=== PATIENT | female | born 1940 | race Caucasian/White ===

== ENCOUNTER 2020-05-12 13:02 | Inpatient (IN) | payer OTHER ==
--- OUTSIDE RECORDS SUMMARY | 2020-05-12 13:05 | XMS REPORT | Clinical Summary ---
:1940 Author Organization [facility] Address [address] [place] [address] Care Team Providers Name Role Phone MD Carmelo Primary Care Provider Allergies Active Allergy Reactions Severity Noted Date Comments Codeine GI Intolerance 12/29/2015 vomitting Prochlorperazine Anxiety Low 12/29/2015 Makes pt ve ry agitated and "beligerent." Meperidine GI Intolerance 12/29/2015 vomiting Oxycodone GI Intolerance 12/29/2015 Vomiting Penicillins Rash High 12/29/2015 Medications Medication Sig Dispensed Refills Start Date End Date Status ondansetron (ZOFRAN) 4 Take 4 mg by 0 12/18/2015 Active MG tablet mouth every 8 (eight) hours as needed for nausea or vomiting. sucralfate (CARAFATE) 1 Take 1 g by mouth 0 Active gram tablet 2 (two) times a day. amLODIPine (NORVASC) 5 Take 5 mg by 3 07/14/2016 Active mg tablet mouth daily. pantoprazole (PROTONIX) Take 40 mg by 0 Active 40 MG EC tablet mouth 2 (two) times a day. potassium chloride Take 20 mEq by 0 Active (K-DUR) 20 MEQ CR mouth 2 (two) tablet times a day. Active Problems Problem Noted Date Perforation of duodenum 02/13/2020 Epigastric pain 02/13/2020 Overview: Added automatically from request for pilar deborah [id number] Gastrointestinal hemorrhage associated with duodenitis 02/13/2020 Overview: Added automatically from request for pilar deborah [id number] Ulcerative esophagitis 08/05/2018 Gastric ulcer due to Helicobacter pylori, unspecified ulcer chronicity 08/05/2018 GI bleed 08/04/2018 Acute kidney injury superimposed on chronic kidney dis ease 08/04/2018 Enteritis 08/04/2018 Electrolyte abnormality 08/04/2018 Neutrophilic leukocytosis 08/04/2018 Adjustment reaction with anxiety and depression 2016 CAD (coronary artery disease) 12/29/2016 Intractable vomiting 07/19/2016 Abdominal pain 03/19/2016 Nausea and vomiting 02/24/2016 Diarrhea 02/24/2016 Anemia due to GI blood loss 12/30/2015 Osteoarthritis 12/30/2015 UTI (urinary tract infection) 12/30/2015 Edema 12/29/2015 Encounters Date Type Specialty Care Team Description 05/10/2020 Telephone Gastroenterology Cheri Coronado MD 05/09/2020 Telephone Gastroenterology Litzy Erickson MA 05/07/2020 Telephone Gastroenterology Litzy Erickson MA 05/04/2020 Telephone Gastroenterology Aisha Saavedra RN 02/20/2020 Telephone Gastroenterology Cheri Coronado, Duodena l ulcer (Primary Dx); MD Pre-op testing 02/16/2020 Surgery Gastroenterology Cheri Coronado, EGDW/bx 02/16/2020 Anesthesia Event Gastroenterology Dhother, Polo Aranda MD 02/13/2020 [facility] Internal [facility] Perfora tion of duodenum (HCC) (Primary Dx); - Encounter Medicine MD Christiane Duodenitis; 02/17/2020 Grover Navarrete [employer] gr[employer] nd vomiting; O. Sr., Epigastric pain ; Nausea and vomi ting, intractability of vomiting not specified, unspecified vomiting type; Gastrointestina l hemorrhage associated with duodenitis; Upper GI bleed 02/13/2020 Travel after 05/12/2019 Immunizations Name Administration Dates Next Due FLUZONE QUAD PF 02/26/2016 Surgical History Surgery Date Site/Laterality Comments BACK SURGERY 09/11/19 C3-4, C5-6 & C6- 7 Anterior 16 cervical discect pastora & fusion, C3-4 Posterior f usion ESOPHAGOGASTRODUODENOSCOPY 03/21/20 N/A Proce dure: (EGD) 16 ESOPHAGOGASTRODU ODENOSCOPY (EGD); Surgeon: Cheri Coronado MD; Loca tion: [facility]; Serv ice: Gastroenterology ; Laterality: N/A; JOINT REPLACEMENT R knee replace ment APPENDECTOMY CHOLECYSTECTOMY SECTION ESOPHAGOGASTRODUODENOSCOPY N/A Proce dure: (EGD) 7 ESOPHAGOGASTRODU ODENOSCOPY (EGD)/bx; Surge on: Cheri Coronado MD; Loca tion: [facility]; Serv ice: Gastroenterology ; Laterality: N/A; FOOT SURGERY Left joint fusion ESOPHAGOGASTRODUODENOSCOPY 08/05/2018 N/A Proce dure: (EGD) ESOPHAGOGASTRODU ODENOSCOPY (EGD) @ BEDSIDE with Cold Bx and Brushings; Surgeon: Cheri Coronado MD; Location: [facility] EN DOSCOPY; Service: Gastroe nterology; Laterality: N/A; UPPER GASTROINTESTINAL 10/27/19 [place] Grade A reflux esophagitis. ENDOSCOPY 19 Lifetime PPI to prevent ulcer recurrence. 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 C3 -C6 Edentulous Full dentures top/bottom Family History Medical History Relation Name Comments Hearing loss Father Heart disease Maternal Grandmother Hearing loss Mother Heart disease Mother Relation Name Status Comments Father Maternal Grandmother Mother Social History Tobacco Use Types Packs/Day Years Used Date Former Smoker Cigarettes 1 30 Smokeless Tobacco: Former User Q uit: 1994 Alcohol Use Drinks/Week oz/Week Comments Yes 1 drink/month, " if that" Sex Assigned at Date Recorded Not on file Job Start Date Occupation Industry Not on file Not on file Not on file Last Filed Vital Signs Vital Sign Reading Time Taken Comments Blood Pressure 116/65 02/17/2020 11:30 AM INSULATION MACHINE OPERATOR Pulse 59 02/17/2020 11:30 AM INSULATION MACHINE OPERATOR Temperature 36.7 C (98.1 F) 02/17/2020 11:30 AM INSULATION MACHINE OPERATOR Respiratory Rate 18 02/17/2020 11:30 AM INSULATION MACHINE OPERATOR Oxygen Saturation 99% 02/17/2020 11:30 AM INSULATION MACHINE OPERATOR Inhaled Oxygen Concentration - - Weight 92.2 kg (203 lb 4.8 oz) 02/17/2020 5:51 AM INSULATION MACHINE OPERATOR Height 165.1 cm (5' 5") 02/13/2020 12:19 PM INSULATION MACHINE OPERATOR Body Mass Index 33.83 02/13/2020 12:19 PM INSULATION MACHINE OPERATOR Plan of Treatment Health Maintenance Due Date Last Done Comments COVID-19 VACCINE (1 of 2) 1956 SHINGLES VACCINES (#1) 12/23/1989 65+ PNEUMOCOCCAL VACCINE (1 of 1 - PPSV23) 12/23/2004 INFLUENZA VACCINE 11/05/2019 02/26/2016 Procedures Procedure Name Priority Date/Time Associated Comments Diagnosis HC COMPLETE BLD COUNT W/AUTO Routine 02/17/2020 Results for DIFF 4:25 AM INSULATION MACHINE OPERATOR this procedure are in the results section. ESTIMATED GFR Routine 02/17/2020 Results for 4:00 AM INSULATION MACHINE OPERATOR this procedure are in the results section. MAGNESIUM LEVEL Routine 02/17/2020 Results for 4:00 AM INSULATION MACHINE OPERATOR this procedure are in the results section. BASIC METABOLIC PANEL Routine 02/17/2020 Result s for 4:00 AM INSULATION MACHINE OPERATOR this procedure are in the results section. BLOOD CULTURE, AEROBIC & Routine 02/16/2020 Res ults for ANAEROBIC 10:05 PM INSULATION MACHINE OPERATOR this procedure are in the results section. BLOOD CULTURE, AEROBIC & Routine 02/16/2020 Res ults for ANAEROBIC 9:50 PM INSULATION MACHINE OPERATOR this procedure are in the results section. TRANSFUSE RED BLOOD CELLS Routine 02/16/2020 1:44 PM INSULATION MACHINE OPERATOR SURGICAL PATHOLOGY REQUEST Routine 02/16/2020 R esults for 10:01 AM INSULATION MACHINE OPERATOR this procedure are in the results section. HC COMPLETE BLD COUNT W/AUTO Routine 02/16/2020 Results for DIFF 7:36 AM INSULATION MACHINE OPERATOR this procedure are in the results section. ESOPHAGOGASTRODUODENOSCOPY 02/16/2020 Perforation of (EGD) 6:54 AM INSULATION MACHINE OPERATOR duodenum (HCC) Epigastric pain Nausea and vomiting, intractability of vomiting not specified, unspecified vomiting type Gastrointestinal hemorrhage associated with duodenitis ESTIMATED GFR Routine 02/16/2020 Results for 4:20 AM INSULATION MACHINE OPERATOR this procedure are in the results section. MAGNESIUM LEVEL Routine 02/16/2020 Results for 4:20 AM INSULATION MACHINE OPERATOR this procedure are in the results section. BASIC METABOLIC PANEL Routine 02/16/2020 Result s for 4:20 AM INSULATION MACHINE OPERATOR this procedure are in the results section. MAGNESIUM LEVEL Routine 02/16/2020 Results for 2:30 AM INSULATION MACHINE OPERATOR this procedure are in the results section. BASIC METABOLIC PANEL Routine 02/16/2020 Result s for 2:30 AM INSULATION MACHINE OPERATOR this procedure are in the results section. HC COMPLETE BLD COUNT W/AUTO Routine 02/16/2020 Results for DIFF 2:30 AM INSULATION MACHINE OPERATOR this procedure are in the results section. POC GLUCOSE Routine 02/15/2020 Results for 8:57 PM INSULATION MACHINE OPERATOR this procedure are in the results section. POC GLUCOSE Routine 02/15/2020 Results for 11:37 AM INSULATION MACHINE OPERATOR this procedure are in the results section. POC GLUCOSE Routine 02/15/2020 Results for 7:33 AM INSULATION MACHINE OPERATOR this procedure are in the results section. POC GLUCOSE Routine 02/15/2020 Results for 4:54 AM INSULATION MACHINE OPERATOR this procedure are in the results section. ESTIMATED GFR Routine 02/15/2020 Results for 12:30 AM INSULATION MACHINE OPERATOR this procedure are in the results section. LIPID PANEL Routine 02/15/2020 Results for 12:30 AM INSULATION MACHINE OPERATOR this procedure are in the results section. THYROID STIMULATING HORMONE Routine 02/15/2020 Results for 12:30 AM INSULATION MACHINE OPERATOR this procedure are in the results section. T4, FREE Routine 02/15/2020 Results for 12:30 AM INSULATION MACHINE OPERATOR this procedure are in the results section. BASIC METABOLIC PANEL Routine 02/15/2020 Result s for 12:30 AM INSULATION MACHINE OPERATOR this procedure are in the results section. HC COMPLETE BLD COUNT W/AUTO Routine 02/15/2020 Results for DIFF 12:30 AM INSULATION MACHINE OPERATOR this procedure are in the results section. POC GLUCOSE Routine 02/15/2020 Results for 12:27 AM INSULATION MACHINE OPERATOR this procedure are in the results section. POC GLUCOSE Routine 02/14/2020 Results for 9:30 PM INSULATION MACHINE OPERATOR this procedure are in the results section. POC GLUCOSE Routine 02/14/2020 Results for 6:21 PM INSULATION MACHINE OPERATOR this procedure are in the results section. POC GLUCOSE Routine 02/14/2020 Results for 12:44 PM INSULATION MACHINE OPERATOR this procedure are in the results section. POC GLUCOSE Routine 02/14/2020 Results for 8:15 AM INSULATION MACHINE OPERATOR this procedure are in the results section. POC GLUCOSE Routine 02/14/2020 Results for 6:19 AM INSULATION MACHINE OPERATOR this procedure are in the results section. POC GLUCOSE Routine 02/14/2020 Results for 1:23 AM INSULATION MACHINE OPERATOR this procedure are in the results section. ESTIMATED GFR Routine 02/14/2020 Results for 1:00 AM INSULATION MACHINE OPERATOR this procedure are in the results section. LACTIC ACID LEVEL Routine 02/14/2020 Results fo r 1:00 AM INSULATION MACHINE OPERATOR this procedure are in the results section. MAGNESIUM LEVEL Routine 02/14/2020 Results for 1:00 AM INSULATION MACHINE OPERATOR this procedure are in the results section. PHOSPHORUS LEVEL Routine 02/14/2020 Results for 1:00 AM INSULATION MACHINE OPERATOR this procedure are in the results section. HC COMPLETE BLD COUNT W/AUTO Routine 02/14/2020 Results for DIFF 1:00 AM INSULATION MACHINE OPERATOR this procedure are in the results section. BASIC METABOLIC PANEL Routine 02/14/2020 Result s for 1:00 AM INSULATION MACHINE OPERATOR this procedure are in the results section. POC GLUCOSE Routine 02/13/2020 Results for 8:59 PM INSULATION MACHINE OPERATOR this procedure are in the results section. LACTIC ACID LEVEL, SEPSIS - NOW Timed 02/13/2020 Results for AND REPEAT 2X EVERY 3 HOURS 7:48 PM INSULATION MACHINE OPERATOR this procedure are in the results section. LACTIC ACID LEVEL, SEPSIS - NOW Timed 02/13/2020 Results for AND REPEAT 2X EVERY 3 HOURS 4:14 PM INSULATION MACHINE OPERATOR this procedure are in the results section. GASTRIN LEVEL Routine 02/13/2020 Results for 4:03 PM INSULATION MACHINE OPERATOR this procedure are in the results section. COVID-19 QUALITATIVE PCR STAT 02/13/2020 Res ults for 2:40 PM INSULATION MACHINE OPERATOR this procedure are in the results section. CT ABDOMEN PELVIS WO CONTRAST STAT 02/13/2020 Results for 2:08 PM INSULATION MACHINE OPERATOR this procedure are in the results section. ECG ED PRELIMINARY Routine 02/13/2020 Results f or INTERPRETATION 1:37 PM INSULATION MACHINE OPERATOR this procedure are in the results section. [facility], E/M 30-74 Routine 02/13/2020 Results for MINUTES 1:37 PM INSULATION MACHINE OPERATOR this procedure are in the results section. PREPARE RBC STAT 02/13/2020 Results for 12:44 PM INSULATION MACHINE OPERATOR this procedure are in the results section. LACTIC ACID LEVEL STAT 02/13/2020 Results fo r 12:44 PM INSULATION MACHINE OPERATOR this procedure are in the results section. ESTIMATED GFR STAT 02/13/2020 Results for 12:44 PM INSULATION MACHINE OPERATOR this procedure are in the results section. LIPASE LEVEL STAT 02/13/2020 Results for 12:44 PM INSULATION MACHINE OPERATOR this procedure are in the results section. COMPREHENSIVE METABOLIC PANEL STAT 02/13/2020 Results for 12:44 PM INSULATION MACHINE OPERATOR this procedure are in the results section. TYPE AND SCREEN STAT 02/13/2020 Results for 12:44 PM INSULATION MACHINE OPERATOR this procedure are in the results section. PROTHROMBIN TIME WITH INR STAT 02/13/2020 Re sults for 12:44 PM INSULATION MACHINE OPERATOR this procedure are in the results section. HC COMPLETE BLD COUNT W/AUTO STAT 02/13/2020 Results for DIFF 12:44 PM INSULATION MACHINE OPERATOR this procedure are in the results section. ECG 12-LEAD STAT 02/13/2020 Results for 12:25 PM INSULATION MACHINE OPERATOR this procedure are in the results section. after 05/12/2019 Results CBC with platelet and differential (02/17/2020 4:25 AM INSULATION MACHINE OPERATOR)Only the most recent of6 resultswithin the time period is included. WBC 7.85 4.50 - 11.00 [facility] k/uL HOSPITAL RBC 3.68 (L) 4.20 - 5.50 [facility] m/uL [facility] HGB 10.0 (L) 12.0 - 16.0 [facility] g/dL [facility] HCT 33.3 (L) 37.0 - 47.0 % [facility] MCV 90.5 82.0 - 100.0 [facility] MCH 27.2 27.0 - 34.0 pg [facility] MCHC 30.0 (L) 31.0 - 37.0 [facility] g/dL [facility] RDW - SD 48.5 37.0 - 55.0 fL [facility] MPV 11.5 8.8 - 13.2 fL [facility] Platelet count 193 150 - 400 k/uL [facility] Nucleated RBC 0.00 /100 WBC [facility] Neutrophils 62.4 39.0 - 69.0 % [facility] Lymphocytes 20.0 (L) 25.0 - 45.0 % [facility] Monocytes 15.2 (H) 0.0 - 10.0 % [facility] Eosinophils 1.0 0.0 - 5.0 % [facility] Basophils 0.5 0.0 - 1.0 % [facility] Immature granulocytes 0.9Comment: 0.0 - 1.0 % [facility] "Immature HOSPITAL granulocytes" (promyelocytes , myelocytes, metamyelocytes ) Specimen Plasma Performing Organization Address City/State/ZIP Code Phon e Number [facility] DEPARTMENT OF PATHOLOGY AND [address] [place] [address] [phone] [address] Estimated GFR (02/17/2020 4:00 AM INSULATION MACHINE OPERATOR)Only the most recent of5 resultswithin the time period is included. Estimated GFR 48 (A) mL/min/1.73 [facility] Comment: m2 HOSPITAL Catergory Units Interpretation G1 >=90 Normal or high G2 60-89 Mildly decreased G3a 45-59 Mildly to moderately decreas ed G3b 30-44 Moderately to severely decre ased G4 15-29 Severely decreased G5 <15 Kidney failure The eGFR was calculated using the Chronic Kidney Disea se Epidemiology Collaboration (CKD-EPI) equation. Interpretation is based on recommendations of the National Kidney Foundation-Kidney Disease Outcomes Shun lity Initiative (NKF-KDOQI) published in 2014. Specimen Plasma Performing Organization Address [facility] Phon e Number [facility] DEPARTMENT OF PATHOLOGY AND [address] [place] [phone] Magnesium level (02/17/2020 4:00 AM INSULATION MACHINE OPERATOR)Only the most recent of4 resultswithin the time period is included. Pathologist Sig nature Magnesium 1.9 1.6 - 2.4 mg/dL [facility] [place] L Specimen Plasma Performing Organization Address City/[facility]/ZIP [facility] Phon e Number [facility] DEPARTMENT OF PATHOLOGY AND [address] [place] [address] [phone] [address] Basic metabolic panel (02/17/2020 4:00 AM INSULATION MACHINE OPERATOR)Only the most recent of5 results within the time period is included. Pathologist Sig nature Sodium 134 (L) 135 - 148 mEq/L [facility] Potassium 3.9 3.5 - 5.0 mEq/L [facility] Chloride 102 98 - 112 mEq/L [facility] CO2 25 24 - 31 mEq/L [facility] Anion gap 7@ANIO 7 - 15 mEq/L [facility] BUN 15 8 - 23 mg/dL [facility] Creatinine 1.08 (H) 0.50 - 0.90 mg/dL [facility] Glucose 118 (H) 65 - 99 mg/dL [facility] Calcium 8.0 (L) 8.8 - 10.2 mg/dL [facility] Specimen Plasma Performing Organization Address City/[facility] Phon e Number [facility] DEPARTMENT OF PATHOLOGY AND [address] [place] [address] [phone] [address] Blood culture, aerobic & anaerobic (02/16/2020 10:05 PM INSULATION MACHINE OPERATOR)Only the most recent of2 resultswithin the time period is included. Blood culture No growth after 5 days of incubation. [facility] isolate Comment: HOSPITAL Specimen Information Specimen Source: Blood Specimen Site: Antecubital, right Specimen Blood - Antecubital, right Performing Organization Address [facility] Phon e Number [facility] DEPARTMENT OF PATHOLOGY AND [address] [place] [address] [phone] [address] Transfuse RBC (02/16/2020 1:44 PM INSULATION MACHINE OPERATOR)Surgical pathology request (02/16/2020 10:01 AM INSULATION MACHINE OPERATOR) [facility] DEPARTMENT OF PATHOLOGY AND GENOMIC MEDICINE Surgical pathology See link below [facility] DEPARTMENT OF report for PDF Lab PATHOLOGY AND Report GENOMIC MEDICINE Result status This is Final [facility] DEPARTMENT OF Report for PATHOLOGY AND [id number] GENOMIC MEDICINE Specimen Performing Organization Address [facility] Phon e Number [facility] DEPARTMENT OF PATHOLOGY AND [address] [place] [phone] GENOMIC MEDICINE POC glucose (02/15/2020 8:57 PM INSULATION MACHINE OPERATOR)Only the most recent of12 resultswithin the time period is included. Pathologist Sig nature POC glucose 123 (H) 65 - 99 mg/dL [facility] Comment: HOSPITAL Rate Supervisor Name: Sherrill Richey Device ID: [id number] Chartable: [facility] Notified RN Specimen Blood Performing Organization Address [facility] Phon e Number [facility] DEPARTMENT OF PATHOLOGY AND [address] [place] [address] [phone] [address] Thyroid stimulating hormone (02/15/2020 12:30 AM INSULATION MACHINE OPERATOR) Pathologist Sig nature TSH 0.89 0.27 - 4.20 uIU/mL [facility] ITAL Specimen Plasma Performing Organization Address City/[facility] Phon e Number [facility] DEPARTMENT OF PATHOLOGY AND [address] [place] [address] [phone] [address] T4, free (02/15/2020 12:30 AM INSULATION MACHINE OPERATOR) Pathologist Sig nature T4, free 1.1 0.9 - 1.7 ng/dL [facility] [place] L Specimen Plasma Performing Organization Address [facility] Phon e Number [facility] DEPARTMENT OF PATHOLOGY AND [address] [place] [address] [phone] [address] Lipid panel (02/15/2020 12:30 AM INSULATION MACHINE OPERATOR) Cholesterol 112 <200 mg/dL [facility] Triglycerides 142 <150 mg/dL [facility] HDL cholesterol 32 (L) >40 mg/dL [facility] LDL cholesterol 63Comment: Result <100 mg/dL [facility] obtained by direct [facility] LDL measurement [facility] interpretation Comment: [facility] Total Cholesterol (mg/dL) HOSPIT [place] <200 Desirable 200-239 Borderline-high >=240 High Triglycerides (mg/dL) <150 Normal 150-199 Borderline-high 200-499 High >=500 Very high HDL Cholesterol (mg/dL) <40 Low (male) <40 Low (female) LDL Cholesterol (mg/dL) <100 Optimal 100-129 Near or above optimal 130-159 Borderline-high 160-189 High >=190 Very high Risk Catergories that modify LDL goals. Risk Catergories LDL goal (mg/d L) CHD and CHD risk equivalent <100 (10-year risk >20%) Multiple (2+) risk factors <130 (10-year risk =<20%) 0-1 risk factors <160 (<10-year risk) Defining levels of lipids in metabolic syndrome Triglycerides >=150 mg/dL HDL Cholesterol Men <40 mg /dL Women <40 mg/ dL Non-HDL cholesterol is a second target for therapy in persons with high triglycerides (>=200 mg/dL) Specimen Plasma Performing Organization Address City/[facility] Phon e Number [facility] DEPARTMENT OF PATHOLOGY AND [address] [place] [phone] Phosphorus level (02/14/2020 1:00 AM INSULATION MACHINE OPERATOR) Pathologist Sig nature Phosphorus 3.1 2.4 - 4.5 mg/dL [facility] [place] L Specimen Plasma Performing Organization Address [facility] Phon e Number [facility] DEPARTMENT OF PATHOLOGY AND [address] [place] [phone] Lactic acid level (02/14/2020 1:00 AM INSULATION MACHINE OPERATOR)Only the most recent of2 results within the time period is included. Pathologist Sig nature Lactic acid 1.1 0.5 - 2.2 mmol/L [facility] [place] Specimen Plasma Performing Organization Address [facility] Phon e Number [facility] DEPARTMENT OF PATHOLOGY AND [address] [place] [phone] Lactic acid level, SEPSIS - Now and repeat 2x every 3 hours (02/13/2020 7:48 PM INSULATION MACHINE OPERATOR)Only the most recent of2 resultswithin the time period is included. Pathologist Sig nature Lactic acid 1.3 0.5 - 2.2 mmol/L [facility] [place] Specimen Blood Performing Organization Address [facility] Phon e Number [facility] DEPARTMENT OF PATHOLOGY AND [address] [place] [phone] Gastrin level (02/13/2020 4:03 PM INSULATION MACHINE OPERATOR) Pathologist Sig nature Gastrin 183 (H) 0 - 100 pg/mL [facility] Comment: Performed By: [employer] [address] [place] [address] It Network Administrator: Ingrid Miller MD Specimen Serum Performing Organization Address [facility] Phon e Number [facility] [address] [place] [address] [facility] [address] [place] [address] COVID-19 qualitative PCR (02/13/2020 2:40 PM INSULATION MACHINE OPERATOR) Interpretation Negative results do not prec lude 2019-nCoV infection and should not be used as the sole basis for treatment or other patient management decisions. Negative results must be combined with clinical observations, patient history, and epidemiological IRONS information. [facility] COVID-19 qualitative Not-Detected Not-Detecte IRONS PCR result d [facility] COVID-19 qualitative See link below for IRONS PCR PDF Lab CHEONDOISM ReportComment: Case HOSPITAL Number: [id number] Specimen Nasopharyngeal swab Performing Organization Address City/State/ZIP Code Phon e Number [facility] DEPARTMENT OF PATHOLOGY AND [address] [place], [place] [address] GENOMIC MEDICINE [facility] [address] [place] [address] [facility] CT Abdomen Pelvis Wo Contrast (02/13/2020 2:08 PM INSULATION MACHINE OPERATOR) Specimen Narrative Performed At EXAMINATION: CT ABDOMEN PELVIS WO CONT RAST [facility] CLINICAL HISTORY: 79 years old Female. Abd pain unsp ecified, Abd pain gastroenteritis or colitis suspected. TECHNIQUE: Multiple axial images of the abdomen and pelvis were obtained without intravenous administration of iodinat ed contrast. Oral contrast was not administered. Sagittal and coronal co mputerized reformatted images were also obtained. T he lack of intravenous contrast reduces the sensitivity of detect ing solid organ disease. CT imaging was performed with iterative recon struction techniques and/or automated exposure con trol to reduce radiation dose. COMPARISON: CT abdomen pelvis 7 IMPRESSION: LOWER CHEST: Visualized lower thorax: Lung bases: No significant pleural effus ion. Lower mediastinum: Cardiac size is normal. No pericard ial effusion. Atherosclerotic calcification of the coronary arteri es. Aortic valve leaflet and mitral annular calcification s. ABDOMEN: Upper abdominal organs: Liver: Noncontrast appearance of the liver is normal. Measures 13.4 cm in craniocaudal dimension with a smooth contour. Gallbladder: Cholecystectomy. Spleen: Normal. Pancreas: Normal. Adrenal Glands: Mild thickening of the left adrenal gl and with normal adreniform morphology. Kidneys: 2 mm nonobstructive nephrolithiasis in the ri ght kidney inferior pole. No hydronephrosis. Bowel and mesentery: There is suggestion of mild wall thickening involving the second/third duodenal segment with adjac ent inflammatory fat stranding and hyperdense material within the lumen (series 301, image 81). There is a bubble of gas with in the wall of the duodenum (series 601B, image 49). Remainin g large and small bowel are normal in caliber. Diverticulosis of the joey cending and sigmoid colon. No free intraperitoneal g as or fluid. Vasculature: Abdominal aorta is of normal caliber. Mod erate atherosclerotic disease of the abdomin al aorta and branch vessels. Lymph nodes: No abdominal or retroperito aracelis lymphadenopathy. PELVIS: Urinary bladder: Normal. Lymph nodes: No pelvic lymphadenopathy. MUSCULOSKELETAL: No suspicious lytic or blastic osseous lesions. Ventra l abdominal hernia mesh repair postoperative changes. Age appropriate deg enerative changes of the spine. Chronic T11 superior endplate and T12 in ferior endplate compression fractures. Chronic T9 vertebral compression fracture. 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 SUMMARY: 1. Apparent wall thickening of the second/third duoden al segments with surrounding inflammatory fat stranding c oncerning for duodenitis. 2. Bubble of gas within the wall of the second/third d uodenal segment, likely early microperforation in the set ting of peptic ulcer disease. 3. High density intraluminal contents within the proxi mal duodenum, possibly intraluminal hemorrhage or ingested material. Correlation with endoscopy, if indicated clinically. Findings of suspected duodenitis with early microperfo ration were discussed by phone with Dr. Gregory by Dr. Curran at 02/13/2020 2:22 PM. [id number] Procedure Note Hm Interface, Radiology Results Incoming - 02/13/2020 2:27 PM INSULATION MACHINE OPERATOR EXAMINATION: CT ABDOMEN PELVIS WO CONTRAST CLINICAL HISTORY: 79 years old Female. A bd pain unspecified, Abd pain gastroenteritis or colitis suspected. TECHNIQUE: Multiple axial images of the abdomen and pelvis were obtained without intravenous administration of iodinated contrast. Oral contrast was not administered. Sagittal and coronal computerized reformatted images were also obtained. The lack of intravenous contrast reduces the sensiti vity of detecting solid organ disease. CT imaging was performed with iterative reconstruction techniques and/or automated exposure control to reduce radiation dose. COMPARISON: CT abdomen pelvis 12/28/2016 IMPRESSION: LOWER CHEST: Visualized lower thorax: Lung bases: No significant pleural effus ion. Lower mediastinum: Cardiac size is lópez l. No pericardial effusion. Atherosclerotic calcification of the coronary arteries. Aortic valve leaflet and mitral annular calcifications. ABDOMEN: Upper abdominal organs: Liver: Noncontrast appearance of the martin er is normal. Measures 13.4 cm in craniocaudal dimension with a smooth contour. Gallbladder: Cholecystectomy. Spleen: Normal. Pancreas: Normal. Adrenal Glands: Mild thickening of the l eft adrenal gland with normal adreniform morphology. Kidneys: 2 mm nonobstructive nephrolithi asis in the right kidney inferior pole. No hydronephrosis. Bowel and mesentery: There is suggestion of mild wall thickening involving the second/third duodenal segment with adjacent inflammatory fat stranding and hyperdense material within the lumen (series 301, image 81). There is a bubble of gas within the wall of the duodenum (series 601B, image 49). Remaining large and small bowel are normal in caliber. Diverticulosis of the descending and sigmoid colon. No free intraperitoneal gas or fluid. Vasculature: Abdominal aorta is of lópez l caliber. Moderate atherosclerotic disease of the abdominal aorta and branch vessels. Lymph nodes: No abdominal or retroperito aracelis lymphadenopathy. PELVIS: Urinary bladder: Normal. Lymph nodes: No pelvic lymphadenopathy. MUSCULOSKELETAL: No suspicious lytic or blastic osseous l esions. Ventral abdominal hernia mesh repair postoperative changes. Age appropriate degenerative changes of the spine. Chronic T11 superior endplate and T12 inferior endplate compression fractures. Chronic T9 vertebral compression fracture. Severe r ight and mild left hip osteoarthritis. SUMMARY: 1. Apparent wall thickening of the secon d/third duodenal segments with surrounding inflammatory fat stranding concerning for duodenitis. 2. Bubble of gas within the wall of the second/third duodenal segment, likely early microperforation in the setting of peptic ulcer disease. 3. High density intraluminal contents wi thin the proximal duodenum, possibly intraluminal hemorrhage or ingested material. Correlation with endoscopy, if indicated clinically. Findings of suspected duodenitis with ea rly microperforation were discussed by phone with Dr. Gregory by Dr. Curran at 02/13/2020 2:22 PM. [id number] Performing Organization Address City/State/ZIP Code [facility] e Number [facility] [address] [place] [address] ECG ED Preliminary Interpretation - Not an Order (02/13/2020 1:37 PM INSULATION MACHINE OPERATOR) Narrative Performed At Gonzalez Conner MD 0 11:34 AM ECG ED Preliminary Interpretation - Not an Order Performed by: Gonzalez Conner MD Authorized by: Gonzlaez Conner MD ECG reviewed by ED Physician in the abse nce of a accounts receivable associate: yes Previous ECG: Previous ECG: Unavailable Interpretation: Interpretation: abnormal Rate: ECG rate: 88 ECG rate assessment: normal Rhythm: Rhythm: sinus rhythm Ectopy: Ectopy: none QRS: QRS axis: Normal QRS intervals: Normal Conduction: Conduction: abnormal Abnormal conduction: complete RBBB ST segments: ST segments: Normal T waves: T waves: normal CRITICAL CARE (02/13/2020 1:37 PM INSULATION MACHINE OPERATOR) Narrative Performed At Gonzalez Conner MD 0 11:34 AM Critical Care Performed by: Gonzalez Conner MD Authorized by: Gonzalez Conner MD Critical care provider statement: Critical care time (minutes): 35 Critical care time was exclusive of: Separately b illable procedures and treating other patients and teaching louisa e Critical care was necessary to treat or prevent imminent or life-threatening deterioration of the fo llowing conditions: stomach perforatin. Critical care was time spent personal ly by me on the following activities: Development of treatment p richi with patient or surrogate, discussions with consultants, evaluation of patient's response to treatment, examination of patient, inter pretation of cardiac output measurements, obtaining history from pat ient or surrogate, ordering and performing treatments and interventions, ordering and review of laboratory studies, ordering and review of radiogra phic studies, pulse oximetry, re-evaluation of patient's condition and review of old charts Feng 'yes' if you are taking over critical care for this patient from another provider.: no Prothrombin time with INR (02/13/2020 12:44 PM INSULATION MACHINE OPERATOR) Prothrombin time 14.0 11.5 - 14.5 [facility] INR 1.1 IRONS Comment: [facility] International Normalized Ratio (INR) is a [facility] monitoring tool for patients who are stable on oral anticoagulant therapy. An INR of 2.0-3.0 is suggested for deep vein thrombosis/pulmonary embolism. Specimen Blood Performing Organization Address City/State/ZIP Code Phon e Number [facility] DEPARTMENT OF PATHOLOGY AND [address] [place], [place] [address] GENOMIC MED[address] [address] Prepare RBC, 1 Units (02/13/2020 12:44 PM INSULATION MACHINE OPERATOR) Product name Red Blood Cells IRONS -1, Leukored [facility] Unit number [id number] [facility] Product code [id number] [facility] Dispense status Transfused [facility] Blood expiration date [id number] [facility] Blood type code 9500 [facility] Blood type O NEGATIVE [facility] Compatibility Compatible [facility] Specimen Plasma Performing Organization Address City/[facility]/ZIP [facility] Phon e Number [facility] DEPARTMENT OF PATHOLOGY AND [address] [place] [address] [phone] [address] Type and screen (02/13/2020 12:44 PM INSULATION MACHINE OPERATOR) Pathologist Sig nature ABO grouping O [facility] Rh type POS [facility] Antibody screen (gel) NEG [facility] Specimen Plasma Performing Organization Address City/[facility] Phon e Number [facility] DEPARTMENT OF PATHOLOGY AND [address] [place] [address] [phone] [address] Lipase level (02/13/2020 12:44 PM INSULATION MACHINE OPERATOR) Pathologist Sig nature Lipase 9 (L) 13 - 60 U/L [facility] Specimen Plasma Performing Organization Address City/[facility] Phon e Number [facility] DEPARTMENT OF PATHOLOGY AND [address] [place] [address] [phone] [address] Comprehensive metabolic panel (02/13/2020 12:44 PM INSULATION MACHINE OPERATOR) Sodium 140 135 - 148 [facility] mEq/L [facility] Potassium 3.5 3.5 - 5.0 [facility] mEq/L [facility] Chloride 95 (L) 98 - 112 [facility] mEq/L [facility] CO2 28 24 - 31 mEq/L [facility] Anion gap 17@ANIO (H) 7 - 15 mEq/L [facility] BUN 43 (H) 8 - 23 mg/dL [facility] Creatinine 1.58 (H) 0.50 - 0.90 [facility] mg/dL [facility] Glucose 147 (H) 65 - 99 mg/dL [facility] Calcium 8.9 8.8 - 10.2 [facility] mg/dL HOSPITAL Protein 7.6 6.3 - 8.3 [facility] Comment: g/dL HOSPITAL - 4.6-7.0 g/dL 1 week 4.4-7.6 g/dL 7 months-1year 5.1-7.3 g/dL 1-2 years 5.6-7.5 g/dL >3 years 6.0-8.0 g/dL 18-150 6.3-8.3 g/dL Albumin 4.0 3.5 - 5.0 [facility] g/dL [facility] A/G ratio 1.1 0.7 - 3.8 [facility] Alkaline phosphatase 108 (H) 35 - 104 U/L [facility] AST 13 10 - 35 U/L [facility] ALT 11 5 - 50 U/L [facility] Total bilirubin 0.5 0.0 - 1.2 [facility] mg/dL HOSPITAL Specimen Plasma Performing Organization Address City/[facility] Phon e Number [facility] DEPARTMENT OF PATHOLOGY AND [address] [place] [phone] GENOMIC MEDICINE [facility] [address] [place] [address] ECG 12 lead (02/13/2020 12:25 PM INSULATION MACHINE OPERATOR) Pathologist Sig nature Ventricular rate 88 [facility]USE Atrial rate 88 [facility] MUSE VA interval 144 [facility]USE QRSD interval 134 [facility] QT interval 400 [facility] QTC interval 484 [facility] MUSE P axis 1 21 [facility] QRS axis 1 -70 [facility]USE T wave axis 67 [facility] EKG impression Normal sinus rhythm-Right bu ndle branch block-Left anterior fascicular block-^^^ Bifascicular block ^^^-Left ventricular hypertrophy with repolarization abnormality-Abnormal ECG-In automated comparison [facility] MUSE with ECG of 05-AUG-2018 05:47,-No significant change was found-Electronically Si gned By Leonidas Pulido MD ([id number]) on 02/13/2020 4:01:03 PM Specimen Narrative Performed At This result has an attachment that is no t available. Performing Organization Address City/[facility] Phon e Number [facility] [address] [place] [address] after 05/12/2019 Insurance Payer Benefit Plan / Subscriber ID Effective Dates Phone Addre ss Type Group MEDICARE MEDICARE PART A [id number] 2004-Present [place], [place] Medicare AND B AETNA AETNA MEDICARE [id number] 2019-Present Commercial SUPPLEMENT Advance Directives For more information, please contact: [phone] Type Date Recorded Patient Black Leather Buffer Explanati on Advance Directives, 08/08/2015 1:19 PM Living Will and Medical Power of Attorney Law Clerk Advance Directives, 09/11/2015 8:20 AM Living Will and Medical Power of Attorney Law Clerk Advance Directives, 11/05/2015 10:08 AM Living Will and Medical Power of Attorney Law Clerk Advance Directives, Living Will and Medical Power of Attorney Law Clerk Advance Directives, 12/28/2016 7:22 PM PT DOESN' T HAVE WITH Living Will and HER Medical Power of Attorney Law Clerk Code Status Date Activated Date Inactivated Comments Full Code 12/29/2016 2:36 AM 01/01/2017 4:09 PM Code Status decision reached by: Patient Full Code 07/19/2016 8:25 PM 07/21/2016 9:29 PM Code Status decision reached by: Patient Full Code 03/19/2016 12:27 AM 03/21/2016 4:18 PM Code Status decision reached by: Patient Full Code 02/24/2016 3:01 PM 02/27/2016 1:51 PM Code Status decision reached by: Patient Full Code 12/29/2015 2:19 PM 01/02/2016 3:08 PM Code Status decision reached by: Patient
--- OUTSIDE RECORDS SUMMARY | 2020-05-12 13:06 | XMS REPORT | Continuity of Care Document ---
:1940 Author Organization [facility] t Address [address] [place] [address] Care Team Providers Name Role Phone Carmelo LO Primary Care Physician Cliff LO, L. Attending Clinician Dre GARDNER Attending Clinician Unavailable Quentin NICOLE Attending Clinician Unavailable Nancy NICOLE, A Attending Clinician Unavailable Yunier LO Attending Clinician Santino LO, Mindy Attending Clinician Santino LO Attending Clinician Anton LO Attending Clinician Antonino Atkins MD Attending Clinician Chantel LO, Rolando Attending Clinician Dalila LO, [facility] Attending Clinician Terrance LO, ODaniel Attending Clinician Lokesh LO, Manoj Attending Clinician Santino LO, Mindy Admitting Clinician TERRANCE Admitting Clinician Unavailable Payers Payer Name Policy Type Policy Effective Date Expiration Date Sour ce Number MEDICAREMEDICARE PART [id number] 2004 Tonio Mak AND 00:00:00 Rastafari [id number] 2004- [facility] AETNAAETNA MEDICARE [id number] 2019 [place] [id number] 00:00:00 Met clark /04/2019-Urbano sanchez Problems Condition Condition Condition Status Onset Resolution Last Treating Co mments Source Name Details Category Date Date Treatment Clinician Date Perforatio Perforatio Disease Active 2019-04 H yaa n of n of 04-14 Methodi duodenum duodenum 00:00: st 00 Epigastric Epigastric Disease Active 2019-04 Overview : [place] pain pain 04-14 Added Methodi 00:00: automatic st 00 ally from request for surgery [id number] Gastrointe Gastrointe Disease Active 2019-04 Overview : [place] stinal stinal 04-14 Added Methodi hemorrhage hemorrhage 00:00: automatic st associated associated 00 ally from with with request duodenitis duodenitis for surgery [id number] 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 08-05 Me thodi s s 00:00: st 00 Gastric Gastric Disease Active [place] ulcer due ulcer due 08-05 Meth evan to to 00:00: st Helicobact Helicobact 00 er pylori, er pylori, unspecifie unspecifie d ulcer d ulcer chronicity chronicity GI bleed GI bleed Disease Active [place] 08-04 Methodi 00:00: st 00 Acute Acute Disease Active [place] kidney kidney 08-04 Methodi injury injury 00:00: st superimpos superimpos 00 ed on ed on chronic chronic kidney kidney disease disease Enteritis Enteritis Disease Active Juan Alberto ston 08-04 Methodi 00:00: st 00 Electrolyt Electrolyt Disease Active H yaa e e 08-04 Methodi abnormalit abnormalit 00:00: st y y 00 Neutrophil Neutrophil Disease Active H yaa ic ic 08-04 Methodi leukocytos leukocytos 00:00: st is is 00 Adjustment Adjustment Disease Active H yaa reaction reaction 01-01 Method i with with 00:00: st anxiety anxiety 00 and and depression depression CAD CAD Disease Active [place] (coronary (coronary 12-29 Meth evan artery artery 00:00: st disease) disease) 00 Intractabl Intractabl Disease Active [place] e vomiting e vomiting 4-15 Me thodi 00:00: st 00 Abdominal Abdominal Disease Active 2015-04 Juan Alberto ston pain pain 2-14 Methodi 00:00: st 00 Nausea and Nausea and Disease Active 2015-04 [place] vomiting vomiting 1-20 Method i 00:00: st 00 Diarrhea Diarrhea Disease Active 2015-04 [place] 1-20 Methodi 00:00: st 00 Anemia due Anemia due Disease Active [place] to GI to GI 12-29 Methodi blood loss blood loss 00:00: st 00 Osteoarthr Osteoarthr Disease Active [place] itis itis 12-29 Methodi 00:00: st 00 UTI UTI Disease Active [place] (urinary (urinary 12-29 Method i tract tract 00:00: st infection) infection) 00 Edema Edema Disease Active [place] 12-28 Methodi 00:00: st 00 Allergies, Adverse Reactions, Alerts Allergy Allergy Status Severity Reaction(s) Onset Inactive Treating Comm ents Source Name Type Date Date Clinician Codeine Propensi Active GI vomitting [place] ty to Intolerance 12-28 Metho di adverse 00:00: st reaction 00 s to drug Prochlor Propensi Active Anxiety Makes pt Juan Alberto ston perazine ty to 12-28 very Methodi adverse 00:00: agitated st reaction 00 and s to "beligere drug nt." Meperidi Propensi Active GI vomiting [place] ty to Intolerance 12-28 Metho di adverse 00:00: st reaction 00 s to drug Oxycodon Propensi Active GI Vomiting [place] ty to Intolerance 12-28 Metho di adverse 00:00: st reaction 00 s to drug Penicill Propensi Active Rash [place] ins ty to 12-28 Methodi adverse 00:00: st reaction 00 s to drug Family History Family Member Diagnosis Comments Start Date Stop Date Source Natural father Hearing loss [place] Rastafari Maternal grandmother Heart disease H yaa Rastafari Natural mother Hearing loss [place] Rastafari Natural mother Heart disease [place] Rastafari Social History Social Habit Start Date Stop Date Quantity Comments Source History of tobacco Cigarette Smoker [place] use Rastafari Sex Assigned At [place] Rastafari Cigarettes smoked 2020-02-17 2020-02-17 [place] current (pack per 00:00:00 00:00:00 Methodi ) - Reported Cigarette 2020-02-17 2020-02-17 [place] pack-years 00:00:00 00:00:00 Rastafari Tobacco use and 2020-02-17 2020-02-17 Former user [place] exposure 00:00:00 00:00:00 Rastafari Alcohol intake 2020-02-17 2020-02-17 Current drinker [place] 00:00:00 00:00:00 of alcohol Rastafari (finding) Alcohol Comment 2016-07-19 2016-07-19 1 drink/month, [place] 00:00:00 00:00:00 "if that" Rastafari Smoking Status Start Date Stop Date Source Former smoker 2020-02-17 00:00:00 2020-02-17 00:00:00 [place] Rastafari Medications Ordered Filled Start Stop Current Ordering Indication Dosage Frequency Signature Comments Components Source Medication Medication Date Date Medication? Clinician (SIG) Name Name sucralfate 2019-04 Yes 1g Q.5D Take 1 g Juan Alberto ston (CARAFATE) 1-13 by mouth 2 Met hodi 1 gram 15:42: (two) st tablet 05 times a day. pantoprazol 2019-04 Yes 40mg Q.5D Take 40 mg Norris e 1-13 by mouth 2 Methodi (PROTONIX) 15:42: (two) st 40 MG EC 05 times a tablet day. potassium 2019-04 Yes 20meq Q.5D Take 20 [place] chloride 1-13 mEq by Methodi (K-DUR) 20 15:42: mouth 2 st MEQ CR 05 (two) tablet times a day. amLODIPine Yes 5mg QD Take 5 mg [place] (NORVASC) 5 4-10 by mouth Meth evan mg tablet 00:00: daily. st 00 ondansetron Yes 4mg Q8H Take 4 mg [place] (ZOFRAN) 4 9-13 by mouth Metho di MG tablet 00:00: every 8 st 00 (eight) hours as needed for nausea or vomiting. Immunizations Ordered Immunization Filled Immunization Date Status Commen ts Source Name Name FLUZOGIORGIO JACQUES PF 2016-02-26 Completed [place] 00:00:00 Rastafari Vital Signs Vital Name Observation Time Observation Value Comments Source Systolic blood 2020-02-17 11:30:11 116 mm[Hg] Douglas n Rastafari pressure Diastolic blood 2020-02-17 11:30:11 65 mm[Hg] [place] Rastaf[place] pressure Heart rate 2020-02-17 11:30:11 59 /min [place] Rastafari Body temperature 2020-02-17 11:30:11 36.72 Sandra [place]astaf[place] Respiratory rate 2020-02-17 11:30:11 18 /min [place]ast[place] Oxygen saturation in 2020-02-17 11:30:11 99 /min [place] Rastafari Arterial blood by Pulse oximetry Body weight 2020-02-17 05:51:00 92.216 kg [place] Rastafari BMI 2020-02-17 05:51:00 33.83 kg/m2 [place] Rastafari Body height 2020-02-13 12:19:00 165.1 cm [place] Rastafari Procedures Procedure Date / Time Performing Source Performed Clinician HC COMPLETE BLD COUNT W/AUTO DIFF 2020-02-17 Sera Navarrete in [place] 04:25:00 O. Rastafari BASIC METABOLIC PANEL 2020-02-17 Terrance [facility] 04:00:00 O. Rastafari MAGNESIUM LEVEL 2020-02-17 Chely Miranda [place] 04:00:00 K. Rastafari [facility]IM[facility] Rastaf[facility] BLOOD CULTURE, AEROBIC & ANAEROBIC 2020-02-16 Hanna Henderson [place] 22:05:00 Rastafari BLOOD CULTURE, AEROBIC & ANAEROBIC 2020-02-16 Hanna Henderson Nroris 21:50:00 Rastafari TRANSFUSE RED BLOOD CELLS 2020-02-16 Dee Dee Navarrete on 13:44:37 O. Rastafari SURGICAL PATHOLOGY REQUEST 2020-02-16 Dee Dee Navarrete 10:01:00 O. Rastafari HC COMPLETE BLD COUNT W/AUTO DIFF 2020-02-16 Sera Navarrete in [place] 07:36:00 O. Rastafari ESOPHAGOGASTRODUODENOSCOPY (EGD) 2020-02-16 Cheri Coronado 06:54:00 Rastafari BASIC METABOLIC PANEL 2020-02-16 [facility] 04:20:00 O. Rastafari MAGNESIUM LEVEL 2020-02-16 Terrance [facility] 04:20:00 O. Rastafari ESTIMATED GFR 2020-02-16 [facility] 04:20:00 O. Rastafari HC COMPLETE BLD COUNT W/AUTO DIFF 2020-02-16 Sera Navarrete in [place] 02:30:00 O. Rastafari BASIC METABOLIC PANEL 2020-02-16 [facility] 02:30:00 O. Rastafari MAGNESIUM LEVEL 2020-02-16 [facility] 02:30:00 O. Rastafari POC GLUCOSE 2020-02-15 [facility] 20:57:00 O. Rastafari POC GLUCOSE 2020-02-15 [facility] 11:37:00 O. Rastafari POC GLUCOSE 2020-02-15 [facility] 07:33:00 O. Rastafari POC GLUCOSE 2020-02-15 [facility] 04:54:00 O. Rastafari HC COMPLETE BLD COUNT W/AUTO DIFF 2020-02-15 [place], Aust in [place] 00:30:00 O. Rastafari BASIC METABOLIC PANEL 2020-02-15 [facility] 00:30:00 O. Rastafari T4, FREE 2020-02-15 [facility] 00:30:00 O. Rastafari THYROID STIMULATING HORMONE 2020-02-15 [facility] Juan Alberto ston 00:30:00 O. Rastafari LIPID PANEL 2020-02-15 [facility] 00:30:00 O. Rastafari ESTIMATED GFR 2020-02-15 [facility] 00:30:00 O. Rastafari POC GLUCOSE 2020-02-15 [facility] 00:27:00 O. Rastafari POC GLUCOSE 2020-02-14 [facility] 21:30:00 O. Rastafari POC GLUCOSE 2020-02-14 [facility] 18:21:00 O. Rastafari POC GLUCOSE 2020-02-14 [facility] 12:44:00 O. Rastafari POC GLUCOSE 2020-02-14 [facility] 08:15:00 O. Rastafari POC GLUCOSE 2020-02-14 [facility] 06:19:00 O. Rastafari POC GLUCOSE 2020-02-14 [facility] 01:23:00 O. Rastafari BASIC METABOLIC PANEL 2020-02-14 [facility] 01:00:00 O. Rastafari HC COMPLETE BLD COUNT W/AUTO DIFF 2020-02-14 [place] [place] in [place] 01:00:00 O. Rastafari PHOSPHORUS LEVEL 2020-02-14 [facility] 01:00:00 O. Rastafari MAGNESIUM LEVEL 2020-02-14 [facility] 01:00:00 O. Rastafari LACTIC ACID LEVEL 2020-02-14 [facility] 01:00:00 O. Rastafari ESTIMATED GFR 2020-02-14 [facility] 01:00:00 O. Rastafari POC GLUCOSE 2020-02-13 [facility] 20:59:00 O. Rastafari LACTIC ACID LEVEL, SEPSIS - NOW 2020-02-13 Conner, Valery-Christiane [place] AND REPEAT 2X EVERY 3 HOURS 19:48:00 Christiane Meth odist LACTIC ACID LEVEL, SEPSIS - NOW 2020-02-13 Conner, Valery-Christiane [place] AND REPEAT 2X EVERY 3 HOURS 16:14:00 [facility] Meth odist GASTRIN LEVEL 2020-02-13 Jesus Feldman [place] 16:03:00 Wolf Rastafari COVID-19 QUALITATIVE PCR 2020-02-13 Conner, Valery-Christiane [place] 14:40:00 [facility] Rastafari CT ABDOMEN PELVIS WO CONTRAST 2020-02-13 Conner, Valery-Christiane [place] 14:08:39 [facility] Rastafari DC CRITICAL CARE, E/M 30-74 2020-02-13 Conner, Valery-Christiane Juan Alberto ston MINUTES 13:37:23 [facility] Rastafari ECG ED PRELIMINARY INTERPRETATION 2020-02-13 Conner, Valery-A nh [place] 13:37:23 [facility] Rastafari HC COMPLETE BLD COUNT W/AUTO DIFF 2020-02-13 Vinnie Brasher 12:44:00 Rastafari PROTHROMBIN TIME WITH INR 2020-02-13 Hayden Brasher Juan Alberto ston 12:44:00 Rastafari TYPE AND SCREEN 2020-02-13 Hayden Brasher 12:44:00 Rastafari COMPREHENSIVE METABOLIC PANEL 2020-02-13 Hayden Brasher 12:44:00 Rastafari LIPASE LEVEL 2020-02-13 Hayden Brasher 12:44:00 Rastafari ESTIMATED GFR 2020-02-13 Hayden Brasher 12:44:00 Rastafari LACTIC ACID LEVEL 2020-02-13 Hayden Brasher 12:44:00 Rastafari PREPARE RBC 2020-02-13 [facility] 12:44:00 O. Rastafari ECG 12-LEAD 2020-02-13 Hayden Brasher 12:25:23 Rastafari Plan of Care Planned Activity Planned Date Details Comments Source Future Scheduled 2019-11-05 INFLUENZA VACCINE [place]at[place] Rastafari Test 00:00:00 [code = INFLUENZA VACCINE] Future Scheduled 2004-12-23 65+ PNEUMOCOCCAL [place] Rastafari Test 00:00:00 VACCINE (1 of 1 - PPSV23) [code = 65+ PNEUMOCOCCAL VACCINE (1 of 1 - PPSV23)] Future Scheduled 1989-12-23 SHINGLES VACCINES (#1) [facility] Rastafari Test 00:00:00 [code = SHINGLES VACCINES (#1)] Future Scheduled 1956 COVID-19 VACCINE (1 of H [facility] Rastafari Test 00:00:00 2) [code = COVID-19 VACCINE (1 of 2)] Encounters Start End Encounter Admission Attending Care Care Encounter Source Date/Time Date/Time Type Type Clinicians Facility Department ID 2020-04-18 2020-04-18 Transition Owen Cruz [id number] 00:00:00 00:00:00 of Care Calvin Worthington [id number] [place] [id number] 2020-04-07 2020-04-17 [facility] Yunier Jhonnyzia Mao [id number] 10:01:00 21:23:00 Encounter Harry De [id number] [facility] [id number] Carlos Walton [id number] Hamilton Atkins 099 Rasta Golden 2020-02-13 2020-02-17 Inpatient [facility] [id number] [place] 00:00:00 00:00:00 DEE DEE [address] Results Test Description Test Time Test Comments Results Result Comments Source Blood culture, aerobic & anaerobic 2020-02-21 23:03:13 Test Item Value Reference Range Interpretation Comme nts Blood culture isolate No growth after 5 days of Specimen InformationSpecimen (test code = 600-7) incubation. Source: BloodSpecimen Site: Antecubital, ri ght [facility] [id number] 11:58:51 Test Item Value Reference Range Interpretation Comments Case number (test code = [id number]) Surgical pathology See link below for report (test code = PDF Lab Report [id number]) Result status (test code This is Final Report = [id number]) for [id number] [place] MethodistBasic metabolic [id number] 05:18:57 Test Item Value Reference Range Interpretation Comments Sodium (test code = 2951-2) 134 135- 148 mEq/L L Potassium (test code = 2823-3) 3.9 3.5- 5.0 mEq/L Chloride (test code = 2075-0) 102 98- 112 mEq/L CO2 (test code = 2027-9) 25 24- 31 mEq/L Anion gap (test code = 78267-1) 7@ANIO 7- 15 mEq/L BUN (test code = 3094-0) 15 mg/dL 8-23 Creatinine (test code = 2160-0) 1.08 mg/dL 0.5-0.9 H Glucose (test code = 2345-7) 118 mg/dL 65-99 H Calcium (test code = 05816-6) 8.0 mg/dL 8.8-10.2 L Lab Interpretation (test code = Abnormal 73204-0) [place] MethodistMagnesium [id number] 05:17:19 Test Item Value Reference Range Interpretation Comments Magnesium (test code = 67608-2) 1.9 mg/dL 1.6-2.4 [place] MethodistEstimated [id number] 05:17:10 Test Item Value Reference Range Interpretation Comments Estimated GFR (test 48 mL/min/1.73 m2 Aubree wise Units code = 5488) InterpretationG 1 >=90 Kelly l or highG2 60-89 Mildly decrease dG3a 45-59 Mil dly to moderately decr oaycjY3l 30-44 Moderately to s everely decreasedG4 15-29 Severe ly decreasedG5 <15 Kidney mansoor lureThe eGFR was calcul ated using the Chron ic Kidney Disease Epidemiology Collaboration ( CKD-EPI) equation. Interpretation is based on recommendati ons of the National Ki dney [facility]-Kidn ey Disease Outcome s Quality Initiat ike (NKF-KDOQI) pub lished in 2013. Lab Interpretation Abnormal (test code = 30794-3) [place] MethodistCB with platelet and [id number] 04:59:27 Test Item Value Reference Range Interpretation Comments WBC (test code = 31967-6) 7.85 4.50- 11.00 k/uL RBC (test code = 52502-8) 3.68 m/uL 4.2-5.5 L HGB (test code = 718-7) 10.0 g/dL 12-16 L HCT (test code = 4544-3) 33.3 % 37-47 L MCV (test code = 787-2) 90.5 fL 82-100 MCH (test code = 785-6) 27.2 pg 27-34 MCHC (test code = 786-4) 30.0 g/dL 31-37 L RDW - SD (test code = 48.5 fL 37-55 29522-6) MPV (test code = 92946-8) 11.5 fL 8.8-13.2 Platelet count (test code 193 150- 400 k/uL = 63193-0) Nucleated RBC (test code 0.00 /100 WBC = 16481-3) Neutrophils (test code = 62.4 % 39-69 95406-7) Lymphocytes (test code = 20.0 % 25-45 L 30086-1) Monocytes (test code = 15.2 % 0-10 H 08440-4) Eosinophils (test code = 1.0 % 0-5 69676-4) Basophils (test code = 0.5 % 0-1 05087-7) Immature granulocytes 0.9 % 0-1 "Immat ure (test code = 06948-4) granul ocytes" (promyelocytes, myelocytes, metamyelocytes) Lab Interpretation (test Abnormal code = 47934-0) Jr MethodistPrepare RBC, 1 [id number] 10:08:00 Test Item Value Reference Range Interpretation Comments Product name (test code Red Blood Cells -1, = 25) Leukored Unit number (test code [id number] = [id number]) Product code (test code [id number] = 3092) Dispense status (test Transfused code = 24) Blood expiration date (test code = 302) Blood type code (test 9500 code = 308) Blood type (test code = O NEGATIVE 1314) Compatibility (test Compatible code = 6400) [place] RastafariPOC [id number] 21:01:31 Test Item Value Reference Range Interpretation Comments POC glucose (test code = 123 mg/dL 65-99 H Ope rator Name: 05974-9) Sherrill Lockhartice ID: [id number] able : [facility] Notified coat padder Interpretation (test Abnormal code = 10875-0) [place] MethodistGastrin [id number] 18:11:12 Test Item Value Reference Range Interpretation Comments Gastrin (test code = 183 pg/mL 0-100 H Perform ed By: JALEN 2333-3) [address] [place] [address] [id number] Director: Ingrid Miller MD Lab Interpretation (test Abnormal code = 99378-0) [place] MethodistT4, [id number] 01:35:28 Test Item Value Reference Range Interpretation Comments T4, free (test code = 3024-7) 1.1 ng/dL 0.9-1.7 [place] MethodistThyroid stimulating [id number] 01:35:28 Test Item Value Reference Range Interpretation Comments TSH (test code = 3016-3) 0.89 0.27- 4.20 uIU/mL [place] MethodistLipid [id number] 01:30:35 Test Item Value Reference Interpretation Comments Range Cholesterol (test 112 mg/dL <200 code = 2093-3) Triglycerides (test 142 mg/dL <150 code = 2571-8) HDL cholesterol 32 mg/dL >40 L (test code = 2085-9) LDL cholesterol 63 mg/dL <100 Result obtai salvador by direct (test code = 2089-1) LDL tremayne surement Lipid panel SeeBelow Total Cholester ol (mg/dL) interpretation (test < 200 code = 19901-3) Desirable 200-239 Borderline -high >=240 Hi gh Triglyceri joey (mg/dL) <150 No rmal 150-199 Borderline-high 200-499 High >=500 Very high HDL Choles terol (mg/dL) <40 Low (male) < 40 Low (female) L DL Cholesterol (mg /dL) <100 Optimal 1 00-129 Near or above o ptimal 130-159 Borderline-high 160-189 High >=190 Very high Risk Cat ergories that modify LDL goals.Risk Catergories LDL goal (mg/dL )CHD and CHD risk equiva lent <100 (10-year risk >20%)Multiple ( 2+) risk factors < 130 (10-year risk = <20%)0-1 risk factors <160 (<10-ye ar risk) Defining levels of lipids in metabolic syndromeTriglyc erides > =150 mg/dLHDL Choles terol Men <40 mg/dL Women <40 mg/dL Non-HDL cholest magan is a second target f or therapy in personswith high triglycerides ( >=200 mg/dL) Lab Interpretation Abnormal (test code = 30280-5) [place] MethodistPhosphorus [id number] 01:38:47 Test Item Value Reference Range Interpretation Comments Phosphorus (test code = 2777-1) 3.1 mg/dL 2.4-4.5 [place] MethodistLactic acid [id number] 01:32:37 Test Item Value Reference Range Interpretation Comments Lactic acid (test code = 01875-8) 1.1 mmol/L 0.5-2.2 [place] MethodistCOVID-19 qualitative [id number] 21:33:50 Test Item Value Reference Range Interpretation Comments Interpretation (test Negative results do code = 8259154) not preclude 2019-nCoV infection and should not be used as the sole basis for treatment or other patient management decisions. Negative results must be combined with clinical observations, patient history, and epidemiological information. COVID-19 qualitative Not-Detected Not-Detected PCR result (test code = 41926-9) COVID-19 qualitative See link below for C ase Number: PCR (test code = PDF Lab Report [id number]) [place] MethodistLactic acid level, SEPSIS - Now and repeat 2x every 3 hours 2020-02-13 20:42:19 Test Item Value Reference Range Interpretation Comments Lactic acid (test code = 46626-2) 1.3 mmol/L 0.5-2.2 [place] MethodistECG 12 [id number] 16:01:06 Test Item Value Reference Range Interpretation Comments Ventricular rate 88 (test code = 253) Atrial rate (test 88 code = 255) DC interval (test 144 code = 266) QRSD interval (test 134 code = 260) QT interval (test 400 code = 264) QTC interval (test 484 code = 265) P axis 1 (test code = 21 267) QRS axis 1 (test code -70 = 268) T wave axis (test 67 code = 270) EKG impression (test Normal sinus code = 273) rhythm-Right bundle branch block-Left anterior fascicular block-^^^ Bifascicular block ^^^-Left ventricular hypertrophy with repolarization abnormality-Abnormal ECG-In automated comparison with ECG of 05-AUG-2018 05:47,-No significant change was found- [place] MethodistType and [id number] 14:48:00 Test Item Value Reference Range Interpretation Comments ABO grouping (test code = 883-9) O Rh type (test code = 48690-7) POS Antibody screen (gel) (test code = NEG 890-4) [place] MethodistCT Abdomen Pelvis Wo [id number] 14:24:04Hm Interface, Radiology Results - 02/13/2020 2:27 PM CSTEXAMINATION: CT ABDOMEN PELVIS WOCONTRASTCLINICAL HISTORY: 79 years old Female. Abd pain unspecified, Abd pain gastroenteritis or colitis suspected.TECHNIQUE: Multiple axial images of the abdomen and pelvis were obtained without intravenous administration of iodinated contrast. Oral contrast was not administered. Sagittal and coronal computerized reformatted images were also obtained. The lack of intravenous contrast reduces the sensitivity of detecting solid organ disease. CT imaging was performed with iterative reconstruction techniques and/or automated exposure control to reduce radiation dose. COMPARISON: CT abdomen pelvis 12/28/2016IMPRESSION:LOWER CHEST:Visualized lower thorax:Lung bases: No significant pleural effusion.Lower mediastinum: Cardiac size is normal. No pericardial effusion. Atherosclerotic calcification of the coronary arteries. Aortic valve leaflet and mitral annular calcifications.ABDOMEN:Upper abdominal organs: Liver: Noncontrast appearance of the liver is normal. Measures 13.4 cm in craniocaudal dimension with a smooth contour. Gallbladder: Cholecystectomy. Spleen: Normal.Pancreas: Normal.Adrenal Glands: Mild thickening of the left adrenal gland with normal adreniform morphology.Kidneys: 2 mm nonobstructive nephrolithiasis in the right kidney inferior pole. No hydronephrosis.Bowel and mesentery: There is suggestion of mild wall thickening involving the second/third duodenal segment with adjacentinflammatory fat stranding and hyperdense material within the lumen (series 301, image 81). There tyrell bubble of gas within the wall of the duodenum (series 601B, image 49). Remaining large and small bowel are normal in caliber. Diverticulosis of the descending and sigmoid colon. No free intraperitoneal gas or fluid. Vasculature: Abdominal aorta is of normal caliber. Moderate atherosclerotic diseaseof the abdominal aorta and branch vessels.Lymph nodes: No abdominal or retroperitoneal lymphadenopathy. PELVIS:Urinary bladder: Normal.Lymph nodes: No pelvic lymphadenopathy.MUSCULOSKELETAL: No suspicious lytic or blastic osseous lesions. Ventral abdominal hernia mesh repair postoperative changes. Age appropriate degenerative changes of the spine. Chronic T11 superior endplate and T12 inferior endplate compression fractures. Chronic T9 vertebral compression fracture. 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 Apparent wall thickening of the second/third duodenal segments with surrounding inflammatory fat stranding concerning for duodenitis.2. Bubble of gas within the wall of the second/third duodenal segment, likely early microperforation in the setting of peptic ulcer disease.3. High density intraluminal contents within the proximal duodenum, possibly intraluminal hemorrhage or ingested material. Correlation with endoscopy, if indicated clinically.Findings of suspected duodenitis with early microperforation were discussed by phone with Dr. Gregory by Dr. Curran at 02/13/2020 2:22 PM.[id number] MethodistProthrombin time with INR 2020-02-13 13:48:53 Test Item Value Reference Range Interpretation Comments Prothrombin time (test 14.0 11.5- 14.5 sec code = 5902-2) INR (test code = 1.1 [facility] 09877-1) Normalized Rati o (INR) is a therapeutic m onitoring tool for patien ts who are stable on oral anticoagulant t herapy. An INR of 2.0-3.0 is suggested for d eep vein thrombosis/pulm onary embolism. [place] [facility] [id number] 13:40:33 Test Item Value Reference Range Interpretation Comments Sodium (test code = 140 135- 148 mEq/L 2951-2) Potassium (test code = 3.5 3.5- 5.0 mEq/L 2823-3) Chloride (test code = 95 98- 112 mEq/L L 2075-0) CO2 (test code = 2027-9) 28 24- 31 mEq/L Anion gap (test code = 17@ANIO 7- 15 mEq/L H 89977-2) BUN (test code = 3094-0) 43 mg/dL 8-23 H Creatinine (test code = 1.58 mg/dL 0.5-0.9 H 2160-0) Glucose (test code = 147 mg/dL 65-99 H 2345-7) Calcium (test code = 8.9 mg/dL 8.8-10.2 28034-4) Protein (test code = 7.6 g/dL 6.3-8.3 -[place] n 2885-2) 4.6-7.0 g/dL1 week 4.4-7 .6 g/dL7 months-1y ear 5.1-7 .3 g/dL1-2 years 5.6-7 .5 g/dL>3 years 6.0-8 .0 g/jE16-273 6.3-8 .3 g/dL Albumin (test code = 4.0 g/dL 3.5-5 1751-7) A/G ratio (test code = 1.1 0.7-3.8 1759-0) Alkaline phosphatase 108 U/L 35-104 H (test code = 6768-6) AST (test code = 1920-8) 13 U/L 10-35 ALT (test code = 1742-6) 11 U/L 5-50 Total bilirubin (test 0.5 mg/dL 0-1.2 code = 1975-2) Lab Interpretation (test Abnormal code = 50840-1) [facility] [id number] 13:40:33 Test Item Value Reference Range Interpretation Comments Lipase (test code = 3040-3) 9 U/L 13-60 L Lab Interpretation (test code = Abnormal 09674-6) [facility] ED Preliminary Interpretation - Not an [id number] 13:37:23 Test Item Value Reference Range Interpretation Comments WALTER (test code = WALTER) Gonzalez Conner MD 02/17/2020 11:34 AMEC ED Preliminary Interpretation - Not an OrderPerformed by: Gonzalez Conner MDAuthorized by: Gonzalez Conner MD ECG reviewed by ED Physician in the absence of a 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: yes Previous ECG: Previous ECG: UnavailableInterpretat ion: Interpretation: abnormal Rate: ECG rate: 88 ECG rate assessment: normal Rhythm: Rhythm: sinus rhythm Ectopy: Ectopy: none QRS: QRS axis: Normal QRS intervals: NormalConduction: Conduction: abnormal Abnormal conduction: complete RBBB ST segments: ST segments: NormalT waves: T waves: normal Lab Interpretation Abnormal (test code = 54614-8) [facility] [id number] 13:37:23Gonzalez Conner MD 02/17/2020 11:34 AMCritical CarePerformed by: Gonzalez Conner MDAuthorized by: Gonzalez Conner MD Critical care provider statement: Critical care time (minutes): 35 Critical care time was exclusive of: Separately billable procedures and treating other patients and teaching time Critical care was necessary to treat or prevent imminent or life-threateningdeterioration of the following conditions: stomach perforatin. Critical care was time spent personal ly by me on the following activities: Development of treatment plan with patient or surrogate, discussions with consultants, evaluation of patient's response to treatment, examination of patient, interpretation of cardiac output measurements, obtaining history from patient or surrogate, ordering and p erforming treatments and interventions, ordering and review of laboratory studies, ordering and review of radiographic studies, pulse oximetry, re- evaluation of patient's condition and review of old charts Feng 'yes' if you are taking over critical care for this patient from another provider.: Fara Barnes
[2020-05-12 13:59] LABS: Absolute Lymphocytes (CBC) 0.7 K/uL (0.7-4.9); Basophils % 0.3 % (0-1.3); Hematocrit 26.3 % (36.0-45.0); Lymphocytes % 5.5 % (15.3-44.8); MPV 8.6 fL (7.6-11.3); RBC Red Blood Cell Count 3.38 M/uL (3.86-4.86)
--- NOTE | 2020-05-12 14:22 | RAD REPORT ---
EXAM DESCRIPTION: RAD - Chest Single View - 05/12/2020 1:56 pm CLINICAL HISTORY: dizziness COMPARISON: None TECHNIQUE: AP portable chest image was obtained 05/12/2020 1:56 pm . FINDINGS: Lung volumes are low. Prominent interstitial opacification is present throughout both lung toure. There is peripheral airspace opacification. Bilateral costophrenic angle blunting is present . Heart size is normal range. Trachea midline. No pneumothorax or large pleural effusion. No acute [place] abnormality seen. No acute aortic findings suspected. IMPRESSION: Baseline examination showing extensive interstitial and peripheral alveolar opacificatio n. An acute infection is certainly possible. Pattern is more typical for viral pneumonia and is suspicio us for COVID-19 pneumonia given the current clinical environment.
[2020-05-12 14:24] LABS: ALT/SGPT < 6 U/L (12-78); AST/SGOT 17 U/L (15-37); Albumin 2.2 g/dL (3.4-5.0); Alkaline Phosphatase 98 U/L (45-117); BUN Blood Urea Nitrogen 15 mg/dL (7-18); Bicarbonate 24 mmol/L (21-32); Bilirubin Direct 0.1 mg/dL (0-0.2); Bilirubin Total 0.4 mg/dL (0.2-1.0); Glucose Level 107 mg/dL (74-106); NT PRO-BNP 5654 pg/mL (<450); Protein, Total 6.3 g/dL (6.4-8.2); Sodium Level 137 mmol/L (136-145); Troponin (Emerg Dept Use Only) 0.07 ng/mL (0.0-0.045)
[2020-05-12 14:27] LABS: Potassium 2.9 mmol/L (3.5-5.1)
[2020-05-12 14:28] LABS: Magnesium 0.8 mg/dL (1.8-2.4)
[2020-05-12 14:46] LABS: Protime INR 1.27
--- NOTE | 2020-05-12 14:56 | RAD REPORT ---
EXAM DESCRIPTION: CT - Head Brain Wo Cont - 05/12/2020 2:30 pm CLINICAL HISTORY: DIZZINESS COMPARISON: Head C Spine Mpr Wo Con dated 03/27/2017 TECHNIQUE: Axial 5 mm thick images of the head were obtained without IV contrast. All CT scans are performed using dose optimization technique as appropriate and may include automated exposure control or mA/KV adjustment according to patient size. FINDINGS: No intracranial hemorrhage, mass, edema or shift of mid-line structures. No acute infarcti on changes seen. No abnormal extra-axial fluid collections. Ventricles are normal. Atrophy and chroni c ischemic changes are mild. Mastoid air cells are clear. Chronic left maxillary sinusitis present. No acute bony findings. IMPRESSION: Negative non-contrast CT head examination for acute intracranial finding. Mild atrophy and chronic ischemic change. Intracranial findings similar to March 2017.
--- NOTE | 2020-05-12 15:20 | EDPHYS ---
Physician Documentation [facility] Name: Renetta Roger Age: 79 yrs Sex: Female : 1940 Arrival Date: 05/12/2020 Time: 13:04 Bed 6 Private MD: ED Physician Zach Dubon HPI: 05/12 13:40 This 79 yrs old Female presents to ER via Wheelchair with complaints of cp Diarrhea, Dizziness, Dehydration. 13:40 The patient presents to the emergency department with nausea, that is mild, vomiting, cp that is intermittent, diarrhea, that is continuous. 13:40 Onset: The symptoms/episode began/occurred 04-30-2020. cp 13:40 Possible causes: unknown. Daughter reports patient was diagnosed with COVID-19 in cp March 2020. Was residing in short term care facility but daughter removed her due to concerns about care being received. Patient with persistent diarrhea since last month and had CT abdomen/pelvis ordered by office of DR Cash yesterday. Has not heard results yet. Historical: - Allergies: 13:20 Codeine; jl7 13:20 Demerol; jl7 13:20 PENICILLINS; jl7 - Home Meds: 13:20 amlodipine 5 mg tab 1 tab once daily [Active]; pantoprazole 40 mg Oral TbEC 1 tab 2 jl7 times per day [Active]; Potassium Chloride Oral [Active]; sucralfate 1 gram Oral tab 1 tab 4 times per day [Active]; - PMHx: 13:20 gastric ulcer; Hypertension; jl7 - PSHx: 13:20 neck surgery; right knee; left foot; Cholecystectomy; Appendectomy; Tonsillectomy; jl7 ; - Immunization history:: Adult Immunizations up to date. - Social history:: Smoking status: Patient denies any tobacco usage or history of. ROS: 13:45 Constitutional: Positive for poor PO intake, Negative for body aches, chills, fever. cp 13:45 Eyes: Negative for injury, pain, redness, and discharge. cp 13:45 ENT: Negative for ear pain, sore throat, difficulty swallowing, difficulty handling secretions. 13:45 Cardiovascular: Negative for chest pain, edema, palpitations. 13:45 Respiratory: Negative for cough, shortness of breath, wheezing. 13:45 Abdomen/GI: Positive for nausea, vomiting, diarrhea, anorexia, Negative for abdominal pain, constipation, black/tarry stool, rectal bleeding. 13:45 Back: Negative for radiated pain. 13:45 : Negative for urinary symptoms. 13:45 Skin: Negative for rash. 13:45 Neuro: Positive for dizziness, general weakness, Negative for altered mental status, headache. 13:45 All other systems are negative. Exam: 13:50 ECG was reviewed by the Attending Physician. cp 13:52 Constitutional: The patient appears in no acute distress, alert, awake, cp non-diaphoretic, non-toxic, well developed, well nourished. 13:52 Head/Face: Normocephalic, atraumatic. cp 13:52 Eyes: Periorbital structures: appear normal, Pupils: equal, round, and reactive to light and accomodation, Extraocular movements: intact throughout, Conjunctiva: normal, no exudate, no injection, Sclera: no appreciated abnormality, Lids and lashes: appear normal, bilaterally. 13:52 ENT: External ear(s): are unremarkable, Nose: is normal, Mouth: Lips: dry, Oral mucosa: moist, Posterior pharynx: Airway: no evidence of obstruction, patent. 13:52 Neck: ROM/movement: is normal, is supple, without pain, no range of motions limitations, no meningismus, no nuchal rigidity. 13:52 Chest/axilla: Inspection: normal, Palpation: is normal, no crepitus, no tenderness. 13:52 Cardiovascular: Rate: normal, Rhythm: regular, Edema: is not appreciated, JVD: is not appreciated. 13:52 Respiratory: the patient does not display signs of respiratory distress, Respirations: normal, no use of accessory muscles, no retractions, labored breathing, is not present, Breath sounds: are clear throughout, no decreased breath sounds, no stridor, no wheezing. 13:52 Abdomen/GI: Inspection: abdomen appears normal, Bowel sounds: active, all quadrants, Palpation: soft, in all quadrants, mild abdominal tenderness, in all quadrants, Rectal exam: Stool: brown, guaiac negative. 13:52 Back: pain, is absent, ROM is normal. 13:52 Skin: no rash present. 13:52 Neuro: Orientation: to person, place \\T\\ time. Mentation: is normal, Cerebellar function: is grossly normal, Motor: moves all fours, strength is normal, Sensation: is normal. Vital Signs: 13:16 Weight 81.65 kg; Height 5 ft. 5 in. (165.10 cm); jl7 13:18 BP 96 / 53; Pulse 66; Resp 18 S; Temp 97.6(TE); Pulse Ox 98% on R/A; ca1 14:00 BP 94 / 49 RA Supine (auto/reg); Pulse 68; Resp 21; Pulse Ox 96% on R/A; dh4 14:00 BP 103 / 50 RA Sitting (auto/reg); Pulse 77; Resp 20; Pulse Ox 100% ; dh4 14:00 BP 94 / 51 RA Standing (auto/reg); Pulse 80; Resp 26; Pulse Ox 95% on R/A; dh4 15:00 BP 97 / 64; Pulse 78; Resp 19 S; Pulse Ox 100% on R/A; ca1 16:01 BP 107 / 53; Pulse 71; Resp 16 S; Pulse Ox 98% on R/A; ca1 17:00 BP 96 / 53; Pulse 71; Resp 16 S; Pulse Ox 94% on R/A; ca1 17:42 BP 99 / 52; Pulse 67; Resp 18 S; Pulse Ox 94% on R/A; ca1 18:50 BP 105 / 53; Pulse 63; Resp 17 S; Pulse Ox 93% on R/A; ca1 19:58 BP 91 / 53; Pulse 60; Resp 16; Temp 99.3; Pulse Ox 96% ; rr5 13:16 Body Mass Index 29.95 (81.65 kg, 165.10 cm) 7 MDM: 13:41 Patient medically screened. cp 15:10 Data reviewed: vital signs, nurses notes, lab test result(s), EKG, radiologic studies, cp CT scan, plain films, I have discussed the patient's presentation/case with the attending Emergency Department Physician; and as a result, I will admit patient. 15:10 Test interpretation: by ED physician or midlevel provider: ECG, plain radiologic cp studies. 05/12 13:35 Order name: Basic Metabolic Panel; Complete Time: 14:46 cp 05/12 13:35 Order name: CBC with Diff; Complete Time: 16:07 cp 05/12 13:35 Order name: LFT's; Complete Time: 14:46 cp 02/ 13:35 Order name: Magnesium; Complete Time: 14:46 cp 02 13:35 Order name: NT PRO-BNP; Complete Time: 14:46 cp 02/ 13:35 Order name: PT-INR; Complete Time: 14:59 cp 02/ 13:35 Order name: Troponin (emerg Dept Use Only); Complete Time: 14:46 cp 02 13:41 Order name: Urine Microscopic Only cp 05/12 13:41 Order name: Urine Microscopic Only EDMS 05/12 14:08 Order name: Manual Differential; Complete Time: 16:07 EDMS 05/12 14:58 Order name: Occult Blood--Ancillary eb 05/12 15:04 Order name: Lactate cp 02/ 15:04 Order name: Blood Culture Adult (2) cp 02/ 15:04 Order name: Procalcitonin cp 05/12 13:35 Order name: XRAY Chest (1 view); Complete Time: 14:46 cp 05/12 13:54 Order name: CT Head Brain wo Cont; Complete Time: 14:59 cp 02/ 15:04 Order name: Fecal Leukocyte Stain cp 02 15:04 Order name: Ova And Parasites cp 02/ 15:04 Order name: Stool Culture cp 05/12 15:04 Order name: CDIFF cp 02/ 15:05 Order name: Lactate; Complete Time: 16:07 EDMS 02 15:05 Order name: Blood Culture EDMS 05/12 16:00 Order name: Urine Dipstick--Ancillary (enter results) eb 05/12 16:01 Order name: Urine Dipstick-Ancillary; Complete Time: 19:34 EDMS 02 16:06 Order name: COVID-19 : Document "Date of Symptom Onset" if Symptomatic. eb 05/12 18:42 Order name: SARS-COV-2 RT PCR EDMS 05/12 13:35 Order name: Orthostatics; Complete Time: 16:00 cp 02 13:35 Order name: EKG; Complete Time: 13:36 cp 05/12 13:35 Order name: Cardiac monitoring; Complete Time: 13:47 cp 05/12 13:35 Order name: EKG - Nurse/Tech; Complete Time: 13:47 cp 05/12 13:35 Order name: IV Saline Lock; Complete Time: 16:00 cp 05/12 13:35 Order name: Labs collected and sent; Complete Time: 13:47 cp 05/12 13:35 Order name: O2 Per Protocol; Complete Time: 13:35 cp 05/12 13:35 Order name: O2 Sat Monitoring; Complete Time: 13:35 cp 05/12 13:41 Order name: Urine Dipstick-Ancillary (obtain specimen); Complete Time: 16:00 cp 05/12 13:41 Order name: Cath; Complete Time: 16:00 cp EC:50 Rate is 69 beats/min. Rhythm is regular. FL interval is normal. QRS interval is cp prolonged at 150 msec. QT interval is normal. T waves are Inverted in leads III, aVR. Interpreted by me. Reviewed by me. Administered Medications: 15:05 CANCELLED (Physician Discretion): LevaQUIN 750 mg 150 ml IVPB once over 90 mins cp 15:20 Drug: NS 0.9% 500 ml Route: IV; Rate: bolus; Site: right upper arm; ca1 19:59 Follow up: IV Status: Completed infusion; IV Intake: 500ml ea 15:50 Drug: Magnesium Sulfate 2 grams Route: IVPB; Infused Over: 2 hrs; Site: right upper arm;ca1 17:02 Follow up: Response: No adverse reaction; IV Status: Completed infusion; IV Intake: ca1 100ml 15:55 Drug: Potassium Chloride 20 mEq Route: IV; Rate: calculated rate; Site: right upper arm;ca1 20:00 Follow up: IV Status: Completed infusion ea 17:02 Drug: Calcium Gluconate 2 grams Route: IVPB; Infused Over: 60 mins; Site: right upper ca1 arm; 19:59 Follow up: IV Status: Completed infusion ea 19:36 Drug: metroNIDAZOLE 500 mg Volume: 100 ml; Route: IVPB; Infused Over: 30 mins; Site: rr5 right antecubital; 20:00 Follow up: Response: No adverse reaction; IV Status: Completed infusion; IV Intake: rr5 100ml 20:00 Follow up: Response: No adverse reaction; IV Status: Completed infusion ea 19:57 Drug: LevaQUIN 500 mg Volume: 100 ml; Route: IVPB; Infused Over: 60 mins; Site: right ea antecubital; 20:05 Follow up: IV Status: Infusion continued upon admission rr5 Disposition: 05/13 07:01 Co-signature as Attending Physician, Zach Dubon MD. rn Disposition: 05/12/20 15:20 Hospitalization ordered by Alex Dubon for Inpatient Admission. Preliminary diagnosis are Hypokalemia, Hypocalcemia, Diarrhea, unspecified, Hypomagnesemia. - Bed requested for Telemetry/MedSurg (Inpatient). - Status is Inpatient Admission. ea - Condition is Fair. - Problem is new. - Symptoms have improved. Signatures: Dispatcher [employer] EDMS Kain Hernández, RN RN Zach Dubon MD MD rn Santino Kwong, STRIP CUTTING MACHINE OPERATOR-C STRIP CUTTING MACHINE OPERATOR-Cla1 Apolinar Paez, PA PA cp Steffanie Fajardo, RN RN Britta Powers, RN RN jl7 Shania Duarte RN RN Perez Charles, RN RN ja1 Alex Bender, RN RN rr5 Radha Cortez RN RN ca1 Corrections: (The following items were deleted from the chart) 05/12 15:05 15:04 LevaQUIN 750 mg 150 ml IVPB once over 90 mins ordered. [facility] 17:14 15:20 Hospitalization Ordered by Alex Dubon MD for Inpatient Admission. Preliminary [facility] diagnosis is Hypokalemia; Hypocalcemia; Diarrhea, unspecified; Hypomagnesemia. Bed requested for Telemetry/MedSurg (Inpatient). Status is Inpatient Admission. Condition is Fair. Problem is new. Symptoms have improved. 19:19 17:14 05/12/2020 15:20 Hospitalization Ordered by Alex Dubon MD for Inpatient sg Admission. Preliminary diagnosis is Hypokalemia; Hypocalcemia; Diarrhea, unspecified; Hypomagnesemia. Bed requested for Telemetry/MedSurg (Inpatient). Status is Inpatient Admission. Condition is Fair. Problem is new. Symptoms have improved. [facility] 19:29 19:19 05/12/2020 15:20 Hospitalization Ordered by Alex Dubon MD for Inpatient cg Admission. Preliminary diagnosis is Hypokalemia; Hypocalcemia; Diarrhea, unspecified; Hypomagnesemia. Bed requested for Telemetry/MedSurg (Inpatient). Status is Inpatient Admission. Condition is Fair. Problem is new. Symptoms have improved. 20:05 19:29 05/12/2020 15:20 Hospitalization Ordered by Alex Dubon MD for Inpatient ea Admission. Preliminary diagnosis is Hypokalemia; Hypocalcemia; Diarrhea, unspecified; Hypomagnesemia. Bed requested for Telemetry/MedSurg (Inpatient). Status is Inpatient Admission. Condition is Fair. Problem is new. Symptoms have improved. cg
--- NOTE | 2020-05-12 15:20 | ER ---
Nurse's Notes [facility] Name: Renetta Roger Age: 79 yrs Sex: Female : 1940 Arrival Date: 05/12/2020 Time: 13:04 Bed 6 Private MD: Diagnosis: Hypokalemia;Hypocalcemia;Diarrhea, unspecified;Hypomagnesemia Presentation: 05/12 13:16 Chief complaint: Patient's son or daughter states: Diarrhea since 30 April, c-dif jl7 negative, intermittent vomiting, last time 48 hours ago. Had COVID back in March. Coronavirus screen: Client denies travel out of the [place] in the last 14 days. diarrhea, nausea, vomiting. Ebola Screen: No symptoms or risks identified at this time. Initial Sepsis Screen: Does the patient meet any 2 criteria? No. Patient's initial sepsis screen is negative. Does the patient have a suspected source of infection? No. Patient's initial sepsis screen is negative. Risk Assessment: Do you want to hurt yourself or someone else? Patient reports no desire to harm self or others. Onset of symptoms was April 30, 2020. Care prior to arrival: None. 13:16 Method Of Arrival: Wheelchair jl7 13:16 Acuity: CONOR 3 jl7 Historical: - Allergies: 13:20 Codeine; jl7 13:20 Demerol; jl7 13:20 PENICILLINS; jl7 - Home Meds: 13:20 amlodipine 5 mg tab 1 tab once daily [Active]; pantoprazole 40 mg Oral TbEC 1 tab 2 jl7 times per day [Active]; Potassium Chloride Oral [Active]; sucralfate 1 gram Oral tab 1 tab 4 times per day [Active]; - PMHx: 13:20 gastric ulcer; Hypertension; jl7 - PSHx: 13:20 neck surgery; right knee; left foot; Cholecystectomy; Appendectomy; Tonsillectomy; jl7 ; - Immunization history:: Adult Immunizations up to date. - Social history:: Smoking status: Patient denies any tobacco usage or history of. Screenin:21 Abuse screen: Denies threats or abuse. Denies injuries from another. Nutritional jl7 screening: No deficits noted. Tuberculosis screening: No symptoms or risk factors identified. 13:33 Fall Risk Fall in past 12 months (25 points). IV access (20 points). Total Savage Fall ca1 Scale indicates Low Risk Score (25-44 pts). Fall prevention measures have been instituted. Side Rails Up X 2 Family Present and informed to notify staff if they need to leave bedside As available Patient and Family Educated on Fall Prevention Program and strategies. Assessment: 13:21 Reassessment: ERP at bedside. jl7 13:33 General: Appears in no apparent distress. comfortable, Behavior is calm, cooperative, ca1 appropriate for age. Pain: Denies pain. Neuro: Level of Consciousness is awake, alert, obeys commands, Oriented to person, place, time, situation. Cardiovascular: Heart tones S1 S2 present Capillary refill < 3 seconds Patient's skin is warm and dry. Respiratory: Airway is patent Respiratory effort is even, unlabored, Respiratory pattern is regular, symmetrical, Breath sounds are clear bilaterally. GI: Abdomen is round non-distended, Bowel sounds present X 4 quads. Abd is soft and non tender X 4 quads. Reports diarrhea, since 04/30/2020. : No signs and/or symptoms were reported regarding the genitourinary system. EENT: No signs and/or symptoms were reported regarding the EENT system. Derm: Skin is intact, is healthy with good turgor, Skin is pink, warm \T\ dry. Musculoskeletal: Circulation, motion, and sensation intact. Capillary refill < 3 seconds. 14:30 Reassessment: Patient appears in no apparent distress at this time. Patient and/or ca1 family updated on plan of care and expected duration. Pain level reassessed. Patient is alert, oriented x 3, equal unlabored respirations, skin warm/dry/pink. 15:30 Reassessment: Patient appears in no apparent distress at this time. Patient and/or ca1 family updated on plan of care and expected duration. Pain level reassessed. Patient is alert, oriented x 3, equal unlabored respirations, skin warm/dry/pink. 16:03 Reassessment: pending 2nd set of culture. Outside lab paged. ca1 16:30 Reassessment: Patient appears in no apparent distress at this time. Patient and/or ca1 family updated on plan of care and expected duration. Pain level reassessed. Patient is alert, oriented x 3, equal unlabored respirations, skin warm/dry/pink. 17:30 Reassessment: Patient appears in no apparent distress at this time. Patient and/or ca1 family updated on plan of care and expected duration. Pain level reassessed. Patient is alert, oriented x 3, equal unlabored respirations, skin warm/dry/pink. Pt unable to BM at this time. 17:47 Reassessment: Called 2nd floor. YARELI Rivera said to wait for Covid result. ca1 18:50 Reassessment: Patient appears in no apparent distress at this time. Patient and/or ca1 family updated on plan of care and expected duration. Pain level reassessed. Patient is alert, oriented x 3, equal unlabored respirations, skin warm/dry/pink. 19:00 General: Appears in no apparent distress. comfortable, Behavior is calm, cooperative, rr5 appropriate for age. Neuro: Level of Consciousness is awake, alert, obeys commands, Oriented to person, place, time. Cardiovascular: Capillary refill < 3 seconds Patient's skin is warm and dry. Respiratory: Airway is patent Respiratory effort is even, unlabored, Respiratory pattern is regular, symmetrical. Derm: Skin is intact, is healthy with good turgor, Skin is pink, warm \T\ dry. Musculoskeletal: Capillary refill < 3 seconds. 19:20 Reassessment: Alexandra Sherman [id number]. ea 20:03 Reassessment: Patient and/or family updated on plan of care and expected duration. Pain ea level reassessed. Patient is alert, oriented x 3, equal unlabored respirations, skin warm/dry/pink. Pt admitted to fourth floor, left via stretcher per retread technician. Pt tolerating well. Vital Signs: 13:16 Weight 81.65 kg; Height 5 ft. 5 in. (165.10 cm); jl7 13:18 BP 96 / 53; Pulse 66; Resp 18 S; Temp 97.6(TE); Pulse Ox 98% on R/A; ca1 14:00 BP 94 / 49 RA Supine (auto/reg); Pulse 68; Resp 21; Pulse Ox 96% on R/A; dh4 14:00 BP 103 / 50 RA Sitting (auto/reg); Pulse 77; Resp 20; Pulse Ox 100% ; dh4 14:00 BP 94 / 51 RA Standing (auto/reg); Pulse 80; Resp 26; Pulse Ox 95% on R/A; dh4 15:00 BP 97 / 64; Pulse 78; Resp 19 S; Pulse Ox 100% on R/A; ca1 16:01 BP 107 / 53; Pulse 71; Resp 16 S; Pulse Ox 98% on R/A; ca1 17:00 BP 96 / 53; Pulse 71; Resp 16 S; Pulse Ox 94% on R/A; ca1 17:42 BP 99 / 52; Pulse 67; Resp 18 S; Pulse Ox 94% on R/A; ca1 18:50 BP 105 / 53; Pulse 63; Resp 17 S; Pulse Ox 93% on R/A; ca1 19:58 BP 91 / 53; Pulse 60; Resp 16; Temp 99.3; Pulse Ox 96% ; rr5 13:16 Body Mass Index 29.95 (81.65 kg, 165.10 cm) jl7 ED Course: 13:04 Patient arrived in ED. as 13:12 Radha Cortez, RN is Primary Nurse. ca1 13:18 Apolinar Paez PA is PHCP. cp 13:18 Zach Dubon MD is Attending Physician. cp 13:19 Triage completed. jl7 13:20 Arm band placed on right wrist. jl7 13:21 Patient has correct armband on for positive identification. Placed in gown. Bed in low jl7 position. Call light in reach. Side rails up X 1. Pulse ox on. NIBP on. Warm blanket given. 13:47 No provider procedures requiring assistance completed. Initial lab(s) drawn, by me, ca1 sent to lab. EKG done, by compliance technician. reviewed by Apolinar PARHAM. Missed attempt(s): 20 gauge in right antecubital area. Bleeding controlled, band aid applied, catheter tip intact. 13:56 XRAY Chest (1 view) In Process Unspecified. EDMS 14:30 CT Head Brain wo Cont In Process Unspecified. EDMS 15:10 Initial lab(s) drawn, by me, sent to lab. Inserted saline lock: 22 gauge in right upper ca1 arm, using aseptic technique. Blood collected. 15:19 Alex Dubon MD is Hospitalizing Provider. cp 15:46 Straight cath inserted, using sterile technique, 18 Fr. Specimen obtained. Returned ca1 cloudy urine. Patient tolerated well. 19:59 Patient admitted, IV remains in place. intact, No redness/swelling at site. rr5 Administered Medications: 15:05 CANCELLED (Physician Discretion): LevaQUIN 750 mg 150 ml IVPB once over 90 mins cp 15:20 Drug: NS 0.9% 500 ml Route: IV; Rate: bolus; Site: right upper arm; ca1 19:59 Follow up: IV Status: Completed infusion; IV Intake: 500ml ea 15:50 Drug: Magnesium Sulfate 2 grams Route: IVPB; Infused Over: 2 hrs; Site: right upper arm;ca1 17:02 Follow up: Response: No adverse reaction; IV Status: Completed infusion; IV Intake: ca1 100ml 15:55 Drug: Potassium Chloride 20 mEq Route: IV; Rate: calculated rate; Site: right upper arm;ca1 20:00 Follow up: IV Status: Completed infusion ea 17:02 Drug: Calcium Gluconate 2 grams Route: IVPB; Infused Over: 60 mins; Site: right upper ca1 arm; 19:59 Follow up: IV Status: Completed infusion ea 19:36 Drug: metroNIDAZOLE 500 mg Volume: 100 ml; Route: IVPB; Infused Over: 30 mins; Site: rr5 right antecubital; 20:00 Follow up: Response: No adverse reaction; IV Status: Completed infusion; IV Intake: rr5 100ml 20:00 Follow up: Response: No adverse reaction; IV Status: Completed infusion ea 19:57 Drug: LevaQUIN 500 mg Volume: 100 ml; Route: IVPB; Infused Over: 60 mins; Site: right ea antecubital; 20:05 Follow up: IV Status: Infusion continued upon admission rr5 Intake: 17:02 IV: 100ml; Total: 100ml. ca1 19:59 IV: 500ml; Total: 600ml. ea 20:00 IV: 100ml; Total: 700ml. rr5 Outcome: 15:20 Decision to Hospitalize by Provider. cp 19:59 Admitted to Tele accompanied by tech, via stretcher, room 407, on monitor, Report rr5 called to sandra 19:59 Condition: stable 19:59 Instructed on the need for admit. 20:05 Patient left the ED. ea Signatures: Dispatcher [employer] EDMargy Baker Corey, PA PA cp Leal, Jahala, RN RN elena7 Shania Duarte RN RN Alex Tucker RN RN rr5 Radha Cortez RN RN ca1 Dionte Malhotra 4 Corrections: (The following items were deleted from the chart) 13:33 13:32 BP 96 / 53; Pulse 66bpm; Resp 18bpm; Spontaneous; Pulse Ox 98% RA; Temp 97.6F ca1 Temporal; ca1 15:46 15:15 Inserted saline lock: 22 gauge in right upper arm, using aseptic technique. Blood ca1 collected. ca1 15:15 Initial lab(s) drawn, by me, sent to lab. ca1 ca1
[2020-05-12 15:37] LABS: Blood Morphology Comment NOT SEEN (NOT SEEN); Platelet Estimate ADEQ
[2020-05-12] MEDS ORDERED: Levofloxacin500mg IV 500 MG/100 ML BAG IV ONE (16:04)
[2020-05-12] MEDS ORDERED: Magnesium Sulfate 2gm IVPB 2 G/50 ML BAG IV ONE ×2 (16:05→22:33)
[2020-05-12] MEDS ORDERED: NA CHLORIDE 0.9% 500 ML ONE (16:05)
[2020-05-12] MEDS ORDERED: KCL 20 MEQ/100 mL IVPB 20 MEQ/100 ML BAG IV ONE (16:05)
[2020-05-12] MEDS ORDERED: METRONIDAZOLE 500mg IVPB 500 MG/100 ML BAG IV ONE (16:05)
[2020-05-12 16:09] LABS: Urine Glucose NEGATIVE (NEG); Urine Specific Gravity 1.015 (1.005-1.030)
[2020-05-12 16:10] LABS: Urine Blood NEGATIVE (NEG); Urine Protein 2+ (NEG)
[2020-05-12] MEDS ORDERED: Calcium Gluconate 9.3 mEq (=2gm)/NS 100 mL IVPB IV ONE ×2 (17:00)
[2020-05-12 17:01] LABS: Urine Bacteria LOADED /HPF (<20); Urine RBC NONE SEEN /HPF (NONE SEEN)
--- NOTE | 2020-05-12 17:20 | P.HP ---
Certification for Inpatient Patient admitted to: Inpatient With expected LOS: >2 Midnights Practitioner: I am a practitioner with admitting privileges, knowledge of patient current condition, hospital course, and medical plan of care. Services: Services provided to patient in accordance with Admission requirements found in Title 42 Section 412.3 of the Code of Federal Regulations Patient History Date of Service: 05/12/20 Reason for admission: Rectosigmoid Colitis, LEXII History of Present Illness: 79-year-old F, PMH: Hypertension, esophageal cysts gastric ulcers, recent COVI D-19 pneumonia at end of March 2020, was brought into the ED by her daughter due to continued nausea/vomiting, and frequent diarrhea. Daughter reports patient has been having 8-10 bowel movements a day since April 30. She has also been having multiple episodes of nausea and vomiting. These typically occur when she tries to eat. This began when patient was at a skilled rehab. Daughter reports negative C. diff past earlier this week, and states no other medications are past were done for the patient. The daughter did signed the patient out of the rehab due to concern of the poor care. She took the patient to Dr. Cash's office were they saw the PA, CT abdomen/pelvis was done which showed colitis. She was also prescribed Questran which did not have any improvement of her diarrhea. Because she continued with poor intake, generalized weakness, and diarrhea should brought into the ER today. Workup in the ED revealed leukocytosis of 13,000, anemia of 8.4, bandemia of 17, hypokalemia of 2.9, a KI helpful with a creatinine 1.66, hypocalcemia 5.9, hypomagnesemia 0.8, with a mildly elevated pro calcitonin 0.19, hypoalbuminemia at 2.2. Urine dip showed positive nitrates. Daughter states the patient has been dealing with similar episodes of nausea/vomiting/diarrhea for several years now. These episodes seem to occur once every 30-45 days. Have seen seen multiple physicians for this issue and do not have a diagnosis. Patient was diagnosed with COVID-19 pneumonia at the end of March, admitted to [facility] on 04/06/20, required intubation due to projectile vomiting and was transferred to [facility]. He discharge on 04/17 to [facility]. Daughter reports patient has had 2 negative COVID tests since her initial [place] one. Allergies codeine Allergy (Unverified 11/13/15 20:33) Unknown meperidine [From Demerol] Allergy (Unverified 11/13/15 20:33) Unknown Penicillins Allergy (Unverified 11/13/15 20:33) Unknown - Past Medical/Surgical History -: HTN -: Esophageal/gastric ulcers -: COVID-19 -: Neck surgery -: Right knee surgery -: Left foot surgery -: Cholecystectomy -: Appendectomy -: Tonsillectomy -: -: Removal of adrenal gland - Family History Family History: Reviewed- Non-Contributory - Social History Smoking Status: Former smoker ("Quit several years ago") Alcohol use: No Place of Residence: Home Review of Systems 10-point ROS is otherwise unremarkable Physical Examination - Studies Laboratory Data (last 24 hrs) 05/12/20 13:47: PT 14.6 H, INR 1.27 05/12/20 13:47: WBC 13.00 H, Hgb 8.4 L, Hct 26.3 L, Plt Count 347 05/12/20 13:47: Sodium 137, Potassium 2.9 L*, BUN 15, Creatinine 1.66 H, Glucose 107 H, Magnesium 0.8 L*, Total Bilirubin 0.4, AST 17, ALT < 6 L, Alkaline Phosphatase 98 Microbiology Data (last 24 hrs): 05/12/20 14:58 Stool Occult Blood - Final Assessment and Plan - Advance Directives Does patient have a Living Will: No Does patient have a Durable POA for Healthcare: No Physician Review Additional Text: Physical Exam: Gen: appears pale, fatigued HEENT: normal conjunctiva, sclera anicteric CV: RRR, no murmur, no edema Pulm: CTAB, dimished breath sounds at bilateral bases Abd: soft, mild-mod TTP in RLQ Ext: no rash/lesions Neuro: AAOx3, generalized weakness, upper/lower extremities strength 4+ to 5 /5, symmetric Problem List Descending and rectosigmoid colitis Nausea/vomiting. Diarrhea LEXII, without history of CKD Hypocalcemia Hypomagnesemia Hypokalemia Hypertension h/o gastric ulcer -admit patient to medical floor -clear liquid diet, IV fluids, Levaquin and Flagyl. Patient with penicillin allergy-reports has gotten severe rash -is not had any emesis in the last 24 hr. -UA, urine culture, blood culture all pending / obtained in the ED. Stool cultures pending as well -ED reported patient's stool was guaiac-negative -given severity of abnormal electrolytes, will recheck a BMP this evening continue to replace electrolytes as needed -monitor on telemetry -received small bolus in the ED, continue IV fluids 75 mL/hr -continue all home medications - except for antihypertensive meds. -continue home pantoprazole and sucralfate -PT/OT once feeling better, will hold off on order for now Code: Full Dispo: anticipate hospitalization > 48hrs, may need SNF Time Spent Managing Pts Care (In Minutes): 70
[2020-05-12] MEDS ORDERED: ONDANSETRON 4 MG/2 ML VIAL IV PRN (20:28)
[2020-05-12 21:10] VITALS: BMI 32.1
[2020-05-12] MEDS: NA CHLORIDE 0.9% 1,000 ML IV SCH (21:30)
[2020-05-12] MEDS: SUCRALFATE 1 GM TABLET PO SCH (21:30)
[2020-05-12 21:51] LABS: Albumin 2.3 g/dL (3.4-5.0); Bilirubin Total 0.5 mg/dL (0.2-1.0); Protein, Total 6.1 g/dL (6.4-8.2); Troponin I 0.08 ng/mL (0.0-0.045)
[2020-05-12 21:53] LABS: Magnesium 1.3 mg/dL (1.8-2.4)
[2020-05-12] MEDS ORDERED: POTASSIUM CL SA 10 MEQ TAB PO ONE (22:34)
[2020-05-12] MEDS ORDERED: CALCIUM GLUC 10% INJ 4.65 MEQ in NA CHLORIDE 0.9% 100 ML IV ONE (23:07)
[2020-05-13] MEDS: METRONIDAZOLE 500mg IVPB 500 MG/100 ML BAG IV SCH ×3 (01:10→17:27)
[2020-05-13] MEDS ORDERED: MELATONIN 5 MG TABLET PO ONE (01:17)
[2020-05-13] MEDS: MELATONIN 5 MG TABLET PO PRN ×2 (01:24→20:46)
[2020-05-13] MEDS ORDERED: CALCIUM GLUCONATE 1 GM IVPB 1 GM/50 ML BAG IV ONE (01:46)
[2020-05-13 04:41] LABS: Absolute Lymphocytes (CBC) 0.8 K/uL (0.7-4.9); Basophils % 0.4 % (0-1.3); Hematocrit 22.6 % (36.0-45.0); Lymphocytes % 9.1 % (15.3-44.8); MPV 8.9 fL (7.6-11.3); RBC Red Blood Cell Count 2.89 M/uL (3.86-4.86)
[2020-05-13] MEDS: NA CHLORIDE 0.9% 1,000 ML IV SCH (05:39)
[2020-05-13 05:50] LABS: Albumin 1.9 g/dL (3.4-5.0); Bilirubin Total 0.4 mg/dL (0.2-1.0); Magnesium 1.6 mg/dL (1.8-2.4); Phosphorus 3.5 mg/dL (2.5-4.9); Potassium 3.3 mmol/L (3.5-5.1); Protein, Total 5.2 g/dL (6.4-8.2)
[2020-05-13] MEDS: ACETAMINOPHEN 325 MG TABLET PO PRN (06:34)
[2020-05-13] MEDS ORDERED: NA CHLORIDE 0.9% 1,000 ML IV SCH ×2 (07:30→12:02)
[2020-05-13 07:33] LABS: C-Reactive Protein 75.6 mg/L (<3.00); Ferritin 48.6 ng/mL (8-388)
[2020-05-13] MEDS ORDERED: MAGNESIUM SULFATE 1 gm IVPB 1 GM/100 ML BAG IV ONE (08:00)
[2020-05-13] MEDS ORDERED: POTASSIUM CL SA 10 MEQ TAB PO ONE ×2 (08:00→21:00)
[2020-05-13] MEDS: SUCRALFATE 1 GM TABLET PO SCH ×4 (08:23→20:46)
[2020-05-13] MEDS: PANTOPRAZOLE 40MG TABLET PO SCH ×2 (08:23→16:42)
[2020-05-13] MEDS: ENOXAPARIN 30 MG/0.3 ML SQ SCH (08:26)
--- NOTE | 2020-05-13 12:01 | P.PN ---
Subjective Date of Service: 05/13/20 Chief Complaint: Rectosigmoid Colitis, LEXII Subjective: Improving (In, reports no diarrhea since admission, no nausea/vomiting. Tolerated clear liquid diet. Overall feeling better) Review of Systems 10-point ROS is otherwise unremarkable Physical Examination - Vital Signs Temperature: 97.5 F Blood Pressure: 103/82 Pulse: 65 Respirations: 17 Pulse Ox (%): 94 - Studies Laboratory Data (last 24 hrs) 05/12/20 13:47: PT 14.6 H, INR 1.27 05/12/20 13:47: WBC 13.00 H, Hgb 8.4 L, Hct 26.3 L, Plt Count 347 05/12/20 13:47: Sodium 137, Potassium 2.9 L*, BUN 15, Creatinine 1.66 H, Glucose 107 H, Magnesium 0.8 L*, Total Bilirubin 0.4, AST 17, ALT < 6 L, Alkaline Phosphatase 98 Microbiology Data (last 24 hrs): 05/12/20 15:31 Blood - Blood Anaerobic Blood Culture - Final 05/12/20 14:58 Stool Occult Blood - Final Assessment & Plan Physician Review Additional Text: Physical Exam: Gen: Alert and oriented HEENT: normal conjunctiva, sclera anicteric CV: RRR, no murmur, no edema Pulm: CTAB, dimished breath sounds at bilateral bases Abd: soft, mild-mod TTP in RLQ Ext: no rash/lesions Neuro: AAOx3, generalized weakness Problem List Descending and rectosigmoid colitis Nausea/vomiting. Diarrhea LEXII, without history of CKD Hypocalcemia Hypomagnesemia Hypokalemia Hypertension Restless leg h/o gastric ulcer -continue Levaquin and Flagyl, decrease IV fluids to 75 mL/hr. Patient states penicillin allergy is a severe rash -advance diet to full liquids -UA, urine culture, blood culture all pending / obtained in the ED. Stool cultures pending as well -ED reported patient's stool was guaiac-negative -electrolytes improving with replacement, continue as needed -monitor on telemetry -continue all home medications - except for antihypertensive meds. -continue home pantoprazole and sucralfate -PT/OT now that patient is feeling better Code: Full Dispo: anticipate hospitalization > 48hrs, may need SNF Time Spent Managing Pts Care (In Minutes): 40
[2020-05-13] MEDS: Levofloxacin 750mg IV 750 MG/150 ML BAG IV SCH (15:38)
[2020-05-13] MEDS: ROPINIROLE HCL 0.25 MG TAB PO PRN (16:42)
[2020-05-13 17:51] LABS: Absolute Lymphocytes (CBC) 0.8 K/uL (0.7-4.9); Basophils % 0.3 % (0-1.3); Hematocrit 26.5 % (36.0-45.0); MPV 9.4 fL (7.6-11.3); RBC Red Blood Cell Count 3.43 M/uL (3.86-4.86)
[2020-05-13 18:58] LABS: Magnesium 1.7 mg/dL (1.8-2.4); Potassium 4.5 mmol/L (3.5-5.1)
[2020-05-13 19:45] LABS: Blood Morphology Comment NOTED (NOT SEEN); Ovalocytes 1+; Platelet Estimate ADEQ; Poikilocytosis 1+; White Blood Cell Scan OK (OK)
[2020-05-14] MEDS: METRONIDAZOLE 500mg IVPB 500 MG/100 ML BAG IV SCH ×3 (00:35→18:19)
[2020-05-14] MEDS: ACETAMINOPHEN 325 MG TABLET PO PRN ×3 (02:05→21:11)
[2020-05-14 04:17] LABS: Absolute Lymphocytes (CBC) 0.6 K/uL (0.7-4.9); Basophils % 0.3 % (0-1.3); Hematocrit 21.6 % (36.0-45.0); Lymphocytes % 8.3 % (15.3-44.8); MPV 8.6 fL (7.6-11.3); RBC Red Blood Cell Count 2.82 M/uL (3.86-4.86)
[2020-05-14 04:46] LABS: Magnesium 1.6 mg/dL (1.8-2.4); Potassium 3.6 mmol/L (3.5-5.1)
[2020-05-14] MEDS ORDERED: MAGNESIUM SULFATE 1 gm IVPB 1 GM/100 ML BAG IV ONE (04:55)
[2020-05-14] MEDS ORDERED: POTASSIUM CL SA 10 MEQ TAB PO ONE (04:55)
[2020-05-14] MEDS: SUCRALFATE 1 GM TABLET PO SCH ×4 (08:01→21:11)
[2020-05-14] MEDS: PANTOPRAZOLE 40MG TABLET PO SCH ×2 (08:01→16:50)
[2020-05-14] MEDS: ROPINIROLE HCL 0.25 MG TAB PO PRN ×2 (08:02→17:47)
[2020-05-14] MEDS: ENOXAPARIN 30 MG/0.3 ML SQ SCH (08:02)
[2020-05-14] MEDS: Levofloxacin 750mg IV 750 MG/150 ML BAG IV SCH (16:50)
--- NOTE | 2020-05-14 18:09 | P.PN ---
Subjective Date of Service: 05/14/20 Chief Complaint: Rectosigmoid Colitis, LEXII Subjective: Improving (Slowly improving, tolerating a liquid diet and electrolytes improving, no diarrhea, no nausea/vomiting) Review of Systems 10-point ROS is otherwise unremarkable Physical Examination - Vital Signs Temperature: 97.4 F Blood Pressure: 106/50 Pulse: 58 Respirations: 18 Pulse Ox (%): 97 - Studies Microbiology Data (last 24 hrs): 05/12/20 15:31 Blood - Blood Anaerobic Blood Culture - Final Assessment & Plan Physician Review Additional Text: Physical Exam: Gen: Alert and oriented HEENT: normal conjunctiva, sclera anicteric CV: RRR, no edema Pulm: CTAB, diminished breath sounds at bilateral bases Abd: soft, nontender, nondistended Ext: no rash/lesions Neuro: AAOx3, generalized weakness Problem List Descending and rectosigmoid colitis Nausea/vomiting. Diarrhea LEXII, without history of CKD Hypocalcemia Hypomagnesemia Hypokalemia Hypertension Restless leg h/o gastric ulcer -continue Levaquin and Flagyl, Dc IV fluids. Patient states penicillin allergy is a severe rash -advance diet to GI soft later today -UA, urine culture, blood culture all pending / obtained in the ED. Stool cultures pending as well -hemoglobin steady; transfuse for Hgb < 7.0 -ED reported patient's stool was guaiac-negative -electrolytes improving with replacement, continue as needed -monitor on telemetry -continue all home medications - except for antihypertensive meds. -continue home pantoprazole and sucralfate -PT/OT now that patient is feeling better Code: Full Dispo: anticipate discharge to home in ~24-48hrs Time Spent Managing Pts Care (In Minutes): 35
[2020-05-15] MEDS: METRONIDAZOLE 500mg IVPB 500 MG/100 ML BAG IV SCH ×3 (00:38→16:36)
[2020-05-15 04:02] LABS: Hematocrit 26.4 % (36.0-45.0); MPV 8.7 fL (7.6-11.3); RBC Red Blood Cell Count 3.39 M/uL (3.86-4.86)
[2020-05-15 04:25] LABS: Magnesium 1.7 mg/dL (1.8-2.4); Potassium 4.3 mmol/L (3.5-5.1)
[2020-05-15] MEDS ORDERED: MAGNESIUM SULFATE 1 gm IVPB 1 GM/100 ML BAG IV ONE (09:00)
[2020-05-15] MEDS: SUCRALFATE 1 GM TABLET PO SCH ×4 (09:02→21:14)
[2020-05-15] MEDS: ENOXAPARIN 30 MG/0.3 ML SQ SCH (09:02)
[2020-05-15] MEDS: PANTOPRAZOLE 40MG TABLET PO SCH ×2 (09:02→16:35)
[2020-05-15] MEDS: Levofloxacin 750mg IV 750 MG/150 ML BAG IV SCH (16:36)
--- NOTE | 2020-05-15 16:46 | P.PN ---
Subjective Date of Service: 05/15/20 Chief Complaint: Rectosigmoid Colitis, LEXII Patient continued to experience diarrhea. She denies any abdominal pain. Physical Examination - Vital Signs Temperature: 97.6 F Blood Pressure: 129/55 Pulse: 74 Respirations: 18 Pulse Ox (%): 96 - Physical Exam General: Alert, In no apparent distress, Oriented x3 HEENT: Mucous membr. moist/pink Neck: Supple, JVD not distended Respiratory: Clear to auscultation bilaterally, Normal air movement Cardiovascular: No edema, Regular rate/rhythm, Normal S1 S2 Gastrointestinal: Normal bowel sounds, Soft and benign, Non-distended, No tenderness Musculoskeletal: No swelling, No tenderness Integumentary: No rashes, No erythema Neurological: Normal strength at 5/5 x4 extr - Studies Microbiology Data (last 24 hrs): 05/12/20 15:50 Clean Catch Urine [place] Count - Final BETWEEN 10,000 & 100,000 CFU/ML 05/12/20 15:50 Clean Catch Urine - Final Klebsiella Pneumoniae Assessment And Plan Physician Review Additional Text: Physical Exam: Gen: Alert and oriented HEENT: normal conjunctiva, sclera anicteric CV: RRR, no edema Pulm: CTAB, diminished breath sounds at bilateral bases Abd: soft, nontender, nondistended Ext: no rash/lesions Neuro: AAOx3, generalized weakness Problem List Descending and rectosigmoid colitis Nausea/vomiting. Diarrhea LEXII, without history of CKD Hypocalcemia Hypomagnesemia Hypokalemia Hypertension Restless leg h/o gastric ulcer Chronic anemia -continue Levaquin and Flagyl. -GI soft as tolerated -UA: Shows UTI., urine culture: Resistant Klebsiella pneumonia, sensitive to Bactrim. Blood culture: No growth to date. Stool sample not collected yet. -hemoglobin stable. transfuse for Hgb < 7.0. Low MCV suggest iron deficiency. Check iron profile. -patient is reluctant to undergo any colonoscopy at this time. -ED reported patient's stool was guaiac-negative -monitor electrolytes and replete as needed. -continue all home medications - except for antihypertensive meds. Patient is currently normotensive without her antihypertensives. -continue home pantoprazole and sucralfate -PT/OT.
[2020-05-16] MEDS: METRONIDAZOLE 500mg IVPB 500 MG/100 ML BAG IV SCH ×3 (00:14→17:00)
[2020-05-16 04:13] VITALS: O2SAT 94
[2020-05-16] MEDS: SUCRALFATE 1 GM TABLET PO SCH ×3 (09:04→15:54)
[2020-05-16] MEDS: PANTOPRAZOLE 40MG TABLET PO SCH ×2 (09:04→15:54)
[2020-05-16] MEDS: ENOXAPARIN 30 MG/0.3 ML SQ SCH (09:05)
[2020-05-16 11:36] LABS: C.diff Antigen/Toxin Ag neg : Tox neg (NEG : NEG)
[2020-05-16] MEDS: Levofloxacin 750mg IV 750 MG/150 ML BAG IV SCH (15:56)
[2020-05-16 16:39] VITALS: BP 132/94; TEMP 97.5
--- NOTE | 2020-05-16 18:32 | P.DS ---
Admission Date: 05/12/20 Discharge Date: 05/16/20 Disposition: ROUTINE DISCHARGE Discharge Condition: FAIR Reason for Admission: Rectosigmoid Colitis, LEXII Brief History of Present Illness: 79-year-old female with a past medical history of Hypertension, esophageal cysts gastric ulcers, recently diagnosed with COVID-19 pneumonia in March 2020, was brought into the ED by her daughter due to continued nausea/vomiting, and frequent diarrhea. Daughter reported negative C. diff. Daughter took the patient to Dr. Cash's office where CT abdomen/pelvis done showed colitis. She was prescribed Questran which did not help the diarrhea. Patient developed generalized weakness and was brought to the ED. Workup in the ED revealed leukocytosis of 13,000, anemia of 8.4, hypokalemia of 2.9, hypocalcemia 5.9, hypomagnesemia 0.8, with a mildly elevated pro calcitonin 0.19, hypoalbuminemia at 2.2. Urine dip showed positive nitrates. Daughter reports patient has had 2 negative COVID tests since her initial March. Noted patient was intubated during her active COVID infection at [facility] in [place]. Patient admitted for further management. Hospital Course: Descending and rectosigmoid colitis Nausea/vomiting. Diarrhea LEXII, without history of CKD Hypocalcemia Hypomagnesemia Hypokalemia Hypertension Restless leg h/o gastric ulcer Chronic anemia -patient admitted to the medical for -treated with IV Levaquin and Flagyl. -she had some episodes of diarrhea and diarrhea frequency decrease with treatment. -she has had only 1 soft bowel movement since morning today. -she tolerated GI soft diet -UA: Showed UTI., urine culture: Resistant Klebsiella pneumonia, sensitive to Bactrim. Blood culture: No growth to date. -Her hemoglobin was stable. Low MCV suggest iron deficiency. Her stool was occult negative -continued all home medications - except for antihypertensive meds. Patient was normotensive without her antihypertensives. -continued home pantoprazole and sucralfate -received PT/OT. -patient clinically improved and deemed stable for discharge. -she is not hypoxic. Vital Signs/Physical Exam: Temp Pulse Resp BP Pulse Ox 97.5 F 75 16 132/94 H 96 05/16/20 16:00 05/16/20 16:00 05/16/20 16:00 05/16/20 16:00 05/16/20 16:00 General: Alert, In no apparent distress HEENT: Mucous membr. moist/pink Cardiovascular: No edema, Regular rate/rhythm Gastrointestinal: Normal bowel sounds, Soft and benign Musculoskeletal: No swelling Integumentary: No rashes Neurological: Other (No focal motor deficit.) Laboratory Data at Discharge: WBC 6.60 K/uL (4.3-10.9) 05/15/20 03:36 Hgb 8.1 g/dL (12.0-15.0) L 05/15/20 03:36 Hct 26.4 % (36.0-45.0) L D 05/15/20 03:36 Plt Count 347 K/uL (152-406) D 05/15/20 03:36 PT 14.6 SECONDS (9.5-12.5) H 05/12/20 13:47 INR 1.27 05/12/20 13:47 Sodium 142 mmol/L (136-145) 05/15/20 03:36 Potassium 4.3 mmol/L (3.5-5.1) 05/15/20 03:36 BUN 9 mg/dL (7-18) 05/15/20 03:36 Creatinine 1.07 mg/dL (0.55-1.3) 05/15/20 03:36 Glucose 94 mg/dL (74-106) 05/15/20 03:36 Phosphorus 3.5 mg/dL (2.5-4.9) 05/13/20 03:08 Magnesium 1.9 mg/dL (1.8-2.4) 05/16/20 03:38 Total Bilirubin 0.4 mg/dL (0.2-1.0) 05/13/20 03:08 AST 16 U/L (15-37) 05/13/20 03:08 ALT 7 U/L (12-78) L 05/13/20 03:08 Alkaline Phosphatase 86 U/L (45-117) 05/13/20 03:08 Troponin I 0.05 ng/mL (0.0-0.045) H 05/13/20 03:08 Home Medications: Pantoprazole Sodium [Protonix] 40 mg PO BID 05/12/20 Sucralfate [Carafate] 1 gm PO BID 05/12/20 Melatonin/Pyridoxine [Melatonin 5 mg Tablet] 10 mg PO BEDTIME PRN PRN 05/13/20 Ascorbic Acid [Vitamin C] 2,000 mg PO BID #240 tab.chew 05/16/20 Cholecalciferol (Vitamin D3) [Vitamin D3] 4,000 unit PO DAILY #60 capsule 05/16/20 Ciprofloxacin HCl [Cipro 500 MG Tablet] 500 mg PO BID #6 tab 05/16/20 Ropinirole HCl [Requip*] 0.25 mg PO BID PRN #60 tab 05/16/20 Zinc Sulfate [Zinc Sulfate*] 220 mg PO DAILY #30 cap 05/16/20 metroNIDAZOLE [Flagyl] 500 mg PO Q8H #9 tablet 05/16/20 New Medications: Ciprofloxacin HCl [Cipro 500 MG Tablet] 500 mg PO BID #6 tab metroNIDAZOLE [Flagyl] 500 mg PO Q8H #9 tablet Ropinirole HCl [Requip*] 0.25 mg PO BID PRN #60 tab PRN Reason: Itching Ascorbic Acid [Vitamin C] 2,000 mg PO BID #240 tab.chew Cholecalciferol (Vitamin D3) [Vitamin D3] 4,000 unit PO DAILY #60 capsule Zinc Sulfate [Zinc Sulfate*] 220 mg PO DAILY #30 cap Diet: ADA Activity: Ad barbie Followup: DODIE DHILLON [Primary Care Provider] - 1-2 Weeks (call to schedule an appointment ) Jean Carlos Cardoza MD [ASSOCIATE-ACTIVE - CAN ADMIT] - (call to schedule an appointment ) Time spent managing pt's care (in minutes): 36
== END 2020-05-16 18:42 | disposition home health service (06) | DRG 391 ==
LOC: ER 13:02 → ERHOLD 16:49 → 4TH 19:45
PROVIDERS: ADMIT Hospitalist; ATTEND Internal Medicine
DX: K52.9 Noninfective gastroenteritis and colitis, unspecified (principal); U07.1 COVID-19; N17.9 Acute kidney failure, unspecified; N39.0 Urinary tract infection, site not specified; I10 Essential (primary) hypertension; E83.51 Hypocalcemia; E87.6 Hypokalemia; G25.81 Restless legs syndrome; E88.09 Other disorders of plasma-protein metabolism, not elsewhere classified; E83.42 Hypomagnesemia; B96.1 Klebsiella pneumoniae [K. pneumoniae] as the cause of diseases classified elsewhere; Z88.0 Allergy status to penicillin; Z88.5 Allergy status to narcotic agent; Z79.899 Other long term (current) drug therapy; Z90.49 Acquired absence of other specified parts of digestive tract; Z87.891 Personal history of nicotine dependence
CPT/HCPCS: 36415; 51702; 70450; 71045; 74177; 80048; 80053; 80076; 81003; 81015; 82272; 82274; 82565; 82728; 83036; 83605; 83631; 83735; 83880; 84100; 84132; 84145; 84484; 85018; 85025; 85027; 85610; 86140; 87040; 87045; 87046; 87077; 87086; 87088; 87177; 87186; 87209; 87324; 87449; 89055; 93005; 97110; 97116; 97161; 97530; 99285; J0610; J1650; J3475; J3480; J7030; J7040; Q9967; U0003

== ENCOUNTER 2020-09-04 21:29 | Inpatient (IN) | payer OTHER ==
--- OUTSIDE RECORDS SUMMARY | 2020-09-04 21:33 | XMS REPORT | Continuity of Care Document ---
:1940 Author Organization [facility] t Address [address] [place] [address] Care Team Providers Name Role Phone Carmelo LO Primary Care Physician Cliff LO L. Attending Clinician Dre GARDNER Attending Clinician Unavailable Quentin NICOLE Attending Clinician Unavailable Nancy NICOLE, A Attending Clinician Unavailable Yunier LO Attending Clinician Mindy De MD Attending Clinician Santino LO Attending Clinician Anton LO Attending Clinician Antonino Atkins MD Attending Clinician Rolando Golden MD Attending Clinician Dalila LO, [facility] Attending Clinician Terrance LO, ODaniel Attending Clinician Manoj Campa MD Attending Clinician Mindy De MD Admitting Clinician TERRANCE Admitting Clinician Unavailable Payers Payer Name Policy Type Policy Effective Date Expiration Date Sour ce Number MEDICAREMEDICARE PART [id number] 2004 Tonio Mak AND 00:00:00 [facility] [id number] [place] [id number] 2019 [place] [id number] 00:00:00 Met clark /04/2019-Urbano sanchez Problems Condition Condition Condition Status Onset Resolution Last Treating Co mments Source Name Details Category Date Date Treatment Clinician Date Perforatio Perforatio Disease Active 2019-04 H christophston n of n of 04-14 Methodi duodenum duodenum 00:00: st 00 Epigastric Epigastric Disease Active 2019-04 Overview : [place] pain pain 04-14 Formattin Methodi 00:00: g of this st 00 note might be different from the original. Added automatic ally from request for surgery [id number] Gastrointe Gastrointe Disease Active 2019-04 Overview : [place] stinal stinal 04-14 Formattin Methodi hemorrhage hemorrhage 00:00: g of this st associated associated 00 note with with might be duodenitis duodenitis different from the original. Added automatic ally from request for surgery [id number] 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 08-05 Me thodi s s 00:00: st 00 Gastric Gastric Disease Active [place] ulcer due ulcer due 08-05 Meth evan to to 00:00: st Helicobact Helicobact 00 er pylori, er pylori, unspecifie unspecifie d ulcer d ulcer chronicity chronicity GI bleed GI bleed Disease Active [place] 08-04 Methodi 00:00: st 00 Acute Acute Disease Active [place] kidney kidney 08-04 [facility] injury injury 00:00: st superimpos superimpos 00 ed on ed on chronic chronic kidney kidney disease disease Enteritis Enteritis Disease Active Juan Alberto ston 08-04 Methodi 00:00: st 00 Electrolyt Electrolyt Disease Active H yaa e e 08-04 Methodi abnormalit abnormalit 00:00: st y y 00 Neutrophil Neutrophil Disease Active yaa ic ic 08-04 Methodi leukocytos leukocytos 00:00: st is is 00 Adjustment Adjustment Disease Active H yaa reaction reaction 9-28 Method i with with 00:00: st anxiety anxiety 00 and and depression depression CAD CAD Disease Active [place] (coronary (coronary 12-29 Meth evan artery artery [...] 00:00: st 00 UTI UTI Disease Active [place] (urinary (urinary 12-29 Method i tract tract 00:00: st infection) infection) 00 Edema Edema Disease Active [facility] 12-28 Methodi 00:00: st 00 Allergies, Adverse Reactions, Alerts Allergy Allergy Status Severity Reaction(s) Onset Inactive Treating Comm ents Source Name Type Date Date Clinician Codeine Propensi Active GI vomitting [place] ty to Intolerance 924 Metho di adverse 00:00: st reaction 00 s to drug Prochlor Propensi Active Anxiety Makes pt Juan Alberto ston perazine ty to 9 very Methodi adverse 00:00: agitated st reaction 00 and s to "beligere drug nt." Meperidi Propensi Active GI vomiting [place] ty to Intolerance 12-28 Metho di adverse 00:00: st reaction 00 s to drug Oxycodon Propensi Active GI Vomiting [place] ty to Intolerance 24 Metho di adverse 00:00: st reaction 00 s to drug Penicill Propensi Active Rash [place] to 12-28 Methodi adverse 00:00: st reaction 00 s to drug Family History Family Member Diagnosis Comments Start Date Stop Date Source Natural father Hearing loss [place] [facility] Maternal grandmother Heart disease yaa Barnes Natural mother Hearing loss [place] [facility] Natural mother Heart disease [place] [facility] Social History Social Habit Start Date Stop Date Quantity Comments Source History of tobacco Cigarette Smoker [place] use [facility] Cigarettes smoked 2020-02-17 2020-02-17 [place] current (pack per 00:00:00 00:00:[address] day) - Reported Cigarette 2020-02-17 2020-02-17 [place] pack-years 00:00:00 00:00:00 [facility] Tobacco use and 2020-02-17 2020-02-17 Former user [place] exposure 00:00:00 00:00:00 [facility] Alcohol intake 2020-02-17 2020-02-17 Current drinker [place] 00:00:00 00:00:00 of alcohol [facility] (finding) Alcohol Comment 2016-07-19 2016-07-19 1 drink/month, [place] 00:00:00 00:00:00 "if that" [facility] Sex Ass[birth year] At [birth year] [place] 00:00:00 00:00:00 [facility] Smoking Status Start Date Stop Date Source Former smoker 2020-02-17 00:00:00 2020-02-17 00:00:00 [place] [facility] Medications Ordered Filled Start Stop Current Ordering [...] Date Status Commen ts Source Name Name FLUZONE QUAD PF 2016-02-26 Completed [place] 00:00:00 [facility] Vital Signs Vital Name Observation Time Observation Value Comments Source Systolic blood 2020-02-17 11:30:11 116 mm[Hg] Yvonneto n [facility] pressure Diastolic blood 2020-02-17 11:30:11 65 mm[Hg] [place]net on [facility] pressure Heart rate 2020-02-17 11:30:11 59 /min [place] [facility] Body temperature 2020-02-17 11:30:11 36.72 Sandra [place] [facility] Respiratory rate 2020-02-17 11:30:11 18 /min [place] [facility] Oxygen saturation in 2020-02-17 11:30:11 99 /min [place] [facility] Arterial blood by Pulse oximetry Body weight 2020-02-17 05:51:00 92.216 kg [place] [facility] BMI 2020-02-17 05:51:00 33.83 kg/m2 [place] Body height 2020-02-13 12:19:00 165.1 cm [facility] Procedures Procedure Date / Time Performing Source Performed Clinician HC COMPLETE BLD COUNT W/AUTO DIFF 2020-02-17 Sera Navarrete in [place] 04:25:00 O. [facility] BASIC METABOLIC PANEL 2020-02-17 Terrance [facility] 04:00:00 O. [facility] MAGNESIUM LEVEL 2020-02-17 Chely Miranda [place] 04:00:00 K. [facility] ESTIMATED GFR 2020-02-17 Dee Dee Navarrete 04:00:00 O. [facility] BLOOD CULTURE, AEROBIC & ANAEROBIC 2020-02-16 Hanna Henderson [place] 22:05:00 [facility] BLOOD CULTURE, AEROBIC & ANAEROBIC 2020-02-16 Hanna Henderson [place] 21:50:00 [facility] TRANSFUSE RED BLOOD CELLS 2020-02-16 Dee Dee Navarrete on 13:44:37 O. [facility] SURGICAL PATHOLOGY REQUEST 2020-02-16 Dee Dee Navarrete 10:01:00 O. [facility] HC COMPLETE BLD COUNT W/AUTO DIFF 2020-02-16 Sera Navarrete in [place] 07:36:00 O. [facility] ESOPHAGOGASTRODUODENOSCOPY (EGD) 2020-02-16 Cheri Coronado [place] 06:54:00 [facility] BASIC METABOLIC PANEL 2020-02-16 Terrance [facility] 04:20:00 O. [facility] MAGNESIUM LEVEL 2020-02-16 Terrance [facility] 04:20:00 O. [facility] ESTIMATED GFR 2020-02-16 [facility] 04:20:00 O. [facility] HC COMPLETE BLD COUNT W/AUTO DIFF 2020-02-16 Leola, Aust in [place] 02:30:00 O. [facility] BASIC METABOLIC PANEL 2020-02-16 [facility] 02:30:00 O. [facility] MAGNESIUM LEVEL 2020-02-16 [facility] 02:30:00 O. [facility] POC GLUCOSE 2020-02-15 [facility] 20:57:00 O. [facility] POC GLUCOSE 2020-02-15 [facility] 11:37:00 O. [facility] POC GLUCOSE 2020-02-15 [facility] 07:33:00 O. [facility] POC GLUCOSE 2020-02-15 [facility] 04:54:00 O. [facility] HC COMPLETE BLD COUNT W/AUTO DIFF 2020-02-15 Leola, Aust in [place] 00:30:00 O. [facility] BASIC METABOLIC PANEL 2020-02-15 [facility] 00:30:00 O. [facility] T4, FREE 2020-02-15 [facility] 00:30:00 O. [facility] THYROID STIMULATING HORMONE 2020-02-15 [facility] Juan Alberto ston 00:30:00 O. [facility] LIPID PANEL 2020-02-15 [facility] 00:30:00 O. [facility] ESTIMATED GFR 2020-02-15 [facility] 00:30:00 O. [facility] POC GLUCOSE 2020-02-15 [facility] 00:27:00 O. [facility] POC GLUCOSE 2020-02-14 [facility] 21:30:00 O. [facility] POC GLUCOSE 2020-02-14 [facility] 18:21:00 O. [facility] POC GLUCOSE 2020-02-14 [facility] 12:44:00 O. [facility] POC GLUCOSE 2020-02-14 [facility] 08:15:00 O. [facility] POC GLUCOSE 2020-02-14 [facility] 06:19:00 O. [facility] POC GLUCOSE 2020-02-14 [facility] 01:23:00 O. [facility] BASIC METABOLIC PANEL 2020-02-14 [facility] 01:00:00 O. [facility] HC COMPLETE BLD COUNT W/AUTO DIFF 2020-02-14 Leola, Mirellat in [place] 01:00:00 O. [facility] PHOSPHORUS LEVEL 2020-02-14 [facility] 01:00:00 O. [facility] MAGNESIUM LEVEL 2020-02-14 [facility] 01:00:00 O. [facility] LACTIC ACID LEVEL 2020-02-14 [facility] 01:00:00 O. [facility] ESTIMATED GFR 2020-02-14 [facility] 01:00:00 O. [facility] POC GLUCOSE 2020-02-13 [facility] 20:59:00 O. [facility] LACTIC ACID LEVEL, SEPSIS - NOW 2020-02-13 Conner, Valery-Christiane [place] AND REPEAT 2X EVERY 3 HOURS 19:48:00 Christiane Meth odist LACTIC ACID LEVEL, SEPSIS - NOW 2020-02-13 Conner, Valery-Christiane [place] AND REPEAT 2X EVERY 3 HOURS 16:14:00 Christiane Meth odist GASTRIN LEVEL 2020-02-13 Jesus Feldman [place] 16:03:00 [place] [facility] COVID-19 QUALITATIVE PCR 2020-02-13 Conner, Valery-Christiane [place] 14:40:00 [facility] CT ABDOMEN PELVIS WO CONTRAST 2020-02-13 Conner, Valery-Christiane [place] 14:08:39 [facility] ECG ED PRELIMINARY INTERPRETATION 2020-02-13 Conner, Valery-A nh [place] 13:37:23 Christiane [facility] HI CRITICAL CARE, E/M 30-74 2020-02-13 Conner, Valery-Christiane Juan Alberto ston MINUTES 13:37:23 [facility] LIPASE LEVEL 2020-02-13 Hayden Brasher 12:44:00 [facility] ESTIMATED GFR 2020-02-13 Hayden Brasher 12:44:00 [facility] LACTIC ACID LEVEL 2020-02-13 Hayden Brasher 12:44:00 [facility] PREPARE RBC 2020-02-13 [facility] 12:44:00 O. [facility] HC COMPLETE BLD COUNT W/AUTO DIFF 2020-02-13 Vinnie Brasher 12:44:00 [facility] PROTHROMBIN TIME WITH INR 2020-02-13 Hayden Brasher Juan Alberto ston 12:44:00 [facility] TYPE AND SCREEN 2020-02-13 Hayden Brasher 12:44:00 [facility] COMPREHENSIVE METABOLIC PANEL 2020-02-13 Hayden Brasher 12:44:00 [facility] ECG 12-LEAD 2020-02-13 Anshu Hayden Herbie [place] 12:25:23 [facility] Plan of Care Planned Activity Planned Date Details Comments Source Future Scheduled 2020-11-04 INFLUENZA VACCINE Douglas awan [facility] Test 00:00:00 [code = INFLUENZA VACCINE] Future Scheduled 1989-12-23 SHINGLES VACCINES (#1) Amrik mon [facility] Test 00:00:00 [code = SHINGLES VACCINES (#1)] Future Scheduled 1951 COVID-19 VACCINE (1) Juan Alberto rivers [facility] Test 00:00:00 [code = COVID-19 VACCINE (1)] Future Scheduled 1946-12-23 65+ PNEUMOCOCCAL [place] [facility] Test 00:00:00 VACCINE (1 of 2 - PPSV23) [code = 65+ PNEUMOCOCCAL VACCINE (1 of 2 - PPSV23)] Encounters Start End Encounter Admission Attending Care Care Encounter Source Date/Time Date/Time Type Type Clinicians Facility Department ID 2020-04-18 2020-04-18 Transition Owen Cruz [id number] 00:00:00 00:00:00 of Care Calvin Aubree Worthington [id number] [place] [id number] [facility] 2020-04-07 2020-04-17 [facility] Yunier Jhonny Daylin [id number] 10:01:00 21:23:00 Encounter Harry De [id number] [facility] [id number] Carlos Walton [id number] Hamilton Atkins 099 Rasta Golden 2020-02-13 2020-02-17 Inpatient [facility] [id number] [place] 00:00:00 00:00:00 DEE DEE [address] Results Test Description Test Time Test Comments Results Result Comments Source Surgical pathology request 2020-02-17 11:58:51 Test Item Value Reference Range Interpretation Comme nts Case number (test code = [id number]) [id number] Surgical pathology report (test code = See link below for PDF Lab R eport 6112) Result status (test code = 7586352) This is Final Report for [id number] [facility] 12 [id number] 16:01:06 Test Item Value Reference Range Interpretation Comments Ventricular rate 88 (test code = 253) Atrial rate (test 88 code = 255) HI interval (test 144 code = 266) QRSD [...] of 05-AUG-2018 05:47,-No significant change was found- [facility] Abdomen Pelvis Wo [id number] 14:24:04Hm Interface, Radiology Results Incoming - 02/13/2020 2:27 PM CST EXAMINATION: CT ABDOMEN PELVIS WO CONTRASTCLINICAL HISTORY: 79 years old Female. Abd pain unspecified, Abd pain gastroenteritis or colitis suspected.TECHNIQUE: Multiple axial images of the abdomen and pelvis were obtained without intravenous administration of iodinated contrast. Oral contrast was not administered. Sagittal and coronal computerized reformatted images werealso obtained. The lack of intravenous contrast reduces the sensitivity of detecting solid organ disease. CT imaging was performed with iterative reconstruction techniques and/or automated exposure control to reduce radiation dose. COMPARISON: CT abdomen pelvis 12/28/2016IMPRESSION:LOWER CHEST:Visualized lower thorax:Lung bases: No significant pleural effusion. Lower mediastinum: Cardiac size is normal. No pericardial effusion. Atherosclerotic calcification of the coronary arteries. Aortic valve leaflet and mitral annular calcifications.ABDOMEN:Upper abdominal organs: Liver: Noncontrast appearanceof the liver is normal. Measures 13.4 cm [...] aorta is of normal caliber. Moderate atherosclerotic disease of the abdominal aorta and branch vessels.Lymph nodes: [...] wall of the second/third duodenal segment, likely earlymicroperforation in the setting of peptic ulcer disease.3. High density intraluminal contents withinthe proximal duodenum, possibly intraluminal hemorrhage or ingested material. Correlation with endoscopy, if indicated clinically.Findings of suspected duodenitis with early microperforation were discussed by phone with Dr. Gregory by Dr. Curran at 02/13/2020 2:22 PM.[id number] ED Preliminary Interpretation - Not an [id number] 13:37:23 Test Item Value Reference Range Interpretation Comments WALTER (test code = WALTER) Gonzalez Conner MD 02/17/2020 11:34 [facility] ED Preliminary Interpretation - Not an OrderPerformed by: Gonzalez Conner MDAuthorized by: Gonzalez Conner MD ECG reviewed by ED Physician in the absence of a engagement manager: yes Previous ECG: Previous ECG: UnavailableInterpretat ion: Interpretation: abnormal Rate: ECG rate: 88 ECG rate assessment: normal Rhythm: Rhythm: sinus rhythm Ectopy: Ectopy: none QRS: QRS axis: Normal QRS intervals: NormalConduction: Conduction: abnormal Abnormal conduction: complete RBBB ST segments: ST segments: NormalT waves: T waves: normal Lab Interpretation Abnormal (test code = 12524-9) [facility] [id number] 13:37:23Gonzalez Conner MD 02/17/2020 11:34 AMCritical CarePerformed [...]
[2020-09-04] MEDS ORDERED: NA CHLORIDE 0.9% 500 ML ONE ×2 (22:32→22:48)
[2020-09-04 23:09] LABS: Absolute Lymphocytes (CBC) 1.2 K/uL (0.7-4.9); Basophils % 0.5 % (0-1.3); Hematocrit 27.6 % (36.0-45.0); Lymphocytes % 7.8 % (15.3-44.8); MPV 8.5 fL (7.6-11.3); RBC Red Blood Cell Count 3.97 M/uL (3.86-4.86)
[2020-09-04 23:11] LABS: Protime INR 1.43
[2020-09-04 23:43] LABS: Potassium 3.5 mmol/L (3.5-5.1)
[2020-09-04 23:49] LABS: Troponin (Emerg Dept Use Only) 0.68 ng/mL (0.0-0.045)
[2020-09-05 00:18] LABS: Blood Morphology Comment NOTED (NOT SEEN); Platelet Estimate ADEQ; White Blood Cell Scan OK (OK)
--- NOTE | 2020-09-05 01:01 | EDPHYS ---
Physician Documentation [facility] Name: Renetta Roger Age: 79 yrs Sex: Female : 1940 Arrival Date: 09/04/2020 Time: 21:30 Bed 17 Private MD: ED Physician Zach Dubon HPI: 09/04 22:24 This 79 yrs old Female presents to ER via EMS with complaints of fall in rn shower. 22:24 Details of fall: The patient fell from an upright position, while standing. Onset: The rn symptoms/episode began/occurred just prior to arrival. Associated injuries: The patient sustained left shoulder. Severity of symptoms: At their worst the symptoms were mild, in the emergency department the symptoms are unchanged. It is unknown whether or not the patient has had similar symptoms in the past. The patient has not recently seen a physician. Per EMS, 911 called after fall in shower, reported left shoulder pain. Denies LOC. Does not think she is on blood thinners. No headache/neck pain/chest pain/sob. Has not felt ill recently. Does not feel like has urine infection. EMS reported hot water and patient initially had elevated temp, now normal that she has been removed from hot environment. . Historical: - Allergies: 21:38 Codeine; ea 21:38 Demerol; ea 21:38 PENICILLINS; ea - Home Meds: 21:38 amlodipine 5 mg tab 1 tab once daily [Active]; pantoprazole 40 mg Oral TbEC 1 tab 2 ea times per day [Active]; Potassium Chloride Oral [Active]; sucralfate 1 gram Oral tab 1 tab 4 times per day [Active]; - PMHx: 21:38 gastric ulcer; Hypertension; ea - PSHx: 21:38 ; Tonsillectomy; Appendectomy; Cholecystectomy; left foot; neck surgery; right ea knee; - Immunization history:: Adult Immunizations unknown. - Social history:: Smoking status: unknown. - Family history:: not pertinent. - Hospitalizations: : No recent hospitalization is reported. ROS: 22:24 Constitutional: Negative for fever, chills, and weight loss, Eyes: Negative for injury, rn pain, redness, and discharge, Neck: Negative for injury, pain, and swelling, Cardiovascular: Negative for chest pain, palpitations, and edema, Respiratory: Negative for shortness of breath, cough, wheezing, and pleuritic chest pain, Abdomen/GI: Negative for abdominal pain, nausea, vomiting, diarrhea, and constipation, Back: Negative for injury and pain, MS/Extremity: + left shoulder pain, + left wrist pain (stung by wasp earlier today). Skin: Negative for injury, rash, and discoloration, Neuro: Negative for headache, numbness, tingling, and seizure. Exam: 22:24 Constitutional: This is a well developed, well nourished patient who is awake, alert, rn and in no acute distress. Head/Face: Normocephalic, atraumatic. Eyes: Periorbital areas with no swelling, redness, or edema. ENT: dry MM Neck: NO focal spinal tenderness Cardiovascular: Regular rate and rhythm. No pulse deficits. Respiratory: No increased work of breathing, no retractions or nasal flaring. Abdomen/GI: Soft, non-tender Skin: Warm, dry MS/ Extremity: Pulses equal, no cyanosis. Neurovascular intact. Full, normal range of motion. Equal circumference. Neuro: Awake and alert, GCS 15, oriented to person, place, and situation. Cranial nerves II-XII grossly intact. Motor strength 4/5 in all extremities. Sensory grossly intact. Vital Signs: 21:32 BP 133 / 63; Pulse 60; Resp 18; Temp 97.6; Pulse Ox 97% ; ea 23:52 Temp 99; ea 09/05 05:07 BP 119 / 66; Pulse 72; Resp 18; Pulse Ox 99% ; ea MDM: 09/04 21:34 Patient medically screened. rn 09/05 00:55 Differential diagnosis: contusion, fracture, sprain, dehydration, delirium, concussion, rn intracranial bleed, metabolic disturbance.. Data reviewed: vital signs, nurses notes, lab test result(s), radiologic studies, CT scan, plain films, and as a result, I will admit patient. 00:57 Counseling: I had a detailed discussion with the patient and/or guardian regarding: the rn historical points, exam findings, and any diagnostic results supporting the discharge/admit diagnosis, lab results, radiology results, the need for further work-up and treatment in the hospital. Admission orders: after a detailed discussion of the patient's condition and case, the admit orders are written by me. ED course: Pt with hypocalcemia, dehydration, AMS, doesn't recall what happened, lives by herself, will admit for electrolyte replacement, fluids, and observation.. 09/04 21:41 Order name: Basic Metabolic Panel; Complete Time: 00:37 rn 09/04 21:41 Order name: CBC with Diff; Complete Time: 00:37 rn 09/04 21:41 Order name: Protime (+inr); Complete Time: 23:44 rn 09/04 21:41 Order name: Ptt, Activated; Complete Time: 23:44 rn 09/04 21:41 Order name: Troponin (emerg Dept Use Only); Complete Time: 00:37 rn 09/04 23:17 Order name: CBC Smear Scan; Complete Time: 00:37 EDMS 09/05 01:31 Order name: Urine Dipstick-Ancillary; Complete Time: 05:05 EDMS 09/05 01:58 Order name: SARS-COV-2 RT PCR; Complete Time: 05:05 EDMS 09/05 08:24 Order name: Lactate; Complete Time: 19:03 EDMS 09/05 08:40 Order name: Comprehensive Metabolic Panel; Complete Time: 19:03 EDMS 09/05 08:40 Order name: Troponin I; Complete Time: 19:03 EDMS 02 08:40 Order name: Transferrin Sat/Iron Binding; Complete Time: 19:03 EDMS 09/05 08:40 Order name: Ferritin; Complete Time: 19:03 EDMS 09/04 21:41 Order name: IV Start; Complete Time: 22:47 rn 09/04 21:41 Order name: CT Head C Spine; Complete Time: 19:03 rn 09/04 21:41 Order name: EKG; Complete Time: 21:42 rn 09/04 21:41 Order name: Cardiac monitoring; Complete Time: 23:19 rn 09/04 21:41 Order name: EKG - Nurse/Tech; Complete Time: 23:19 rn 09/04 21:41 Order name: Labs collected and sent; Complete Time: 22:47 rn 09/04 21:41 Order name: O2 Per Protocol; Complete Time: 22:47 rn 09/04 21:41 Order name: O2 Sat Monitoring; Complete Time: 22:47 rn 09/04 21:41 Order name: XRAY Shoulder LEFT 2 view; Complete Time: 19:03 rn 09/04 21:41 Order name: XRAY Wrist LEFT 3 view; Complete Time: 19:03 rn 09/05 05:12 Order name: Chest Pa And Lat (2 Views) EDDC 09/05 09:22 Order name: Procalcitonin; Complete Time: 19:03 EDDC 09/05 11:12 Order name: RAD; Complete Time: 19:03 EDDC 09/05 17:11 Order name: Troponin I; Complete Time: 19:03 [facility] 09/04 21:41 Order name: Urine Dipstick-Ancillary (obtain specimen); Complete Time: 01:34 rn 09/05 00:39 Order name: Splint - Volar Wrist Splint: left wrist; Complete Time: 06:19 rn 09/05 01:31 Order name: Straight Cath - Urine; Complete Time: 01:31 ea Administered Medications: 09/04 22:45 Drug: NS 0.9% 500 ml Route: IV; Rate: bolus; Site: left forearm; ea 09/05 02:27 Follow up: Response: No adverse reaction; IV Status: Completed infusion; IV Intake: ea 500ml 06:25 Drug: Calcium Gluconate 1 grams Route: IVPB; Infused Over: 60 mins; Site: left forearm; ea Disposition: 09/05/20 00:59 Hospitalization ordered by Jonnie Smith for Observation. Preliminary diagnosis are Weakness, Hypocalcemia, Altered mental status, unspecified, Dehydration. - Bed requested for Telemetry/MedSurg (observation). - Status is Observation. rr5 - Condition is Stable. - Problem is new. - Symptoms are unchanged. Signatures: Dispatcher [employer] [facility] Yessy Harper Roman, MD MD rn Garcia, Cindy RN BONNIE cg Shania Duarte RN RN ea Roque, Raymond RN RN rr5 Corrections: (The following items were deleted from the chart) 00:22 06 23:21 CORONAVIRUS+MR.LAB.BRZ ordered. [facility] 09/05 02:29 00:59 Hospitalization Ordered by Jonnie Smith for Observation. Preliminary diagnosis cg is Weakness; Hypocalcemia; Altered mental status, unspecified; Dehydration. Bed requested for Telemetry/MedSurg (observation). Status is Observation. Condition is Stable. Problem is new. Symptoms are unchanged. rn 15:40 02:29 09/05/2020 00:59 Hospitalization Ordered by Jonnie Smith for Observation. bd Preliminary diagnosis is Weakness; Hypocalcemia; Altered mental status, unspecified; Dehydration. Bed requested for [facility] ER HOLD. Status is Observation. Condition is Stable. Problem is new. Symptoms are unchanged. cg 19:49 15:40 09/05/2020 00:59 Hospitalization Ordered by Jonnie Smith for Observation. rr5 Preliminary diagnosis is Weakness; Hypocalcemia; Altered mental status, unspecified; Dehydration. Bed requested for Telemetry/MedSurg (observation). Status is Observation. Condition is Stable. Problem is new. Symptoms are unchanged. bd
[2020-09-05 01:31] LABS: Urine Blood 1+ (Negative); Urine Glucose Negative (Negative); Urine Protein 2+ (Negative); Urine Specific Gravity 1.025 (1.005-1.030)
[2020-09-05] MEDS ORDERED: ONDANSETRON 4 MG/2 ML VIAL IV PRN (05:24)
[2020-09-05] MEDS ORDERED: NA CHLORIDE 0.9% 1,000 ML IV SCH (06:00)
[2020-09-05] MEDS ORDERED: CALCIUM GLUCONATE 1 GM IVPB 1 GM/50 ML BAG IV ONE (06:37)
--- NOTE | 2020-09-05 08:30 | RAD REPORT ---
EXAM DESCRIPTION: RAD - Shoulder Left 2 View - 09/04/2020 10:29 pm CLINICAL HISTORY: PAIN COMPARISON: No comparisons FINDINGS: Mild to moderate AC joint degenerative changes are present. Mild glenohumeral joint arthri tic changes. No acute fracture or dislocation is seen.
--- NOTE | 2020-09-05 08:31 | RAD REPORT ---
EXAM DESCRIPTION: RAD - Wrist Left 3 View - 09/04/2020 10:29 pm CLINICAL HISTORY: PAIN Pain COMPARISON: No comparisons FINDINGS: Diffuse osteopenia is present. Advanced arthritic changes involve the radiocarpal joint a s well as the first carpal/metacarpal joint. Prominent soft tissue swelling is seen about the wrist. No acute fracture evident.
[2020-09-05 08:39] LABS: Albumin 2.8 g/dL (3.4-5.0); Bilirubin Total 0.9 mg/dL (0.2-1.0); Ferritin 62.9 ng/mL (8-388); Potassium 3.3 mmol/L (3.5-5.1); Protein, Total 7.1 g/dL (6.4-8.2); Troponin I 0.46 ng/mL (0.0-0.045)
[2020-09-05] MEDS ORDERED: CALCIUM GLUC 10% INJ 4.65 MEQ in NA CHLORIDE 0.9% 100 ML IV ONE (09:43)
[2020-09-05] MEDS ORDERED: PNEUMOCOCCAL VACCINE 0.5 ML IMVAC ONE (10:00)
[2020-09-05] MEDS: ACETAMINOPHEN 500 MG TAB PO PRN ×2 (10:35→20:58)
[2020-09-05] MEDS ORDERED: ACETAMINOPHEN 500 MG TAB ONE (10:40)
--- NOTE | 2020-09-05 11:12 | RAD REPORT ---
EXAM DESCRIPTION: XR Chest, 1 View CLINICAL HISTORY: The patient is 79 years old and is Female; leukocytosis TECHNIQUE: Frontal view of the chest. COMPARISON: No relevant prior studies available. FINDINGS: Lungs: Mild pulmonary vascular congestion. No focal consolidation. Pleural space: The right costophrenic angle is obscured. No pneumothorax. Heart: Unremarkable. Mediastinum: Unremarkable. Bones/joints: Unremarkable. IMPRESSION: 1. Mild pulmonary vascular congestion. 2. No focal consolidation. Electronically signed by: Jonathan Colon MD 09/05/2020 6:00 AM CDT Due to temporary technical issues with the PACS/Fluency reporting system, reports are being signed by the in house radiologist without review as a courtesy to ensure prompt reporting. The interpreting r adiologist is fully responsible for the content of the report.
--- NOTE | 2020-09-05 11:12 | RAD REPORT ---
EXAM DESCRIPTION: Head C Spine Mpr Wo Con. RadLex: CT Head and Cervical spine WO contrast CLINICAL HISTORY: Fall. TECHNIQUE: Axial, coronal, and sagittal images through the brain were performed in the absence of in travenous contrast. CT of the cervical spine was performed without contrast. Axial, coronal, and sagittal reconstructions were created and sent to PACS. These exams were performed according to our departmental dose-optimization program which includes use of Automated Exposure Control, adjustment of the mA and/or kV according to patient size and/or use o f iterative reconstruction technique. COMPARISON: CT of the head and cervical spine from March 27, 2017. CT of the head from May FINDINGS: CT Head: There is diffuse age-appropriate atrophy seen throughout the brain parenchyma. Mild periventricular w lorenzo matter changes are seen to be present and there is mild ex vacuo dilatation of the ventricular s ystem. There is no intra-axial or extra-axial bleed. There is no mass or mass effect. Mild mucosal thickening in the maxillary sinuses. The remaining visualized paranasal sinuses and mast oid air cells are patent. No fracture is identified. CT cervical spine: No acute osseous abnormality identified. Vertebral body height and alignment are maintained. No atlan todental interval widening. Atlantoaxial alignment is maintained. Postsurgical and degenerative gomez es of the cervical spine are not significantly changed from prior, with multilevel mild to moderate n euroforaminal narrowing and no definite significant central canal stenosis. Paraspinal soft tissues: Mild calcific atherosclerosis. IMPRESSION: 1. No acute intracranial abnormality identified. Chronic age-related and microvascular ischemic changes. 2. No acute osseous abnormality identified in the cervical spine. Degenerative and post surgical ch anges. Electronically signed by: Dodie Lagos MD 09/04/2020 10:44 PM CDT Due to temporary technical issues with the PACS/Fluency reporting system, reports are being signed by the in house radiologist without review as a courtesy to ensure prompt reporting. The interpreting r adiologist is fully responsible for the content of the report.
--- NOTE | 2020-09-05 11:55 | EKG ---
Test Date: 2020-09-04 Test Time: 23:14:09 Filter Cloth Maker: RAOUL MEASUREMENT RESULTS: Intervals: Rate: 78 TN: 154 QRSD: 144 QT: 438 QTc: 499 [place]etchum: P: 38 TN: 154 QRS: -65 T: 50 INTERPRETIVE STATEMENTS: Sinus rhythm with premature atrial complexes Right bundle branch block Left anterior fascicular block Bifascicular block Minimal voltage criteria for LVH, may be normal variant Abnormal ECG Compared to ECG 05/12/2020 13:42:39 Atrial premature complex(es) now present Right bundle-branch block now present Left anterior fascicular block now present Bifascicular block now present Atrial fibrillation no longer present Left-axis deviation no longer present Electronically Signed On 09-05-20 11:53:36 CDT by Omar Isabel
[2020-09-05] MEDS ORDERED: Levofloxacin500mg IV 500 MG/100 ML BAG IV SCH (19:00)
--- NOTE | 2020-09-05 19:04 | P.HP ---
Certification for Inpatient Patient admitted to: Inpatient With expected LOS: >2 Midnights Patient will require the following post-hospital care: None Practitioner: I am a practitioner with admitting privileges, knowledge of patient current condition, hospital course, and medical plan of care. Services: Services provided to patient in accordance with Admission requirements found in Title 42 Section 412.3 of the Code of Federal Regulations Patient History Date of Service: 09/05/20 Reason for admission: s/p fall; elevated troponin; LEXII History of Present Illness: Patient is a 79-year-old female who came to the hospital after falling in her shower. She injured her shoulder and was having some soreness there some that brought her into the emergency room. Patient had extensive x-rays but there was no fractures. She did have some abnormal lab values. Decision was made to admit patient to the hospital for syncopal workup. Patient also had elevated troponin and Cardiology was consulted. Patient is imaging studies do indicate a possible pneumonia. Will start patient on IV antibiotic therapy. Probably switch this over to oral antibiotic therapy if patient does well. Allergies codeine Allergy (Verified 09/05/20 21:12) Itching levofloxacin [From Levaquin] Allergy (Verified 09/05/20 21:12) Itching meperidine [From Demerol] Allergy (Verified 05/12/20 22:36) Unknown Penicillins Allergy (Verified 09/05/20 21:12) Itching/Hives/Rash Home Medications: Pantoprazole Sodium [Protonix] 40 mg PO TID 05/12/20 Sucralfate [Carafate] 1 gm PO BID 05/12/20 Amlodipine Besylate 5 mg PO DAILY 09/06/20 Cholecalciferol (Vitamin D3) [Vitamin D3] 2,000 unit PO DAILY 09/06/20 Potassium Chloride [K-Dur] 1 tab PO TID 09/06/20 Calcium Carbonate/Vitamin D3 [Oscal 500 + Vit D 200 Iu Tab] 1 tab PO BID #60 tab 09/07/20 Cefdinir [Omnicef] 300 mg PO BID #14 capsule 09/07/20 Ferrous Sulfate [Ferrous Sulfate Elixir] 5 ml PO BID #300 osyr 09/07/20 Lidocaine 4% Patch [Lidoderm 5% Patch*] 1 patch TOP DAILY #10 patch 09/07/20 Magnesium Chloride [Slow-Mag] 64 mg PO DAILY #30 tab 09/07/20 - Past Medical/Surgical History Has patient received pneumonia vaccine in the past: No Diabetic: No -: HTN -: Esophageal/gastric ulcers -: COVID-19 -: Neck surgery -: Right knee surgery -: Left foot surgery -: Cholecystectomy -: Appendectomy -: Tonsillectomy -: -: Removal of adrenal gland - Family History Father Notes: none accdg to pt Mother Notes: none accdg to pt - Social History Smoking Status: Unknown if ever smoked Review of Systems 10-point ROS is otherwise unremarkable Physical Examination - Vital Signs Temperature: 98 F Blood Pressure: 105/63 Pulse: 76 Respirations: 16 Pulse Ox (%): 99 - Physical Exam General: Alert, In no apparent distress, Oriented x3 HEENT: Atraumatic, PERRLA, Mucous membr. moist/pink, EOMI, Sclerae nonicteric Neck: Supple, 2+ carotid pulse no bruit, No LAD, Without JVD or thyroid abnormality Respiratory: Diminished, Expiratory wheezes Cardiovascular: Regular rate/rhythm, Normal S1 S2, No murmurs Gastrointestinal: Normal bowel sounds, Soft and benign, Non-distended, No tenderness Musculoskeletal: No clubbing, No swelling, No tenderness Integumentary: No rashes Neurological: Normal gait, Normal speech, Normal strength at 5/5 x4 extr, Normal tone, Sensation intact, Cranial nerves 3-12 intact, Normal affect Lymphatics: No axilla or inguinal lymphadenopathy - Studies Laboratory Data (last 24 hrs) 09/04/20 22:44: PT 16.5 H, INR 1.43, APTT 27.7 09/04/20 22:44: WBC 15.40 H, Hgb 8.8 L, Hct 27.6 L, Plt Count 344 09/04/20 22:44: Sodium 134 L, Potassium 3.5, BUN 20 H, Creatinine 1.32 H, Glucose 117 H Assessment & Plan - Problems (Diagnosis) (1) Pneumonia Status: Acute (2) Hypoxemia Status: Acute (3) Status post fall Status: Acute (4) Syncope Status: Acute (5) History of hypertension Status: Acute - Plan Plan: 1. Echo and carotid Doppler 2. Antibiotic therapy 3. Inhaler therapy and nebs as needed 4. Strict blood pressure control 5. GI and DVT prophylaxis - Advance Directives Does patient have a Living Will: No Does patient have a Durable POA for Healthcare: No - Code Status/Comfort Care Code Status Assessed: Yes Code Status: Full Code Critical Care: No Time Spent Managing PTS Care (In Minutes): 45
--- NOTE | 2020-09-05 19:50 | ER ---
Nurse's Notes [facility] Name: Renetta Roger Age: 79 yrs Sex: Female : 1940 Arrival Date: 09/04/2020 Time: 21:30 Bed 17 Private MD: Diagnosis: Weakness;Hypocalcemia;Altered mental status, unspecified;Dehydration Presentation: 09/04 21:32 Chief complaint: EMS states: Reported pt fell in the shower. Pt was alert and oriented ea x 3. Complaining of left shoulder pain. Denies LOC or hitting head. Coronavirus screen: At this time, the client does not indicate any symptoms associated with coronavirus-19. Ebola Screen: No symptoms or risks identified at this time. Initial Sepsis Screen: Does the patient meet any 2 criteria? No. Patient's initial sepsis screen is negative. Does the patient have a suspected source of infection? No. Patient's initial sepsis screen is negative. Risk Assessment: Do you want to hurt yourself or someone else? Patient reports no desire to harm self or others. Onset of symptoms was September 04, 2020. 21:32 Method Of Arrival: EMS ea 21:32 Acuity: CONOR 3 ea Historical: - Allergies: 21:38 Codeine; ea 21:38 Demerol; ea 21:38 PENICILLINS; ea - Home Meds: 21:38 amlodipine 5 mg tab 1 tab once daily [Active]; pantoprazole 40 mg Oral TbEC 1 tab 2 ea times per day [Active]; Potassium Chloride Oral [Active]; sucralfate 1 gram Oral tab 1 tab 4 times per day [Active]; - PMHx: 21:38 gastric ulcer; Hypertension; ea - PSHx: 21:38 ; Tonsillectomy; Appendectomy; Cholecystectomy; left foot; neck surgery; right ea knee; - Immunization history:: Adult Immunizations unknown. - Social history:: Smoking status: unknown. - Family history:: not pertinent. - Hospitalizations: : No recent hospitalization is reported. Screenin:32 Abuse screen: Denies threats or abuse. Nutritional screening: No deficits noted. ea Tuberculosis screening: No symptoms or risk factors identified. Fall Risk Fall in past 12 months (25 points). Assessment: 21:38 General: Appears in no apparent distress. Behavior is calm, cooperative, appropriate ea for age. Pain: Complains of pain in left shoulder. Neuro: Level of Consciousness is awake, alert, obeys commands, Oriented to person, place, time. Cardiovascular: Patient's skin is warm and dry. Respiratory: Airway is patent Respiratory effort is even, unlabored, Respiratory pattern is regular, symmetrical. Derm: Skin is pink, warm \T\ dry. 23:51 Reassessment: Patient and/or family updated on plan of care and expected duration. Pain ea level reassessed. Pt resting with eyes closed, respirations even and unlabored chest expansions even and symmetrical. 09/05 01:55 Reassessment: Patient and/or family updated on plan of care and expected duration. Pain ea level reassessed. Pt resting with eyes closed, respirations even and unlabored, chest expansions even and symmetrical. 02:30 Reassessment: Pt resting with eyes closed, respirations even and unlabored, chest ea expansions even and symmetrical. 03:30 Reassessment: Patient and/or family updated on plan of care and expected duration. Pain ea level reassessed. Pt resting with eyes closed, respirations even and unlabored, chest expansions even and symmetrical. 04:30 Reassessment: Patient and/or family updated on plan of care and expected duration. Pain ea level reassessed. Pt resting with eyes closed, respirations even and unlabored, chest expansions even and symmetrical. Vital Signs: 09/04 21:32 BP 133 / 63; Pulse 60; Resp 18; Temp 97.6; Pulse Ox 97% ; ea 23:52 Temp 99; ea 09/05 05:07 BP 119 / 66; Pulse 72; Resp 18; Pulse Ox 99% ; ea ED Course: 09/04 21:30 Patient arrived in ED. mw2 21:32 Shania Duarte, RN is Primary Nurse. ea 21:34 Zach Dubon MD is Attending Physician. rn 21:36 Triage completed. ea 21:36 Patient has correct armband on for positive identification. Bed in low position. Call ea light in reach. 21:36 Arm band placed on right wrist. Patient placed in an exam room, on a stretcher, on ea pulse oximetry. 22:12 CT Head C Spine In Process Unspecified. EDMS 22:29 XRAY Shoulder LEFT 2 view In Process Unspecified. EDMS 22:29 XRAY Wrist LEFT 3 view In Process Unspecified. EDMS 22:47 Inserted saline lock: 22 gauge in left forearm, using aseptic technique. Blood ea collected. 09/05 00:58 Jonnie Smith is Hospitalizing Provider. rn 01:32 Straight cath inserted, using sterile technique, 18 Fr. Specimen obtained. ea 01:32 No provider procedures requiring assistance completed. Patient admitted, IV remains in ea place. 07:37 Primary Nurse role handed off by Shania Duarte RN 07:45 Elida Walker, BONNIE is Primary Nurse. tw2 Administered Medications: 09/04 22:45 Drug: NS 0.9% 500 ml Route: IV; Rate: bolus; Site: left forearm; ea 09/05 02:27 Follow up: Response: No adverse reaction; IV Status: Completed infusion; IV Intake: ea 500ml 06:25 Drug: Calcium Gluconate 1 grams Route: IVPB; Infused Over: 60 mins; Site: left forearm; ea Intake: 02:27 IV: 500ml; Total: 500ml. ea Outcome: 00:59 Decision to Hospitalize by Provider. rn 01:56 Instructed on the need for admit. ea 05:05 Admitted to ER Hold. [facility]. ea 05:05 Condition: stable 19:49 Patient left the ED. rr5 Signatures: Dispatcher [employer] EDMS Yessy Harper Roman, MD MD rn Wise, Tara, RN RN tw2 Shania Duarte RN RN ea [place], MyKena 2 Alex Bender RN RN rr5
[2020-09-05] MEDS: NA CHLORIDE 0.9% 1,000 ML IV SCH (20:47)
[2020-09-06] MEDS: LIDOCAINE 4% PATCH TOP SCH ×2 (00:27→07:55)
[2020-09-06] MEDS: ACETAMINOPHEN 500 MG TAB PO PRN ×2 (02:31→23:33)
[2020-09-06 02:36] VITALS: BMI 28.9
[2020-09-06 06:07] LABS: Absolute Lymphocytes (CBC) 1.5 K/uL (0.7-4.9); Basophils % 0.5 % (0-1.3); Hematocrit 27.1 % (36.0-45.0); Lymphocytes % 13.7 % (15.3-44.8); MPV 8.6 fL (7.6-11.3); RBC Red Blood Cell Count 3.88 M/uL (3.86-4.86)
[2020-09-06 06:42] LABS: Albumin 2.7 g/dL (3.4-5.0); Bilirubin Total 0.7 mg/dL (0.2-1.0); Phosphorus 3.9 mg/dL (2.5-4.9); Potassium 3.6 mmol/L (3.5-5.1)
[2020-09-06 06:51] LABS: Magnesium 0.9 mg/dL (1.8-2.4)
[2020-09-06] MEDS ORDERED: MAGNESIUM 50% 3 GM in NA CHLORIDE 0.9% 100 ML IV ONE (07:01)
[2020-09-06] MEDS ORDERED: POTASSIUM 25 MEQ EFFERV TAB PO ONE (07:01)
[2020-09-06] MEDS ORDERED: CALCIUM GLUC 10% INJ 4.65 MEQ in NA CHLORIDE 0.9% 100 ML IV ONE (07:05)
[2020-09-06] MEDS: NA CHLORIDE 0.9% 1,000 ML IV SCH ×2 (07:55→23:25)
[2020-09-06] MEDS: CEFTRIAXONE/SWI 1gm 1 GM/10 ML SYR IV SCH (07:55)
--- NOTE | 2020-09-06 08:21 | RAD REPORT ---
EXAM DESCRIPTION: Aleta Single View09/06/2020 4:37 am CLINICAL HISTORY: Pneumonia COMPARISON: September 05, 2020 FINDINGS: Mild bilateral pulmonary opacities unchanged. Heart remains enlarged IMPRESSION: No change in mild bilateral pulmonary opacities. This could be chronic for the patient o r indicate mild interstitial pulmonary edema/pneumonitis
[2020-09-06] MEDS ORDERED: CEFTRIAXONE 1 GM/NS 50 ML 1 GM/50 ML BAG IV SCH (09:00)
[2020-09-06] MEDS ORDERED: LOPERAMIDE HCL 2 MG CAPSULE PO STA (14:19)
[2020-09-06] MEDS ORDERED: MAGNESIUM SULFATE 1 gm IVPB 1 GM/100 ML BAG IV ONE (16:59)
[2020-09-06] MEDS ORDERED: HYOSCYAMINE SULF 0.125 MG TAB PO PRN (17:27)
[2020-09-06] MEDS ORDERED: LOPERAMIDE HCL 2 MG CAPSULE PO PRN (19:15)
[2020-09-06] MEDS: HYOSCYAMINE SULF 0.125 MG TAB PO SCH ×2 (21:00→21:04)
[2020-09-06] MEDS ORDERED: POTASSIUM CHLORIDE 20 MEQ PO SCH (21:00)
[2020-09-06] MEDS: PANTOPRAZOLE 40MG TABLET PO SCH (21:04)
[2020-09-06] MEDS: SUCRALFATE 1 GM TABLET PO SCH (21:04)
[2020-09-06] MEDS: POTASSIUM CL SA 10 MEQ TAB PO SCH (21:05)
[2020-09-07 04:29] LABS: Absolute Lymphocytes (CBC) 1.2 K/uL (0.7-4.9); Basophils % 0.7 % (0-1.3); Hematocrit 24.9 % (36.0-45.0); Lymphocytes % 14.1 % (15.3-44.8); MPV 8.7 fL (7.6-11.3); RBC Red Blood Cell Count 3.54 M/uL (3.86-4.86)
[2020-09-07 04:41] LABS: Magnesium 1.9 mg/dL (1.8-2.4); Potassium 3.7 mmol/L (3.5-5.1)
[2020-09-07] MEDS ORDERED: POTASSIUM CL SA 10 MEQ TAB PO ONE (05:39)
[2020-09-07] MEDS: PANTOPRAZOLE 40MG TABLET PO SCH ×2 (08:48→14:29)
[2020-09-07] MEDS: SUCRALFATE 1 GM TABLET PO SCH (08:48)
[2020-09-07] MEDS: POTASSIUM CL SA 10 MEQ TAB PO SCH ×2 (08:48→14:29)
[2020-09-07] MEDS: CEFTRIAXONE/SWI 1gm 1 GM/10 ML SYR IV SCH (08:49)
[2020-09-07] MEDS: HYOSCYAMINE SULF 0.125 MG TAB PO SCH (08:49)
[2020-09-07] MEDS: LIDOCAINE 4% PATCH TOP SCH (08:49)
[2020-09-07] MEDS ORDERED: HOME MED 1 EA UNK (Cholecalciferol (Vitamin D3) [Vitamin D3] 1,000 UNIT Capsule) PO SCH (09:00)
[2020-09-07] MEDS ORDERED: AMLODIPINE 5 MG TAB PO SCH (09:00)
[2020-09-07] MEDS ORDERED: VITAMIN D 1000 UNIT TAB PO SCH (09:00)
[2020-09-07] MEDS: NA CHLORIDE 0.9% 1,000 ML IV SCH (09:30)
--- NOTE | 2020-09-07 11:18 | ECHO ---
HEIGHT: 5 ft 6 in WEIGHT: 179 lb 6.4 oz DATE OF STUDY: 09/07/[address]: Mary Carroll MD 2-DIMENSIONAL: YES M.MODE: YES DOPPLER: YES COLOR FLOW: YES TDS: NO PORTABLE: NO DEFINITY: NO BUBBLE STUDY: NO DIAGNOSIS: NEAR SYNCOPE CARDIAC HISTORY: CATHERIZATION: SURGERY: PROSTHETIC VALVE: PACEMAKER: MEASUREMENTS (cm) DIASTOLIC (NORMALS) SYSTOLIC (NORMALS) IVSd 1.1 (0.6-1.2) LA Diam 3.8 (1.9-4.0) LVEF 63% LVIDd 4.0 (3.5-5.7) LVIDs 2.6 (2.0-3.5) %FS 34% LVPWd 1.2 (0.6-1.2) Ao Diam 3.0 (2.0-3.7) 2 DIMENSIONAL ASSESSMENT: RIGHT ATRIUM: NORAML LEFT ATRIUM: NORMLA RIGHT VENTRICLE: NORMAL LEFT VENTRICLE: NORMAL TRICUSPID VALVE: MITRAL VALVE: MITRAL ANNULAR CALCIFICATION PULMONIC VALVE: AORTIC VALVE: NORMAL PERICARDIAL EFFUSION: NONE AORTIC ROOT: NORMAL LEFT VENTRICULAR WALL MOTION: NORMAL DOPPLER/COLOR FLOW: SEE BELOW. COMMENTS: NORMAL LEFT VENTRICULAR EJECTION FRACTION 60-65% WITH NORMAL WALL MOTION. MILD MITRAL REGURGITATION. MODERATE TRICUSPID REGURGITATION. SEVERE PULMONARY HYPERTENSION WITH RIGHT VENTRICULAR SYSTOLIC PRESSURE >60 mmHg. DILASTOLIC DYSFUNCTION. TECHNOLOGIST: Jovanni DEY
--- NOTE | 2020-09-07 11:49 | CON ---
Date of Consultation: 09/06/2020 The patient admitted on 09/05/[address] Carroll's service. I saw the patient on 09/06/2020. Reason For Consultation: Elevated troponin. History Of Present Illness: Ms. Roger is an 79-year-old woman came in with fall, altered mental sta tus, hemoglobin of 8.5, hypocalcemia, magnesium of 0.9, was found to have a troponin of 0.68. I was consulted. There were no reports of chest pain. No nausea, vomiting, diaphoresis, PND, orthopnea, p edal edema, palpitation, or syncope. Chest x-ray showed vascular congestion. EKG showed bifascicula r block. Past Medical History: Positive for hypertension and GERD. Review of Systems: Negative. Social History: Negative. Family History: Negative. Allergies: SHE IS ALLERGIC TO CODEINE, PENICILLIN, AND DEMEROL. Physical Examination: Vital Signs: Stable. Afebrile. HEENT: Negative. Neck: Supple. No bruit, lymphadenopathy, JVD, or thyromegaly. Chest: Clear to auscultation and percussion. Cardiac: Revealed a regular rhythm and rate with an aortic sclerosis murmur. No gallops or rubs. Abdomen: Benign. Extremities: Revealed no clubbing, cyanosis, or edema. Diagnostic Data: As stated earlier. Impression And Plan: 1.Elevated troponin secondary to demand ischemia from anemia, hypomagnesemia, hypocalcemia. I do no t think we are dealing with an acute coronary syndrome. Echocardiogram is pending. 2.Hypertension, well controlled on Norvasc. 3.Gastroesophageal reflux disease. 4.Anemia, hypomagnesemia, hypokalemia and hypocalcemia. All of those need to be addressed and corre cted. She does have a slightly elevated BNP. I am not too concerned. I don't think this is clinica lly significant. We will see what the echocardiogram shows before making further decisions. REKHA/MODL Voice ID: [id number] Report ID: [id number]
[2020-09-07] MEDS ORDERED: CALCIUM GLUC 10% INJ 4.65 MEQ in NA CHLORIDE 0.9% 100 ML IV ONE (12:00)
[2020-09-07] MEDS ORDERED: SOD FERRIC GLUC COMPLX/SUCROSE 125 MG in NA CHLORIDE 0.9% 100 ML IV ONE (13:00)
[2020-09-07 13:49] VITALS: O2SAT 96
[2020-09-07 14:17] LABS: C.diff Antigen/Toxin Ag neg : Tox neg (NEG : NEG)
[2020-09-10 05:25] VITALS: BP 105/63; TEMP 98
--- NOTE | 2020-09-10 05:27 | P.PN ---
Subjective Date of Service: 09/06/20 Patient is doing well. Patient's symptoms are much better. Anticipate discharge in the morning Review of Systems 10-point ROS is otherwise unremarkable Physical Examination - Vital Signs Temperature: 98 F Blood Pressure: 105/63 Pulse: 76 Respirations: 16 Pulse Ox (%): 99 - Physical Exam General: Alert, In no apparent distress, Oriented x3 HEENT: EOMI Respiratory: Diminished, Crackles/rales Cardiovascular: Regular rate/rhythm, Normal S1 S2, No murmurs Gastrointestinal: Normal bowel sounds, Soft and benign, Non-distended, No tenderness Musculoskeletal: No clubbing, No swelling, No tenderness Neurological: Sensation intact, Cranial nerves 3-12 intact - Studies Medications List Reviewed: Yes Assessment & Plan - Problems (Diagnosis) (1) Pneumonia Status: Acute (2) Hypoxemia Status: Acute (3) Status post fall Status: Acute (4) Syncope Status: Acute (5) History of hypertension Status: Acute - Plan Plan: continue with plan of care as mentioned below 1. Out of bed and ambulate; as long as patient strength is improved then anticipate discharge in the morning. Echo is pending 2. Antibiotic therapy 3. Inhaler therapy and nebs as needed 4. Strict blood pressure control 5. GI and DVT prophylaxis Discharge Plan: Home Plan to discharge in: Greater than 2 days - Advance Directives Does patient have a Living Will: No Does patient have a Durable POA for Healthcare: No - Code Status/Comfort Care Code Status: Full Code Critical Care: No Time Spent Managing PTS Care (In Minutes): 35
--- NOTE | 2020-09-10 05:28 | P.DS ---
Discharge Date: 09/07/20 Disposition: ROUTINE DISCHARGE Discharge Condition: GOOD Reason for Admission: s/p fall; elevated troponin; LEXII - Problems (1) Pneumonia Status: Acute (2) Hypoxemia Status: Acute (3) Status post fall Status: Acute (4) Syncope Status: Acute (5) History of hypertension Status: Acute Brief History of Present Illness: Patient is a 79-year-old female who came to the hospital after falling in her shower. She injured her shoulder and was having some soreness there some that brought her into the emergency room. Patient had extensive x-rays but there was no fractures. She did have some abnormal lab values. Decision was made to admit patient to the hospital for syncopal workup. Patient also had elevated troponin and Cardiology was consulted. Patient is imaging studies do indicate a possible pneumonia. Will start patient on IV antibiotic therapy. Probably switch this over to oral antibiotic therapy if patient does well. Hospital Course: Patient done well during hospital stay. Patient is ambulating without difficulty. Patient has severe pulmonary hypertension. This needs to be followed up by Pulmonary. At this time, patient is doing well and is stable for discharge on oral antibiotic therapy. Vital Signs/Physical Exam: Temp Pulse Resp BP Pulse Ox 98 F 76 16 105/63 99 09/10/20 05:27 09/10/20 05:27 09/10/20 05:27 09/10/20 05:27 09/10/20 05:27 General: Alert, In no apparent distress, Oriented x3 Laboratory Data at Discharge: WBC 8.60 K/uL (4.3-10.9) D 09/07/20 04:02 Hgb 7.9 g/dL (12.0-15.0) L 09/07/20 04:02 Hct 24.9 % (36.0-45.0) L 09/07/20 04:02 Plt Count 348 K/uL (152-406) 09/07/20 04:02 PT 16.5 SECONDS (9.5-12.5) H 09/04/20 22:44 INR 1.43 09/04/20 22:44 APTT 27.7 SECONDS (24.3-36.9) 09/04/20 22:44 Sodium 139 mmol/L (136-145) 09/07/20 04:02 Potassium 3.7 mmol/L (3.5-5.1) 09/07/20 04:02 BUN 19 mg/dL (7-18) H 09/07/20 04:02 Creatinine 0.90 mg/dL (0.55-1.3) 09/07/20 04:02 Glucose 115 mg/dL (74-106) H 09/07/20 04:02 Phosphorus 3.0 mg/dL (2.5-4.9) 09/07/20 04:02 Magnesium 1.9 mg/dL (1.8-2.4) 09/07/20 04:02 Total Bilirubin 0.7 mg/dL (0.2-1.0) 09/06/20 05:34 AST 18 U/L (15-37) 09/06/20 05:34 ALT 14 U/L (12-78) 09/06/20 05:34 Alkaline Phosphatase 81 U/L (45-117) 09/06/20 05:34 Troponin I 0.31 ng/mL (0.0-0.045) H 09/06/20 00:35 Home Medications: Pantoprazole Sodium [Protonix] 40 mg PO TID 05/12/20 Sucralfate [Carafate] 1 gm PO BID 05/12/20 Amlodipine Besylate 5 mg PO DAILY 09/06/20 Cholecalciferol (Vitamin D3) [Vitamin D3] 2,000 unit PO DAILY 09/06/20 Potassium Chloride [K-Dur] 1 tab PO TID 09/06/20 Calcium Carbonate/Vitamin D3 [Oscal 500 + Vit D 200 Iu Tab] 1 tab PO BID #60 tab 09/07/20 Cefdinir [Omnicef] 300 mg PO BID #14 capsule 09/07/20 Ferrous Sulfate [Ferrous Sulfate Elixir] 5 ml PO BID #300 osyr 09/07/20 Lidocaine 4% Patch [Lidoderm 5% Patch*] 1 patch TOP DAILY #10 patch 09/07/20 Magnesium Chloride [Slow-Mag] 64 mg PO DAILY #30 tab 09/07/20 New Medications: Ferrous Sulfate [Ferrous Sulfate Elixir] 5 ml PO BID #300 osyr Lidocaine 4% Patch [Lidoderm 5% Patch*] 1 patch TOP DAILY #10 patch Cefdinir [Omnicef] 300 mg PO BID #14 capsule Calcium Carbonate/Vitamin D3 [Oscal 500 + Vit D 200 Iu Tab] 1 tab PO BID #60 tab Magnesium Chloride [Slow-Mag] 64 mg PO DAILY #30 tab Physician Discharge Instructions: OK TO DC IV AND DC HOME FOLLOW-UP WITH PRIMARY CARE PROVIDER IN 1-2 WEEKS FOLLOW-UP WITH Cardiology IN 1-2 WEEKS RETURN TO THE ER IF symptoms worsen CALL or TEXT DR. POTTER AT [phone] IF ANY QUESTIONS REGARDING HOSPITAL STAY. PLEASE CALL THE FLOOR AT [phone] IF ANY MEDICATION OR NURSING QUESTIONS. Diet: AHA Activity: Fall precautions Followup: NONE,NONE [Primary Care Provider] - Time spent managing pt's care (in minutes): 35
== END 2020-09-07 16:01 | disposition home or self-care (01) | DRG 194 ==
LOC: ER 21:29 → ERHOLD 09-05 05:07 → 4TH 09-05 18:35
PROVIDERS: ADMIT Hospitalist; ATTEND Hospitalist
DX: J18.9 Pneumonia, unspecified organism (principal); I24.8 Other forms of acute ischemic heart disease; I10 Essential (primary) hypertension; R09.02 Hypoxemia; R55 Syncope and collapse; I27.20 Pulmonary hypertension, unspecified; E83.51 Hypocalcemia; E83.42 Hypomagnesemia; K21.9 Gastro-esophageal reflux disease without esophagitis; E87.6 Hypokalemia; D64.9 Anemia, unspecified; W18.2XXA Fall in (into) shower or empty bathtub, initial encounter; Y92.002 Bathroom of unspecified non-institutional (private) residence as the place of occurrence of the external cause; Z88.0 Allergy status to penicillin; Z86.16 Personal history of COVID-19; Z20.822 Contact with and (suspected) exposure to COVID-19
CPT/HCPCS: 36415; 51702; 70450; 71045; 72125; 80048; 80053; 81003; 82728; 83540; 83605; 83735; 83880; 83970; 84100; 84145; 84466; 84484; 85025; 85610; 85730; 86850; 86870; 86900; 86901; 87040; 87045; 87046; 87324; 87449; 89055; 93005; 93306; 94760; 96361; 96374; 97116; 97161; 97530; 99285; J0610; J0696; J2405; J2916; J3475; J7030; J7040; U0003

== ENCOUNTER 2022-03-15 10:50 | Inpatient (IN) | payer OTHER ==
--- OUTSIDE RECORDS SUMMARY | 2022-03-15 11:01 | XMS REPORT | Continuity of Care Document ---
:1940 Author Organization [facility] t Address [address] [place] [address] Care Team Providers Name Role Phone Carmelo LO, Chris Primary Care Physician Pob, Adc Lab Main Attending Clinician Unavailable Catrachito Negrete MD Attending Clinician CATRACHITO NEGRETE Attending Clinician Unavailable Doctor Unassigned, [place] Attending Clinician Unavailable Cheri Coronado MD Attending Clinician Dre GARDNER, Litzy Attending Clinician Unavailable Thai Jackson DO Attending Clinician Nancy NICOLE, Calvin Mak Attending Clinician Unavailable Nakul Faye MD Attending Clinician Rudolph Ruff MD Attending Clinician Sahra Ruff MD Attending Clinician Carlos Walton MD Attending Clinician Hamilton Atkins MD Attending Clinician Rasta Mccormick MD Attending Clinician [phone] RASTA MCCORMICK Attending Clinician Unavailable DEE DEE CARLOS Attending Clinician Unavailable TERRANCE, MD DEE DEE O. Attending Clinician Unavailable Rudolph Ruff MD Admitting Clinician RUDOLPH RUFF Admitting Clinician Unavailable DEE DEE CARLOS Admitting Clinician Unavailable MD DEE DEE CARLOS Admitting Clinician Unavailable Payers Payer Name Policy Type Policy Number Effective Date Expiration Date S radha Problems Condition Condition Condition Status Onset Resolution Last Treating Co mments Source Name Details Category Date Date Treatment Clinician Date Pneumonia Pneumonia Disease Active Uni vers due to due to 04-08 ity of COVID-19 COVID-19 00:00: [place] virus virus 00 Medical Branch LEXII (acute LEXII (acute Disease Active U nivers kidney kidney 04-08 ity of injury) injury) 00:00: [place] 00 Medical Branch Sepsis Sepsis Disease Active Univers 04-08 ity of 00:00: [place] 00 Medical Branch Troponin I Troponin I Disease Active U nivers above above 04-08 [place] of reference [place] 00:[place] range range 00 [place] HTN HTN Disease Active Univers (hypertens (hypertens 04-08 it y of ion) ion) 00:00: [place] 00 Medical Branch Acute on Acute on Disease Active Unive rs chronic chronic 04-08 ity of diastolic diastolic 00:[place] congestive congestive 00 Me dical heart heart Branch failure failure GIB GIB Disease Active Univers (gastroint (gastroint 04-08 it y of estinal estinal 00:00: [place] bleeding) bleeding) 00 [facility] Branch Diarrhea Diarrhea Disease Active Unive rs 04-07 ity of 00:00: [place] 00 Medical Branch Perforatio Perforatio Disease Active 2019-04 M ethodi n of n of 04-14 st duodenum duodenum 00:00: Hospit a 00 l Epigastric Epigastric Disease Active 2019-04 Overview : Methodi pain pain 04-[address] 00:00: g of this Hospita 00 note l might be different from the original. Added automatic ally from request for surgery [id number] Gastrointe Gastrointe Disease Active 2019-04 Overview : Methodi stinal stinal 04-[address] hemorrhage hemorrhage 00:00: g of this Hospita associated associated 00 note l with with might be duodenitis duodenitis different from the original. 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 08-05 st s s 00:00: Hospita 00 l Gastric Gastric Disease Active Methodi ulcer due ulcer due 08-05 to to 00:00: Hospita Helicobact Helicobact 00 l er pylori, er pylori, unspecifie unspecifie d ulcer d ulcer chronicity chronicity GI bleed GI bleed Disease Active Metho di 08-04 st 00:00: Hospita 00 l Acute Acute Disease Active Methodi kidney kidney 08-04 injury injury 00:00: Hospita superimpos superimpos 00 l ed on ed on chronic chronic kidney kidney disease disease Enteritis Enteritis Disease Active Met hodi 08-04 st 00:00: Hospita 00 l Electrolyt Electrolyt Disease Active M ethodi e e 08-04 abnormalit abnormalit 00:00: Ho spita y y 00 l Neutrophil Neutrophil Disease Active M ethodi ic ic 08-04 leukocytos leukocytos 00:00: Ho spita is is 00 l Adjustment Adjustment Disease Active M ethodi reaction reaction 01-01 with with 00:00: Hospita anxiety anxiety 00 l and and depression depression CAD CAD Disease Active Methodi (coronary (coronary 12-29 artery artery 00:00: Hospita disease) disease) 00 l Intractabl Intractabl Disease Active M ethodi e vomiting e vomiting -15 st 00:00: Hospita 00 l Abdominal Abdominal Disease Active 2015-04 Met hodi pain pain 2-14 st 00:00: Hospita 00 l Abdominal Abdominal Disease Active 2015-04 Uni vers pain pain 2-12 ity of 00:00: [address] Branch Nausea and Nausea and Disease Active 2015-04 M ethodi vomiting vomiting 20 st 00:00: Hospita 00 l Diarrhea Diarrhea Disease Active 2015-04 Metho di 04-25 st 00:00: Hospita 00 l Anemia due Anemia due Disease Active M ethodi to GI to GI 12-29 blood loss blood loss 00:00: Ho spita 00 l Osteoarthr Osteoarthr Disease Active M ethodi itis itis 12-29 st 00:00: Hospita 00 l UTI UTI Disease Active 2016-0 Methodi (urinary (urinary 12-29 tract tract 00:00: Hospita infection) infection) 00 l Edema Edema Disease Active Methodi 12-28 st 00:00: Hospita 00 l Edema Edema Disease Active Methodi 12-28 00:00: Hospita 00 l Allergies, Adverse Reactions, Alerts Allergy Allergy Status Severity Reaction(s) Onset Inactive Treating Comm ents Source Name Type Date Date Clinician Prochlor Propensi Active Other - See 2015-04 Agitatio n Univers perazine ty to comments 05-18 /aggresiv ity of Edisylat adverse 00:00: e [place] e reaction 00 Medical s Branch PROCHLOR DRUG Active Other-Cmnt 2015-04 Univ ers PERAZINE INGREDI 2 ity of EDISYLAT 00:00: [place] E 00 Medical Branch Penicill Propensi Active Rash Method i ins ty to 12-28 adverse 00:00: Hospita reaction 00 l s to drug Codeine Propensi Active GI vomitting Meth evan ty to Intolerance 12-28 adverse 00:00: Hospita reaction 00 l s to drug Prochlor Propensi Active Anxiety Makes pt Met hodi perazine ty to 12-[address] adverse 00:00: agitated Hospita reaction 00 and l s to "beligere drug nt." Meperidi Propensi Active GI vomiting Meth evan ne ty to Intolerance 12-28 adverse 00:00: Hospita reaction 00 l s to drug Oxycodon Propensi Active GI Vomiting Meth evan e ty to Intolerance 12-28 adverse 00:00: Hospita reaction 00 l s to drug Penicill Propensi Active Rash Method i ins ty to 12-28 adverse 00:00: Hospita reaction 00 l s to drug Codeine Propensi Active Rash Univers ty to 8-12 ity of adverse 00:00: [place] reaction 00 Medical s Branch CODEINE DRUG Active Rash Univers INGREDI 8-12 ity of 00:00: [place] 00 Medical Branch MEPERIDI DRUG Active N/V Univers NE HCL INGREDI 12 ity of 00:00: [place] 00 Medical Branch OXYCODON DRUG Active Rash Univers E INGREDI 812 ity of 00:00: [place] 00 Medical Branch PENICILL Drug Active Other-Cmnt Univ ers INS Class 8-12 ity of 00:00: [place] Medical [facility] Penicill Propensi Active Other - See U nivers ins ty to comments 8-12 ity of adverse 00:00: [place] reaction 00 Medical s Branch Penicill Propensi Active Other - See U nivers ins ty to comments 8-12 ity of adverse 00:00: [place] reaction Medical s Branch Meperidi Propensi Active Nausea Univer s ne Hcl ty to and/or 8-12 ity of adverse Vomiting 00:00: [place] reaction Medical s Branch Oxycodon Propensi Active Rash Univer s e ty to 8-12 ity of adverse 00:00: [place] reaction 00 Medical s Branch Penicill Propensi Active Other - See U nivers ins ty to comments 8-12 ity of adverse 00:00: [place] reaction 00 Medical s Branch Family History Family Member Diagnosis Comments Start Date Stop Date Source Natural mother Heart disease [facility] Natural mother Hearing loss [facility] Natural father Hearing loss [facility] Maternal grandmother Heart disease [facility] Social History Social Habit Start Date Stop Date Quantity Comments Source History SDOH [facility] Alcohol Frequency Hospita l History SDOH [facility] Alcohol Std Drinks Hospit al History SDTN [facility] Alcohol Binge Hospital History of tobacco Current smoker Un iversity of use [facility] Exposure to 2020-03-08 2020-04-07 Not sure University of SARS-CoV-2 (event) 00:00:00 10:02:00 [facility] Education 2020-04-07 2020-04-07 13 University of 00:00:00 00:00:00 [facility] History SDTN 2020-04-07 2020-04-07 5 University o f Financial 00:00:00 00:00:00 [facility] History [facility] Food 2020-04-07 2020-04-07 1 Univers ity of Worry 00:00:00 00:00:00 [facility] History SDTN Food 2020-04-07 2020-04-07 1 Univers ity of Scarcity 00:00:00 00:00:00 [facility] History SDTN 2020-04-07 2020-04-07 2 University o f Transport Med 00:00:00 00:00:00 [place] Medic al Branch History SDOH 2020-04-07 2020-04-07 2 University o f Transport Non-Med 00:00:00 00:00:00 [place] M edical Branch Alcohol intake 2020-02-17 2020-02-17 Current drinker [facility] dist 00:00:00 00:00:00 of alcohol Hospital (finding) Alcohol Comment 2016-07-19 2016-07-19 1 drink/month, [facility] 00:00:00 00:00:00 "if that" Hospital Cigarettes smoked 2016-02-24 2016-02-[address] current (pack per 00:00:00 00:00:00 Hospita l ) - Reported Cigarette 2016-02-24 2016-02-24 [facility] pack-years 00:00:00 00:00:00 Hospital Tobacco use and 2015-12-29 2015-12-29 Former smokeless Met [facility]odist exposure 00:00:00 00:00:00 tobacco user Hospital Sex Ass[birth year] At [birth year] [facility] 00:00:00 00:00:00 Hospital Smoking Status Start Date Stop Date Source Ex-smoker 2020-04-07 00:00:00 2020-04-07 00:00:00 [facility] acute hospital Medications Ordered Filled Start Stop Current Ordering Indication Dosage Frequency Signature Comments Components Source Medication Medication Date Date Medication? Clinician (SIG) Name Name furosemide Yes 20mg Take 20 mg U nivers (LASIX) 20 1-13 by mouth ity o f mg tablet 03:24: daily. [address] MINOXIDIL Yes Take by [employer] (LONITEN 1-13 mouth 3 ity of ORAL) 03:24: (three) [place] [id number] times Medical daily. Branch Does not know the dose, takes 2 pills at a time TID amLODIPine Yes 5mg Take 5 mg Un mickey (NORVASC) 5 1-13 by mouth ity of mg tablet 03:24: daily. [address] furosemide Yes 20mg Take 20 mg U nivers (LASIX) 20 1-13 by mouth ity o f mg tablet 03:24: daily. [address] MINOXIDIL 2021-0 Yes Take by [employer] (LONITEN 1-13 mouth 3 ity of ORAL) 03:24: (three) [address] Medical daily. Branch Does not know the dose, takes 2 pills at a time TID amLODIPine 2020-0 Yes 5mg Take 5 mg Un mickey (NORVASC) 5 1-13 by mouth ity of mg tablet 03:24: daily. [address] furosemide 2020-0 Yes 20mg Take 20 mg U nivers (LASIX) 20 1-12 by mouth ity o f mg tablet 21:24: daily. [address] MINOXIDIL 2020-0 Yes Take by [employer] (LONITEN 1-12 mouth 3 ity of ORAL) 21:24: (three) [address] Medical daily. Branch Does not know the dose, takes 2 pills at a time TID amLODIPine 2020-0 Yes 5mg Take 5 mg Un mickey (NORVASC) 5 1-12 by mouth ity of mg tablet 21:24: daily. [address] furosemide 2020-0 Yes 20mg Take 20 mg U nivers (LASIX) 20 1-12 by mouth ity o f mg tablet 21:24: daily. [address] MINOXIDIL 2020-0 Yes Take by [employer] (LONITEN 1-12 mouth 3 ity of ORAL) 21:24: (three) [address] Medical daily. Branch Does not know the dose, takes 2 pills at a time TID amLODIPine 2020-0 Yes 5mg Take 5 mg Un mickey (NORVASC) 5 1-12 by mouth ity of mg tablet 21:24: daily. [address] furosemide 2020-0 Yes 20mg Take 20 mg U nivers (LASIX) 20 1-12 by mouth ity o f mg tablet 21:24: daily. [address] MINOXIDIL 2020-0 Yes Take by [employer] (LONITEN 1-12 mouth 3 ity of ORAL) 21:24: (three) [address] Medical daily. Branch Does not know the dose, takes 2 pills at a time TID amLODIPine 1-0 Yes 5mg Take 5 mg Un mickey (NORVASC) 5 1-12 by mouth ity of mg tablet 21:24: daily. [address] furosemide 2020-0 Yes 20mg Take 20 mg U nivers (LASIX) 20 1-12 by mouth ity o f mg tablet 21:24: daily. [address] MINOXIDIL 2020-0 Yes Take by [employer] (LONITEN 1-12 mouth 3 ity of ORAL) 21:24: (three) [place] [address] times Medical daily. Branch Does not know the dose, takes 2 pills at a time TID amLODIPine 2020-0 Yes 5mg Take 5 mg Un mickey (NORVASC) 5 1-12 by mouth ity of mg tablet 21:24: daily. [address] furosemide 2020-0 Yes 20mg Take 20 mg U nivers (LASIX) 20 1-12 by mouth ity o f mg tablet 21:24: daily. [address] MINOXIDIL 0 Yes Take by [employer] (LONITEN 1-12 mouth 3 ity of ORAL) 21:24: (three) [address] daily. Branch Does not know the dose, takes 2 pills at a time TID amLODIPine 2020-0 Yes 5mg Take 5 mg Un mickey (NORVASC) 5 1-12 by mouth ity of mg tablet 21:24: daily. [address] furosemide 2020-0 Yes 20mg Take 20 mg U nivers (LASIX) 20 1-12 by mouth ity o f mg tablet 21:24: daily. [address] MINOXIDIL 0 Yes Take by [employer] (LONITEN 1-12 mouth 3 ity of ORAL) 21:24: (three) [address] daily. Branch Does not know the dose, takes 2 pills at a time TID amLODIPine 2020-0 Yes 5mg Take 5 mg Un mickey (NORVASC) 5 1-12 by mouth ity of mg tablet 21:24: daily. [address] furosemide 2020-0 Yes 20mg Take 20 mg U nivers (LASIX) 20 1-12 by mouth ity o f mg tablet 21:24: daily. [address] MINOXIDIL 2020-0 Yes Take by [employer] (LONITEN 1-12 mouth 3 ity of ORAL) 21:24: (three) [place] [address] times Medical daily. Branch Does not know the dose, takes 2 pills at a time TID amLODIPine 2021-0 Yes 5mg Take 5 mg Un mickey (NORVASC) 5 1-12 by mouth ity of mg tablet 21:24: daily. [address] furosemide 0 Yes 20mg Take 20 mg U nivers (LASIX) 20 1-12 by mouth ity o f mg tablet 21:24: daily. [address] MINOXIDIL Yes Take by [facility] (LONITEN 1-12 mouth 3 ity of ORAL) 21:24: (three) [address] daily. Branch Does not know the dose, takes 2 pills at a time TID amLODIPine 0 Yes 5mg Take 5 mg Un mickey (NORVASC) 5 1-12 by mouth ity of mg tablet 21:24: daily. [address] furosemide 0 Yes 20mg Take 20 mg U nivers (LASIX) 20 1-12 by mouth ity o f mg tablet 21:24: daily. [address] MINOXIDIL Yes Take by [facility] rs (LONITEN 1-12 mouth 3 ity of ORAL) 21:24: (three) [address] daily. Branch Does not know the dose, takes 2 pills at a time TID amLODIPine 0 Yes 5mg Take 5 mg Un mickey (NORVASC) 5 1-12 by mouth ity of mg tablet 21:24: daily. [address] pantoprazol 2020- No 40mg Take 40 mg Univers e 04-17 by mouth ity of (PROTONIX) 19:29: 00[facility]00 Medical tablet Branch POTASSIUM 2020- No Take by [facility] ers CHLORIDE 04-17 mouth. ity of (KCL-20 19:29: 00:00 [place] ORAL) 20 :00 Medical Branch IRON,CARBON 2020- No Take by Un mickey YL/VIT 04-17 mouth. ity of C/VIT 19:29: 00:00 [place] B12/FA 20 :00 Medical (IRON 100 Branch PLUS ORAL) diphenoxyla 2020- No 1{tbl} Take 1 U nivers te-atropine 04-17 tablet by it y of (LOMOTIL) 19:29: 00:00 mouth [place] 2.5-0.025 20 :00 every 6 Medical mg per (six) Branch tablet hours as needed. ondansetron 2020- No 4mg Take 4 mg Univers (ZOFRAN) 4 04-1712 by mouth ity of mg tablet 19:29: 00:00 every 8 [place] 20 :00 (eight) Medical hours as Branch needed. sucralfate 2020- No Take by Uni vers (CARAFATE 04-17 mouth. ity of ORAL) 19:29: 00:00 [place] 20 :00 Medical Branch ferrous 0 Yes 325mg 325 mg, Univer s sulfate 12 Oral, ity of tablet 325 16:30: Q48H, [place] mg 00 First dose Medical on Thu Branch 04/17/20 at 1030, Until Discontin ed, Routine pantoprazol Yes [id number] 40mg Take 1 Univers e 40 mg EC 1-12 tablet by ity of tablet 00:00: mouth 2 [place] 00 (two) Medical times Branch daily. ferrous Yes [id number] 325mg Take 1 Uni vers sulfate 325 1-12 tablet by ity of mg (65 mg 00:00: mouth [place] iron) 00 every 48 Medical tablet ([facility] Branch ) hours. pantoprazol Yes [id number] 40mg Take 1 Univers e 40 mg EC 1-12 tablet by ity of tablet 00:00: mouth 2 [place] 00 (two) Medical times Branch daily. ferrous 2020-0 Yes [id number] 325mg Take 1 Uni vers sulfate 325 1-12 tablet by ity of mg (65 mg 00:00: mouth [place] iron) 00 every 48 Medical tablet ([facility] Branch ht) hours. pantoprazol 2020-0 Yes [id number] 40mg Take 1 Univers e 40 mg EC 1-12 tablet by ity of tablet 00:00: mouth 2 [place] 00 (two) Medical times Branch daily. ferrous 2020-0 Yes [id number] 325mg Take 1 Uni vers sulfate 325 1-12 tablet by ity of mg (65 mg 00:00: mouth [place] iron) 00 every 48 Medical tablet ([facility] Branch ) hours. pantoprazol 2021-0 Yes [id number] 40mg Take 1 Univers e 40 mg EC 1-12 tablet by ity of tablet 00:00: mouth 2 (two) Medical times Branch daily. ferrous 2020-0 Yes [id number] 325mg Take 1 Uni vers sulfate 325 1-12 tablet by ity of mg (65 mg 00:00: mouth [place] iron) 00 every 48 Medical tablet ([facility]) hours. pantoprazol 2020-0 Yes [id number] 40mg Take 1 Univers e 40 mg EC 1-12 tablet by ity of tablet 00:00: mouth 2 [place] (two) Medical times Branch daily. ferrous 2020-0 Yes [id number] 325mg Take 1 Uni vers sulfate 325 1-12 tablet by ity of mg (65 mg 00:00: mouth [place] iron) 00 every 48 Medical tablet ([facility]) hours. pantoprazol 2020-0 Yes [id number] 40mg Take 1 Univers e 40 mg EC 1-12 tablet by ity of tablet 00:00: mouth 2 [place] ([facility]) Medical times Branch daily. ferrous 2020-0 Yes [id number] 325mg Take 1 Uni vers sulfate 325 1-12 tablet by ity of mg (65 mg 00:00: mouth [place] iron) 00 every 48 Medical tablet ([facility]) hours. pantoprazol 2020-0 Yes [id number] 40mg Take 1 Univers e 40 mg EC 1-12 tablet by ity of tablet 00:00: mouth 2 (two) Medical times Branch daily. ferrous 2020-0 Yes [id number] 325mg Take 1 Uni vers sulfate 325 1-12 tablet by ity of mg (65 mg 00:00: mouth [place] iron) 00 every 48 Medical tablet ([facility]) hours. pantoprazol 2020-0 Yes [id number] 40mg Take 1 Univers e 40 mg EC 1-12 tablet by ity of tablet 00:00: mouth 2 ([facility]) Medical times Branch daily. ferrous 2020-0 Yes [id number] 325mg Take 1 Uni vers sulfate 325 1-12 tablet by ity of mg (65 mg 00:00: mouth [place] iron) 00 every 48 Medical tablet ([facility]) hours. pantoprazol 2020-0 Yes [id number] 40mg Take 1 Univers e 40 mg EC 1-12 tablet by ity of tablet 00:00: mouth 2 [place] 00 (two) Medical times Branch daily. ferrous Yes [id number] 325mg Take 1 Uni vers sulfate 325 1-12 tablet by ity of mg (65 mg 00:00: mouth [place] iron) 00 every 48 Medical tablet ([facility]) hours. pantoprazol Yes [id number] 40mg Take 1 Univers e 40 mg EC 1-12 tablet by ity of tablet 00:00: mouth 2 [place] 00 (two) Medical times [place] daily. ferrous Yes [id number] 325mg Take 1 Uni vers sulfate 325 1-12 tablet by ity of mg (65 mg 00:00: mouth [place] iron) 00 every 48 Medical tablet ([facility]) hours. pantoprazol Yes [id number] 40mg Take 1 Univers e 40 mg EC 1-12 tablet by ity of tablet 00:00: mouth 2 [place] 00 (two) Medical times [place] daily. ferrous Yes [id number] 325mg Take 1 Uni vers sulfate 325 1-12 tablet by ity of mg (65 mg 00:00: mouth [place] iron) 00 every 48 Medical tablet ([facility]) hours. magnesium 2020- No 4g 4 g, IV Univ ers sulfate in 04-16 Piggyback, it y of water 4 18:00: 02:00 Q4H, 2 [place] gram/50 mL 00 :00 doses, Medical (8 %) IV First dose Branc h Piggyback 4 on Thu04/16/20 at 1200, Last dose on Thu04/16/20 at 1600, Routine sennosides 2020- No 8.6mg 8.6 mg, Un mickey (SENOKOT) 04-16 Oral, ity of tablet 8.6 17:15: 17:15 ONCE, 1 [place] as mg 00 :00 dose, [facility] Medical 04/16/20 at Branch 1115, Routine KCL 2020- No 20meq 20 mEq, Univers (KLOR-CON 04-16 Oral, ity of M20) tablet 13:45: 14:52 ONCE, 1 [place] 20 mEq 00 :00 dose, [facility] Medical 04/16/20 at Branch 0745, Routine Polyethylen 0 Yes 17g 17 g, Unive rs e Glycol 1-10 Oral, ity of 3350 15:00: DAILY, [place] (MIRALAX) 00 First dose Medi rod powder 17 g on [place] Branch 04/15/20 at 0900, Until Discontinu ed, Routine pantoprazol Yes 40mg 40 mg, Univ ers e 1-10 Oral, BID, ity of (PROTONIX) 02:00: First dose [place] EC tablet 00 on [facility] Medical 40 mg 04/14/20 at Branch 2000, Until Discontinu ed, Routine levoFLOXaci Yes 750mg 750 mg, Un mickey n 09 Oral, Q24H ity of (LEVAQUIN) 18:30: ABX, First [place] tablet 750 00 dose on Medica l mg [facility] 04/14/20 Branch at 1230, Until Discontinu ed, JIM
Re ason for Anti-Infec tive: Documented Infection< br>Documen dayna Infection Site: Blood
D uration of Therapy: 7 days Sliding Yes Subcutaneo Univ ers Scale 1-09 us, TID ity of Insulin - 18:00: MEALS+HS, [place] as Lispro 00 First dose Medical (HumaLOG) + on [facility] Fsbg 04/14/20 at Testing 1200, Until Discontinu ed, Routine ipratropium Yes 2{puff} 2 Puff, Univers (ATROVENT 04-14 Inhalation ity of HFA) 18:00: , QID, [place] inhaler 2 00 First dose Medi rod Puff on [facility] Branch 04/14/20 at 1200, Until Discontinu ed, Routine
Is this order for a patient with suspected or confirmed COVID-19 infection? Yes KCL 2020-2020- No 40meq 40 mEq, Univers (KLOR-CON 04-14- Oral, ity of M20) tablet 14:21: 14:58 ONCE, 1 [place] 40 mEq 00 :00 dose, [facility] Medical 04/14/20 at Branch 0830, Routine acetaminoph 0 Yes 500mg 500 mg, Un mickey en 08 Oral, ity of (TYLENOL) 21:28: Q6HPRN, [place] tablet 500 36 Starting Medic al mg 04/13/20 Branch at 1528, Until Discontinu ed, Routine, Pain (scale 4-6), Temp > 38.5 C benzonatate Yes 100mg 100 mg, Un mickey (TESSALON 1-08 Oral, Q4H, ity of PERLES) 18:00: First dose [place] capsule 100 00 on Fri Medica l mg 04/13/20 at Branch 1200, Until Discontinu ed, Routine dextrometho Yes 5mL 5 mL, Unive rs rphan-guaif 1-08 Oral, ity of enesin 16:44: Q6HPRN, [place] (ROBITUSSIN 35 Starting Medi rod DM) 10-100 04/13/20 Bra nch mg/5 mL at 1044, solution 5 Until mL Discontinu ed, Routine, Cough pantoprazol No 40mg 40 mg, IV Univers e 04-1209 Piggyback, ity of (PROTONIX) 14:00: 15:57 Q12H, [place] 40 mg in 00 :28 First dose Medic al NaCl 0.9% on Di Branch (NS) 100 mL 04/12/20 at MINI-BAG 0800, Until Discontinu ed, 100 mL levoFLOXaci 2020- No 750mg 750 mg, IV Univers n in D5W 04-1109 Piggyback, ity of (LEVAQUIN) 18:45: 15:57 Administer [place] 750 mg/150 00 :28 over 90 Medica l mL Minutes, Branch Piggyback Q48H, 750 mg First dose on Thu04/11/20 at 1245, Until Discontinu ed, JIM
Re ason for Anti-Infec tive: Documented Infection< br>Documen dayna Infection Site: Blood
D uration of Therapy: 7 days D5W 0.45% 2020- No 1000mL at 75 Univ ers NaCl 04-11 01-10 mL/hr, ity of (1/2NS) IV 14:30: 14:23 1,000 mL, [place] infusion 00 :46 IV Medical 1,000 mL Infusion, Branch CONTINUOUS , Starting Thu04/11/20 at 0830, Until 04/15/20 at 0823, Routine sulfur No 5mL 5 mL, Univers hexafluorid 04-10 Intravenou i ty of e microsphr 23:15: 22:00 s, ONCE, 1 [place] (LUMASON) 00 :00 dose, Tue Medic al injection 5 04/10/20 at [facility] mL 1715, Routine
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 Restricted medication : SEVILLANURA T D5W 0.45% 2020- No 1000mL at 50 [facility] ers NaCl 04-10-06 mL/hr, ity of (1/2NS) IV 20:00: 14:25 1,000 mL, [place] infusion 00 :26 IV Medical 1,000 mL Infusion, Branch CONTINUOUS , Starting Thu04/10/20 at 1400, Until Thu04/11/20 at 0825, Routine furosemide No 40mg 40 mg, [facility] ers (LASIX) 04-09 Slow IV ity of injection 20:30: 20:30 Push, [place] 40 mg 00 :00 ONCE, 1 Medical dose, Mon Branch 04/09/20 at 1430, Routine NORepinephr No .05ug/k 0.05-1.5 Univers ine 16 mg 04-09-05 g/min mcg/kg/min it y of in NS 250 08:36: 22:41 ?84 kg [place] mL infusion 25 :41 (3.9375-11 Me dical RTU 8.125 Branch mL/hr, rounded to 3.94-118.1 3 mL/hr), IV Infusion, TITRATE, MAP Goal > or = 65 mmHg, Starting Thu04/09/20 at 0236
In itiate titration at 0.05 mcg/kg/min . &nb sp;Increas e by 0.01 mcg/kg/min every 30 seconds to 5 minutes as needed to reach and maintain goal blood pressure.& nbsp;&nbsp ;Maximum dose = 1.5 mcg/kg/min . &am p;nbsp;If goal not maintained at maximum allowed dose, contact prescriber .
meropenem 2020- No 500mg 500 mg, IV Univers (MERREM) 04-0906 Piggyback, ity of 500 mg in 02:15: 18:33 Administer [place] NaCl 0.9% 00 :55 over 60 Medical (NS) 100 mL Minutes, Bran ch MINI-BAG Q24H ABX, First dose on [place] 04/08/20 at 2014, Until Discontinu ed, JIM
Re stricted use approved by: [facility] 8TH FLOOR
R miah for Anti-Infec tive: Empiric Therapy for Suspected Infection< br>Empiric Therapy Site: Blood
D uration of therapy: 72 hours vancomycin 2020- No 15mg/kg 1,250 mg Univers 1250 mg in 04-09 (rounded ity of NS 250 mL 02:15: 03:45 from [place] RTU IV 00 :00 1,222.5 mg Medical Piggyback = 15 mg/kg Bran ch 1,250 mg ?81.5 kg), IV Piggyback, ONCE, 1 dose, [place] 04/08/20 at 2014
Re ason for Anti-Infec tive: Empiric Therapy for Suspected Infection< br>Empiric Therapy Site: Blood
D uration of therapy: 72 hours fentaNYL PF 2020- No 25ug/h 25-200 U nivers (SUBLIMAZE) 04-08 01-05 mcg/hr ity o f STD 2,500 20:17: 22:41 (2.5-20 [place] mcg in NaCl 56 :41 mL/hr), IV Me dical 0.9% (NS) Infusion, Branc h 250 mL TITRATE, infusion CPOT/Pain RTU Scale Goals Determined by Provider, CPOT <2, Starting [place] 04/08/20 at 1417
In itiate infusion at 25 mcg/hr. Titrate by 25 mcg/hr every 1 minute to 15 minutes to identified goal pain and/or sedation scores. Maximum dose = 200 mcg/hr. If goal not maintained at maximum allowed dose, contact prescriber .
midazolam 2020- No 1mg/h 1-10 mg/hr Univers (VERSED) 50 04-08-05 (1-10 ity of mg in NaCl 17:15: 22:41 mL/hr), IV [place] 0.9% (NS) 31 :41 Infusion, Medic al 50 mL TITRATE, Branch infusion Sedation-R ASS score (0 to -1), Starting [place] 04/08/20 at 1115
In itiate infusion at 1 mg/hr and titrate by 1 mg/hr every 3 minutes to 10 minutes to goal sedation score. Maximum dose = 10 mg/hr.&nbs p; If goal not maintained at maximum allowed dose, contact prescriber .
fentaNYL PF 2020- No 25ug/h 25 mcg/hr Univers (SUBLIMAZE) 04-08 (2.5 ity of STD 2,500 16:45: 19:25 mL/hr), IV [place] mcg in NaCl 00 :41 Infusion, Med ical 0.9% (NS) CONTINUOUS Bran ch 250 mL , Starting infusion [place] 04/08/20 RTU at 1045
Ti trate to RASS sedation -1 to 1
propofoL IV 2020- No 5ug/kg/ 5-50 Un mickey infusion 04-08 min mcg/kg/min ity of 16:27: 01:01 ?84 kg [place] 25 :49 (2.52-25.2 Medical mL/hr), IV Branch Infusion, TITRATE, titrate off while titrating up fentanyl/v ersed, Starting [place] 04/08/20 at 1027
In itiate infusion at 5 mcg/kg/min and titrate by 5 mcg/kg/min every 30 seconds to 10 minutes to goal sedation score. Maximum dose = 50 mcg/kg/min . If goal not maintained at maximum allowed dose, contact prescriber . &nbs p;Tubing and unused portions of vials should be discarded after 12 hours.
dexamethaso No 6mg 6 mg, IV U nivers ne 04-08 Piggyback, ity of (DECADRON) 15:00: 02:52 DAILY, [place] 6 mg in 00 :28 First dose Medica l NaCl 0.9% on [place] (NS) 04/08/20 at piggyback 0900, Until Discontinu ed, 50 mL KCL 20meq 20 mEq, IV Unive rs (POTASSIUM 04-08 Piggyback, it y of CHLORIDE) 14:15: 22:00 Q1H, 4 [place] 20 mEq in 00 :00 doses, Medical NaCl 0.9% First dose Bran ch (NS) 100 mL on [place] piggyback 04/08/20 at 0815, Last dose on [place] 04/08/20 at 1100, 100 mL Sliding Subcutaneo Uni vers Scale 04-08 us, AC, ity of Insulin-Reg 13:30: 15:56 First dose [place] ular + Fsbg 00 :24 on [place] Medica l Testing 04/08/20 at Branch 0730, Until Discontinu ed, Routine etomidate No 10mg 10 mg, Unive rs (AMIDATE) 04-08 Slow IV ity of injection 12:45: 12:45 Push, [place] 10 mg 00 :00 ONCE, 1 Medical dose, [place] Branch 04/08/20 at 0645, Routine succinylcho 2020- No 100mg 100 mg, IV Univers line 04-08 Push, ity of (QUELICIN) 12:45: 12:45 ONCE, 1 Sathish as injection 00 :00 dose, [facility] al 100 mg 04/08/20 at Branch 0645, Routine propofoL IV No 5ug/kg/ 5-50 Un mickey infusion 04-08 min mcg/kg/min ity of 12:39: 13:44 ?84 kg [place] 02 :22 (2.52-25.2 Medical mL/hr), IV Branch Infusion, TITRATE, Sedation-R ASS score (0 to -1), Starting [place] 04/08/20 at 0639
In itiate infusion at 5 mcg/kg/min and titrate by 5 mcg/kg/min every 30 seconds to 10 minutes to goal sedation score. Maximum dose = 50 mcg/kg/min . If goal not maintained at maximum allowed dose, contact prescriber . &nbs p;Tubing and unused portions of vials should be discarded after 12 hours.
glucagon Yes 1mg 1 mg, Univers (GLUCAGEN 1-03 Intramuscu ity of DIAGNOSTIC 12:38: [place], PRN, [place] KIT) 56 Starting Medical injection 1 Thu04/08/20 Br anch mg at 0638, Until Discontinu ed, JIM, Blood Glucose < or = 70 mg/dL and patient is unable to swallow or has mental changes. dextrose 50 Yes 25mL 25 mL, Univ ers % in water 04-08 Slow IV ity of (D50W) 12:38: Push, PRN, [place] injection 56 Starting Medica l 25 mL [place] 04/08/20 Branch at 0638, Until Discontinu ed, JIM, Blood Glucose < or = 70 mg/dL and patient is unable to swallow or has mental status changes. NORepinephr 2020- No .05ug/k 0.05-1.5 Univers ine 4 mg in 04-0804 g/min mcg/kg/min ity of 0.9% NaCl 12:38: 08:36 ?84 kg [place] 250 mL 14 :43 (15.75-472 Medical infusion .5 mL/hr), Branc h RTU IV Infusion, TITRATE, MAP Goal > or = 65 mmHg, Starting [place] 04/08/20 at 0638
In itiate titration at 0.05 mcg/kg/min . &nb sp;Increas e by 0.01 mcg/kg/min every 30 seconds to 5 minutes as needed to reach and maintain goal blood pressure.& nbsp;&nbsp ;Maximum dose = 1.5 mcg/kg/min . &nb sp;If goal not maintained at maximum allowed dose, contact prescriber .
NaCl 0.9% No 1000mL at 999 Uni vers (NS) bolus 04-08-04 mL/hr, ity of infusion 11:45: 02:22 1,000 mL, Sathish as 1,000 mL 00 :00 IV Medical Infusion, Branch ONCE, 1 dose, [place] 04/08/20 at 0545, STAT pantoprazol 2020- No 8mg/h 8 mg/hr U nivers e 04-08 (50 ity of (PROTONIX) 07:00: 13:05 mL/hr), IV [place] 80 mg in 00 :53 Infusion, Medica l NaCl 0.9% CONTINUOUS Bran ch (NS) 500 mL , Starting infusion 04/08/20 at 0100 pantoprazol 2020- No 80mg 80 mg, IV Univers e 04-08 Push, ity of (PROTONIX) 07:00: 06:08 ONCE, 1 [place] as 80 mg in 00 :00 dose, Sun Medica l NaCl 0.9% 04/08/20 at Branc h (NS) 20 mL 0100, 20 syringe mL metoclopram Yes 10mg 10 mg, IV U nivers idalia HCl 04-08 Piggyback, ity of (REGLAN) 10 05:46: Q6HPRN, [place]ath[place] as mg in NaCl 47 Starting Medic al 0.9% (NS) 04/07/20 Bran ch piggyback at 2346, Until Discontinu ed, 50 mL pantoprazol 2020- No 40mg 40 mg, IV Univers e 04-08 Piggyback, ity of (PROTONIX) 05:30: 05:49 Q12H, [place] 40 mg in 00 :02 First dose Medic al NaCl 0.9% (after Branch (NS) 100 mL last MINI-BAG modificati on) on 04/07/20 at 2330, Until Discontinu ed, 100 mL NaCl 0.9% 2020- No 1000mL at 100 Uni vers (NS) IV 04-08 01-05 mL/hr, IV ity of infusion 01:30: 18:53 Infusion, Sathish as 1,000 mL 00 :36 CONTINUOUS Medic al , Starting Branch 04/07/20 at 1930, Until 04/10/20 at 1253, Routine proMETHazin 2020- No 12.5mg 12.5 mg, Univers e 04-07 IV ity of (PHENERGAN) 20:45: 19:38 Piggyback, [place] 12.5 mg in 00 :00 ONCE, 1 Medica l NaCl 0.9% dose, Sat Branc h (NS) 50 mL 04/07/20 at piggyback 1445, 50 mL albuterol Yes 2{puff} 2 Puff, Un mickey (VENTOLIN) 04-07 Inhalation ity of inhaler 2 19:35: , Q6HPRN, Sath[place] as Puff 46 Starting Medical 04/07/20 Branch at 1335, Until Discontinu ed, Routine, Wheezing, Shortness of Breath, Bronchospa sm, Chest tightness< br>Is this order for a patient with suspected or confirmed COVID-19 infection? Yes sennosides Yes 8.6mg 8.6 mg, Uni vers (SENOKOT) 04-07 Oral, ity of tablet 8.6 19:35: BIDPRN, [place] mg 46 Starting Medical 04/07/20 Branch at 1335, Until Discontinu ed, Routine, Constipati on acetaminoph 2020- No 650mg 650 mg, U nivers en 04-07 Oral, ity of (TYLENOL) 19:35: 12:29 Q6HPRN, [place] tablet 650 46 :03 Starting Medic al mg 04/07/20 Branch at 1335, Until Thu04/13/20 at 0629, Routine, Pain (scale 1-3), Temp > 38.5 C ondansetron 2020- No 4mg 4 mg, Slow Univers (ZOFRAN 04-07 IV Push, ity of (PF)) 19:35: 18:33 Q6HPRN, [place] injection 4 46 :34 Starting Medi rod mg 04/07/20 Branch at 1335, Until Thu04/11/20 at 1233, Routine, Nausea and Vomiting (N/V) ondansetron 2020- No 4mg 4 mg, Slow Univers (ZOFRAN 04-07 IV Push, ity of (PF)) 18:00: 16:48 ONCE, 1 [place] injection 4 00 :00 dose, Sat Med ical mg 04/07/20 at Branch 1200, JIM NaCl 0.9% 2020- No 1000mL at 999 Uni vers (NS) bolus 04-0704 mL/hr, ity of infusion 17:15: 01:00 1,000 mL, Sathish as 1,000 mL 00 :00 IV Medical Infusion, Branch ONCE, 1 dose, 04/07/20 at 1115, STAT sucralfate 2020-1 Yes 1g Q.5D Take 1 g [facility] (CARAFATE) 1-[address] 1 gram 15:42: (two) Hospita tablet 05 times a l day. pantoprazol 2020-1 Yes 40mg Q.5D Take 40 mg Methodi e 1-[address] (PROTONIX) 15:42: (two) Hospit a 40 MG EC 05 times a l tablet day. potassium 2020-1 Yes 20meq Q.5D Take 20 Meth evan chloride 1-[address] (K-DUR) 20 15:42: mouth 2 Hosp [facility] MEQ CR 05 (two) l tablet times a day. sucralfate 2020-1 Yes 1g Q.5D Take 1 g [facility] (CARAFATE) 1-[address] 1 gram 15:42: (two) Hospita tablet 05 times a l day. pantoprazol 2020-1 Yes 40mg Q.5D Take 40 mg Methodi e 1-[address] (PROTONIX) 15:42: (two) Hospit a 40 MG EC 05 times a l tablet day. potassium 2020-1 Yes 20meq Q.5D Take 20 Meth evan chloride 1-[address] (K-DUR) 20 15:42: mouth 2 [facility]osp [facility] MEQ CR 05 (two) l tablet times a day. ondansetron 2019-0 Yes [id number] 4mg Take 1 Univers (ZOFRAN 4-29 tablet by ity of ODT) 4 mg 00:00: mouth [place] disintegrat 00 every 8 Medic al ing tablet (eight) Branch hours as needed for Nausea and Vomiting (N/V). ondansetron 2019-0 Yes [id number] 4mg Take 1 Univers (ZOFRAN 4-29 tablet by ity of ODT) 4 mg 00:00: mouth [place] disintegrat 00 every 8 Medic al ing tablet (eight) Branch hours as needed for Nausea and Vomiting (N/V). ondansetron 2019-0 Yes [id number] 4mg Take 1 Univers (ZOFRAN 4-29 tablet by ity of ODT) 4 mg 00:00: mouth [place] disintegrat 00 every 8 Medic al ing tablet (eight) Branch hours as needed for Nausea and Vomiting (N/V). ondansetron 2019-0 Yes [id number] 4mg Take 1 Univers (ZOFRAN 4-29 tablet by ity of ODT) 4 mg 00:00: mouth [place] disintegrat 00 every 8 Medic al ing tablet (eight) Branch hours as needed for Nausea and Vomiting (N/V). ondansetron 2019-0 Yes [id number] 4mg Take 1 Univers (ZOFRAN 4-29 tablet by ity of ODT) 4 mg 00:00: mouth [place] disintegrat 00 every 8 Medic al ing tablet (eight) Branch hours as needed for Nausea and Vomiting (N/V). ondansetron 2019-0 Yes [id number] 4mg Take 1 Univers (ZOFRAN 4-29 tablet by ity of ODT) 4 mg 00:00: mouth [place] disintegrat 00 every 8 Medic al ing tablet (eight) Branch hours as needed for Nausea and Vomiting (N/V). ondansetron 2019-0 Yes [id number] 4mg Take 1 Univers (ZOFRAN 4-29 tablet by ity of ODT) 4 mg 00:00: mouth [place] disintegrat 00 every 8 Medic al ing tablet (eight) Branch hours as needed for Nausea and Vomiting (N/V). ondansetron 2019-0 Yes [id number] 4mg Take 1 Univers (ZOFRAN 4-29 tablet by ity of ODT) 4 mg 00:00: mouth [place] disintegrat 00 every 8 Medic al ing tablet (eight) Branch hours as needed for Nausea and Vomiting (N/V). ondansetron 2019-0 Yes [id number] 4mg Take 1 Univers (ZOFRAN 4-29 tablet by ity of ODT) 4 mg 00:00: mouth [place] disintegrat 00 every 8 Medic al ing tablet (eight) Branch hours as needed for Nausea and Vomiting (N/V). ondansetron 2019-0 Yes [id number] 4mg Take 1 Univers (ZOFRAN 4-29 tablet by ity of ODT) 4 mg 00:00: mouth [place] disintegrat 00 every 8 Medic al ing tablet (eight) Branch hours as needed for Nausea and Vomiting (N/V). ondansetron 2019-0 Yes [id number] 4mg Take 1 Univers (ZOFRAN 4-29 tablet by ity of ODT) 4 mg 00:00: mouth [place] disintegrat 00 every 8 Medic al ing tablet (eight) Branch hours as needed for Nausea and Vomiting (N/V). amLODIPine Yes 5mg QD Take 5 mg Me thodi (NORVASC) 5 4-[address] mg tablet 00:00: daily. Hospit a l amLODIPine Yes 5mg QD Take 5 mg Me thodi (NORVASC) 5 4-[address] mg tablet 00:00: daily. Hospit a l ondansetron Yes 4mg Q8H Take 4 mg M ethodi (ZOFRAN) 4 9-[address] MG tablet 00:00: every 8 Hospi ta 00 (eight) l hours as needed for nausea or vomiting. ondansetron Yes 4mg Q8H Take 4 mg M ethodi (ZOFRAN) 4 9-[address] MG tablet 00:00: every 8 Hospi ta 00 (eight) l hours as needed for nausea or vomiting. Immunizations Ordered Filled Immunization Date Status Comments [facility] e Immunization Name Name Influenza Virus 2020-02-16 Completed Universit y of Vaccine Quad IM 3+ 00:00:[address] [facility] Influenza Virus 2020-02-16 Completed Universit y of Vaccine Quad IM 3+ 00:00:[address] [facility] Influenza Virus 2020-02-16 Completed Universit y of Vaccine Quad IM 3+ 00:00:[address] [facility] Influenza Virus 2020-02-16 Completed Universit y of Vaccine Quad IM 3+ 00:00:[address] [facility] Influenza Virus 2020-02-16 Completed Universit y of Vaccine Quad IM 3+ 00:00:[address] [facility] Influenza Virus 2020-02-16 Completed Universit y of Vaccine Quad IM 3+ 00:00:[address] [facility] Influenza Virus 2020-02-16 Completed Universit y of Vaccine Quad IM 3+ 00:00:[address] [facility] Influenza Virus 2020-02-16 Completed Universit y of Vaccine Quad IM 3+ 00:00:[address] [facility] Influenza Virus 2020-02-16 Completed Universit y of Vaccine Quad IM 3+ 00:00:[address] [facility] Influenza Virus 2020-02-16 Completed Universit y of Vaccine Quad IM 3+ 00:00:[address] [facility] Influenza Virus 2020-02-16 Completed Universit y of Vaccine Quad IM 3+ 00:00:[address] [facility] FLUZONE QUAD PF 2016-02-26 Completed [facility] 00:00:00 Hospital Influenza Virus 2016-02-26 Completed Universit y of Vaccine Quad IM 3+ 00:00:[address] [facility] Influenza Virus 2016-02-26 Completed Universit y of Vaccine Quad IM 3+ 00:00:[address] [facility] Influenza Virus 2016-02-26 Completed Universit y of Vaccine Quad IM 3+ 00:00:[address] [facility] Influenza Virus 2016-02-26 Completed Universit y of Vaccine Quad IM 3+ 00:00:[address] [facility] Influenza Virus 2016-02-26 Completed Universit y of Vaccine Quad IM 3+ 00:00:[address] [facility] Influenza Virus 2016-02-26 Completed Universit y of Vaccine Quad IM 3+ 00:00:[address] [facility] Influenza Virus 2016-02-26 Completed Universit y of Vaccine Quad IM 3+ 00:00:[address] [facility] Influenza Virus 2016-02-26 Completed Universit y of Vaccine Quad IM 3+ 00:00:[address] [facility] Influenza Virus 2016-02-26 Completed Universit y of Vaccine Quad IM 3+ 00:00:[address] [facility] Influenza Virus 2016-02-26 Completed Universit y of Vaccine Quad IM 3+ 00:00:[address] [facility] Influenza Virus 2016-02-26 Completed Universit y of Vaccine Quad IM 3+ 00:00:[address] [facility] FLUZONE QUAD PF 2016-02-26 Completed [facility] 00:00:00 Hospital Vital Signs Vital Name Observation Time Observation Value Comments Source Respiratory rate 2020-04-17 22:09:00 18 /min [facility] Oxygen saturation in 2020-04-17 22:09:00 92 /min [facility] Arterial blood by [facility] Pulse oximetry Branch Systolic blood 2020-04-17 21:34:00 136 mm[Hg] Univer sity of pressure [facility] Diastolic blood 2020-04-17 21:34:00 69 mm[Hg] Unive rsity of pressure [facility] Heart rate 2020-04-17 21:34:00 78 /min [facility] Body temperature 2020-04-17 21:34:00 36.89 Sandra [facility] [place] [facility] Body weight 2020-04-08 14:00:00 81.466 kg General acute hospital BMI 2020-04-08 14:00:00 28.99 kg/m2 General acute hospital Body height 2020-04-07 20:37:00 167.6 cm General acute hospital Respiratory rate 2020-04-17 22:09:00 18 /min [facility] Oxygen saturation in 2020-04-17 22:09:00 92 /min [facility] Arterial blood by [facility] Pulse oximetry Branch Systolic blood 2020-04-17 21:34:00 136 mm[Hg[facility] Diastolic blood 2020-04-17 21:34:00 69 mm[Hg] Unive [facility] Heart rate 2020-04-17 21:34:00 78 /min General acute hospital Body temperature 2020-04-17 21:34:00 36.89 Sandra [facility] Body weight 2020-04-08 14:00:00 81.466 kg General acute hospital BMI 2020-04-08 14:00:00 28.99 kg/m2 General acute hospital Body height 2020-04-07 20:37:00 167.6 cm General acute hospital Procedures Procedure Date / Time Performing Clinician Source Performed URINALYSIS 2022-01-07 16:25:00 Carmelo [facility] CBC WITH DIFF 2022-01-07 16:13:00 Carmelo [facility] COMP. METABOLIC PANEL 2022-01-07 16:13:00 Carmelo [facility] ([id number]) [facility] THYROID STIMULATING 2022-01-07 16:13:00 Carmelo [facility] HORMONE [facility] PHYSICIAN ORDERS 2022-01-07 05:01:00 Doctor Unassigned, No Unive [facility] POCT GLUCOSE (AUTOMATED) 2020-04-17 21:34:00 [facility] 2020-04-17 17:57:00 [facility] ([facility]ATED) 2020-04-17 15:20:00 Hamilton Atkins [facility] [place] [facility] CBC WITH DIFF 2020-04-17 12:14:00 [facility] 2020-04-17 11:11:00 Manuel [facility] FERRITIN SERUM 2020-04-17 11:11:00 Manuel [facility] BASIC METABOLIC PANEL 2020-04-17 11:11:00 Manuel [facility] (NA, K, CL, CO2, GLUCOSE, Medica l Branch BUN, CREATININE, CA) IRON PANEL 2020-04-17 11:11:00 Manuel [facility] POCT GLUCOSE (AUTOMATED) 2020-04-17 02:37:00 Hamilton Atkins [facility] [place] [facility] POCT GLUCOSE (AUTOMATED) 2020-04-16 22:13:[address] Hamilton Atkins Un i[address] [facility] [place] MODIFIED BARIUM 2020-04-16 21:25:00 Fermin Beltre [facility] POCT GLUCOSE (AUTOMATED) 2020-04-16 18:07:[address] [facility] POCT GLUCOSE (AUTOMATED) 2020-04-16 14:48:[address] [facility] MAGNESIUM 2020-04-16 11:58:00 Manuel [facility] BASIC METABOLIC PANEL 2020-04-16 11:58:00 Manuel [facility] (NA, K, CL, CO2, GLUCOSE, Medica l Branch BUN, CREATININE, CA) CBC WITH DIFF 2020-04-16 09:55:00 [facility]SE (AUTOMATED) 2020-04-16 02:12:00 Carlos Walton [facility] [place] [facility] POCT GLUCOSE (AUTOMATED) 2020-04-15 21:46:00 Carlos Walton [facility] [place] [facility] POCT GLUCOSE (AUTOMATED) 2020-04-15 17:15:00 Carlos Walton [facility] [place] [facility] POCT GLUCOSE (AUTOMATED) 2020-04-15 13:37:00 Carlos Walton Uni [facility] CBC WITH DIFF 2020-04-15 10:54:00 [facility] PO[facility]SE (AUTOMATED) 2020-04-15 03:18:00 Carlos Walton Uni [facility] [place] [facility] POCT GLUCOSE (AUTOMATED) 2020-04-14 22:14:00 Carlos Walton Uni [facility] [place] [facility] POCT GLUCOSE (AUTOMATED) 2020-04-14 17:57:00 Carlos Walton Uni [facility]Joint [facility] [place] [facility] POCT GLUCOSE (AUTOMATED) 2020-04-14 13:23:00 Carlos Walton Margie [facility] BASIC METABOLIC PANEL 2020-04-14 12:11:00 Fermin Beltre [facility] (NA, K, CL, CO2, GLUCOSE, Medica l Branch BUN, CREATININE, CA) CBC WITH DIFF 2020-04-14 12:11:00 [facility] PO[facility]SE (AUTOMATED) 2020-04-14 00:54:00 Carlos Walton Uni [facility] POCT GLUCOSE (AUTOMATED) 2020-04-13 18:05:00 Carlos Walton Margie [facility] BLOOD CULTURE SCREEN 2020-04-13 15:50:00 GaribayBrian light [facility] POCT GLUCOSE (AUTOMATED) 2020-04-13 13:26:00 Carlos Walton Margie [facility] BASIC METABOLIC PANEL 2020-04-13 08:53:00 Fermin Beltre [facility] (NA, K, CL, CO2, GLUCOSE, Medica l Branch BUN, CREATININE, CA) CBC WITH DIFF 2020-04-13 08:53:00 [facility] PO[facility] GLUCOSE (AUTOMATED) 2020-04-13 03:20:[address] Carlos Walton [address] [facility] POCT GLUCOSE (AUTOMATED) 2020-04-13 00:29:00 Carlos Walton Uni [facility] POCT GLUCOSE (AUTOMATED) 2020-04-12 19:57:00 Carlos Walton [facility] [place] [facility] POCT GLUCOSE (AUTOMATED) 2020-04-12 15:52:00 Carlos Walton Margie versity of [facility] POCT GLUCOSE (AUTOMATED) 2020-04-12 15:44:00 Carlos Walton versJoint [facility] [place] [facility] BASIC METABOLIC PANEL 2020-04-12 11:14:00 Fermin Beltre [facility] (NA, K, CL, CO2, GLUCOSE, Medica l Branch BUN, CREATININE, CA) CBC WITH DIFF 2020-04-12 11:14:00 [facility] POCT GLUCOSE (AUTOMATED) 2020-04-12 00:03:00 Carlos Walton [facility] SARS-COV-2 IGG 2020-04-11 20:00:00 [facility] LAB ONLY COVID 2020-04-11 20:00[facility] ([facility]OMATED) 2020-04-11 19:39:00 Carlos Walton [facility]Joint [facility] [place] [facility] POCT GLUCOSE (AUTOMATED) 2020-04-11 14:22:00 Carlos Walton versity of [facility] POCT GLUCOSE (AUTOMATED) 2020-04-11 14:19:00 Carlos Walton versJoint [facility] [place] [facility] POCT GLUCOSE (AUTOMATED) 2020-04-11 14:09:00 Carlos Walton [facility] POCT GLUCOSE (AUTOMATED) 2020-04-11 13:23:00 Carlos Walton [facility] PANEL IDENTIFICATION 2020-04-11 11:05:00 Cheko Lu [facility] HB ABO GROUPING 2020-04-11 11:05:00 [facility]FF 2020-04-11 10:56:00 Aly [facility] BASIC METABOLIC PANEL 2020-04-11 10:55:00 Mary Rudd [facility] (NA, K, CL, CO2, GLUCOSE, [place] Medica l Branch BUN, CREATININE, CA) BASIC METABOLIC PANEL 2020-04-10 23:50:00 [facility] (NA, K, CL, CO2, GLUCOSE, [place] Medica l Branch BUN, CREATININE, CA) CBC WITHOUT DIFF 2020-04-10 23:50:00 Cheko Lu [facility] POCT GLUCOSE (AUTOMATED) 2020-04-10 21:50:00 Sahra Ruff [facility] POCT GLUCOSE (AUTOMATED) 2020-04-10 21:48:00 Sahra Ruff [facility] ECHO ROUTINE W/DOPPLER 2020-04-10 21:13:15 Cheko Lu [facility] TRANSFUSE PACKED RBC 2020-04-10 19:00:50 Cheko Conner [facility] POCT GLUCOSE (AUTOMATED) 2020-04-10 18:33:00 Sahra Ruff [facility] PREPARE PACKED RBC 2020-04-10 16:13:38 Cheko Conner [facility] CBC WITH DIFF 2020-04-10 14:31:00 Mary Rudd [facility] POCT GLUCOSE (AUTOMATED) 2020-04-10 14:04:00 Sahra Ruff [facility] BASIC METABOLIC PANEL 2020-04-10 12:14:00 [facility]udd [facility] (NA, K, CL, CO2, GLUCOSE, [place] Medica l Branch BUN, CREATININE, CA) CBC WITHOUT DIFF 2020-04-10 12:14:00 Cheko Lu [facility] BASIC METABOLIC PANEL 2020-04-10 00:35:00 Mary Rudd [facility] (NA, K, CL, CO2, GLUCOSE, [facility] BUN, CREATININE, CA) CBC WITHOUT DIFF 2020-04-10 00:35:00 [facility] 2020-04-10 00:29:00 Mary Rudd [facility] POCT GLUCOSE (AUTOMATED) 2020-04-09 21:57:00 Sahra Ruff [facility] TROPONIN I 2020-04-09 18:30:00 Mary Rudd [facility] BASIC METABOLIC PANEL 2020-04-09 18:30:00 Mary Rudd [facility] (NA, K, CL, CO2, GLUCOSE, [facility] BUN, CREATININE, CA) CBC WITHOUT DIFF 2020-04-09 18:30:00 Mary Rudd [facility] POCT GLUCOSE (AUTOMATED) 2020-04-09 18:29:00 Sahra Ruff [facility] POCT GLUCOSE (AUTOMATED) 2020-04-09 14:38:00 Sahra Ruff [facility] AC PANEL 20 + LACTIC ACID 2020-04-09 12:34:00 Mary Rudd [facility] TROPONIN I 2020-04-09 12:03:00 Mary uRdd [facility] BASIC METABOLIC PANEL 2020-04-09 12:03:00 Mary Rudd [facility] (NA, K, CL, CO2, GLUCOSE, [facility] BUN, CREATININE, CA) VANCOMYCIN RANDOM LEVEL 2020-04-09 12:03:00 Mary Rudd [facility] CBC WITHOUT DIFF 2020-04-09 12:03:00 Mary Rudd [facility] HB ECG ROUTINE & RHYTHM 2020-04-09 11:56:03 Cheko Conner [facility] TROPONIN I 2020-04-09 07:55:00 Mary Rudd [facility] CBC WITHOUT DIFF 2020-04-09 07:55:00 Mary Rudd [facility] HB ECG ROUTINE & RHYTHM 2020-04-09 07:47:57 Aly [facility] HB ECG ROUTINE & RHYTHM 2020-04-09 06:16:05 Dalila [facility] HB ABO GROUPING 2020-04-09 04:50:00 [facility] 2020-04-09 04:26:00 Tobin [facility] BASIC METABOLIC PANEL 2020-04-09 04:26:00 Tobin [facility] (NA, K, CL, CO2, GLUCOSE, [facility] BUN, CREATININE, CA) CBC WITHOUT DIFF 2020-04-09 04:26:00 Tobin [facility] PROCALCITONIN 2020-04-09 04:26:00 Tobin [facility] ABG+COOX+NA+K+GLU+CA2+ 2020-04-09 00:30:00 Sahra Ruff [facility] POCT GLUCOSE (AUTOMATED) 2020-04-08 22:40:00 Sahra Ruff [facility] BLOOD CULTURE SCREEN 2020-04-08 20:16:00 Cosmo [facility] TROPONIN I 2020-04-08 20:16:00 Sahra Ruff [facility] CBC WITH DIFF 2020-04-08 20:16:00 Sahra Ruff [facility] BLOOD CULTURE WORKUP 2020-04-08 20:16:00 Cosmo [facility] GRAM NEGATIVE BLOOD 2020-04-08 20:16:00 Cosmo [facility] PATHOGENS DNA [facility] PROBE-AEROBIC COMP. METABOLIC PANEL 2020-04-08 20:15:00 Sahra Ruff [facility] ([id number]) [facility] [place] BLOOD CULTURE SCREEN 2020-04-08 20:12:00 Cosmo [facility] BLOOD CULTURE WORKUP 2020-04-08 20:12:00 Cosmo [facility] HB ABO GROUPING 2020-04-08 20:10[facility] 2020-04-08 19:54:00 Sahra Ruff [facility] AC PANEL 20 + LACTIC ACID 2020-04-08 18:21:00 Sahra Ruff [facility] POCT GLUCOSE (AUTOMATED) 2020-04-08 13:58:00 Sahra Ruff [facility] MAGNESIUM 2020-04-08 12:10:00 [facility]CTION PANEL 2020-04-08 12:10:00 [facility] ([id number]) (ALB,T.PRO,BILI Medical Branch T,BU/BC,ALT,AST,ALK PHOS) BASIC METABOLIC PANEL 2020-04-08 12:10:00 [facility] (NA, K, CL, CO2, GLUCOSE, Medica l Branch BUN, CREATININE, CA) HEMOGLOBIN 2020-04-08 12:10:00 [facility] HEMAT[facility]IT 2020-04-08 12:10:00 [facility] GLYCOSYLATED HEMOGLOBIN 2020-04-08 12:10:00 [facility] (A1C) [facility] PROTHROMBIN TIME / INR 2020-04-08 12:10:00 [facility] ACTIVATED PARTIAL 2020-04-08 12:10:00 [facility] [place] INSERT EMERGENCY 2020-04-08 11:20:05 Lissa Carlos [facility] ENDOTRACH AIRWAY [facility] [place] INSERT NON-TUNNEL CV 2020-04-08 11:17:50 [facility] XR CHEST 1 VW 2020-04-08 11:17:09 Lissa Carlos [facility] AC PANEL 20 + LACTIC ACID 2020-04-08 10:58:00 Cosmo [facility] XR CHEST 1 VW 2020-04-08 10:39:14 Cosmo [facility] POCT GLUCOSE (AUTOMATED) 2020-04-08 10:19:00 Sahra Ruff [facility] TROPONIN I 2020-04-08 09:34:00 Santino [facility] BASIC METABOLIC PANEL 2020-04-08 09:34:00 Sahra Ruff [facility] (NA, K, CL, CO2, GLUCOSE, Medica l Branch BUN, CREATININE, CA) CBC WITH DIFF 2020-04-08 09:34:00 Santion [facility] N-TERMINAL PRO-BNP 2020-04-08 09:34:00 [facility] 2020-04-08 04:25:00 Santino [facility] CBC WITHOUT DIFF 2020-04-08 04:25:00 Cosmo [facility] PROCALCITONIN 2020-04-08 04:25:00 Joyce Sahni [facility] URINE CULTURE 2020-04-07 19:04:00 Nakul Faye [facility] CT ABDOMEN PELVIS WO 2020-04-07 17:57:[address] [facility] CONTRAST [facility] XR CHEST 1 VW 2020-04-07 17:57:14 Nakul Faye [facility] BLOOD CULTURE SCREEN 2020-04-07 17:08:00 Nakul Faye [facility] URINALYSIS 2020-04-07 16:59:00 Nakul Faye [facility] BLOOD CULTURE SCREEN 2020-04-07 16:40:00 Nakul Faye [facility] COVID-19 (ID NOW RAPID 2020-04-07 16:40:00 Nakul Faye [facility] TESTING) Medical Branch LAB ONLY COVID 2020-04-07 16:40:00 Nakul Faye [facility] INTERPRETATION [facility] CREATINE KINASE 2020-04-07 16:39:00 Nakul Faye [facility] LIPASE 2020-04-07 16:39:00 Nakul Faye [facility] TROPONIN I 2020-04-07 16:39:00 Nakul Faye [facility] HEPATIC FUNCTION PANEL 2020-04-07 16:39:00 Nakul Faye [facility] ([id number]) (ALB,T.PRO,BILI Medical Branch T,BU/BC,ALT,AST,ALK PHOS) BASIC METABOLIC PANEL 2020-04-07 16:39:00 Nakul Faye [facility] (NA, K, CL, CO2, GLUCOSE, Medica l Branch BUN, CREATININE, CA) CBC WITH DIFF 2020-04-07 16:39:00 Nakul Faye [facility] PROTHROMBIN TIME / INR 2020-04-07 16:39:00 Nakul Faye [facility] ACTIVATED PARTIAL 2020-04-07 16:39:00 [facility] N-TERMINAL PRO-BNP 2020-04-07 16:39:00 Nakul Faye [facility] LACTIC ACID WHOLE BLOOD 2020-04-07 16:39:00 Nakul Faye [facility] HB ECG ROUTINE & RHYTHM 2020-04-07 16:05:12 Yunier [facility] Plan of Care Planned Activity Planned Date Details Comments Source Future Scheduled 2022-02-06 HEPATITIS B VACCINES Met [facility] Test 18:16:24 (1 of 3 - 3-dose series) [code = HEPATITIS B VACCINES (1 of 3 - 3-dose series)] Future Scheduled 2022-02-06 COVID-19 VACCINE (#1) [facility] Test 18:16:24 [code = COVID-19 VACCINE (#1)] Future Scheduled 2022-02-06 65+ [facility]OCOCCAL [facility] 18:16:24 VACCINE (1 - PCV) [code = 65+ PNEUMOCOCCAL VACCINE (1 - PCV)] Future Scheduled 2022-02-06 SHINGLES VACCINES (1 Met [facility] Test 18:16:24 of 2) [code = SHINGLES VACCINES (1 of 2)] Future Scheduled 2022-02-06 INFLUENZA VACCINE Method [facility] Test 18:16:24 [code = INFLUENZA VACCINE] Future Scheduled 2021-04-26 COVID-19 VACCINE (1) Met [facility] Test 14:03:15 [code = COVID-19 VACCINE (1)] Future Scheduled 2021-04-26 65+ [facility]OCOCCAL [facility] Test 14:03:15 VACCINE (1 of 2 - PPSV23) [code = 65+ PNEUMOCOCCAL VACCINE (1 of 2 - PPSV23)] Future Scheduled 2021-04-26 SHINGLES [facility]ACCINES (#[facility]) [facility] 14:03:15 [code = SHINGLES VACCINES (#1)] Future Scheduled 2021-04-26 INFLUENZA VACCINE [facility] Test 14:03:15 [code = INFLUENZA VACCINE] Encounters Start End Encounter Admission Attending Care Care Encounter Source Date/Time Date/Time Type Type Clinicians Facility Department ID 2022-01-07 2022-01-07 Barge Hand Fredy Lewis Lab Main [facility] 1.2.8 40.114 [id number] Univers 11:00:00 11:15:00 Visit Catrachito Negrete [id number] ity [facility] [place] [id number] [place] [address] 2022-01-07 2022-01-07 Outpatient R [facility] [id number] Univers 11:00:00 11:00:[address] [facility] 2022-01-07 2022-01-07 Orders Doctor NATALIIA 1.2.840.114 [id number] Univers 00:00:00 00:00:00 Only Unassigned, CHAPARRO 350.1.13.10 ity [facility] 4.2.7.2.686 Sathish as [id number] [address] 2020-05-10 2020-05-10 Telephone Cliff 1.2.840.1 [id number] Methodi 00:00:00 00:00:00 Cheri Spencer [address]1.[address] 3.430.2.7 Hospit a .3.802862 l .8 2020-05-09 2020-05-09 Telephone Dre 1.2.840.1 [id number] Methodi 00:00:00 00:00:[address] 3.430.2.7 Hospit a .3.913824 l .8 2020-05-07 2020-05-07 Telephone Dre, 1.2.840.1 [id number] Methodi 00:00:00 00:00:[address] 3.430.2.7 Hospit a .3.220510 l .8 2020-05-01 2020-05-01 [facility] 1.2.840.114 [id number] Univers 00:00:00 00:00:00 Thai PRIMARY 350.1.13.10 i ty [place] [phone] Nv dical [address] 2020-04-18 2020-04-18 Transition Owen Cruz 1.2.840.114 [id number] Univers 00:00:00 00:00:00 of Care Calvin A Worthington 350.1.13.10 ity of [place] [id number] [facility] [address] 2020-04-18 2020-04-18 Transition Owen Cruz 1.2.840.114 [id number] 00:00:00 00:00:00 of Care Calvinandrey Jenseny 350.1.13.10 [place] 4.2.7.2.686 [id number] [facility] 2020-04-07 2020-04-17 [facility] Nakul Faye 1.2.840.1 14 [id number] [facility] 10:01:00 21:23:00 Encounter Rudolph Ruff 350.1.13.10 ity of [facility] 4.2.7.2.686 [place] Carlos Walton [phone] Medical DacHamilton hidalgo [address] Rasta Mccormick 2020-04-07 2020-04-17 [facility] [id number] Univers 10:01:00 21:23:[address] [facility] 2020-04-07 2020-04-17 [facility] Nakul Faye 1.2.840.1 14 [id number] 10:01:00 21:23:00 Encounter Rudolph Ruff 350.1.13.10 [facility] 4.2.7.2.686 Carlos Walton [id number] Hamilton Atkins 099 ChantelRasta shah Rolando 2020-02-13 2020-02-17 [facility] 027 [id number] 9404 [place] 00:00:00 00:00:00 DEE DEE [address] Results Test Description Test Time Test Comments Results Result Comments Source THYROID STIMULATING HORMONE 2022-01-07 17:49:48 Test Item Value Reference Range Interpretation Comme nts TSH (test code = 4759789142) See_Comment [Automated message] The system which generated this result transmitted ref erence range: 0.45 - 4.70 mIU/L. T he reference range was not used to interpret this result as lópez l/abnormal. Lab Interpretation (test code = Normal 58027-1) [facility] [id number] 17:49:48 Test Item Value Reference Range Interpretation Comments TSH (test code = See_Comment [Automated message] [id number]) The system [employer] generated this result transmitted ref erence range: 0.45 - 4 .70 mIU/L. The refe rence range was not u sed to interpret this result as normal/abnor mal. Lab Interpretation (test Normal code = 96250-3) [facility] [id number] 17:49:48 Test Item Value Reference Range Interpretation Comments TSH (test code = See_Comment [Automated message] [id number]) The system [employer] generated this result transmitted ref erence range: 0.45 - 4 .70 mIU/L. The refe rence range was not u sed to interpret this result as normal/abnor mal. Lab Interpretation (test Normal code = 23630-3) [facility]OLIC [facility] ([id number])2022-01-07 17:20:04 Test Item Value Reference Range Interpretation Comments NA (test code = 141 mmol/L 135-145 5201424866) K (test code = 5.8 mmol/L 3.5-5 H 5600316919) CL (test code = 106 mmol/L 98-108 2608296084) CO2 TOTAL (test code = 24 mmol/L 23-31 6306257726) AGAP (test code = 2-16 0712190625) BUN (test code = 21 mg/dL 7-23 1910187680) GLUCOSE (test code = 112 mg/dL 70-110 H 8521569937) CREATININE (test code = 1.39 mg/dL 0.5-1.04 H 7941447537) TOTAL BILI (test code = 0.5 mg/dL 0.1-1.6 0891290021) CALCIUM (test code = 9.1 mg/dL 8.6-10.6 1722637192) T PROTEIN (test code = 7.6 g/dL 6.3-8.2 1225338576) ALBUMIN (test code = 4.5 g/dL 3.5-5 9384951061) ALK PHOS (test code = 106 U/L 34-122 3023347920) ALTv (test code = 11 U/L 5-35 1742-6) AST(SGOT) (test code = 18 U/L 13-40 1138442512) eGFR (test code = mL/min/1.73m2 2864470007) WALTER (test code = WALTER) Association of Glomerular Filtration Rate (GFR) and Staging of Kidney Disease* + --+ --+ ------+| GFR (mL/min/1.73 m2) ?| With Kidney Damage ?| ?Without Kidney Damage+ --------+ --------+ +| ?>90 ?| ?Stage one ?| ? Normal ?+ ---+ ---+ -------+| ?60-89 ?| ?Stage two ?| ? Decreased GFR ? + --+ --+ ------+| ?30-59 ?| ?Stage three ?| ? Stage three ? + --+ --+ ------+| ?15-29 ?| ?Stage four ? | ? Stage four ?+ ---+ ---+ -------+| ?<15 (or dialysis) ? ?| ?Stage five ? | ? Stage five ?+ ---+ ---+ -------+ *Each stage assumes the associated GFR level has been in effect for at least three months. ?Stages 1 to 5, with or without kidney disease, indicate chronic kidney disease. Notes: Determination of stages one and two (with eGFR >59mL/min/1.73 m2) requires estimation of kidney damage for at least three months as defined by structural or functional abnormalities of the kidney, manifested by either:Pathological abnormalities or Markers of kidney damage (including abnormalities in the composition of the blood or urine or abnormalities in imaging tests). Lab Interpretation Abnormal (test code = 71463-5) [facility]. METABOLIC PANEL ([id number])2022-01-07 17:20:04 Test Item Value Reference Range Interpretation Comments NA (test code = 141 mmol/L 135-145 1301264793) K (test code = 5.8 mmol/L 3.5-5 H 4834843012) CL (test code = 106 mmol/L 98-108 1009796684) CO2 TOTAL (test code = 24 mmol/L 23-31 0674904633) AGAP (test code = 2-16 5983511187) BUN (test code = 21 mg/dL 7-23 3793124652) GLUCOSE (test code = 112 mg/dL 70-110 H 8067654489) CREATININE (test code = 1.39 mg/dL 0.5-1.04 H 3887533830) TOTAL BILI (test code = 0.5 mg/dL 0.1-1.8 6724641783) CALCIUM (test code = 9.1 mg/dL 8.6-10.6 0800046382) T PROTEIN (test code = 7.6 g/dL 6.3-8.2 6723702116) ALBUMIN (test code = 4.5 g/dL 3.5-5 2201034029) ALK PHOS (test code = 106 U/L 34-122 7689822115) ALTv (test code = 11 U/L 5-35 1742-6) AST(SGOT) (test code = 18 U/L 13-40 5214181166) eGFR (test code = mL/min/1.73m2 0602553712) WALTER (test code = WALTER) Association of Glomerular Filtration Rate (GFR) and Staging of Kidney Disease* + --+ --+ ------+| GFR (mL/min/1.73 m2) ?| With Kidney Damage ?| ?Without Kidney Damage+ --------+ --------+ +| ?>90 ?| ?Stage one ?| ? Normal ?+ ---+ ---+ -------+| ?60-89 ?| ?Stage two ?| ? Decreased GFR ? + --+ --+ ------+| ?30-59 ?| ?Stage three ?| ? Stage three ? + --+ --+ ------+| ?15-29 ?| ?Stage four ? | ? Stage four ?+ ---+ ---+ -------+| ?<15 (or dialysis) ? ?| ?Stage five ? | ? Stage five ?+ ---+ ---+ -------+ *Each stage assumes the associated GFR level has been in effect for at least three months. ?Stages 1 to 5, with or without kidney disease, indicate chronic kidney disease. Notes: Determination of stages one and two (with eGFR >59mL/min/1.73 m2) requires estimation of kidney damage for at least three months as defined by structural or functional abnormalities of the kidney, manifested by either:Pathological abnormalities or Markers of kidney damage (including abnormalities in the composition of the blood or urine or abnormalities in imaging tests). Lab Interpretation Abnormal (test code = 04487-2) [facility] METABOLIC PANEL ([id number])2022-01-07 17:20:04 Test Item Value Reference Range Interpretation Comments NA (test code = 141 mmol/L 135-145 4470876744) K (test code = 5.8 mmol/L 3.5-5 H 9111003134) CL (test code = 106 mmol/L 98-108 3576901029) CO2 TOTAL (test code = 24 mmol/L 23-31 2928137973) AGAP (test code = 2-16 9406134441) BUN (test code = 21 mg/dL 7-23 8972619556) GLUCOSE (test code = 112 mg/dL 70-110 H 2381157925) CREATININE (test code = 1.39 mg/dL 0.5-1.04 H 1400151222) TOTAL BILI (test code = 0.5 mg/dL 0.1-1.4 7937583651) CALCIUM (test code = 9.1 mg/dL 8.6-10.6 5851065848) T PROTEIN (test code = 7.6 g/dL 6.3-8.2 3096629889) ALBUMIN (test code = 4.5 g/dL 3.5-5 8695071098) ALK PHOS (test code = 106 U/L 34-122 5546530444) ALTv (test code = 11 U/L 5-35 1742-6) AST(SGOT) (test code = 18 U/L 13-40 1016016360) eGFR (test code = mL/min/1.73m2 0319541032) WALTER (test code = WALTER) Association of Glomerular Filtration Rate (GFR) and Staging of Kidney Disease* + --+ --+ ------+| GFR (mL/min/1.73 m2) ?| With Kidney Damage ?| ?Without Kidney Damage+ --------+ --------+ +| ?>90 ?| ?Stage one ?| ? Normal ?+ ---+ ---+ -------+| ?60-89 ?| ?Stage two ?| ? Decreased GFR ? + --+ --+ ------+| ?30-59 ?| ?Stage three ?| ? Stage three ? + --+ --+ ------+| ?15-29 ?| ?Stage four ? | ? Stage four ?+ ---+ ---+ -------+| ?<15 (or dialysis) ? ?| ?Stage five ? | ? Stage five ?+ ---+ ---+ -------+ *Each stage assumes the associated GFR level has been in effect for at least three months. ?Stages 1 to 5, with or without kidney disease, indicate chronic kidney disease. Notes: Determination of stages one and two (with eGFR >59mL/min/1.73 m2) requires estimation of kidney damage for at least three months as defined by structural or functional abnormalities of the kidney, manifested by either:Pathological abnormalities or Markers of kidney damage (including abnormalities in the composition of the blood or urine or abnormalities in imaging tests). Lab Interpretation Abnormal (test code = 29454-2) [facility] METABOLIC PANEL ([id number])2022-01-07 17:20:04 Test Item Value Reference Range Interpretation Comments NA (test code = 141 mmol/L 135-145 2398085328) K (test code = 5.8 mmol/L 3.5-5 H 1932727068) CL (test code = 106 mmol/L 98-108 6371553294) CO2 TOTAL (test code = 24 mmol/L 23-31 9842838799) AGAP (test code = 2-16 0927075255) BUN (test code = 21 mg/dL 7-23 7409263050) GLUCOSE (test code = 112 mg/dL 70-110 H 2787968051) CREATININE (test code = 1.39 mg/dL 0.5-1.04 H 4685269551) TOTAL BILI (test code = 0.5 mg/dL 0.1-1.9 5377500786) CALCIUM (test code = 9.1 mg/dL 8.6-10.6 4763906478) T PROTEIN (test code = 7.6 g/dL 6.3-8.2 8043374216) ALBUMIN (test code = 4.5 g/dL 3.5-5 6388552518) ALK PHOS (test code = 106 U/L 34-122 6677529979) ALTv (test code = 11 U/L 5-35 1742-6) AST(SGOT) (test code = 18 U/L 13-40 7728042744) eGFR (test code = mL/min/1.73m2 2333812357) WALTER (test code = WALTER) Association of Glomerular Filtration Rate (GFR) and Staging of Kidney Disease* + --+ --+ ------+| GFR (mL/min/1.73 m2) ?| With Kidney Damage ?| ?Without Kidney Damage+ --------+ --------+ +| ?>90 ?| ?Stage one ?| ? Normal ?+ ---+ ---+ -------+| ?60-89 ?| ?Stage two ?| ? Decreased GFR ? + --+ --+ ------+| ?30-59 ?| ?Stage three ?| ? Stage three ? + --+ --+ ------+| ?15-29 ?| ?Stage four ? | ? Stage four ?+ ---+ ---+ -------+| ?<15 (or dialysis) ? ?| ?Stage five ? | ? Stage five ?+ ---+ ---+ -------+ *Each stage assumes the associated GFR level has been in effect for at least three months. ?Stages 1 to 5, with or without kidney disease, indicate chronic kidney disease. Notes: Determination of stages one and two (with eGFR >59mL/min/1.73 m2) requires estimation of kidney damage for at least three months as defined by structural or functional abnormalities of the kidney, manifested by either:Pathological abnormalities or Markers of kidney damage (including abnormalities in the composition of the blood or urine or abnormalities in imaging tests). Lab Interpretation Abnormal (test code = 72220-2) [facility] METABOLIC PANEL ([id number])2022-01-07 17:20:04 Test Item Value Reference Range Interpretation Comments NA (test code = 141 mmol/L 135-145 7479783763) K (test code = 5.8 mmol/L 3.5-5 H 3251408333) CL (test code = 106 mmol/L 98-108 1899590949) CO2 TOTAL (test code = 24 mmol/L 23-31 8804570085) AGAP (test code = 2-16 2252931540) BUN (test code = 21 mg/dL 7-23 7918622648) GLUCOSE (test code = 112 mg/dL 70-110 H 8913047259) CREATININE (test code = 1.39 mg/dL 0.5-1.04 H 7546841989) TOTAL BILI (test code = 0.5 mg/dL 0.1-1.7 5574155543) CALCIUM (test code = 9.1 mg/dL 8.6-10.6 8998486900) T PROTEIN (test code = 7.6 g/dL 6.3-8.2 9592050244) ALBUMIN (test code = 4.5 g/dL 3.5-5 5934109530) ALK PHOS (test code = 106 U/L 34-122 6091340552) ALTv (test code = 11 U/L 5-35 1742-6) AST(SGOT) (test code = 18 U/L 13-40 8317855666) eGFR (test code = mL/min/1.73m2 9533987555) WALTER (test code = WALTER) Association of Glomerular Filtration Rate (GFR) and Staging of Kidney Disease* + --+ --+ ------+| GFR (mL/min/1.73 m2) ?| With Kidney Damage ?| ?Without Kidney Damage+ --------+ --------+ +| ?>90 ?| ?Stage one ?| ? Normal ?+ ---+ ---+ -------+| ?60-89 ?| ?Stage two ?| ? Decreased GFR ? + --+ --+ ------+| ?30-59 ?| ?Stage three ?| ? Stage three ? + --+ --+ ------+| ?15-29 ?| ?Stage four ? | ? Stage four ?+ ---+ ---+ -------+| ?<15 (or dialysis) ? ?| ?Stage five ? | ? Stage five ?+ ---+ ---+ -------+ *Each stage assumes the associated GFR level has been in effect for at least three months. ?Stages 1 to 5, with or without kidney disease, indicate chronic kidney disease. Notes: Determination of stages one and two (with eGFR >59mL/min/1.73 m2) requires estimation of kidney damage for at least three months as defined by structural or functional abnormalities of the kidney, manifested by either:Pathological abnormalities or Markers of kidney damage (including abnormalities in the composition of the blood or urine or abnormalities in imaging tests). Lab Interpretation Abnormal (test code = 75505-6) [facility] METABOLIC PANEL ([id number])2022-01-07 17:20:04 Test Item Value Reference Range Interpretation Comments NA (test code = 141 mmol/L 135-145 4150659979) K (test code = 5.8 mmol/L 3.5-5 H 5245280399) CL (test code = 106 mmol/L 98-108 7668001964) CO2 TOTAL (test code = 24 mmol/L 23-31 3477646765) AGAP (test code = 2-16 9517926246) BUN (test code = 21 mg/dL 7-23 9134127685) GLUCOSE (test code = 112 mg/dL 70-110 H 7898594592) CREATININE (test code = 1.39 mg/dL 0.5-1.04 H 3180180134) TOTAL BILI (test code = 0.5 mg/dL 0.1-1.8 3405940670) CALCIUM (test code = 9.1 mg/dL 8.6-10.6 6704090230) T PROTEIN (test code = 7.6 g/dL 6.3-8.2 0327493815) ALBUMIN (test code = 4.5 g/dL 3.5-5 0208053793) ALK PHOS (test code = 106 U/L 34-122 9050120476) ALTv (test code = 11 U/L 5-35 1742-6) AST(SGOT) (test code = 18 U/L 13-40 9393594896) eGFR (test code = mL/min/1.73m2 1481880743) WALTER (test code = WALTER) Association of Glomerular Filtration Rate (GFR) and Staging of Kidney Disease* + --+ --+ ------+| GFR (mL/min/1.73 m2) ?| With Kidney Damage ?| ?Without Kidney Damage+ --------+ --------+ +| ?>90 ?| ?Stage one ?| ? Normal ?+ ---+ ---+ -------+| ?60-89 ?| ?Stage two ?| ? Decreased GFR ? + --+ --+ ------+| ?30-59 ?| ?Stage three ?| ? Stage three ? + --+ --+ ------+| ?15-29 ?| ?Stage four ? | ? Stage four ?+ ---+ ---+ -------+| ?<15 (or dialysis) ? ?| ?Stage five ? | ? Stage five ?+ ---+ ---+ -------+ *Each stage assumes the associated GFR level has been in effect for at least three months. ?Stages 1 to 5, with or without kidney disease, indicate chronic kidney disease. Notes: Determination of stages one and two (with eGFR >59mL/min/1.73 m2) requires estimation of kidney damage for at least three months as defined by structural or functional abnormalities of the kidney, manifested by either:Pathological abnormalities or Markers of kidney damage (including abnormalities in the composition of the blood or urine or abnormalities in imaging tests). Lab Interpretation Abnormal (test code = 51155-3) [facility] WITH [id number] 16:19:14 Test Item Value Reference Range Interpretation Comments WBC (test code = See_Comment [Automated 6690-2) message] The sy stem which generated this result transmitted reference range : 4.30 - 11.10 10*3/?L. The reference range was not used to interpret this result as normal/abnormal . RBC (test code = See_Comment [Automated 789-8) message] The sy stem which generated this result transmitted reference range : 3.93 - 5.25 10*6/?L. The reference range was not used to interpret this result as normal/abnormal . HGB (test code = 11.6 g/dL 11.6-15 718-7) HCT (test code = 37.9 % 35.7-45.2 4544-3) MCV (test code = 81.7 fL 80.6-95.5 787-2) MCH (test code = 25.0 pg 25.9-32.8 L 785-6) MCHC (test code = 30.6 g/dL 31.6-35.1 L 786-4) RDW-SD (test code = 46.5 fL 39-49.9 04481-5) RDW-CV (test code = 15.7 % 12-15.5 H 788-0) PLT (test code = See_Comment [Automated 777-3) message] The sy stem which generated this result transmitted reference range : 166 - 358 10*3/ ?L. The reference r matteo was not used to interpret this result as normal/abnormal . MPV (test code = 9.3 fL 9.5-12.9 L 63898-0) NRBC/100 WBC (test See_Comment [Automat ed code = 5317331457) message] The system which generated this result transmitted reference range : 0.0 - 10.0 /100 WBCs. The refer ence range was not u sed to interpret th is result as normal/abnormal . NRBC x10^3 (test code See_Comment [Auto mated = 0574894993) message] The s ystem which generated this result transmitted reference range : 10*3/?L. The reference range was not used to interpret this result as normal/abnormal . GRAN MAT (NEUT) % 61.9 % (test code = 770-8) IMM GRAN % (test code 0.50 % = 6020027939) LYMPH % (test code = 26.3 % 736-9) MONO % (test code = 7.0 % 5905-5) EOS % (test code = 3.5 % 713-8) BASO % (test code = 0.8 % 706-2) GRAN MAT x10^3(ANC) 4.84 10*3/uL 1.88-7.09 (test code = 5170247757) IMM GRAN x10^3 (test 0.04 10*3/uL 0-0.06 code = 1233764014) LYMPH x10^3 (test code 2.06 10*3/uL 1.32-3.29 = 731-0) MONO x10^3 (test code 0.55 10*3/uL 0.33-0.92 = 742-7) EOS x10^3 (test code = 0.27 10*3/uL 0.03-0.39 711-2) BASO x10^3 (test code 0.06 10*3/uL 0.01-0.07 = 704-7) Lab Interpretation Abnormal (test code = 57574-6) [facility] WITH [id number] 16:19:14 Test Item Value Reference Range Interpretation Comments WBC (test code = See_Comment [Automated 4290-2) message] The sy stem which generated this result transmitted reference range : 4.30 - 11.10 10*3/?L. The reference range was not used to interpret this result as normal/abnormal . RBC (test code = See_Comment [Automated 750-8) message] The sy stem which generated this result transmitted reference range : 3.93 - 5.25 10*6/?L. The reference range was not used to interpret this result as normal/abnormal . HGB (test code = 11.6 g/dL 11.6-15 718-7) HCT (test code = 37.9 % 35.7-45.2 4544-3) MCV (test code = 81.7 fL 80.6-95.5 787-2) MCH (test code = 25.0 pg 25.9-32.8 L 785-6) MCHC (test code = 30.6 g/dL 31.6-35.1 L 786-4) RDW-SD (test code = 46.5 fL 39-49.9 50673-1) RDW-CV (test code = 15.7 % 12-15.5 H 788-0) PLT (test code = See_Comment [Automated 777-3) message] The sy stem which generated this result transmitted reference range : 166 - 358 10*3/ ?L. The reference r matteo was not used to interpret this result as normal/abnormal . MPV (test code = 9.3 fL 9.5-12.9 L 43164-8) NRBC/100 WBC (test See_Comment [Automat ed code = 0797666999) message] The system which generated this result transmitted reference range : 0.0 - 10.0 /100 WBCs. The refer ence range was not u sed to interpret th is result as normal/abnormal . NRBC x10^3 (test code See_Comment [Auto mated = 2199962439) message] The s ystem which generated this result transmitted reference range : 10*3/?L. The reference range was not used to interpret this result as normal/abnormal . GRAN MAT (NEUT) % 61.9 % (test code = 770-8) IMM GRAN % (test code 0.50 % = 5048616530) LYMPH % (test code = 26.3 % 736-9) MONO % (test code = 7.0 % 5905-5) EOS % (test code = 3.5 % 713-8) BASO % (test code = 0.8 % 706-2) GRAN MAT x10^3(ANC) 4.84 10*3/uL 1.88-7.09 (test code = 6003717390) IMM GRAN x10^3 (test 0.04 10*3/uL 0-0.06 code = 1043774983) LYMPH x10^3 (test code 2.06 10*3/uL 1.32-3.29 = 731-0) MONO x10^3 (test code 0.55 10*3/uL 0.33-0.92 = 742-7) EOS x10^3 (test code = 0.27 10*3/uL 0.03-0.39 711-2) BASO x10^3 (test code 0.06 10*3/uL 0.01-0.07 = 704-7) Lab Interpretation Abnormal (test code = 46101-3) [facility] WITH [id number] 16:19:14 Test Item Value Reference Range Interpretation Comments WBC (test code = See_Comment [Automated 6690-2) message] The sy stem which generated this result transmitted reference range : 4.30 - 11.10 10*3/?L. The reference range was not used to interpret this result as normal/abnormal . RBC (test code = See_Comment [Automated 789-8) message] The sy stem which generated this result transmitted reference range : 3.93 - 5.25 10*6/?L. The reference range was not used to interpret this result as normal/abnormal . HGB (test code = 11.6 g/dL 11.6-15 718-7) HCT (test code = 37.9 % 35.7-45.2 4544-3) MCV (test code = 81.7 fL 80.6-95.5 787-2) MCH (test code = 25.0 pg 25.9-32.8 L 785-6) MCHC (test code = 30.6 g/dL 31.6-35.1 L 786-4) RDW-SD (test code = 46.5 fL 39-49.9 15479-9) RDW-CV (test code = 15.7 % 12-15.5 H 788-0) PLT (test code = See_Comment [Automated 777-3) message] The sy stem which generated this result transmitted reference range : 166 - 358 10*3/ ?L. The reference r matteo was not used to interpret this result as normal/abnormal . MPV (test code = 9.3 fL 9.5-12.9 L 76114-9) NRBC/100 WBC (test See_Comment [Automat ed code = 9845091086) message] The system which generated this result transmitted reference range : 0.0 - 10.0 /100 WBCs. The refer ence range was not u sed to interpret th is result as normal/abnormal . NRBC x10^3 (test code See_Comment [Auto mated = 9403116434) message] The s ystem which generated this result transmitted reference range : 10*3/?L. The reference range was not used to interpret this result as normal/abnormal . GRAN MAT (NEUT) % 61.9 % (test code = 770-8) IMM GRAN % (test code 0.50 % = 4023383861) LYMPH % (test code = 26.3 % 736-9) MONO % (test code = 7.0 % 5905-5) EOS % (test code = 3.5 % 713-8) BASO % (test code = 0.8 % 706-2) GRAN MAT x10^3(ANC) 4.84 10*3/uL 1.88-7.09 (test code = 7220791377) IMM GRAN x10^3 (test 0.04 10*3/uL 0-0.06 code = 6584323318) LYMPH x10^3 (test code 2.06 10*3/uL 1.32-3.29 = 731-0) MONO x10^3 (test code 0.55 10*3/uL 0.33-0.92 = 742-7) EOS x10^3 (test code = 0.27 10*3/uL 0.03-0.39 711-2) BASO x10^3 (test code 0.06 10*3/uL 0.01-0.07 = 704-7) Lab Interpretation Abnormal (test code = 84132-4) [facility] WITH [id number] 16:19:14 Test Item Value Reference Range Interpretation Comments WBC (test code = See_Comment [Automated 2890-2) message] The sy stem which generated this result transmitted reference range : 4.30 - 11.10 10*3/?L. The reference range was not used to interpret this result as normal/abnormal . RBC (test code = See_Comment [Automated 897-8) message] The sy stem which generated this result transmitted reference range : 3.93 - 5.25 10*6/?L. The reference range was not used to interpret this result as normal/abnormal . HGB (test code = 11.6 g/dL 11.6-15 718-7) HCT (test code = 37.9 % 35.7-45.2 4544-3) MCV (test code = 81.7 fL 80.6-95.5 787-2) MCH (test code = 25.0 pg 25.9-32.8 L 785-6) MCHC (test code = 30.6 g/dL 31.6-35.1 L 786-4) RDW-SD (test code = 46.5 fL 39-49.9 88099-4) RDW-CV (test code = 15.7 % 12-15.5 H 788-0) PLT (test code = See_Comment [Automated 777-3) message] The sy stem which generated this result transmitted reference range : 166 - 358 10*3/ ?L. The reference r matteo was not used to interpret this result as normal/abnormal . MPV (test code = 9.3 fL 9.5-12.9 L 71438-1) NRBC/100 WBC (test See_Comment [Automat ed code = 5437217644) message] The system which generated this result transmitted reference range : 0.0 - 10.0 /100 WBCs. The refer ence range was not u sed to interpret th is result as normal/abnormal . NRBC x10^3 (test code See_Comment [Auto mated = 4582511943) message] The s ystem which generated this result transmitted reference range : 10*3/?L. The reference range was not used to interpret this result as normal/abnormal . GRAN MAT (NEUT) % 61.9 % (test code = 770-8) IMM GRAN % (test code 0.50 % = 0721539519) LYMPH % (test code = 26.3 % 736-9) MONO % (test code = 7.0 % 5905-5) EOS % (test code = 3.5 % 713-8) BASO % (test code = 0.8 % 706-2) GRAN MAT x10^3(ANC) 4.84 10*3/uL 1.88-7.09 (test code = 0179833360) IMM GRAN x10^3 (test 0.04 10*3/uL 0-0.06 code = 2685161124) LYMPH x10^3 (test code 2.06 10*3/uL 1.32-3.29 = 731-0) MONO x10^3 (test code 0.55 10*3/uL 0.33-0.92 = 742-7) EOS x10^3 (test code = 0.27 10*3/uL 0.03-0.39 711-2) BASO x10^3 (test code 0.06 10*3/uL 0.01-0.07 = 704-7) Lab Interpretation Abnormal (test code = 85508-9) [facility] WITH [id number] 16:19:14 Test Item Value Reference Range Interpretation Comments WBC (test code = See_Comment [Automated 6690-2) message] The sy stem which generated this result transmitted reference range : 4.30 - 11.10 10*3/?L. The reference range was not used to interpret this result as normal/abnormal . RBC (test code = See_Comment [Automated 789-8) message] The sy stem which generated this result transmitted reference range : 3.93 - 5.25 10*6/?L. The reference range was not used to interpret this result as normal/abnormal . HGB (test code = 11.6 g/dL 11.6-15 718-7) HCT (test code = 37.9 % 35.7-45.2 4544-3) MCV (test code = 81.7 fL 80.6-95.5 787-2) MCH (test code = 25.0 pg 25.9-32.8 L 785-6) MCHC (test code = 30.6 g/dL 31.6-35.1 L 786-4) RDW-SD (test code = 46.5 fL 39-49.9 10081-6) RDW-CV (test code = 15.7 % 12-15.5 H 788-0) PLT (test code = See_Comment [Automated 777-3) message] The sy stem which generated this result transmitted reference range : 166 - 358 10*3/ ?L. The reference r matteo was not used to interpret this result as normal/abnormal . MPV (test code = 9.3 fL 9.5-12.9 L 36995-7) NRBC/100 WBC (test See_Comment [Automat ed code = 4089786059) message] The system which generated this result transmitted reference range : 0.0 - 10.0 /100 WBCs. The refer ence range was not u sed to interpret th is result as normal/abnormal . NRBC x10^3 (test code See_Comment [Auto mated = 8095373127) message] The s ystem which generated this result transmitted reference range : 10*3/?L. The reference range was not used to interpret this result as normal/abnormal . GRAN MAT (NEUT) % 61.9 % (test code = 770-8) IMM GRAN % (test code 0.50 % = 9875841036) LYMPH % (test code = 26.3 % 736-9) MONO % (test code = 7.0 % 5905-5) EOS % (test code = 3.5 % 713-8) BASO % (test code = 0.8 % 706-2) GRAN MAT x10^3(ANC) 4.84 10*3/uL 1.88-7.09 (test code = 2729825397) IMM GRAN x10^3 (test 0.04 10*3/uL 0-0.06 code = 7077760935) LYMPH x10^3 (test code 2.06 10*3/uL 1.32-3.29 = 731-0) MONO x10^3 (test code 0.55 10*3/uL 0.33-0.92 = 742-7) EOS x10^3 (test code = 0.27 10*3/uL 0.03-0.39 711-2) BASO x10^3 (test code 0.06 10*3/uL 0.01-0.07 = 704-7) Lab Interpretation Abnormal (test code = 47422-6) [facility] WITH [id number] 16:19:14 Test Item Value Reference Range Interpretation Comments WBC (test code = See_Comment [Automated 3490-2) message] The sy stem which generated this result transmitted reference range : 4.30 - 11.10 10*3/?L. The reference range was not used to interpret this result as normal/abnormal . RBC (test code = See_Comment [Automated 169-8) message] The sy stem which generated this result transmitted reference range : 3.93 - 5.25 10*6/?L. The reference range was not used to interpret this result as normal/abnormal . HGB (test code = 11.6 g/dL 11.6-15 718-7) HCT (test code = 37.9 % 35.7-45.2 4544-3) MCV (test code = 81.7 fL 80.6-95.5 787-2) MCH (test code = 25.0 pg 25.9-32.8 L 785-6) MCHC (test code = 30.6 g/dL 31.6-35.1 L 786-4) RDW-SD (test code = 46.5 fL 39-49.9 19142-8) RDW-CV (test code = 15.7 % 12-15.5 H 788-0) PLT (test code = See_Comment [Automated 777-3) message] The sy stem which generated this result transmitted reference range : 166 - 358 10*3/ ?L. The reference r matteo was not used to interpret this result as normal/abnormal . MPV (test code = 9.3 fL 9.5-12.9 L 94001-9) NRBC/100 WBC (test See_Comment [Automat ed code = 9572866817) message] The system which generated this result transmitted reference range : 0.0 - 10.0 /100 WBCs. The refer ence range was not u sed to interpret th is result as normal/abnormal . NRBC x10^3 (test code See_Comment [Auto mated = 5825702275) message] The s ystem which generated this result transmitted reference range : 10*3/?L. The reference range was not used to interpret this result as normal/abnormal . GRAN MAT (NEUT) % 61.9 % (test code = 770-8) IMM GRAN % (test code 0.50 % = 6150128816) LYMPH % (test code = 26.3 % 736-9) MONO % (test code = 7.0 % 5905-5) EOS % (test code = 3.5 % 713-8) BASO % (test code = 0.8 % 706-2) GRAN MAT x10^3(ANC) 4.84 10*3/uL 1.88-7.09 (test code = 1552037378) IMM GRAN x10^3 (test 0.04 10*3/uL 0-0.06 code = 3189406534) LYMPH x10^3 (test code 2.06 10*3/uL 1.32-3.29 = 731-0) MONO x10^3 (test code 0.55 10*3/uL 0.33-0.92 = 742-7) EOS x10^3 (test code = 0.27 10*3/uL 0.03-0.39 711-2) BASO x10^3 (test code 0.06 10*3/uL 0.01-0.07 = 704-7) Lab Interpretation Abnormal (test code = 24161-6) [facility] WITH [id number] 16:19:14 Test Item Value Reference Range Interpretation Comments WBC (test code = See_Comment [Automated 3323-2) message] The sy stem which generated this result transmitted reference range : 4.30 - 11.10 10*3/?L. The reference range was not used to interpret this result as normal/abnormal . RBC (test code = See_Comment [Automated 999-8) message] The sy stem which generated this result transmitted reference range : 3.93 - 5.25 10*6/?L. The reference range was not used to interpret this result as normal/abnormal . HGB (test code = 11.6 g/dL 11.6-15 718-7) HCT (test code = 37.9 % 35.7-45.2 4544-3) MCV (test code = 81.7 fL 80.6-95.5 787-2) MCH (test code = 25.0 pg 25.9-32.8 L 785-6) MCHC (test code = 30.6 g/dL 31.6-35.1 L 786-4) RDW-SD (test code = 46.5 fL 39-49.9 99368-1) RDW-CV (test code = 15.7 % 12-15.5 H 788-0) PLT (test code = See_Comment [Automated 907-3) message] The sy stem which generated this result transmitted reference range : 166 - 358 10*3/ ?L. The reference r matteo was not used to interpret this result as normal/abnormal . MPV (test code = 9.3 fL 9.5-12.9 L 32665-3) NRBC/100 WBC (test See_Comment [Automat ed code = 7221705850) message] The system which generated this result transmitted reference range : 0.0 - 10.0 /100 WBCs. The refer ence range was not u sed to interpret th is result as normal/abnormal . NRBC x10^3 (test code See_Comment [Auto mated = 1077163335) message] The s ystem which generated this result transmitted reference range : 10*3/?L. The reference range was not used to interpret this result as normal/abnormal . GRAN MAT (NEUT) % 61.9 % (test code = 770-8) IMM GRAN % (test code 0.50 % = 5948289280) LYMPH % (test code = 26.3 % 736-9) MONO % (test code = 7.0 % 5905-5) EOS % (test code = 3.5 % 713-8) BASO % (test code = 0.8 % 706-2) GRAN MAT x10^3(ANC) 4.84 10*3/uL 1.88-7.09 (test code = 0425764103) IMM GRAN x10^3 (test 0.04 10*3/uL 0-0.06 code = 1383147242) LYMPH x10^3 (test code 2.06 10*3/uL 1.32-3.29 = 731-0) MONO x10^3 (test code 0.55 10*3/uL 0.33-0.92 = 742-7) EOS x10^3 (test code = 0.27 10*3/uL 0.03-0.39 711-2) BASO x10^3 (test code 0.06 10*3/uL 0.01-0.07 = 704-7) Lab Interpretation Abnormal (test code = 67532-2) [facility] GLUCOSE (AUTOMATED)2020-04-17 21:35:00 Test Item Value Reference Range Interpretation Comments POCT GLU (test code = 7931512110) 124 mg/dL 70-110 H Lab Interpretation (test code = Abnormal 37626-7) [facility] GLUCOSE (AUTOMATED)2020-04-17 18:10:00 Test Item Value Reference Range Interpretation Comments POCT GLU (test code = 1661590433) 213 mg/dL 70-110 H Lab Interpretation (test code = Abnormal 09614-5) [facility] GLUCOSE (AUTOMATED)2020-04-17 15:35:00 Test Item Value Reference Range Interpretation Comments POCT GLU (test code = 4900908660) 115 mg/dL 70-110 H Lab Interpretation (test code = Abnormal 46264-2) [facility] WITH [id number] 13:10:00 Test Item Value Reference Range Interpretation Comments WBC (test code = See_Comment [Automated 6690-2) message] The sy stem which generated this result transmitted reference range : 4.30 - 11.10 10*3/?L. The reference range was not used to interpret this result as normal/abnormal . RBC (test code = See_Comment L [Automated 789-8) message] The sy stem which generated this result transmitted reference range : 3.93 - 5.25 10*6/?L. The reference range was not used to interpret this result as normal/abnormal . HGB (test code = 7.6 g/dL 11.6-15 L 718-7) HCT (test code = 24.5 % 35.7-45.2 L 4544-3) MCV (test code = 82.5 fL 80.6-95.5 787-2) MCH (test code = 25.6 pg 25.9-32.8 L 785-6) MCHC (test code = 31.0 g/dL 31.6-35.1 L 786-4) RDW-SD (test code = 43.6 fL 39-49.9 27792-1) RDW-CV (test code = 14.6 % 12-15.5 788-0) PLT (test code = See_Comment H [Automated 777-3) message] The sy stem which generated this result transmitted reference range : 166 - 358 10*3/ ?L. The reference r matteo was not used to interpret this result as normal/abnormal . MPV (test code = 10.6 fL 9.5-12.9 86759-4) NRBC/100 WBC (test See_Comment [Automat ed code = 6130951817) message] The system which generated this result transmitted reference range : 0.0 - 10.0 /100 WBCs. The refer ence range was not u sed to interpret th is result as normal/abnormal . NRBC x10^3 (test code <0.01 See_Comment [Auto mated = 6544589198) message] The s ystem which generated this result transmitted reference range : 10*3/?L. The reference range was not used to interpret this result as normal/abnormal . GRAN MAT (NEUT) % 77.4 % (test code = 770-8) IMM GRAN % (test code 4.10 % = 2426356746) LYMPH % (test code = 8.9 % 736-9) MONO % (test code = 8.0 % 5905-5) EOS % (test code = 1.3 % 713-8) BASO % (test code = 0.3 % 706-2) GRAN MAT x10^3(ANC) 7.32 10*3/uL 1.88-7.09 H (test code = 0918515160) IMM GRAN x10^3 (test 0.39 10*3/uL 0-0.06 H code = 6924081940) LYMPH x10^3 (test code 0.84 10*3/uL 1.32-3.29 L = 731-0) MONO x10^3 (test code 0.76 10*3/uL 0.33-0.92 = 742-7) EOS x10^3 (test code = 0.12 10*3/uL 0.03-0.39 711-2) BASO x10^3 (test code 0.03 10*3/uL 0.01-0.07 = 704-7) TOXIC CHANGES (test Present A code = 803-7) GIANT PLATELETS (test Present See_Comment A [Auto mated code = 5908-9) message] The system which generated this result transmitted reference range : (none). The reference range was not used to interpret this result as normal/abnormal . Lab Interpretation Abnormal (test code = 09010-0) [id number] Test Item Value Reference Range Interpretation Comments FERRITIN (test code = 126.0 ng/mL 0694518628) WALTER (test code = WALTER) Biotin has been reported to cause a negative bias, interpret results relative to patient's use of biotin. Lab Interpretation (test Normal code = 35989-1) [id number] 12:03:00 Test Item Value Reference Range Interpretation Comments IRON (test code = 5892701101) 23 ug/dL 50-160 L TIBC (test code = 9374737466) 260 ug/dL 250-410 % FE SAT (test code = 8800482714) 9 % 20-50 L Lab Interpretation (test code = Abnormal 41199-6) [facility] METABOLIC PANEL (NA, K, CL, CO2, GLUCOSE, BUN, CREATININE, CA)2020-04-17 11:52:00 Test Item Value Reference Range Interpretation Comments NA (test code = 134 mmol/L 135-145 L 1244527668) K (test code = 4.0 mmol/L 3.5-5 8145160597) CL (test code = 103 mmol/L 98-108 2561159756) CO2 TOTAL (test code = 23 mmol/L 23-31 7680014417) AGAP (test code = 2-16 4830821022) BUN (test code = 13 mg/dL 7-23 8840800988) GLUCOSE (test code = 123 mg/dL 70-110 H 3870686851) CREATININE (test code = 1.03 mg/dL 0.5-1.04 1991815716) CALCIUM (test code = 7.7 mg/dL 8.6-10.6 L 4802163735) eGFR Calculation mL/min/1.73m2 (Non-) (test code = 7980329703) eGFR Calculation mL/min/1.73m2 () (test code = 3168119902) WALTER (test code = WALTER) Association of Glomerular Filtration Rate (GFR) and Staging of Kidney Disease* + --+ --+ ------+| GFR (mL/min/1.73 m2) ?| With Kidney Damage ?| ?Without Kidney Damage+ --------+ --------+ +| ?>90 ?| ?Stage one ?| ? Normal ?+ ---+ ---+ -------+| ?60-89 ?| ?Stage two ?| ? Decreased GFR ? + --+ --+ ------+| ?30-59 ?| ?Stage three ?| ? Stage three ? + --+ --+ ------+| ?15-29 ?| ?Stage four ? | ? Stage four ?+ ---+ ---+ -------+| ?<15 (or dialysis) ? ?| ?Stage five ? | ? Stage five ?+ ---+ ---+ -------+ *Each stage assumes the associated GFR level has been in effect for at least three months. ?Stages 1 to 5, with or without kidney disease, indicate chronic kidney disease. Notes: Determination of stages one and two (with eGFR >59mL/min/1.73 m2) requires estimation of kidney damage for at least three months as defined by structural or functional abnormalities of the kidney, manifested by either:Pathological abnormalities or Markers of kidney damage (including abnormalities in the composition of the blood or urine or abnormalities in imaging tests). Lab Interpretation Abnormal (test code = 88603-9) [facility]2021-01-12 11:52:00 Test Item Value Reference Range Interpretation Comments MAGNESIUM (test code = 2657406671) 2.7 mg/dL 1.7-2.4 H Lab Interpretation (test code = Abnormal 91989-2) [facility] GLUCOSE (AUTOMATED)2020-04-17 02:39:00 Test Item Value Reference Range Interpretation Comments POCT GLU (test code = 7365936792) 119 mg/dL 70-110 H Lab Interpretation (test code = Abnormal 77291-5) [facility] GLUCOSE (AUTOMATED)2020-04-16 22:31:00 Test Item Value Reference Range Interpretation Comments POCT GLU (test code = 6071056373) 130 mg/dL 70-110 H Lab Interpretation (test code = Abnormal 10590-6) [facility] GLUCOSE (AUTOMATED)2020-04-16 18:50:00 Test Item Value Reference Range Interpretation Comments POCT GLU (test code = 1690760140) 139 mg/dL 70-110 H Lab Interpretation (test code = Abnormal 57144-9) [facility]2021-01-11 16:46:00 Test Item Value Reference Range Interpretation Comments MAGNESIUM (test code = 8801752520) 1.1 mg/dL 1.7-2.4 L Lab Interpretation (test code = Abnormal 52656-2) [facility]:31:00 Test Item Value Reference Range Interpretation Comments POCT GLU (test code = 1298592009) 106 mg/dL 70-110 Lab Interpretation (test code = Normal 48657-9) [facility] METABOLIC PANEL (NA, K, CL, CO2, GLUCOSE, BUN, CREATININE, CA)2020-04-16 12:30:00 Test Item Value Reference Range Interpretation Comments NA (test code = 133 mmol/L 135-145 L [id number]) K (test code = 3.4 mmol/L 3.5-5 L 9283490568) CL (test code = 104 mmol/L 98-108 1098653049) CO2 TOTAL (test code = 23 mmol/L 23-31 4182878653) AGAP (test code = 2-16 9847093124) BUN (test code = 14 mg/dL 7-23 6106617440) GLUCOSE (test code = 117 mg/dL 70-110 H 8165876483) CREATININE (test code = 1.10 mg/dL 0.5-1.04 H 3283584605) CALCIUM (test code = 7.6 mg/dL 8.6-10.6 L 7691130348) eGFR Calculation mL/min/1.73m2 (Non-) (test code = 4858716171) eGFR Calculation mL/min/1.73m2 () (test code = 4178440926) WALTER (test code = WALTER) Association of Glomerular Filtration Rate (GFR) and Staging of Kidney Disease* + --+ --+ ------+| GFR (mL/min/1.73 m2) ?| With Kidney Damage ?| ?Without Kidney Damage+ --------+ --------+ +| ?>90 ?| ?Stage one ?| ? Normal ?+ ---+ ---+ -------+| ?60-89 ?| ?Stage two ?| ? Decreased GFR ? + --+ --+ ------+| ?30-59 ?| ?Stage three ?| ? Stage three ? + --+ --+ ------+| ?15-29 ?| ?Stage four ? | ? Stage four ?+ ---+ ---+ -------+| ?<15 (or dialysis) ? ?| ?Stage five ? | ? Stage five ?+ ---+ ---+ -------+ *Each stage assumes the associated GFR level has been in effect for at least three months. ?Stages 1 to 5, with or without kidney disease, indicate chronic kidney disease. Notes: Determination of stages one and two (with eGFR >59mL/min/1.73 m2) requires estimation of kidney damage for at least three months as defined by structural or functional abnormalities of the kidney, manifested by either:Pathological abnormalities or Markers of kidney damage (including abnormalities in the composition of the blood or urine or abnormalities in imaging tests). Lab Interpretation Abnormal (test code = 57000-0) [facility] WITH [id number] 10:50:00 Test Item Value Reference Range Interpretation Comments WBC (test code = See_Comment [Automated 5692-2) message] The sy stem which generated this result transmitted reference range : 4.30 - 11.10 10*3/?L. The reference range was not used to interpret this result as normal/abnormal . RBC (test code = See_Comment L [Automated 179-8) message] The sy stem which generated this result transmitted reference range : 3.93 - 5.25 10*6/?L. The reference range was not used to interpret this result as normal/abnormal . HGB (test code = 7.1 g/dL 11.6-15 L 718-7) HCT (test code = 22.4 % 35.7-45.2 L 4544-3) MCV (test code = 81.2 fL 80.6-95.5 787-2) MCH (test code = 25.7 pg 25.9-32.8 L 785-6) MCHC (test code = 31.7 g/dL 31.6-35.1 786-4) RDW-SD (test code = 42.7 fL 39-49.9 76094-1) RDW-CV (test code = 14.6 % 12-15.5 788-0) PLT (test code = See_Comment [Automated 137-3) message] The sy stem which generated this result transmitted reference range : 166 - 358 10*3/ ?L. The reference r matteo was not used to interpret this result as normal/abnormal . MPV (test code = 11.5 fL 9.5-12.9 45636-4) NRBC/100 WBC (test See_Comment [Automat ed code = 9072568154) message] The system which generated this result transmitted reference range : 0.0 - 10.0 /100 WBCs. The refer ence range was not u sed to interpret th is result as normal/abnormal . NRBC x10^3 (test code <0.01 See_Comment [Auto mated = 9239206306) message] The s ystem which generated this result transmitted reference range : 10*3/?L. The reference range was not used to interpret this result as normal/abnormal . GRAN MAT (NEUT) % 72.5 % (test code = 770-8) IMM GRAN % (test code 6.90 % = 7209092824) LYMPH % (test code = 9.4 % 736-9) MONO % (test code = 8.9 % 5905-5) EOS % (test code = 2.2 % 713-8) BASO % (test code = 0.1 % 706-2) GRAN MAT x10^3(ANC) 5.96 10*3/uL 1.88-7.09 (test code = 3834803608) IMM GRAN x10^3 (test 0.57 10*3/uL 0-0.06 H code = 7109425568) LYMPH x10^3 (test code 0.77 10*3/uL 1.32-3.29 L = 731-0) MONO x10^3 (test code 0.73 10*3/uL 0.33-0.92 = 742-7) EOS x10^3 (test code = 0.18 10*3/uL 0.03-0.39 711-2) BASO x10^3 (test code <0.03 0.01-0.07 = 704-7) Lab Interpretation Abnormal (test code = 00198-9) [facility] GLUCOSE (AUTOMATED)2020-04-16 02:24:00 Test Item Value Reference Range Interpretation Comments POCT GLU (test code = 6373139991) 100 mg/dL 70-110 Lab Interpretation (test code = Normal 54705-2) [facility]47:00 Test Item Value Reference Range Interpretation Comments POCT GLU (test code = 7356060574) 120 mg/dL 70-110 H Lab Interpretation (test code = Abnormal 37427-8) [facility] [id number] 19:19:00COVID DMT InterpretationInterpretation/Recommendations: Molecular NAAT Tests for Active Infection with the SARS-CoV-2 Virus: This result indicates that the patient has been infected with the DDVS-IdK-7dmxyq that causes COVID-19 illness. The patient should be considered infectious and able to transmitthe virus within the first 10 days after symptom onset in xfst-uf-fzvxhfmp illness and within the first 20 days after symptom onset in critical illness and/or severe immunocompromise. Asymptomatic patients are considered infectious for the first 10 days subsequent to the initial positive test result. From the onset of symptoms, if any, this result is likely to remain positive for 2 to 4 weeks. Tests for IgM and/or IgG Antibodies to SARS-CoV-2 Virus: The patient has tested positive for SARS-CoV-2 IgGantibodies, consistent with late-stage or resolving infection. In SARS-CoV-2 infections, IgM and IgGantibodies can arise nearly simultaneously in the serum within 2-3 weeks after illness onset. At this time, it is unknown if the production of antibodies - specifically IgG antibodies - indicates immunity to the SARS-CoV-2 virus and for how long antibody production lasts. Interpretation Result Comments:These interpretation comments are based upon all COVID-19 testing the patient has had at [facility], including molecular NAAT testing (more commonly known as PCR testing and Rapid ID Now testing) and antibody testing. It does not takeinto account any testing that a patient has had outside of the [facility] medical record. [facility] LABORATORY SERVICESCOVID PbbnqdrLNML-MvM-3 Rapid ID NOW (no units) ? ? Date ? Value ? 04/07/2020 ? Positive (A) ? CoV-2 IgG (no units) ? ? Date ? Value ? 04/11/2020 ? Positive (A) ? [facility]2020-04-15 18:09:00 Test Item Value Reference Range Interpretation Comments POCT GLU (test code = 7287591381) 160 mg/dL 70-110 H Lab Interpretation (test code = Abnormal 95503-5) [facility] GLUCOSE (AUTOMATED)2020-04-15 16:58:00 Test Item Value Reference Range Interpretation Comments POCT GLU (test code = 8147346337) 162 mg/dL 70-110 H Lab Interpretation (test code = Abnormal 93040-4) [facility] WITH [id number] 11:53:00 Test Item Value Reference Range Interpretation Comments WBC (test code = See_Comment [Automated 6690-2) message] The sy stem which generated this result transmitted reference range : 4.30 - 11.10 10*3/?L. The reference range was not used to interpret this result as normal/abnormal . RBC (test code = See_Comment L [Automated 789-8) message] The sy stem which generated this result transmitted reference range : 3.93 - 5.25 10*6/?L. The reference range was not used to interpret this result as normal/abnormal . HGB (test code = 7.5 g/dL 11.6-15 L 718-7) HCT (test code = 24.2 % 35.7-45.2 L 4544-3) MCV (test code = 82.0 fL 80.6-95.5 787-2) MCH (test code = 25.4 pg 25.9-32.8 L 785-6) MCHC (test code = 31.0 g/dL 31.6-35.1 L 786-4) RDW-SD (test code = 42.7 fL 39-49.9 00372-0) RDW-CV (test code = 14.4 % 12-15.5 788-0) PLT (test code = See_Comment [Automated 777-3) message] The sy stem which generated this result transmitted reference range : 166 - 358 10*3/ ?L. The reference r matteo was not used to interpret this result as normal/abnormal . MPV (test code = 11.6 fL 9.5-12.9 24895-5) NRBC/100 WBC (test See_Comment [Automat ed code = 3870155134) message] The system which generated this result transmitted reference range : 0.0 - 10.0 /100 WBCs. The refer ence range was not u sed to interpret th is result as normal/abnormal . NRBC x10^3 (test code <0.01 See_Comment [Auto mated = 1575774419) message] The s ystem which generated this result transmitted reference range : 10*3/?L. The reference range was not used to interpret this result as normal/abnormal . GRAN MAT (NEUT) % 71.2 % (test code = 770-8) IMM GRAN % (test code 9.00 % = 9018652311) LYMPH % (test code = 8.1 % 736-9) MONO % (test code = 9.8 % 5905-5) EOS % (test code = 1.5 % 713-8) BASO % (test code = 0.4 % 706-2) GRAN MAT x10^3(ANC) 6.91 10*3/uL 1.88-7.09 (test code = 3116625558) IMM GRAN x10^3 (test 0.87 10*3/uL 0-0.06 H code = 3585922594) LYMPH x10^3 (test code 0.79 10*3/uL 1.32-3.29 L = 731-0) MONO x10^3 (test code 0.95 10*3/uL 0.33-0.92 H = 742-7) EOS x10^3 (test code = 0.15 10*3/uL 0.03-0.39 711-2) BASO x10^3 (test code 0.04 10*3/uL 0.01-0.07 = 704-7) TOXIC CHANGES (test Present A code = 803-7) Lab Interpretation Abnormal (test code = 71889-5) [facility] GLUCOSE (AUTOMATED)2020-04-15 03:19:00 Test Item Value Reference Range Interpretation Comments POCT GLU (test code = 150 mg/dL 70-110 H Notifi ed Provider [id number]) Lab Interpretation (test Abnormal code = 61494-5) [facility] GLUCOSE (AUTOMATED)2020-04-14 22:17:00 Test Item Value Reference Range Interpretation Comments POCT GLU (test code = 5823507793) 165 mg/dL 70-110 H Lab Interpretation (test code = Abnormal 84239-2) [facility] GLUCOSE (AUTOMATED)2020-04-14 17:59:00 Test Item Value Reference Range Interpretation Comments POCT GLU (test code = 3588263301) 160 mg/dL 70-110 H Lab Interpretation (test code = Abnormal 69237-0) [facility] GLUCOSE (AUTOMATED)2020-04-14 13:24:00 Test Item Value Reference Range Interpretation Comments POCT GLU (test code = 5291445596) 144 mg/dL 70-110 H Lab Interpretation (test code = Abnormal 63943-7) [facility] WITH [id number] 13:11:00 Test Item Value Reference Range Interpretation Comments WBC (test code = See_Comment H [Automated 0090-2) message] The sy stem which generated this result transmitted reference range : 4.30 - 11.10 10*3/?L. The reference range was not used to interpret this result as normal/abnormal . RBC (test code = See_Comment L [Automated 999-8) message] The sy stem which generated this result transmitted reference range : 3.93 - 5.25 10*6/?L. The reference range was not used to interpret this result as normal/abnormal . HGB (test code = 7.8 g/dL 11.6-15 L 718-7) HCT (test code = 24.3 % 35.7-45.2 L 4544-3) MCV (test code = 81.8 fL 80.6-95.5 787-2) MCH (test code = 26.3 pg 25.9-32.8 785-6) MCHC (test code = 32.1 g/dL 31.6-35.1 786-4) RDW-SD (test code = 43.2 fL 39-49.9 96037-6) RDW-CV (test code = 14.6 % 12-15.5 788-0) PLT (test code = See_Comment [Automated 777-3) message] The sy stem which generated this result transmitted reference range : 166 - 358 10*3/ ?L. The reference r matteo was not used to interpret this result as normal/abnormal . MPV (test code = 11.2 fL 9.5-12.9 95287-2) NRBC/100 WBC (test See_Comment [Automat ed code = 3678257467) message] The system which generated this result transmitted reference range : 0.0 - 10.0 /100 WBCs. The refer ence range was not u sed to interpret th is result as normal/abnormal . NRBC x10^3 (test code <0.01 See_Comment [Auto mated = 1593027096) message] The s ystem which generated this result transmitted reference range : 10*3/?L. The reference range was not used to interpret this result as normal/abnormal . GRAN MAT (NEUT) % 76.8 % (test code = 770-8) IMM GRAN % (test code 7.50 % = 8508613253) LYMPH % (test code = 6.2 % 736-9) MONO % (test code = 7.9 % 5905-5) EOS % (test code = 1.2 % 713-8) BASO % (test code = 0.4 % 706-2) GRAN MAT x10^3(ANC) 8.73 10*3/uL 1.88-7.09 H (test code = 5102859334) IMM GRAN x10^3 (test 0.85 10*3/uL 0-0.06 H code = 3295538875) LYMPH x10^3 (test code 0.71 10*3/uL 1.32-3.29 L = 731-0) MONO x10^3 (test code 0.90 10*3/uL 0.33-0.92 = 742-7) EOS x10^3 (test code = 0.14 10*3/uL 0.03-0.39 711-2) BASO x10^3 (test code 0.04 10*3/uL 0.01-0.07 = 704-7) Lab Interpretation Abnormal (test code = 74848-8) [facility] METABOLIC PANEL (NA, K, CL, CO2, GLUCOSE, BUN, CREATININE, CA)2020-04-14 12:39:00 Test Item Value Reference Range Interpretation Comments NA (test code = 132 mmol/L 135-145 L 6759759842) K (test code = 3.3 mmol/L 3.5-5 L 0499822949) CL (test code = 103 mmol/L 98-108 3017385215) CO2 TOTAL (test code = 22 mmol/L 23-31 L 2891020767) AGAP (test code = 2-16 1430925152) BUN (test code = 19 mg/dL 7-23 2285021106) GLUCOSE (test code = 142 mg/dL 70-110 H 9424379591) CREATININE (test code = 1.13 mg/dL 0.5-1.04 H 9994786824) CALCIUM (test code = 7.3 mg/dL 8.6-10.6 L 6036079407) eGFR Calculation mL/min/1.73m2 (Non-) (test code = 3617164405) eGFR Calculation mL/min/1.73m2 () (test code = 8478785022) WALTER (test code = WALTER) Association of Glomerular Filtration Rate (GFR) and Staging of Kidney Disease* + --+ --+ ------+| GFR (mL/min/1.73 m2) ?| With Kidney Damage ?| ?Without Kidney Damage+ --------+ --------+ +| ?>90 ?| ?Stage one ?| ? Normal ?+ ---+ ---+ -------+| ?60-89 ?| ?Stage two ?| ? Decreased GFR ? + --+ --+ ------+| ?30-59 ?| ?Stage three ?| ? Stage three ? + --+ --+ ------+| ?15-29 ?| ?Stage four ? | ? Stage four ?+ ---+ ---+ -------+| ?<15 (or dialysis) ? ?| ?Stage five ? | ? Stage five ?+ ---+ ---+ -------+ *Each stage assumes the associated GFR level has been in effect for at least three months. ?Stages 1 to 5, with or without kidney disease, indicate chronic kidney disease. Notes: Determination of stages one and two (with eGFR >59mL/min/1.73 m2) requires estimation of kidney damage for at least three months as defined by structural or functional abnormalities of the kidney, manifested by either:Pathological abnormalities or Markers of kidney damage (including abnormalities in the composition of the blood or urine or abnormalities in imaging tests). Lab Interpretation Abnormal (test code = 57005-7) [facility] GLUCOSE (AUTOMATED)2020-04-14 01:01:00 Test Item Value Reference Range Interpretation Comments POCT GLU (test code = 3846945768) 109 mg/dL 70-110 Lab Interpretation (test code = Normal 46411-7) [facility] GLUCOSE (AUTOMATED)2020-04-13 18:31:00 Test Item Value Reference Range Interpretation Comments POCT GLU (test code = 0219244239) 190 mg/dL 70-110 H Lab Interpretation (test code = Abnormal 25764-5) [facility] GLUCOSE (AUTOMATED)2020-04-13 13:29:00 Test Item Value Reference Range Interpretation Comments POCT GLU (test code = 6656184816) 152 mg/dL 70-110 H Lab Interpretation (test code = Abnormal 89203-5) [facility] WITH [id number] 10:23:00 Test Item Value Reference Range Interpretation Comments WBC (test code = See_Comment H [Automated 6690-2) message] The sy stem which generated this result transmitted reference range : 4.30 - 11.10 10*3/?L. The reference range was not used to interpret this result as normal/abnormal . RBC (test code = See_Comment L [Automated 789-8) message] The sy stem which generated this result transmitted reference range : 3.93 - 5.25 10*6/?L. The reference range was not used to interpret this result as normal/abnormal . HGB (test code = 7.7 g/dL 11.6-15 L 718-7) HCT (test code = 24.8 % 35.7-45.2 L 4544-3) MCV (test code = 82.1 fL 80.6-95.5 787-2) MCH (test code = 25.5 pg 25.9-32.8 L 785-6) MCHC (test code = 31.0 g/dL 31.6-35.1 L 786-4) RDW-SD (test code = 44.9 fL 39-49.9 29964-8) RDW-CV (test code = 14.9 % 12-15.5 788-0) PLT (test code = See_Comment [Automated 777-3) message] The sy stem which generated this result transmitted reference range : 166 - 358 10*3/ ?L. The reference r matteo was not used to interpret this result as normal/abnormal . MPV (test code = 11.4 fL 9.5-12.9 98629-9) NRBC/100 WBC (test See_Comment [Automat ed code = 8482007855) message] The system which generated this result transmitted reference range : 0.0 - 10.0 /100 WBCs. The refer ence range was not u sed to interpret th is result as normal/abnormal . NRBC x10^3 (test code See_Comment [Auto mated = 6118824595) message] The s ystem which generated this result transmitted reference range : 10*3/?L. The reference range was not used to interpret this result as normal/abnormal . GRAN MAT (NEUT) % 73.7 % (test code = 770-8) IMM GRAN % (test code 6.20 % = 0073680571) LYMPH % (test code = 9.5 % 736-9) MONO % (test code = 9.7 % 5905-5) EOS % (test code = 0.7 % 713-8) BASO % (test code = 0.2 % 706-2) GRAN MAT x10^3(ANC) 8.88 10*3/uL 1.88-7.09 H (test code = 0368120673) IMM GRAN x10^3 (test 0.74 10*3/uL 0-0.06 H code = 3778375687) LYMPH x10^3 (test code 1.14 10*3/uL 1.32-3.29 L = 731-0) MONO x10^3 (test code 1.17 10*3/uL 0.33-0.92 H = 742-7) EOS x10^3 (test code = 0.08 10*3/uL 0.03-0.39 711-2) BASO x10^3 (test code <0.03 0.01-0.07 = 704-7) HYPERSEG NEUTS (test Present See_Comment A [Autom ated code = 765-8) message] The [employer] which generated this result transmitted reference range : (none). The reference range was not used to interpret this result as normal/abnormal . Lab Interpretation Abnormal (test code = 47884-9) [facility] METABOLIC PANEL (NA, K, CL, CO2, GLUCOSE, BUN, CREATININE, CA)2020-04-13 09:29:00 Test Item Value Reference Range Interpretation Comments NA (test code = 135 mmol/L 135-145 3237807410) K (test code = 3.5 mmol/L 3.5-5 2621895149) CL (test code = 109 mmol/L 98-108 H 6260327348) CO2 TOTAL (test code = 18 mmol/L 23-31 L 9870582224) AGAP (test code = 2-16 1853011875) BUN (test code = 24 mg/dL 7-23 H 1700996557) GLUCOSE (test code = 119 mg/dL 70-110 H 5531131259) CREATININE (test code = 1.30 mg/dL 0.5-1.04 H 8298725771) CALCIUM (test code = 7.4 mg/dL 8.6-10.6 L 9064952163) eGFR Calculation mL/min/1.73m2 (Non-) (test code = 9922669399) eGFR Calculation mL/min/1.73m2 () (test code = 3659693800) WALTER (test code = WALTER) Association of Glomerular Filtration Rate (GFR) and Staging of Kidney Disease* + --+ --+ ------+| GFR (mL/min/1.73 m2) ?| With Kidney Damage ?| ?Without Kidney Damage+ --------+ --------+ +| ?>90 ?| ?Stage one ?| ? Normal ?+ ---+ ---+ -------+| ?60-89 ?| ?Stage two ?| ? Decreased GFR ? + --+ --+ ------+| ?30-59 ?| ?Stage three ?| ? Stage three ? + --+ --+ ------+| ?15-29 ?| ?Stage four ? | ? Stage four ?+ ---+ ---+ -------+| ?<15 (or dialysis) ? ?| ?Stage five ? | ? Stage five ?+ ---+ ---+ -------+ *Each stage assumes the associated GFR level has been in effect for at least three months. ?Stages 1 to 5, with or without kidney disease, indicate chronic kidney disease. Notes: Determination of stages one and two (with eGFR >59mL/min/1.73 m2) requires estimation of kidney damage for at least three months as defined by structural or functional abnormalities of the kidney, manifested by either:Pathological abnormalities or Markers of kidney damage (including abnormalities in the composition of the blood or urine or abnormalities in imaging tests). Lab Interpretation Abnormal (test code = 89407-6) [facility] GLUCOSE (AUTOMATED)2020-04-13 03:22:00 Test Item Value Reference Range Interpretation Comments POCT GLU (test code = 205 mg/dL 70-110 H RNNoti fied Provider [id number]) Lab Interpretation (test Abnormal code = 76616-3) [facility] GLUCOSE (AUTOMATED)2020-04-13 00:34:00 Test Item Value Reference Range Interpretation Comments POCT GLU (test code = 8073803960) 134 mg/dL 70-110 H Lab Interpretation (test code = Abnormal 66563-9) [facility] GLUCOSE (AUTOMATED)2020-04-12 21:23:00 Test Item Value Reference Range Interpretation Comments POCT GLU (test code = 6999134725) 129 mg/dL 70-110 H Lab Interpretation (test code = Abnormal 51193-9) [facility] [id number] [facility]:01:00 Test Item Value Reference Range Interpretation Comments Blood Culture-Aerobic No organisms No growth Previo us (test code = 34871-6) isolated prelim inary verified result was Culture In Progress on 04/07/2020 at 150 1 CSTPrevious preliminary verified result was No growth a t 24 hours on 04/08/2020 at 120 1 CSTPrevious preliminary verified result was No growth a t 48 hours on 04/09/2020 at 120 1 CSTPrevious preliminary verified result was No growth a t 72 hours on 04/10/2020 at 120 1 [employer] Blood No organisms No growth Previous Culture-Anaerobic isolated preliminar y (test code = 75924-4) verifi ed result was Culture In Progress on 04/07/2020 at 150 1 CSTPrevious preliminary verified result was No growth a t 24 hours on 04/08/2020 at 120 1 CSTPrevious preliminary verified result was No growth a t 48 hours on 04/09/2020 at 120 1 CSTPrevious preliminary verified result was No growth a t 72 hours on 04/10/2020 at 120 1 [employer] Lab Interpretation Normal (test code = 06804-9) [facility] CULTURE [id number] 18:01:00 Test Item Value Reference Range Interpretation Comments Blood Culture-Aerobic No organisms No growth Previo us (test code = 32048-5) isolated prelim inary verified result was Culture In Progress on 04/07/2020 at 150 1 CSTPrevious preliminary verified result was No growth a t 24 hours on 04/08/2020 at 120 1 CSTPrevious preliminary verified result was No growth a t 48 hours on 04/09/2020 at 120 1 CSTPrevious preliminary verified result was No growth a t 72 hours on 04/10/2020 at 120 1 [employer] Blood No organisms No growth Previous Culture-Anaerobic isolated preliminar y (test code = 66279-0) verifi ed result was Culture In Progress on 04/07/2020 at 150 1 CSTPrevious preliminary verified result was No growth a t 24 hours on 04/08/2020 at 120 1 CSTPrevious preliminary verified result was No growth a t 48 hours on 04/09/2020 at 120 1 CSTPrevious preliminary verified result was No growth a t 72 hours on 04/10/2020 at 120 1 [employer] Lab Interpretation Normal (test code = 75836-7) [facility] 17:19:00 Test Item Value Reference Range Interpretation Comments POCT GLU (test code = 3363210375) 420 mg/dL 70-110 H Lab Interpretation (test code = Abnormal 62005-9) [facility] 17:19:00 Test Item Value Reference Range Interpretation Comments POCT GLU (test code = 0218468836) 180 mg/dL 70-110 H Lab Interpretation (test code = Abnormal 47821-8) [facility] WITH [id number] 12:51:00 Test Item Value Reference Range Interpretation Comments WBC (test code = See_Comment [Automated 6690-2) message] The sy stem which generated this result transmitted reference range : 4.30 - 11.10 10*3/?L. The reference range was not used to interpret this result as normal/abnormal . RBC (test code = See_Comment L [Automated 789-8) message] The sy stem which generated this result transmitted reference range : 3.93 - 5.25 10*6/?L. The reference range was not used to interpret this result as normal/abnormal . HGB (test code = 8.0 g/dL 11.6-15 L 718-7) HCT (test code = 25.3 % 35.7-45.2 L 4544-3) MCV (test code = 82.4 fL 80.6-95.5 787-2) MCH (test code = 26.1 pg 25.9-32.8 785-6) MCHC (test code = 31.6 g/dL 31.6-35.1 786-4) RDW-SD (test code = 45.3 fL 39-49.9 64988-0) RDW-CV (test code = 15.0 % 12-15.5 788-0) PLT (test code = See_Comment [Automated 777-3) message] The sy stem which generated this result transmitted reference range : 166 - 358 10*3/ ?L. The reference r matteo was not used to interpret this result as normal/abnormal . MPV (test code = 11.8 fL 9.5-12.9 49527-2) NRBC/100 WBC (test See_Comment [Automat ed code = 5972471472) message] The system which generated this result transmitted reference range : 0.0 - 10.0 /100 WBCs. The refer ence range was not u sed to interpret th is result as normal/abnormal . NRBC x10^3 (test code <0.01 See_Comment [Auto mated = 5306683378) message] The s ystem which generated this result transmitted reference range : 10*3/?L. The reference range was not used to interpret this result as normal/abnormal . GRAN MAT (NEUT) % 80.2 % (test code = 770-8) IMM GRAN % (test code 5.10 % = 2720994281) LYMPH % (test code = 6.8 % 736-9) MONO % (test code = 7.4 % 5905-5) EOS % (test code = 0.4 % 713-8) BASO % (test code = 0.1 % 706-2) GRAN MAT x10^3(ANC) 8.38 10*3/uL 1.88-7.09 H (test code = 3824951095) IMM GRAN x10^3 (test 0.53 10*3/uL 0-0.06 H code = 0383412547) LYMPH x10^3 (test code 0.71 10*3/uL 1.32-3.29 L = 731-0) MONO x10^3 (test code 0.77 10*3/uL 0.33-0.92 = 742-7) EOS x10^3 (test code = 0.04 10*3/uL 0.03-0.39 711-2) BASO x10^3 (test code <0.03 0.01-0.07 = 704-7) BANDS (test code = Increased A 4973234708) TOXIC CHANGES (test Present A code = 803-7) Lab Interpretation Abnormal (test code = 26554-2) [facility] METABOLIC PANEL (NA, K, CL, CO2, GLUCOSE, BUN, CREATININE, CA)2020-04-12 12:20:00 Test Item Value Reference Range Interpretation Comments NA (test code = 139 mmol/L 135-145 9121944007) K (test code = 3.5 mmol/L 3.5-5 9424715169) CL (test code = 111 mmol/L 98-108 H 7377928054) CO2 TOTAL (test code = 20 mmol/L 23-31 L 3454278280) AGAP (test code = 2-16 4578064823) BUN (test code = 38 mg/dL 7-23 H 6906125402) GLUCOSE (test code = 192 mg/dL 70-110 H 2651968429) CREATININE (test code = 1.60 mg/dL 0.5-1.04 H 2810278007) CALCIUM (test code = 7.3 mg/dL 8.6-10.6 L 0575667002) eGFR Calculation mL/min/1.73m2 (Non-) (test code = 9476220087) eGFR Calculation mL/min/1.73m2 () (test code = 1845285040) WALTER (test code = WALTER) Association of Glomerular Filtration Rate (GFR) and Staging of Kidney Disease* + --+ --+ ------+| GFR (mL/min/1.73 m2) ?| With Kidney Damage ?| ?Without Kidney Damage+ --------+ --------+ +| ?>90 ?| ?Stage one ?| ? Normal ?+ ---+ ---+ -------+| ?60-89 ?| ?Stage two ?| ? Decreased GFR ? + --+ --+ ------+| ?30-59 ?| ?Stage three ?| ? Stage three ? + --+ --+ ------+| ?15-29 ?| ?Stage four ? | ? Stage four ?+ ---+ ---+ -------+| ?<15 (or dialysis) ? ?| ?Stage five ? | ? Stage five ?+ ---+ ---+ -------+ *Each stage assumes the associated GFR level has been in effect for at least three months. ?Stages 1 to 5, with or without kidney disease, indicate chronic kidney disease. Notes: Determination of stages one and two (with eGFR >59mL/min/1.73 m2) requires estimation of kidney damage for at least three months as defined by structural or functional abnormalities of the kidney, manifested by either:Pathological abnormalities or Markers of kidney damage (including abnormalities in the composition of the blood or urine or abnormalities in imaging tests). Lab Interpretation Abnormal (test code = 54400-2) [facility] GLUCOSE (AUTOMATED)2020-04-12 00:18:00 Test Item Value Reference Range Interpretation Comments POCT GLU (test code = 5475103300) 121 mg/dL 70-110 H Lab Interpretation (test code = Abnormal 92629-8) [facility] [id number] 22:49:23 Test Item Value Reference Range Interpretation Comments ANTIBODY ID (test Undetermined Spec Perfo rmed at [facility] code = 245) Laboratory Serv [facility] - [facility] Blood [address] [place] [address]Jcot Free: [phone] A No. [id number] [facility]OV-2 [id number] 22:10:00 Test Item Value Reference Range Interpretation Comments CoV-2 IgG (test code Positive Negative A A posit ike result = 40958-3) suggests exposu re to SARS-CoV-2 b ut does not necessarily indicate immunity. Resul ts should be used in conjunction wit h symptoms, other test results an d clinical impression. Thi s test should not be used for screening of donated blood. WALTER (test code = WALTER) This test has been approved by FDA for emergency use. Lab Interpretation Abnormal (test code = 28197-8) [facility] GLUCOSE (AUTOMATED)2020-04-11 19:45:00 Test Item Value Reference Range Interpretation Comments POCT GLU (test code = 4145895880) 144 mg/dL 70-110 H Lab Interpretation (test code = Abnormal 95469-0) [facility] GLUCOSE (AUTOMATED)2020-04-11 18:56:00 Test Item Value Reference Range Interpretation Comments POCT GLU (test code = 3445001912) 73 mg/dL 70-110 Lab Interpretation (test code = Normal 28864-6) [facility] GLUCOSE (AUTOMATED)2020-04-11 18:56:00 Test Item Value Reference Range Interpretation Comments POCT GLU (test code = 7737766202) 50 mg/dL 70-110 LL Lab Interpretation (test code = Abnormal 68391-2) [facility] GLUCOSE (AUTOMATED)2020-04-11 18:56:00 Test Item Value Reference Range Interpretation Comments POCT GLU (test code = 8735878465) 75 mg/dL 70-110 Lab Interpretation (test code = Normal 37964-7) [facility] [id number] [facility]:18:00 Test Item Value Reference Range Interpretation Comments Blood Culture-Aerobic Culture positive. No growth AA P revious (test code = 82717-6) See Blood Culture p reliminary Workup for verified result additional was Culture In information. Progress on 04/08/2020 at 180 2 [employer]ITATIVE [employer]ETING Blood Culture positive. No growth AA Previous Culture-Anaerobic See Blood Culture preli minary (test code = 18034-7) Workup for verifi ed result additional was Culture In information. Progress on 04/08/2020 at 180 2 QUANTITATIVE ANALY[employer] MARKETING Lab Interpretation Abnormal (test code = 30580-0) [facility] [id number] 17:18:00 Test Item Value Reference Range Interpretation Comments Blood Culture Escherichia coli [place] mor phologically Workup (test consistent with code = 600-7) organism above For susceptibility results, refer to culture # - [id number] Gram stain Gram negative Aerobic and An aerobic (test code = bacilli Bottle 664-3) [facility] 13:49:00 Test Item Value Reference Range Interpretation Comments POCT GLU (test code = 8707519806) 56 mg/dL 70-110 L Lab Interpretation (test code = Abnormal 16394-9) [facility] - ONCE [id number] 13:01:45 Test Item Value Reference Range Interpretation Comments ABO & RH (test code O POSITIVE Performe d at [facility] = 20) Laboratory Serv [facility] Blood Bank3 [address] [facility] [facility] s [address]Timt Free: [phone] A No. [id number] IAT (test code = Positive Performed a t [facility] 1185) Laboratory Serv [facility] Blood Bank3 [address] [facility] s [address]Cfmv Free: [phone] A No. [id number] [facility] Basic [facility] (NA, K, CL, CO2, GLUCOSE, BUN, CREATININE, CA)2020-04-11 12:11:00 Test Item Value Reference Range Interpretation Comments NA (test code = 141 mmol/L 135-145 5628946918) K (test code = 3.5 mmol/L 3.5-5 0893490005) CL (test code = 114 mmol/L 98-108 H 1039906757) CO2 TOTAL (test code = 19 mmol/L 23-31 L 3338030391) AGAP (test code = 2-16 2822658577) BUN (test code = 58 mg/dL 7-23 H 1266661713) GLUCOSE (test code = 100 mg/dL 70-110 9562358693) CREATININE (test code = 2.46 mg/dL 0.5-1.04 H 3583055042) CALCIUM (test code = 7.4 mg/dL 8.6-10.6 L 6661911925) eGFR Calculation mL/min/1.73m2 (Non-) (test code = 3110084075) eGFR Calculation mL/min/1.73m2 () (test code = 3170398449) WALTER (test code = WALTER) Association of Glomerular Filtration Rate (GFR) and Staging of Kidney Disease* + --+ --+ ------+| GFR (mL/min/1.73 m2) ?| With Kidney Damage ?| ?Without Kidney Damage+ --------+ --------+ +| ?>90 ?| ?Stage one ?| ? Normal ?+ ---+ ---+ -------+| ?60-89 ?| ?Stage two ?| ? Decreased GFR ? + --+ --+ ------+| ?30-59 ?| ?Stage three ?| ? Stage three ? + --+ --+ ------+| ?15-29 ?| ?Stage four ? | ? Stage four ?+ ---+ ---+ -------+| ?<15 (or dialysis) ? ?| ?Stage five ? | ? Stage five ?+ ---+ ---+ -------+ *Each stage assumes the associated GFR level has been in effect for at least three months. ?Stages 1 to 5, with or without kidney disease, indicate chronic kidney disease. Notes: Determination of stages one and two (with eGFR >59mL/min/1.73 m2) requires estimation of kidney damage for at least three months as defined by structural or functional abnormalities of the kidney, manifested by either:Pathological abnormalities or Markers of kidney damage (including abnormalities in the composition of the blood or urine or abnormalities in imaging tests). Lab Interpretation Abnormal (test code = 30381-7) [facility] WITH [id number] 12:07:00 Test Item Value Reference Range Interpretation Comments WBC (test code = See_Comment [Automated 6690-2) message] The sy stem which generated this result transmitted reference range : 4.30 - 11.10 10*3/?L. The reference range was not used to interpret this result as normal/abnormal . RBC (test code = See_Comment L [Automated 789-8) message] The sy stem which generated this result transmitted reference range : 3.93 - 5.25 10*6/?L. The reference range was not used to interpret this result as normal/abnormal . HGB (test code = 7.7 g/dL 11.6-15 L 718-7) HCT (test code = 24.5 % 35.7-45.2 L 4544-3) MCV (test code = 83.9 fL 80.6-95.5 787-2) MCH (test code = 26.4 pg 25.9-32.8 785-6) MCHC (test code = 31.4 g/dL 31.6-35.1 L 786-4) RDW-SD (test code = 46.2 fL 39-49.9 19375-5) RDW-CV (test code = 15.1 % 12-15.5 788-0) PLT (test code = See_Comment L [Automated 777-3) message] The sy stem which generated this result transmitted reference range : 166 - 358 10*3/ ?L. The reference r matteo was not used to interpret this result as normal/abnormal . MPV (test code = 11.7 fL 9.5-12.9 64554-4) NRBC/100 WBC (test See_Comment [Automat ed code = 2008043271) message] The system which generated this result transmitted reference range : 0.0 - 10.0 /100 WBCs. The refer ence range was not u sed to interpret th is result as normal/abnormal . NRBC x10^3 (test code <0.01 See_Comment [Auto mated = 0032428351) message] The s ystem which generated this result transmitted reference range : 10*3/?L. The reference range was not used to interpret this result as normal/abnormal . GRAN MAT (NEUT) % 82.4 % (test code = 770-8) IMM GRAN % (test code 2.10 % = 2710802243) LYMPH % (test code = 8.2 % 736-9) MONO % (test code = 6.7 % 5905-5) EOS % (test code = 0.5 % 713-8) BASO % (test code = 0.1 % 706-2) GRAN MAT x10^3(ANC) 6.52 10*3/uL 1.88-7.09 (test code = 2669632189) IMM GRAN x10^3 (test 0.17 10*3/uL 0-0.06 H code = 9691149080) LYMPH x10^3 (test code 0.65 10*3/uL 1.32-3.29 L = 731-0) MONO x10^3 (test code 0.53 10*3/uL 0.33-0.92 = 742-7) EOS x10^3 (test code = 0.04 10*3/uL 0.03-0.39 711-2) BASO x10^3 (test code <0.03 0.01-0.07 = 704-7) BANDS (test code = Increased A 9916163973) TOXIC CHANGES (test Present A code = 803-7) Lab Interpretation Abnormal (test code = 92877-9) [facility] Basic Metabolic Panel (NA, K, CL, CO2, GLUCOSE, BUN, CREATININE, CA)2020-04-11 00:24:00 Test Item Value Reference Range Interpretation Comments NA (test code = 139 mmol/L 135-145 7890279057) K (test code = 3.5 mmol/L 3.5-5 0534027156) CL (test code = 113 mmol/L 98-108 H 8643379311) CO2 TOTAL (test code = 20 mmol/L 23-31 L 6944344951) AGAP (test code = 2-16 9097263770) BUN (test code = 69 mg/dL 7-23 H 9442365971) GLUCOSE (test code = 113 mg/dL 70-110 H 6566940080) CREATININE (test code = 3.15 mg/dL 0.5-1.04 H 3698168627) CALCIUM (test code = 7.1 mg/dL 8.6-10.6 L 8720484247) eGFR Calculation mL/min/1.73m2 (Non-) (test code = 7807725716) eGFR Calculation mL/min/1.73m2 () (test code = 7426511665) WALTER (test code = WALTER) Association of Glomerular Filtration Rate (GFR) and Staging of Kidney Disease* + --+ --+ ------+| GFR (mL/min/1.73 m2) ?| With Kidney Damage ?| ?Without Kidney Damage+ --------+ --------+ +| ?>90 ?| ?Stage one ?| ? Normal ?+ ---+ ---+ -------+| ?60-89 ?| ?Stage two ?| ? Decreased GFR ? + --+ --+ ------+| ?30-59 ?| ?Stage three ?| ? Stage three ? + --+ --+ ------+| ?15-29 ?| ?Stage four ? | ? Stage four ?+ ---+ ---+ -------+| ?<15 (or dialysis) ? ?| ?Stage five ? | ? Stage five ?+ ---+ ---+ -------+ *Each stage assumes the associated GFR level has been in effect for at least three months. ?Stages 1 to 5, with or without kidney disease, indicate chronic kidney disease. Notes: Determination of stages one and two (with eGFR >59mL/min/1.73 m2) requires estimation of kidney damage for at least three months as defined by structural or functional abnormalities of the kidney, manifested by either:Pathological abnormalities or Markers of kidney damage (including abnormalities in the composition of the blood or urine or abnormalities in imaging tests). Lab Interpretation Abnormal (test code = 47502-1) [facility] WITHOUT [id number] 00:09:00 Test Item Value Reference Range Interpretation Comments WBC (test code = 6690-2) See_Comment [A utomated message] The system [employer] generated this result transmit dayna reference range : 4.30 - 11.10 10*3/?L. The reference range was not used to interpret this result as normal/abnormal . RBC (test code = 789-8) See_Comment L [Au tomated message] The system [employer] generated this result transmit dayna reference range : 3.93 - 5.25 10* 6/?L. The reference r matteo was not used to interpret this result as normal/abnormal . HGB (test code = 718-7) 7.6 g/dL 11.6-15 L HCT (test code = 4544-3) 24.9 % 35.7-45.2 L MCH (test code = 785-6) 26.2 pg 25.9-32.8 MCV (test code = 787-2) 85.9 fL 80.6-95.5 MCHC (test code = 786-4) 30.5 g/dL 31.6-35.1 L PLT (test code = 777-3) See_Comment L [Au tomated message] The system [employer] generated this result transmit dayna reference range : 166 - 358 10*3/?L. The reference range was not used to interpret this result as normal/abnormal . MPV (test code = 12.5 fL 9.5-12.9 71760-7) RDW-CV (test code = 14.8 % 12-15.5 788-0) RDW-SD (test code = 46.6 fL 39-49.9 57628-8) NRBC x10^3 (test code = <0.01 See_Comment [Au tomated message] 3083229847) The system [employer] generated this result transmit dayna reference range : 10*3/?L. The reference range was not used to interpret this result as normal/abnormal . NRBC/100 WBC (test code See_Comment [Au tomated message] = 9720304790) The system [employer] generated this result transmit dayna reference range : 0.0 - 10.0 /100 WBC s. The reference r matteo was not used to interpret this result as normal/abnormal . IPF % (test code = 0531626791) Lab Interpretation (test Abnormal code = 28353-1) [facility]10 22:00:00 Test Item Value Reference Range Interpretation Comments POCT GLU (test code = 3080938330) 22 mg/dL 70-110 LL Lab Interpretation (test code = Abnormal 94996-2) [facility] GLUCOSE (AUTOMATED)2020-04-10 22:00:00 Test Item Value Reference Range Interpretation Comments POCT GLU (test code = 7689339559) 113 mg/dL 70-110 H Lab Interpretation (test code = Abnormal 09442-3) [facility] GLUCOSE (AUTOMATED)2020-04-10 19:31:00 Test Item Value Reference Range Interpretation Comments POCT GLU (test code = 2676751648) 67 mg/dL 70-110 L Lab Interpretation (test code = Abnormal 10237-4) [facility] RBC (in units), 1 Units 2020-04-10 16:13:38 Test Item Value Reference Range Interpretation Comments Cross Match Result Compatible (test code = 4409) ISBT Blood Type Code (test code = 820921) Unit Blood Type (test O Pos code = 4410) Unit Number (test [id number] code = 4411) Blood Expiration Date & Time (test code = 874092) Status Information Issued (test code = 4412) Product Red Blood Cells Identification (test code = 4413) Product Code (test G5109S91 Performed at [facility] code = 4414) Laboratory Services - [facility] Blood [address] [address]Uzwh Free: [phone] A No. [id number] [facility] WITH [id number] 14:45:00 Test Item Value Reference Range Interpretation Comments WBC (test code = See_Comment [Automated 5490-2) message] The sy stem which generated this result transmitted reference range : 4.30 - 11.10 10*3/?L. The reference range was not used to interpret this result as normal/abnormal . RBC (test code = See_Comment L [Automated 529-8) message] The sy stem which generated this result transmitted reference range : 3.93 - 5.25 10*6/?L. The reference range was not used to interpret this result as normal/abnormal . HGB (test code = 7.3 g/dL 11.6-15 L 718-7) HCT (test code = 24.4 % 35.7-45.2 L 4544-3) MCV (test code = 87.1 fL 80.6-95.5 787-2) MCH (test code = 26.1 pg 25.9-32.8 785-6) MCHC (test code = 29.9 g/dL 31.6-35.1 L 786-4) RDW-SD (test code = 46.0 fL 39-49.9 85898-6) RDW-CV (test code = 14.5 % 12-15.5 788-0) PLT (test code = See_Comment [Automated 777-3) message] The sy stem which generated this result transmitted reference range : 166 - 358 10*3/ ?L. The reference r matteo was not used to interpret this result as normal/abnormal . MPV (test code = 12.5 fL 9.5-12.9 33181-3) NRBC/100 WBC (test See_Comment [Automat ed code = 0793247845) message] The system which generated this result transmitted reference range : 0.0 - 10.0 /100 WBCs. The refer ence range was not u sed to interpret th is result as normal/abnormal . NRBC x10^3 (test code <0.01 See_Comment [Auto mated = 9146976401) message] The s ystem which generated this result transmitted reference range : 10*3/?L. The reference range was not used to interpret this result as normal/abnormal . GRAN MAT (NEUT) % 86.5 % (test code = 770-8) IMM GRAN % (test code 1.20 % = 4143261746) LYMPH % (test code = 7.3 % 736-9) MONO % (test code = 4.8 % 5905-5) EOS % (test code = 0.1 % 713-8) BASO % (test code = 0.1 % 706-2) GRAN MAT x10^3(ANC) 7.91 10*3/uL 1.88-7.09 H (test code = 6446398256) IMM GRAN x10^3 (test 0.11 10*3/uL 0-0.06 H code = 0475946075) LYMPH x10^3 (test code 0.67 10*3/uL 1.32-3.29 L = 731-0) MONO x10^3 (test code 0.44 10*3/uL 0.33-0.92 = 742-7) EOS x10^3 (test code = <0.03 0.03-0.39 L 711-2) BASO x10^3 (test code <0.03 0.01-0.07 = 704-7) Lab Interpretation Abnormal (test code = 94709-0) [facility]2020-[facility]10 14:05:00 Test Item Value Reference Range Interpretation Comments POCT GLU (test code = 7271919759) 95 mg/dL 70-110 Lab Interpretation (test code = Normal 09859-0) [facility] Basic Metabolic Panel (NA, K, CL, CO2, GLUCOSE, BUN, CREATININE, CA)2020-04-10 13:23:00 Test Item Value Reference Range Interpretation Comments NA (test code = 143 mmol/L 135-145 8915536875) K (test code = 3.7 mmol/L 3.5-5 9015443195) CL (test code = 114 mmol/L 98-108 H 9650930467) CO2 TOTAL (test code = 22 mmol/L 23-31 L 4007539035) AGAP (test code = 2-16 0158697771) BUN (test code = 79 mg/dL 7-23 H 5851650035) GLUCOSE (test code = 86 mg/dL 70-110 9574472377) CREATININE (test code = 3.86 mg/dL 0.5-1.04 H 9766214968) CALCIUM (test code = 6.9 mg/dL 8.6-10.6 L 5141041468) eGFR Calculation mL/min/1.73m2 (Non-) (test code = 5634639658) eGFR Calculation mL/min/1.73m2 () (test code = 5141838002) WALTER (test code = WALTER) Association of Glomerular Filtration Rate (GFR) and Staging of Kidney Disease* + --+ --+ ------+| GFR (mL/min/1.73 m2) ?| With Kidney Damage ?| ?Without Kidney Damage+ --------+ --------+ +| ?>90 ?| ?Stage one ?| ? Normal ?+ ---+ ---+ -------+| ?60-89 ?| ?Stage two ?| ? Decreased GFR ? + --+ --+ ------+| ?30-59 ?| ?Stage three ?| ? Stage three ? + --+ --+ ------+| ?15-29 ?| ?Stage four ? | ? Stage four ?+ ---+ ---+ -------+| ?<15 (or dialysis) ? ?| ?Stage five ? | ? Stage five ?+ ---+ ---+ -------+ *Each stage assumes the associated GFR level has been in effect for at least three months. ?Stages 1 to 5, with or without kidney disease, indicate chronic kidney disease. Notes: Determination of stages one and two (with eGFR >59mL/min/1.73 m2) requires estimation of kidney damage for at least three months as defined by structural or functional abnormalities of the kidney, manifested by either:Pathological abnormalities or Markers of kidney damage (including abnormalities in the composition of the blood or urine or abnormalities in imaging tests). Lab Interpretation Abnormal (test code = 83921-6) [facility] WITHOUT [id number] 12:58:00 Test Item Value Reference Range Interpretation Comments WBC (test code = 6690-2) See_Comment [A utomated message] The system [employer] generated this result transmit dayna reference range : 4.30 - 11.10 10*3/?L. The reference range was not used to interpret this result as normal/abnormal . RBC (test code = 789-8) See_Comment L [Au tomated message] The system [employer] generated this result transmit dayna reference range : 3.93 - 5.25 10* 6/?L. The reference r matteo was not used to interpret this result as normal/abnormal . HGB (test code = 718-7) 6.9 g/dL 11.6-15 L HCT (test code = 4544-3) 23.0 % 35.7-45.2 L MCH (test code = 785-6) 26.0 pg 25.9-32.8 MCV (test code = 787-2) 86.8 fL 80.6-95.5 MCHC (test code = 786-4) 30.0 g/dL 31.6-35.1 L PLT (test code = 777-3) See_Comment L [Au tomated message] The system [employer] generated this result transmit dayna reference range : 166 - 358 10*3/?L. The reference range was not used to interpret this result as normal/abnormal . MPV (test code = 12.9 fL 9.5-12.9 89026-4) RDW-CV (test code = 14.4 % 12-15.5 788-0) RDW-SD (test code = 45.8 fL 39-49.9 96587-3) NRBC x10^3 (test code = <0.01 See_Comment [Au tomated message] 4672297681) The system [employer] generated this result transmit dayna reference range : 10*3/?L. The reference range was not used to interpret this result as normal/abnormal . NRBC/100 WBC (test code See_Comment [Au tomated message] = 6021311185) The system [employer] generated this result transmit dayna reference range : 0.0 - 10.0 /100 WBC s. The reference r matteo was not used to interpret this result as normal/abnormal . IPF % (test code = 2895234162) Lab Interpretation (test Abnormal code = 24105-6) [facility] [id number] 01:45:25 1. ?NG tube terminates in stomach.EXAM: XR KUB HISTORY: NGT placement COMPARISON: Chest x- ray 04/08/2020 FINDINGS: Lines/Tubes: The NG tube terminates in the gastric antrum and the sideholeis in the gastric body. Lung bases are clear without significant effusion.In the abdomen bowel gas distribution isnonspecific, nonobstructed.Multiple surgical coils project over mid abdomen and right abdomen.Lumbarspine has moderate degenerative changes. [facility], Radiant Results Inft User - 04/09/2020 7:46 PM CSTEXAM: XR KUBHISTORY: NGT placement COMPARISON: Chest x-ray 04/08/2020FINDINGS:Lines/Tubes: The NG tube terminates in the gastric antrum and the sideholeis in the gastric body. Lung bases are clear without sig nificant effusion.In the abdomen bowel gas distribution is nonspecific, nonobstructed.Multiple surgical coils project over mid abdomen and right abdomen.Lumbar spine has moderate degenerative changes.IMPRESSION1. NG tube terminates in stomach.[facility] METABOLIC PANEL (NA, K, CL, CO2, GLUCOSE, BUN, CREATININE, CA)2020-04-10 01:39:00 Test Item Value Reference Range Interpretation Comments NA (test code = 143 mmol/L 135-145 4392129145) K (test code = 3.8 mmol/L 3.5-5 5278941024) CL (test code = 114 mmol/L 98-108 H 5719340289) CO2 TOTAL (test code = 12 mmol/L 23-31 L 5381614563) AGAP (test code = 2-16 H 5872564017) BUN (test code = 82 mg/dL 7-23 H 0927499848) GLUCOSE (test code = 125 mg/dL 70-110 H 2231847758) CREATININE (test code = 4.54 mg/dL 0.5-1.04 H 7677372300) CALCIUM (test code = 7.1 mg/dL 8.6-10.6 L 8243731442) eGFR Calculation mL/min/1.73m2 (Non-) (test code = 0678289292) eGFR Calculation mL/min/1.73m2 () (test code = 5977838871) WALTER (test code = WALTER) Association of Glomerular Filtration Rate (GFR) and Staging of Kidney Disease* + --+ --+ ------+| GFR (mL/min/1.73 m2) ?| With Kidney Damage ?| ?Without Kidney Damage+ --------+ --------+ +| ?>90 ?| ?Stage one ?| ? Normal ?+ ---+ ---+ -------+| ?60-89 ?| ?Stage two ?| ? Decreased GFR ? + --+ --+ ------+| ?30-59 ?| ?Stage three ?| ? Stage three ? + --+ --+ ------+| ?15-29 ?| ?Stage four ? | ? Stage four ?+ ---+ ---+ -------+| ?<15 (or dialysis) ? ?| ?Stage five ? | ? Stage five ?+ ---+ ---+ -------+ *Each stage assumes the associated GFR level has been in effect for at least three months. ?Stages 1 to 5, with or without kidney disease, indicate chronic kidney disease. Notes: Determination of stages one and two (with eGFR >59mL/min/1.73 m2) requires estimation of kidney damage for at least three months as defined by structural or functional abnormalities of the kidney, manifested by either:Pathological abnormalities or Markers of kidney damage (including abnormalities in the composition of the blood or urine or abnormalities in imaging tests). Lab Interpretation Abnormal (test code = 73437-7) [facility] Basic Metabolic Panel (NA, K, CL, CO2, GLUCOSE, BUN, CREATININE, CA)2020-04-10 01:34:00 Test Item Value Reference Range Interpretation Comments NA (test code = 143 mmol/L 135-145 8005307268) K (test code = 3.8 mmol/L 3.5-5 8844714112) CL (test code = 115 mmol/L 98-108 H 4663129721) CO2 TOTAL (test code = 13 mmol/L 23-31 L 8505686598) AGAP (test code = 2-16 5619574857) BUN (test code = 82 mg/dL 7-23 H 4714808778) GLUCOSE (test code = 131 mg/dL 70-110 H 8239579750) CREATININE (test code = 4.42 mg/dL 0.5-1.04 H 9586173752) CALCIUM (test code = 7.3 mg/dL 8.6-10.6 L 7423229747) eGFR Calculation mL/min/1.73m2 (Non-) (test code = 5514294519) eGFR Calculation mL/min/1.73m2 () (test code = 1834736279) WALTER (test code = WALTER) Association of Glomerular Filtration Rate (GFR) and Staging of Kidney Disease* + --+ --+ ------+| GFR (mL/min/1.73 m2) ?| With Kidney Damage ?| ?Without Kidney Damage+ --------+ --------+ +| ?>90 ?| ?Stage one ?| ? Normal ?+ ---+ ---+ -------+| ?60-89 ?| ?Stage two ?| ? Decreased GFR ? + --+ --+ ------+| ?30-59 ?| ?Stage three ?| ? Stage three ? + --+ --+ ------+| ?15-29 ?| ?Stage four ? | ? Stage four ?+ ---+ ---+ -------+| ?<15 (or dialysis) ? ?| ?Stage five ? | ? Stage five ?+ ---+ ---+ -------+ *Each stage assumes the associated GFR level has been in effect for at least three months. ?Stages 1 to 5, with or without kidney disease, indicate chronic kidney disease. Notes: Determination of stages one and two (with eGFR >59mL/min/1.73 m2) requires estimation of kidney damage for at least three months as defined by structural or functional abnormalities of the kidney, manifested by either:Pathological abnormalities or Markers of kidney damage (including abnormalities in the composition of the blood or urine or abnormalities in imaging tests). Lab Interpretation Abnormal (test code = 31583-5) [facility] WITHOUT [id number] 00:48:00 Test Item Value Reference Range Interpretation Comments WBC (test code = 6690-2) See_Comment H [A utomated message] The system [employer] generated this result transmit dayna reference range : 4.30 - 11.10 10*3/?L. The reference range was not used to interpret this result as normal/abnormal . RBC (test code = 789-8) See_Comment L [Au tomated message] The system [employer] generated this result transmit dayna reference range : 3.93 - 5.25 10* 6/?L. The reference r matteo was not used to interpret this result as normal/abnormal . HGB (test code = 718-7) 8.2 g/dL 11.6-15 L HCT (test code = 4544-3) 26.5 % 35.7-45.2 L MCH (test code = 785-6) 26.6 pg 25.9-32.8 MCV (test code = 787-2) 86.0 fL 80.6-95.5 MCHC (test code = 786-4) 30.9 g/dL 31.6-35.1 L PLT (test code = 777-3) See_Comment [Au tomated message] The system [employer] generated this result transmit dayna reference range : 166 - 358 10*3/?L. The reference range was not used to interpret this result as normal/abnormal . MPV (test code = 11.9 fL 9.5-12.9 49894-4) RDW-CV (test code = 14.5 % 12-15.5 788-0) RDW-SD (test code = 45.4 fL 39-49.9 91502-4) NRBC x10^3 (test code = <0.01 See_Comment [Au tomated message] 1027901602) The system [employer] generated this result transmit dayna reference range : 10*3/?L. The reference range was not used to interpret this result as normal/abnormal . NRBC/100 WBC (test code See_Comment [Au tomated message] = 4691793941) The system [employer] generated this result transmit dayna reference range : 0.0 - 10.0 /100 WBC s. The reference r matteo was not used to interpret this result as normal/abnormal . IPF % (test code = 7604513020) Lab Interpretation (test Abnormal code = 11782-6) [facility] [id number] 23:57:00COVID DMT InterpretationInterpretation/Recommendations: Molecular NAAT Tests for Active Infection with the SARS-CoV-2 Virus: This result indicates that the patient has been infected with the OYFJ-CbE-8iakwu that causes COVID-19 illness. The patient should be considered infectious and able to transmitthe virus within the first 10 days after symptom onset in kvqb-io-tymylcpl illness and within the first 20 days after symptom onset in critical illness and/or severe immunocompromise. Asymptomatic patients are considered infectious for the first 10 days subsequent to the initial positive test result. From the onset of symptoms, if any, this result is likely to remain positive for 2 to 4 weeks. Tests for IgM and/or IgG Antibodies to SARS-CoV-2 Virus: Testing for IgM and IgG antibodies 1-3 weeks afterillness onset will indicate whether the patient has produced antibodies to the virus. At this time, it is not known if the production of antibodies - specifically IgG antibodies - indicates whether the patient is immune to future infections with the SARS-CoV-2 virus. Interpretation Result Comments:These interpretation comments are based upon all COVID-19 testing the patient has had at [facility], including molecular NAAT testing (more commonly known as PCR testing and Rapid ID Now testing) and antibody testing. It does not take intoaccount any testing that a patient has had outside of the [facility] medical record. [facility] LABORATORY SERVICESCOVID MqfpllxKLJX-FgW-8 Rapid ID NOW (no units) ? ? Date ? Value ? Positive (A) ? [facility] [id number] 23:41:00 Test Item Value Reference Range Interpretation Comments Blood Culture-Aerobic Culture positive. No growth AA P revious (test code = 02005-6) See Blood Culture p reliminary Workup for verified result additional was Culture In information. Progress on 04/08/2020 at 180 2 [employer]ITATIVE [employer]ETING Blood Culture positive. No growth AA Previous Culture-Anaerobic See Blood Culture preli minary (test code = 96855-0) Workup for verifi ed result additional was Culture In information. Progress on 04/08/2020 at 180 2 QU[employer]ITATIVE ANALY[employer] MARKETING Lab Interpretation Abnormal (test code = 92576-7) [facility] PATHOGENS DNA [id number] 23:41:00 Test Item Value Reference Range Interpretation Comments Escherichia coli (test Positive Negative, See A code = 62484-4) Comment/Narrative WALTER (test code = WALTER) See blood culture result for additional information. ?Testing included eight identification and six resistance marker targets. Lab Interpretation Abnormal (test code = 97142-1) [facility]2020-04-09 21:58:00 Test Item Value Reference Range Interpretation Comments POCT GLU (test code = 7227643347) 89 mg/dL 70-110 Lab Interpretation (test code = Normal 16923-8) [facility]TR[facility] [id number] 19:27:00 Test Item Value Reference Range Interpretation Comments TROPONIN I (test 2.130 ng/mL See_Comment H [Automated code = 7661099930) message] The system which generated this result transmitted reference range : <=0.034. The reference range was not used to interpret this result as normal/abnormal . WALTER (test code = Equal or Less than WALTER) 0.034 ng/ml---Normal ?Note: Cardiac troponin begins to rise 3-4 hours after the onset of ischemia. Repeat in 4-6 hours if the sample was drawn within 3-4 hours of the onset of the symptom and found normal. Between 0.035 and 0.120 ng/mL--- Borderline. Questionable myocardial injury or necrosis ? ?Note: Serial measurement may be necessary to confirm or exclude the diagnosis of myocardial injury or necrosis; Clinical correlation (symptoms, EKGs, imaging studies, and others) required; Repeat in 4-6 hours if clinically indicated. ? Equal or Higher than 0.121 ng/mL---Abnormal. Myocardial Injury or Necrosis Likely ? Biotin has been reported to cause a negative bias, interpret results relative to patient's use of biotin. ? Lab Interpretation Abnormal (test code = 61119-3) [facility]2020-04-09 19:05:00 Test Item Value Reference Range Interpretation Comments POCT GLU (test code = 3561254219) 134 mg/dL 70-110 H Lab Interpretation (test code = Abnormal 74615-8) [facility] WITHOUT [id number] 18:55:00 Test Item Value Reference Range Interpretation Comments WBC (test code = 6690-2) See_Comment H [A utomated message] The system [employer] generated this result transmit dayna reference range : 4.30 - 11.10 10*3/?L. The reference range was not used to interpret this result as normal/abnormal . RBC (test code = 789-8) See_Comment L [Au tomated message] The system [employer] generated this result transmit dayna reference range : 3.93 - 5.25 10* 6/?L. The reference r matteo was not used to interpret this result as normal/abnormal . HGB (test code = 718-7) 7.8 g/dL 11.6-15 L HCT (test code = 4544-3) 25.4 % 35.7-45.2 L MCH (test code = 785-6) 26.1 pg 25.9-32.8 MCV (test code = 787-2) 84.9 fL 80.6-95.5 MCHC (test code = 786-4) 30.7 g/dL 31.6-35.1 L PLT (test code = 777-3) See_Comment [Au tomated message] The system [employer] generated this result transmit dayna reference range : 166 - 358 10*3/?L. The reference range was not used to interpret this result as normal/abnormal . MPV (test code = 11.9 fL 9.5-12.9 45967-9) RDW-CV (test code = 14.4 % 12-15.5 788-0) RDW-SD (test code = 44.6 fL 39-49.9 42133-0) NRBC x10^3 (test code = <0.01 See_Comment [Au tomated message] 8119894369) The system [employer] generated this result transmit dayna reference range : 10*3/?L. The reference range was not used to interpret this result as normal/abnormal . NRBC/100 WBC (test code See_Comment [Au tomated message] = 8936392700) The system [employer] generated this result transmit dayna reference range : 0.0 - 10.0 /100 WBC s. The reference r matteo was not used to interpret this result as normal/abnormal . IPF % (test code = 4739169697) Lab Interpretation (test Abnormal code = 12581-5) [facility]2020-04-09 15:04:00 Test Item Value Reference Range Interpretation Comments POCT GLU (test code = 8289136227) 158 mg/dL 70-110 H Lab Interpretation (test code = Abnormal 27453-3) [facility]TR[facility] [id number] 14:01:00 Test Item Value Reference Range Interpretation Comments TROPONIN I (test 4.100 ng/mL See_Comment H [Automated code = 6029066120) message] The system which generated this result transmitted reference range : <=0.034. The reference range was not used to interpret this result as normal/abnormal . WATLER (test code = Equal or Less than WALTER) 0.034 ng/ml---Normal ?Note: Cardiac troponin begins to rise 3-4 hours after the onset of ischemia. Repeat in 4-6 hours if the sample was drawn within 3-4 hours of the onset of the symptom and found normal. Between 0.035 and 0.120 ng/mL--- Borderline. Questionable myocardial injury or necrosis ? ?Note: Serial measurement may be necessary to confirm or exclude the diagnosis of myocardial injury or necrosis; Clinical correlation (symptoms, EKGs, imaging studies, and others) required; Repeat in 4-6 hours if clinically indicated. ? Equal or Higher than 0.121 ng/mL---Abnormal. Myocardial Injury or Necrosis Likely ? Biotin has been reported to cause a negative bias, interpret results relative to patient's use of biotin. ? Lab Interpretation Abnormal (test code = 83741-4) [facility] HospitalVancomycin Random [id number] 13:52:00 Test Item Value Reference Range Interpretation Comments VANCO RANDOM (test code = 14.0 ug/mL 9607776967) [facility] Basic [facility] (NA, K, CL, CO2, GLUCOSE, BUN, CREATININE, CA)2020-04-09 13:46:00 Test Item Value Reference Range Interpretation Comments NA (test code = 143 mmol/L 135-145 9375393932) K (test code = 4.1 mmol/L 3.5-5 3816739671) CL (test code = 112 mmol/L 98-108 H 2506272207) CO2 TOTAL (test code = 16 mmol/L 23-31 L 2025929914) AGAP (test code = 2-16 2270453667) BUN (test code = 80 mg/dL 7-23 H 4481361425) GLUCOSE (test code = 133 mg/dL 70-110 H 0282821581) CREATININE (test code = 4.40 mg/dL 0.5-1.04 H 1615728567) CALCIUM (test code = 7.2 mg/dL 8.6-10.6 L 2893397073) eGFR Calculation mL/min/1.73m2 (Non-) (test code = 7578573651) eGFR Calculation mL/min/1.73m2 () (test code = 3229397272) WALTER (test code = WALTER) Association of Glomerular Filtration Rate (GFR) and Staging of Kidney Disease* + --+ --+ ------+| GFR (mL/min/1.73 m2) ?| With Kidney Damage ?| ?Without Kidney Damage+ --------+ --------+ +| ?>90 ?| ?Stage one ?| ? Normal ?+ ---+ ---+ -------+| ?60-89 ?| ?Stage two ?| ? Decreased GFR ? + --+ --+ ------+| ?30-59 ?| ?Stage three ?| ? Stage three ? + --+ --+ ------+| ?15-29 ?| ?Stage four ? | ? Stage four ?+ ---+ ---+ -------+| ?<15 (or dialysis) ? ?| ?Stage five ? | ? Stage five ?+ ---+ ---+ -------+ *Each stage assumes the associated GFR level has been in effect for at least three months. ?Stages 1 to 5, with or without kidney disease, indicate chronic kidney disease. Notes: Determination of stages one and two (with eGFR >59mL/min/1.73 m2) requires estimation of kidney damage for at least three months as defined by structural or functional abnormalities of the kidney, manifested by either:Pathological abnormalities or Markers of kidney damage (including abnormalities in the composition of the blood or urine or abnormalities in imaging tests). Lab Interpretation Abnormal (test code = 01434-1) [facility] HospitalURINE [id number] 13:45:00 Test Item Value Reference Range Interpretation Comments URINE CULTURE (test No aerobic growth (< code = 630-4) 1000 CFU/mL) [facility]AC PANEL 20 + LACTIC [id number] 12:42:00 Test Item Value Reference Range Interpretation Comments PH (test code = 2) 7.35-7.45 L PCO2 (test code = See_Comment [Automate d 4354230561) message] The sy stem which generated this result transmitted reference range : 35 - 45 mmHg. The reference range was not used to interpret this result as normal/abnormal . PO2 (test code = See_Comment H [Automated 4009747039) message] The sy stem which generated this result transmitted reference range : 80 - 100 mmHg. The reference range was not used to interpret this result as normal/abnormal . HCO3 (test code = See_Comment L [Automate d 3478150704) message] The sy stem which generated this result transmitted reference range : 22 - 26 mEq/L. The reference range was not used to interpret this result as normal/abnormal . BE (test code = See_Comment L [Automated 8212193149) message] The sy stem which generated this result transmitted reference range : -3.0 - 3.0 mEq/ L. The reference r matteo was not used to interpret this result as normal/abnormal . THB (test code = 10.1 g/dL 12-16 L 1880297525) %O2HB (test code = 98.3 % 94-99 5287642245) %COHB ART (test code = 0.2 % 0-1.5 8713261798) %METHB ART (test code = 0.3 % 0.4-1.5 L 0650418482) VOL%O2 ART (test code = 14.3 % 15-23 L 8074383779) NA (test code = 141 mmol/L 135-145 2719877838) K+ (test code = 3.8 mmol/L 3.5-5 1677219112) AC CA IONZ (test code = 4.30 mg/dL 4.5-5.3 L 7136762127) GLUCOSE (test code = 143 mg/dL 70-110 H 8341769477) LACTIC ACID (test code 1.19 mmol/L = 4204020514) Lab Interpretation Abnormal (test code = 28864-0) [facility] WITHOUT [id number] 12:37:00 Test Item Value Reference Range Interpretation Comments WBC (test code = 6690-2) See_Comment H [A utomated message] The system [employer] generated this result transmit dayna reference range : 4.30 - 11.10 10*3/?L. The reference range was not used to interpret this result as normal/abnormal . RBC (test code = 789-8) See_Comment L [Au tomated message] The system [facility] generated this result transmit dayna reference range : 3.93 - 5.25 10* 6/?L. The reference r matteo was not used to interpret this result as normal/abnormal . HGB (test code = 718-7) 8.9 g/dL 11.6-15 L HCT (test code = 4544-3) 29.5 % 35.7-45.2 L MCH (test code = 785-6) 25.9 pg 25.9-32.8 MCV (test code = 787-2) 85.8 fL 80.6-95.5 MCHC (test code = 786-4) 30.2 g/dL 31.6-35.1 L PLT (test code = 777-3) See_Comment [Au tomated message] The system [facility] generated this result transmit dayna reference range : 166 - 358 10*3/?L. The reference range was not used to interpret this result as normal/abnormal . MPV (test code = 12.3 fL 9.5-12.9 40143-8) RDW-CV (test code = 14.4 % 12-15.5 788-0) RDW-SD (test code = 44.4 fL 39-49.9 11976-6) NRBC x10^3 (test code = <0.01 See_Comment [Au tomated message] 7309561190) The system [facility] generated this result transmit dayna reference range : 10*3/?L. The reference range was not used to interpret this result as normal/abnormal . NRBC/100 WBC (test code See_Comment [Au tomated message] = 6225306803) The system [facility] generated this result transmit dayna reference range : 0.0 - 10.0 /100 WBC s. The reference r matteo was not used to interpret this result as normal/abnormal . IPF % (test code = 8230899465) Lab Interpretation (test Abnormal code = 57971-1) [facility] HospitalCARLEE [id number] 08:50:00 Test Item Value Reference Range Interpretation Comments TROPONIN I (test 4.820 ng/mL See_Comment H [Automated code = 3538142783) message] The system which generated this result transmitted reference range : <=0.034. The reference range was not used to interpret this result as normal/abnormal . WALTER (test code = Equal or Less than WALTER) 0.034 ng/ml---Normal ?Note: Cardiac troponin begins to rise 3-4 hours after the onset of ischemia. Repeat in 4-6 hours if the sample was drawn within 3-4 hours of the onset of the symptom and found normal. Between 0.035 and 0.120 ng/mL--- Borderline. Questionable myocardial injury or necrosis ? ?Note: Serial measurement may be necessary to confirm or exclude the diagnosis of myocardial injury or necrosis; Clinical correlation (symptoms, EKGs, imaging studies, and others) required; Repeat in 4-6 hours if clinically indicated. ? Equal or Higher than 0.121 ng/mL---Abnormal. Myocardial Injury or Necrosis Likely ? Biotin has been reported to cause a negative bias, interpret results relative to patient's use of biotin. ? Lab Interpretation Abnormal (test code = 33274-4) [facility] WITHOUT [id number] 08:12:00 Test Item Value Reference Range Interpretation Comments WBC (test code = 6690-2) See_Comment H [A utomated message] The system [employer] generated this result transmit dayna reference range : 4.30 - 11.10 10*3/?L. The reference range was not used to interpret this result as normal/abnormal . RBC (test code = 789-8) See_Comment L [Au tomated message] The system [employer] generated this result transmit dayna reference range : 3.93 - 5.25 10* 6/?L. The reference r matteo was not used to interpret this result as normal/abnormal . HGB (test code = 718-7) 9.1 g/dL 11.6-15 L HCT (test code = 4544-3) 30.0 % 35.7-45.2 L MCH (test code = 785-6) 25.9 pg 25.9-32.8 MCV (test code = 787-2) 85.5 fL 80.6-95.5 MCHC (test code = 786-4) 30.3 g/dL 31.6-35.1 L PLT (test code = 777-3) See_Comment [Au tomated message] The system [employer] generated this result transmit dayna reference range : 166 - 358 10*3/?L. The reference range was not used to interpret this result as normal/abnormal . MPV (test code = 12.3 fL 9.5-12.9 19030-2) RDW-CV (test code = 14.1 % 12-15.5 788-0) RDW-SD (test code = 44.0 fL 39-49.9 22651-3) NRBC x10^3 (test code = <0.01 See_Comment [Au tomated message] 5899246273) The system [employer] generated this result transmit dayna reference range : 10*3/?L. The reference range was not used to interpret this result as normal/abnormal . NRBC/100 WBC (test code See_Comment [Au tomated message] = 9572768003) The system [employer] generated this result transmit dayna reference range : 0.0 - 10.0 /100 WBC s. The reference r matteo was not used to interpret this result as normal/abnormal . IPF % (test code = 3152772510) Lab Interpretation (test Abnormal code = 57004-8) [facility] - ONCE [id number] 06:47:58 Test Item Value Reference Range Interpretation Comments ABO & RH (test code O POSITIVE Performe d at [facility] = 20) Laboratory Serv [facility] s [id number] Free: [phone] A No. [id number] IAT (test code = Negative Performed a t [facility] 1185) Laboratory Serv [facility] s [address]Okdl Free: [phone] A No. [id number] [facility]PROCAL[facility]ONIN2021-[facility]-04 06:24:00 Test Item Value Reference Range Interpretation Comments Procalcitonin (test 138.44 ng/mL <0.07 H code = 6383459733) WALTER (test code = WALTER) INTERPRETATION OF PROCALCITONIN RESULTS IN ADULTS >= 18 YEARS OF AGE Initiation and discontinuation of antibiotics on patients with suspected or confirmed Lower Respiratory Tract Infection in Adults >= 18 years of age. + +-------- --------+ + -----+|Procalcitonin |Interpretation ?|Antibiotic ? ? |Considerations ? |ng/mL ? | ?|recommendation | ? + +-------- --------+ + -----+| <0.1 ? | Bacterial ? ? ?| Strongly ? ? ?| ? | ?| infection very | discouraged ? | Overruling: ? | ?| unlikely ? ? ? | ? | ? Clinically unstable ? ? ? + +-------- --------+ + ? High risk for adverse ? ? | <0.25 ?| Bacterial ? ? ?| Discouraged ? | ? outcome ? | ?| infection ? ? ?| ? | ? SEE IMPORTANT NOTE ?| ?| unlikely ? ? ? | ? | ? + +-------- --------+ + -----+| >=0.25 ? ? ? | Bacterial ? ? ?| Encouraged ? ?| ? | ?| infection ? ? ?| ? | ? | ?| likely ? | ? | Consider treatment failure ?+ +------- ---------+ -+ if levels does not decrease | >0.5 ? | Bacterial ? ? ?| Strongly ? ? ?| appropriately ? | ?| infection very | encouraged ? ?| ? | ?| likely ? | ? | ? + +-------- --------+ + -----+ Discontinuation of antibiotics in high-acuity patients with suspected or confirmed sepsis in Adults >= 18 years of age. + +-------- --------+ + -----+|Procalcitonin |Interpretation ?|Antibiotic ? ? |Considerations ? |ng/mL ? | ?|recommendation | ? + +-------- --------+ + -----+| <0.25 ?| Bacterial ? ? ?| Strongly ? ? ?| ? | ?| infection very | discouraged ? | Overruling: ? | ?| unlikely ? ? ? | ? | ? Clinically unstable ? ? ? + +-------- --------+ + ? High risk for adverse ? ? | <0.5 or drop | Bacterial ? ? ?| Discouraged ? | ? outcome ? | >80% from ? ?| infection ? ? ?| ? | ? SEE IMPORTANT NOTE ?| highest PCT ?| unlikely ? ? ? | ? | ? | level ?| ?| ? | ? + +-------- --------+ + -----+| >=0.5 ?| Bacterial ? ? ?| Encouraged ? ?| ? | ?| infection ? ? ?| ? | ? | ?| likely ? | ? | Consider treatment failure ?+ +------- ---------+ -+ if levels does not decrease | >1.0 ? | Bacterial ? ? ?| Strongly ? ? ?| appropriately ? | ?| infection very | encouraged ? ?| ? | ?| likely ? | ? | ? + +-------- --------+ + -----+ Percentage of drop of Procalcitonin calculation for Discontinuation of antibiotics in high-acuity patients with suspected or confirmed sepsis in Adults >= 18 years of age. ? Procalcitonin highest{}-Procalcitonin current{}Delta Procalcitonin = x100% ? Procalcitonin current {} IMPORTANT NOTE: Procalcitonin may be elevated without bacterial infection by physiologic stress related to trauma, blue, chronic dialysis, metastatic cancer, surgery in the past seven days, malaria, some fungal infections, and some forms of vasculitis. The interpretation algorithm may not apply to patients with immunosuppression (equivalent of >10 mg of prednisone daily), HIV with CD4 cell count < 350 cells/mm3, active malignancy on systemic chemotherapy, solid organ transplant or hematopoietic stem cell transplantation, or hospital acquired pneumonia. Additionally, some clinical trials of procalcitonin have excluded patients with shock requiring vasopressor use, acute respiratory failure requiring mechanical ventilation, or those with known lung abscess/empyema. For further information please refer to:[email or web address] Lab Interpretation Abnormal (test code = 46602-7) [facility] [id number] 05:20:00 Test Item Value Reference Range Interpretation Comments TROPONIN I (test 4.340 ng/mL See_Comment H [Automated code = 3364591707) message] The system which generated this result transmitted reference range : <=0.034. The reference range was not used to interpret this result as normal/abnormal . WALTER (test code = Equal or Less than WALTER) 0.034 ng/ml---Normal ?Note: Cardiac troponin begins to rise 3-4 hours after the onset of ischemia. Repeat in 4-6 hours if the sample was drawn within 3-4 hours of the onset of the symptom and found normal. Between 0.035 and 0.120 ng/mL--- Borderline. Questionable myocardial injury or necrosis ? ?Note: Serial measurement may be necessary to confirm or exclude the diagnosis of myocardial injury or necrosis; Clinical correlation (symptoms, EKGs, imaging studies, and others) required; Repeat in 4-6 hours if clinically indicated. ? Equal or Higher than 0.121 ng/mL---Abnormal. Myocardial Injury or Necrosis Likely ? Biotin has been reported to cause a negative bias, interpret results relative to patient's use of biotin. ? Lab Interpretation Abnormal (test code = 78046-4) [facility] Basic Metabolic Panel (NA, K, CL, CO2, GLUCOSE, BUN, CREATININE, CA)2020-04-09 05:09:00 Test Item Value Reference Range Interpretation Comments NA (test code = 142 mmol/L 135-145 4832979362) K (test code = 4.1 mmol/L 3.5-5 7829344124) CL (test code = 110 mmol/L 98-108 H 8566535656) CO2 TOTAL (test code = 17 mmol/L 23-31 L 5790782014) AGAP (test code = 2-16 9676555551) BUN (test code = 73 mg/dL 7-23 H 2042846906) GLUCOSE (test code = 230 mg/dL 70-110 H 1342734028) CREATININE (test code = 4.51 mg/dL 0.5-1.04 H 6152642981) CALCIUM (test code = 7.2 mg/dL 8.6-10.6 L 1701368296) eGFR Calculation mL/min/1.73m2 (Non-) (test code = 8126418982) eGFR Calculation mL/min/1.73m2 () (test code = 1660777085) WALTER (test code = WALTER) Association of Glomerular Filtration Rate (GFR) and Staging of Kidney Disease* + --+ --+ ------+| GFR (mL/min/1.73 m2) ?| With Kidney Damage ?| ?Without Kidney Damage+ --------+ --------+ +| ?>90 ?| ?Stage one ?| ? Normal ?+ ---+ ---+ -------+| ?60-89 ?| ?Stage two ?| ? Decreased GFR ? + --+ --+ ------+| ?30-59 ?| ?Stage three ?| ? Stage three ? + --+ --+ ------+| ?15-29 ?| ?Stage four ? | ? Stage four ?+ ---+ ---+ -------+| ?<15 (or dialysis) ? ?| ?Stage five ? | ? Stage five ?+ ---+ ---+ -------+ *Each stage assumes the associated GFR level has been in effect for at least three months. ?Stages 1 to 5, with or without kidney disease, indicate chronic kidney disease. Notes: Determination of stages one and two (with eGFR >59mL/min/1.73 m2) requires estimation of kidney damage for at least three months as defined by structural or functional abnormalities of the kidney, manifested by either:Pathological abnormalities or Markers of kidney damage (including abnormalities in the composition of the blood or urine or abnormalities in imaging tests). Lab Interpretation Abnormal (test code = 65964-9) [facility] WITHOUT [id number] 04:55:00 Test Item Value Reference Range Interpretation Comments WBC (test code = 6690-2) See_Comment H [A utomated message] The system [employer] generated this result transmit dayna reference range : 4.30 - 11.10 10*3/?L. The reference range was not used to interpret this result as normal/abnormal . RBC (test code = 789-8) See_Comment L [Au tomated message] The system [employer] generated this result transmit dayna reference range : 3.93 - 5.25 10* 6/?L. The reference r matteo was not used to interpret this result as normal/abnormal . HGB (test code = 718-7) 9.7 g/dL 11.6-15 L HCT (test code = 4544-3) 32.5 % 35.7-45.2 L MCH (test code = 785-6) 25.8 pg 25.9-32.8 L MCV (test code = 787-2) 86.4 fL 80.6-95.5 MCHC (test code = 786-4) 29.8 g/dL 31.6-35.1 L PLT (test code = 777-3) See_Comment [Au tomated message] The system [employer] generated this result transmit dayna reference range : 166 - 358 10*3/?L. The reference range was not used to interpret this result as normal/abnormal . MPV (test code = 11.9 fL 9.5-12.9 80869-2) RDW-CV (test code = 14.2 % 12-15.5 788-0) RDW-SD (test code = 45.1 fL 39-49.9 34517-4) NRBC x10^3 (test code = <0.01 See_Comment [Au tomated message] 0704033391) The system [employer] generated this result transmit dayna reference range : 10*3/?L. The reference range was not used to interpret this result as normal/abnormal . NRBC/100 WBC (test code See_Comment [Au tomated message] = 7253671848) The system [facility] generated this result transmit dayna reference range : 0.0 - 10.0 /100 WBC s. The reference r matteo was not used to interpret this result as normal/abnormal . IPF % (test code = 5439877991) Lab Interpretation (test Abnormal code = 36820-2) [facility]+K+GLU+CA2+2020-04-09 03:18:00 Test Item Value Reference Range Interpretation Comments PH (test code = 2) 7.35-7.45 L PCO2 (test code = See_Comment [Automate d message] 1513843224) The system [employer] generated this result transmit dayna reference range : 35 - 45 mmHg. The reference range was not used to interpret this result as normal/abnormal . PO2 (test code = See_Comment H [Automated message] 2228220670) The system [employer] generated this result transmit dayna reference range : 80 - 100 mmHg. The reference range was not used to interpret this result as normal/abnormal . HCO3 (test code = See_Comment L [Automate d message] 3046462846) The system [employer] generated this result transmit dayna reference range : 22 - 26 mEq/L. The reference range was not used to interpret this result as normal/abnormal . BE (test code = See_Comment L [Automated message] 5017935776) The system [employer] generated this result transmit dayna reference range : -3.0 - 3.0 mEq/ L. The reference r matteo was not used to interpret this result as normal/abnormal . THB (test code = 12.0 g/dL 12-16 6188397084) %O2HB (test code = 98.4 % 94-99 2658987776) %COHB ART (test code = 0.3 % 0-1.5 0351921995) %METHB ART (test code = 0.1 % 0.4-1.5 L 3458367277) VOL%O2 ART (test code = 16.9 % 15-23 6237833089) NA (test code = 140 mmol/L 135-145 8786952688) K+ (test code = 4.1 mmol/L 3.5-5 4146198813) AC CA IONZ (test code = 4.00 mg/dL 4.5-5.3 L 4979644029) GLUCOSE (test code = 266 mg/dL 70-110 H 7042652843) Lab Interpretation Abnormal (test code = 47542-8) [facility]2020-04-08 22:43:00 Test Item Value Reference Range Interpretation Comments POCT GLU (test code = 0947178983) 225 mg/dL 70-110 H Lab Interpretation (test code = Abnormal 11187-1) [facility] WITH [id number] 21:54:00 Test Item Value Reference Range Interpretation Comments WBC (test code = See_Comment H [Automated 5790-2) message] The system which generated this result transmit dayna reference range : 4.30 - 11.10 10*3/?L. The reference range was not used to interpret this result as normal/abnormal . RBC (test code = See_Comment [Automated 969-8) message] The system which generated this result transmit dayna reference range : 3.93 - 5.25 10*6/?L. The reference range was not used to interpret this result as normal/abnormal . HGB (test code = 10.8 g/dL 11.6-15 L 718-7) HCT (test code = 34.0 % 35.7-45.2 L 4544-3) MCV (test code = 83.3 fL 80.6-95.5 787-2) MCH (test code = 26.5 pg 25.9-32.8 785-6) MCHC (test code = 31.8 g/dL 31.6-35.1 786-4) RDW-SD (test code = 42.8 fL 39-49.9 05442-9) RDW-CV (test code = 14.2 % 12-15.5 788-0) PLT (test code = See_Comment [Automated 777-3) message] The system which generated this result transmit dayna reference range : 166 - 358 10*3/ ?L. The reference range was not u sed to interpret th is result as normal/abnormal . MPV (test code = 12.2 fL 9.5-12.9 40911-4) NRBC/100 WBC (test See_Comment [Automat ed code = 7404533657) message] The system which generated this result transmit dayna reference range : 0.0 - 10.0 /100 WBCs. The reference range was not used to interpret this result as normal/abnormal . NRBC x10^3 (test code <0.01 See_Comment [Auto mated = 4275727132) message] The system which generated this result transmit dayna reference range : 10*3/?L. The reference range was not used to interpret this result as normal/abnormal . GRAN MAT (NEUT) % 91.8 % (test code = 770-8) IMM GRAN % (test code 0.70 % = 0627097934) LYMPH % (test code = 4.2 % 736-9) MONO % (test code = 3.2 % 5905-5) EOS % (test code = 0.0 % 713-8) BASO % (test code = 0.1 % 706-2) GRAN MAT x10^3(ANC) 27.27 10*3/uL 1.88-7.09 H (test code = 8507254507) IMM GRAN x10^3 (test 0.22 10*3/uL 0-0.06 H code = 8761754351) LYMPH x10^3 (test code 1.24 10*3/uL 1.32-3.29 L = 731-0) MONO x10^3 (test code 0.96 10*3/uL 0.33-0.92 H = 742-7) EOS x10^3 (test code = <0.03 0.03-0.39 L 711-2) BASO x10^3 (test code 0.04 10*3/uL 0.01-0.07 = 704-7) Lab Interpretation Abnormal (test code = 65251-8) [facility]OLIC PAN[facility] (83062)2020-04-08 21:47:00 Test Item Value Reference Range Interpretation Comments NA (test code = 140 mmol/L 135-145 3957430509) K (test code = 4.1 mmol/L 3.5-5 7429623025) CL (test code = 104 mmol/L 98-108 3574456654) CO2 TOTAL (test code = 20 mmol/L 23-31 L 9076009736) AGAP (test code = 2-16 9915537957) BUN (test code = 68 mg/dL 7-23 H 0856432268) GLUCOSE (test code = 216 mg/dL 70-110 H 2009180001) CREATININE (test code = 4.01 mg/dL 0.5-1.04 H 3118474602) TOTAL BILI (test code = 0.8 mg/dL 0.1-1.5 9085085152) CALCIUM (test code = 7.5 mg/dL 8.6-10.6 L 4465660437) T PROTEIN (test code = 6.2 g/dL 6.3-8.2 L 4740353420) ALBUMIN (test code = 3.4 g/dL 3.5-5 L 0367837462) ALK PHOS (test code = 85 U/L 34-122 6924747711) ALTv (test code = 83 U/L 5-35 H 1742-6) AST(SGOT) (test code = 180 U/L 13-40 H 9061933995) eGFR Calculation mL/min/1.73m2 (Non-) (test code = 8469639040) eGFR Calculation mL/min/1.73m2 () (test code = 2806021101) WALTER (test code = WALTER) Association of Glomerular Filtration Rate (GFR) and Staging of Kidney Disease* + --+ --+ ------+| GFR (mL/min/1.73 m2) ?| With Kidney Damage ?| ?Without Kidney Damage+ --------+ --------+ +| ?>90 ?| ?Stage one ?| ? Normal ?+ ---+ ---+ -------+| ?60-89 ?| ?Stage two ?| ? Decreased GFR ? + --+ --+ ------+| ?30-59 ?| ?Stage three ?| ? Stage three ? + --+ --+ ------+| ?15-29 ?| ?Stage four ? | ? Stage four ?+ ---+ ---+ -------+| ?<15 (or dialysis) ? ?| ?Stage five ? | ? Stage five ?+ ---+ ---+ -------+ *Each stage assumes the associated GFR level has been in effect for at least three months. ?Stages 1 to 5, with or without kidney disease, indicate chronic kidney disease. Notes: Determination of stages one and two (with eGFR >59mL/min/1.73 m2) requires estimation of kidney damage for at least three months as defined by structural or functional abnormalities of the kidney, manifested by either:Pathological abnormalities or Markers of kidney damage (including abnormalities in the composition of the blood or urine or abnormalities in imaging tests). Lab Interpretation Abnormal (test code = 20825-0) [facility]2020-04-08 21:46:00 Test Item Value Reference Range Interpretation Comments POCT GLU (test code = 0105044556) 210 mg/dL 70-110 H Lab Interpretation (test code = Abnormal 55051-3) [facility] HospitalType and Screen - ONCE [id number] 21:17:01 Test Item Value Reference Range Interpretation Comments ABO & RH (test code O Positive Performe d at [facility] = 20) Laboratory [facility] [address] [place], [place] [id number] Free: [phone] A No. [id number] IAT (test code = Negative Performed a t [facility] 1185) Laboratory [facility] [address] [place], [place] [id number] Free: [phone] A No. [id number] [facility] HospitalTROPONIN [id number] 21:17:00 Test Item Value Reference Range Interpretation Comments TROPONIN I (test 1.310 ng/mL See_Comment H [Automated code = 8396989277) message] The system which generated this result transmitted reference range : <=0.034. The reference range was not used to interpret this result as normal/abnormal . WALTER (test code = Equal or Less than WALTER) 0.034 ng/ml---Normal ?Note: Cardiac troponin begins to rise 3-4 hours after the onset of ischemia. Repeat in 4-6 hours if the sample was drawn within 3-4 hours of the onset of the symptom and found normal. Between 0.035 and 0.120 ng/mL--- Borderline. Questionable myocardial injury or necrosis ? ?Note: Serial measurement may be necessary to confirm or exclude the diagnosis of myocardial injury or necrosis; Clinical correlation (symptoms, EKGs, imaging studies, and others) required; Repeat in 4-6 hours if clinically indicated. ? Equal or Higher than 0.121 ng/mL---Abnormal. Myocardial Injury or Necrosis Likely ? Biotin has been reported to cause a negative bias, interpret results relative to patient's use of biotin. ? Lab Interpretation Abnormal (test code = 03114-7) [facility] HospitalAC PANEL 20 + LACTIC [id number] 18:27:00 Test Item Value Reference Range Interpretation Comments PH (test code = 2) 7.35-7.45 PCO2 (test code = See_Comment L [Automate d 8696689793) message] The sy stem which generated this result transmitted reference range : 35 - 45 mmHg. The reference range was not used to interpret this result as normal/abnormal . PO2 (test code = See_Comment H [Automated 0721884887) message] The sy stem which generated this result transmitted reference range : 80 - 100 mmHg. The reference range was not used to interpret this result as normal/abnormal . HCO3 (test code = See_Comment L [Automate d 5714187496) message] The sy stem which generated this result transmitted reference range : 22 - 26 mEq/L. The reference range was not used to interpret this result as normal/abnormal . BE (test code = See_Comment L [Automated 6147306346) message] The sy stem which generated this result transmitted reference range : -3.0 - 3.0 mEq/ L. The reference r matteo was not used to interpret this result as normal/abnormal . THB (test code = 12.2 g/dL 12-16 2704168618) %O2HB (test code = 98.6 % 94-99 2321163113) %COHB ART (test code = 0.3 % 0-1.5 8661784352) %METHB ART (test code = 0.6 % 0.4-1.5 5295490317) VOL%O2 ART (test code = 17.5 % 15-23 0924645683) NA (test code = 138 mmol/L 135-145 3526033075) K+ (test code = 3.6 mmol/L 3.5-5 3103625815) AC CA IONZ (test code = 3.90 mg/dL 4.5-5.3 L 9057668330) GLUCOSE (test code = 204 mg/dL 70-110 H 2549418758) LACTIC ACID (test code 2.42 mmol/L = 0574242815) Lab Interpretation Abnormal (test code = 49355-1) [facility] HospitalXR CHEST 1 [id number] 17:45:25Stable mild bilateral multifocal infiltrate.2. Central line tip overlies the upper SVC. No pneumothorax. RL: 6200 END OF REPORT Ordering Physician: LISSA CARLOS Clinical Indication: Intubation Additional Clinical Information: Comparison: 04/08/2020 Technique: Portable chest obtained at 0510 hours Findings: Tip of the ET tube is 4 cm above the temi. Left IJ central lineoverlies the upper SVC. Feeding tube tip is not seen but is belowhemidiaphragm. There is mild bilateral multifocal infiltrate. [facility], Radiant Results Inft User - 04/08/2020 11:46 AM CSTOrdering Physician: LISSA CARLOSClinical Indication: Intubation Additional Clinical Inf ormation:Comparison: 04/08/2020Technique: Portable chest obtained at 0510 hoursFindings: Tip of the ETtube is 4 cm above the etmi. Left IJ central lineoverlies the upper SVC. Feeding tube tip is not seen but is belowhemidiaphragm.There is mild bilateral multifocal infiltrate.IMPRESSIONStable mild bilateral multifocal infiltrate.2. Central line tip overlies the upper SVC. No pneumothorax.RL: 6200 ENDOF [facility]PORT [facility] [id number] 17:07:00 Test Item Value Reference Range Interpretation Comments Procalcitonin (test 0.55 ng/mL <0.07 H code = 1969149863) WALTER (test code = WALTER) INTERPRETATION OF PROCALCITONIN RESULTS IN ADULTS >= 18 YEARS OF AGE Initiation and discontinuation of antibiotics on patients with suspected or confirmed Lower Respiratory Tract Infection in Adults >= 18 years of age. + +-------- --------+ + -----+|Procalcitonin |Interpretation ?|Antibiotic ? ? |Considerations ? |ng/mL ? | ?|recommendation | ? + +-------- --------+ + -----+| <0.1 ? | Bacterial ? ? ?| Strongly ? ? ?| ? | ?| infection very | discouraged ? | Overruling: ? | ?| unlikely ? ? ? | ? | ? Clinically unstable ? ? ? + +-------- --------+ + ? High risk for adverse ? ? | <0.25 ?| Bacterial ? ? ?| Discouraged ? | ? outcome ? | ?| infection ? ? ?| ? | ? SEE IMPORTANT NOTE ?| ?| unlikely ? ? ? | ? | ? + +-------- --------+ + -----+| >=0.25 ? ? ? | Bacterial ? ? ?| Encouraged ? ?| ? | ?| infection ? ? ?| ? | ? | ?| likely ? | ? | Consider treatment failure ?+ +------- ---------+ -+ if levels does not decrease | >0.5 ? | Bacterial ? ? ?| Strongly ? ? ?| appropriately ? | ?| infection very | encouraged ? ?| ? | ?| likely ? | ? | ? + +-------- --------+ + -----+ Discontinuation of antibiotics in high-acuity patients with suspected or confirmed sepsis in Adults >= 18 years of age. + +-------- --------+ + -----+|Procalcitonin |Interpretation ?|Antibiotic ? ? |Considerations ? |ng/mL ? | ?|recommendation | ? + +-------- --------+ + -----+| <0.25 ?| Bacterial ? ? ?| Strongly ? ? ?| ? | ?| infection very | discouraged ? | Overruling: ? | ?| unlikely ? ? ? | ? | ? Clinically unstable ? ? ? + +-------- --------+ + ? High risk for adverse ? ? | <0.5 or drop | Bacterial ? ? ?| Discouraged ? | ? outcome ? | >80% from ? ?| infection ? ? ?| ? | ? SEE IMPORTANT NOTE ?| highest PCT ?| unlikely ? ? ? | ? | ? | level ?| ?| ? | ? + +-------- --------+ + -----+| >=0.5 ?| Bacterial ? ? ?| Encouraged ? ?| ? | ?| infection ? ? ?| ? | ? | ?| likely ? | ? | Consider treatment failure ?+ +------- ---------+ -+ if levels does not decrease | >1.0 ? | Bacterial ? ? ?| Strongly ? ? ?| appropriately ? | ?| infection very | encouraged ? ?| ? | ?| likely ? | ? | ? + +-------- --------+ + -----+ Percentage of drop of Procalcitonin calculation for Discontinuation of antibiotics in high-acuity patients with suspected or confirmed sepsis in Adults >= 18 years of age. ? Procalcitonin highest{}-Procalcitonin current{}Delta Procalcitonin = x100% ? Procalcitonin current {} IMPORTANT NOTE: Procalcitonin may be elevated without bacterial infection by physiologic stress related to trauma, blue, chronic dialysis, metastatic cancer, surgery in the past seven days, malaria, some fungal infections, and some forms of vasculitis. The interpretation algorithm may not apply to patients with immunosuppression (equivalent of >10 mg of prednisone daily), HIV with CD4 cell count < 350 cells/mm3, active malignancy on systemic chemotherapy, solid organ transplant or hematopoietic stem cell transplantation, or hospital acquired pneumonia. Additionally, some clinical trials of procalcitonin have excluded patients with shock requiring vasopressor use, acute respiratory failure requiring mechanical ventilation, or those with known lung abscess/empyema. For further information please refer to:[email or web address] Lab Interpretation Abnormal (test code = 14395-4) [facility] HospitalGlycosylated Hemoglobin (A1C)2020-04-08 14:12:00 Test Item Value Reference Range Interpretation Comments HGB A1C (test code = 5.9 % 4-6 4548-4) WALTER (test code = WALTER) %A1C (NGSP) Interpretation (ADA)4.8-5.6 ? ? Normal or (Non-Diabetic Range)5.7-6.4 ? ? Increased Risk (Pre-Diabetic)>6.5 ?Diabetes Indicated Lab Interpretation Normal (test code = 81007-2) [facility]PO[facility]AUT[facility])2020-04-08 14:02:00 Test Item Value Reference Range Interpretation Comments POCT GLU (test code = 0234949818) 178 mg/dL 70-110 H Lab Interpretation (test code = Abnormal 40739-7) [facility] HospitalBasic Metabolic Panel (NA, K, CL, CO2, Glucose, BUN, Creatinine, CA)2020-04-08 13:57:00 Test Item Value Reference Range Interpretation Comments NA (test code = 139 mmol/L 135-145 6941639254) K (test code = 2.7 mmol/L 3.5-5 LL 5394274540) CL (test code = 95 mmol/L 98-108 L 9935898895) CO2 TOTAL (test code = 23 mmol/L 23-31 3396857974) AGAP (test code = 2-16 H 9637072087) BUN (test code = 65 mg/dL 7-23 H 2317922427) GLUCOSE (test code = 215 mg/dL 70-110 H 3903243266) CREATININE (test code = 3.25 mg/dL 0.5-1.04 H 8083269747) CALCIUM (test code = 8.4 mg/dL 8.6-10.6 L 8385495099) eGFR Calculation mL/min/1.73m2 (Non-) (test code = 6803217860) eGFR Calculation mL/min/1.73m2 () (test code = 4986942424) WALTER (test code = WALTER) Association of Glomerular Filtration Rate (GFR) and Staging of Kidney Disease* + --+ --+ ------+| GFR (mL/min/1.73 m2) ?| With Kidney Damage ?| ?Without Kidney Damage+ --------+ --------+ +| ?>90 ?| ?Stage one ?| ? Normal ?+ ---+ ---+ -------+| ?60-89 ?| ?Stage two ?| ? Decreased GFR ? + --+ --+ ------+| ?30-59 ?| ?Stage three ?| ? Stage three ? + --+ --+ ------+| ?15-29 ?| ?Stage four ? | ? Stage four ?+ ---+ ---+ -------+| ?<15 (or dialysis) ? ?| ?Stage five ? | ? Stage five ?+ ---+ ---+ -------+ *Each stage assumes the associated GFR level has been in effect for at least three months. ?Stages 1 to 5, with or without kidney disease, indicate chronic kidney disease. Notes: Determination of stages one and two (with eGFR >59mL/min/1.73 m2) requires estimation of kidney damage for at least three months as defined by structural or functional abnormalities of the kidney, manifested by either:Pathological abnormalities or Markers of kidney damage (including abnormalities in the composition of the blood or urine or abnormalities in imaging tests). Lab Interpretation Abnormal (test code = 65102-6) [facility] HospitalaPTT2021-01-[facility] 13:21:00 Test Item Value Reference Range Interpretation Comments APTT Patient (test See_Comment [Automat ed code = 3173-2) message] The system which generated this result transmitted reference range : 23 - 38 Seconds . The reference range was not used to interpr et this result as normal/abnormal . WALTER (test code = WALTER) The [facility] patient population mean normal value for aPTT is 30 seconds. Lab Interpretation Normal (test code = 94641-4) [facility] HospitalProthrombin Time / [id number] 13:19:00 Test Item Value Reference Range Interpretation Comments PROTIME PATIENT (test See_Comment [Auto mated message] code = 5964-2) The system [employer] generated this result transmitted ref erence range: 12.0 - 1 4.7 Seconds. The re ference range was not u sed to interpret this result as normal/abnor mal. INR (test code = 6301-6) Nor mal INR <1.1; Warfarin Therap eutic range 2.0 to 3. 0 or 2.5 to 3.5, dep ending upon the indica tions. Lab Interpretation (test Normal code = 84340-4) [facility] HospitalHEMOGLOBIN2021-01-03 13:17:00 Test Item Value Reference Range Interpretation Comments HGB (test code = 718-7) 12.2 g/dL 11.6-15 Lab Interpretation (test code = Normal 00931-9) [facility] HospitalHEMATOCRIT2021-01-03 13:17:00 Test Item Value Reference Range Interpretation Comments HCT (test code = 4544-3) 38.4 % 35.7-45.2 Lab Interpretation (test code = Normal 01019-8) [facility] HospitalMagnesium [id number] 12:37:00 Test Item Value Reference Range Interpretation Comments MAGNESIUM (test code = 3358854717) 1.7 mg/dL 1.7-2.4 Lab Interpretation (test code = Normal 32701-7) [facility] HospitalHepatic Function Panel (ALB, T.PRO, BILI T, BU/BC, ALT, AST, ALK, PHOS)2020-04-08 12:36:00 Test Item Value Reference Range Interpretation Comments TOTAL BILI (test code = 7484474895) 1.1 mg/dL 0.1-1.1 BILI UNCON (test code = 3423730164) 0.5 mg/dL 0.1-1.1 BILI CONJ (test code = 8916997158) 0.0 mg/dL 0-0.3 T PROTEIN (test code = 1342546226) 7.8 g/dL 6.3-8.2 ALBUMIN (test code = 0542228992) 4.3 g/dL 3.5-5 ALK PHOS (test code = 1231579611) 92 U/L 34-122 ALTv (test code = 1742-6) 29 U/L 5-35 AST(SGOT) (test code = 9698098414) 66 U/L 13-40 H Lab Interpretation (test code = Abnormal 74406-4) [facility]Int[facility] 11:20:05Lissa Carlos, DO ? ? 04/08/2020 ?5:20 AMProcedures IntubationPerformed by: Lissa Carlos DOAuthorized by: Lissa Carlos DO Consent: ?Consent obtained: ?Emergent situationPre-procedure details: ?Patient status: ?Unresponsive ?Mallampati score: ?III ?Pretreatment medications: ?None ?Paralytics: ?SuccinylcholineProcedure details: ?Preoxygenation: ?Nonrebreather mask ?CPR in progress: no ? ?Intubation method: ?Oral ?Oral intubation technique: glide scope. ?Laryngoscope blade: ?Mac 4 ?Tube size (mm): ?7.5 ?Tube type: ?Cuffed ?Number of attempts: ?1 ?Cricoid pressure: no ? ?Tube visualized through cords: yes ?Placement assessment: ?ETT to lip: ?23 ?Tube secured with: ?ETT beverly ?Breath sounds: ?Equal and absent over the epigastrium ?Placement verification: chest rise, condensation, CXRverification, direct visualization, equal breath sounds, ETCO2 detector and tube exhalation ? ?CXR findings: ?ETT in proper placePost-procedure details: ?Patient tolerance of procedure: ?Tolerated well, no immediate complicationsUnValley [facility] – HarlingenCentral Line 2020-04-08 11:17:50Lissa Carlos, DO ? ? 04/08/2020 ?5:17 AMProcedures Central LinePerformed by: Lissa Carlos DOAuthorized by: Lissa Carlos DO Consent: ?Consent obtained: ?Emergent situationPre-proceduredetails: ?Hand hygiene: Hand hygiene performed prior to insertion ? ?Sterile barrier technique: All elements of maximal sterile technique followed ? ?Skin preparation: ?2% chlorhexidine ?Skin preparation agent: Skin preparation agent completely dried prior to procedure ?Procedure details: ?Location: ?L internal jugular ?Patient position: ?Reverse Trendelenburg ?Procedural supplies: ?Triple lumen ?Catheter size: ?7.5 Fr ?Landmarks identified: yes ? ?Ultrasound guidance: yes ? ?Sterile ultrasound techniques: Sterile gel and sterile probe covers were used ? ?Number of attempts: ?1 ?Successful placement: yes ?Post-procedure details: ?Post- procedure: ?Dressing applied and line sutured ?Assessment: ?Blood return through all ports, free fluid flow, no pneumothorax on x-ray and placement verified by x-ray ?Patient tolerance of procedure: ?Tolerated well, no immediate complicationsUnValley Baptist Medical Center – HarlingenAC PANEL 20 + LACTIC ACID 2020-04-08 11:00:00 Test Item Value Reference Range Interpretation Comments PH (test code = 2) 7.35-7.45 PCO2 (test code = See_Comment L [Automate d [id number]) message] The sy stem which generated this result transmitted reference range : 35 - 45 mmHg. The reference range was not used to interpret this result as normal/abnormal . PO2 (test code = See_Comment H [Automated [id number]) message] The sy stem which generated this result transmitted reference range : 80 - 100 mmHg. The reference range was not used to interpret this result as normal/abnormal . HCO3 (test code = See_Comment L [Automate d 1475513688) message] The sy stem which generated this result transmitted reference range : 22 - 26 mEq/L. The reference range was not used to interpret this result as normal/abnormal . BE (test code = See_Comment L [Automated 5133153108) message] The sy stem which generated this result transmitted reference range : -3.0 - 3.0 mEq/ L. The reference r matteo was not used to interpret this result as normal/abnormal . THB (test code = 13.8 g/dL 12-16 7779393592) %O2HB (test code = 98.7 % 94-99 3632864008) %COHB ART (test code = 0.3 % 0-1.5 1021419200) %METHB ART (test code = 0.2 % 0.4-1.5 L 1792526485) VOL%O2 ART (test code = N/a 9296028509) NA (test code = 138 mmol/L 135-145 0353706695) K+ (test code = 3.6 mmol/L 3.5-5 2325863378) AC CA IONZ (test code = 4.00 mg/dL 4.5-5.3 L 6360208839) GLUCOSE (test code = 237 mg/dL 70-110 H 2676418418) LACTIC ACID (test code 5.68 mmol/L 0.5-2.2 H = 7668281485) Lab Interpretation Abnormal (test code = 34866-8) [facility]XR [facility] [id number] 10:58:35 1. ?Endotracheal tube tip 3.0 cm above the temi. 2. ?Esophagogastric tube courses below the diaphragm, the tip and sideholenot imaged on this exam. 3. ?Basilar predominant bilateral interstitial andalveolar opacities,possibly representing multifocal bilateral pneumonia and/or interstitialedema. RL: [id number]: [id number] End of report. ORDERI NG PROVIDER: NITA AMBROSE HISTORY: Nasogastric tube tube placement TECHNIQUE: AP view of the chestCOMPARISON: None FINDINGS: Endotracheal tube tip projects 3.0 cm above the temi. An esophagogastrictube courses below the diaphragm, tip and sidehole not imaged on this exam. Diffuse bilateral interstitial and alveolar opacities with basilarpredominance. No pleural effusion or pneumothorax. The cardiac silhouetteand pulmonary vasculature are within normal limits. Aortic archcalcifications. Degenerative osseous changes. [facility], Radiant Results Inft User - 04/08/2020 4:59 AM CSTORDERING PROVIDER: EDWARD AMBROSEHISTORY: Nasogastric tube tube placementTECHNIQUE: AP view of the chest COMPARISON: NoneFINDINGS: Endotracheal tube tip projects 3.0 cm above the temi. An esophagogastrictube courses below the diaphragm, tip and sidehole not imaged on this exam.Diffuse bilateral interstitial and alveolar opacities with basilarpredominance. No pleural effusion or pneumothorax. The cardiac silhouetteand pulmonary vasculature are within normal limits. Aortic archcalcifications. Degenerative osseous changes.IMPRESSION1. Endotracheal tube tip 3.0 cm above the temi.2. Esophagogastric tube courses below the diaphragm, the tip and sideholenot imaged on this exam.3. Basilar predominant bilateral interstitial and alveolar opacities,possibly representing multifocal bilateral pneumonia and/or interstitialedema.RL: [id number]: [id number] of report. UnVal[facility] HarlingenPOCT GLUCOSE (AUTOMATED)2020-04-08 10:49:00 Test Item Value Reference Range Interpretation Comments POCT GLU (test code = 4816911072) 161 mg/dL 70-110 H Lab Interpretation (test code = Abnormal 83236-8) [facility] CBC with [id number] 10:18:00 Test Item Value Reference Range Interpretation Comments WBC (test code = See_Comment H [Automated 2390-2) message] The system which generated this result transmit dayna reference range : 4.30 - 11.10 10*3/?L. The reference range was not used to interpret this result as normal/abnormal . RBC (test code = See_Comment [Automated 549-8) message] The system which generated this result transmit dayna reference range : 3.93 - 5.25 10*6/?L. The reference range was not used to interpret this result as normal/abnormal . HGB (test code = 13.1 g/dL 11.6-15 718-7) HCT (test code = 43.3 % 35.7-45.2 4544-3) MCV (test code = 83.9 fL 80.6-95.5 787-2) MCH (test code = 25.4 pg 25.9-32.8 L 785-6) MCHC (test code = 30.3 g/dL 31.6-35.1 L 786-4) RDW-SD (test code = 42.3 fL 39-49.9 59530-3) RDW-CV (test code = 13.8 % 12-15.5 788-0) PLT (test code = See_Comment H [Automated 777-3) message] The system which generated this result transmit dayna reference range : 166 - 358 10*3/ ?L. The reference range was not u sed to interpret th is result as normal/abnormal . MPV (test code = 12.1 fL 9.5-12.9 57036-0) NRBC/100 WBC (test See_Comment [Automat ed code = 2438700445) message] The system which generated this result transmit dayna reference range : 0.0 - 10.0 /100 WBCs. The reference range was not used to interpret this result as normal/abnormal . NRBC x10^3 (test code <0.01 See_Comment [Auto mated = 9655856079) message] The system which generated this result transmit dayna reference range : 10*3/?L. The reference range was not used to interpret this result as normal/abnormal . GRAN MAT (NEUT) % 92.6 % (test code = 770-8) IMM GRAN % (test code 0.80 % = 8445090604) LYMPH % (test code = 3.9 % 736-9) MONO % (test code = 2.5 % 5905-5) EOS % (test code = 0.0 % 713-8) BASO % (test code = 0.2 % 706-2) GRAN MAT x10^3(ANC) 16.08 10*3/uL 1.88-7.09 H (test code = 7674697422) IMM GRAN x10^3 (test 0.14 10*3/uL 0-0.06 H code = 8646709442) LYMPH x10^3 (test code 0.67 10*3/uL 1.32-3.29 L = 731-0) MONO x10^3 (test code 0.44 10*3/uL 0.33-0.92 = 742-7) EOS x10^3 (test code = <0.03 0.03-0.39 L 711-2) BASO x10^3 (test code 0.04 10*3/uL 0.01-0.07 = 704-7) Lab Interpretation Abnormal (test code = 07489-3) [facility] [id number] 10:15:00 Test Item Value Reference Range Interpretation Comments TROPONIN I (test 0.132 ng/mL See_Comment H [Automated code = 0569000220) message] The system which generated this result transmitted reference range : <=0.034. The reference range was not used to interpret this result as normal/abnormal . WALTER (test code = Equal or Less than WALTER) 0.034 ng/ml---Normal ?Note: Cardiac troponin begins to rise 3-4 hours after the onset of ischemia. Repeat in 4-6 hours if the sample was drawn within 3-4 hours of the onset of the symptom and found normal. Between 0.035 and 0.120 ng/mL--- Borderline. Questionable myocardial injury or necrosis ? ?Note: Serial measurement may be necessary to confirm or exclude the diagnosis of myocardial injury or necrosis; Clinical correlation (symptoms, EKGs, imaging studies, and others) required; Repeat in 4-6 hours if clinically indicated. ? Equal or Higher than 0.121 ng/mL---Abnormal. Myocardial Injury or Necrosis Likely ? Biotin has been reported to cause a negative bias, interpret results relative to patient's use of biotin. ? Lab Interpretation Abnormal (test code = 70691-0) [facility] HospitalN-[facility]MINAL [id number] 10:12:00 Test Item Value Reference Range Interpretation Comments NT-proBNP (test code 3310 pg/mL See_Comment H [Autom ated = 2751873592) message] The system which generated this result transmitted reference range : <=450. The reference range was not used to interpret this result as normal/abnormal . WALTER (test code = WALTER) Biotin has been reported to cause a negative bias, interpret results relative to patient's use of biotin. Lab Interpretation Abnormal (test code = 13678-8) [facility]AM Basic [facility] (NA, K, CL, CO2, GLUCOSE, BUN, CREATININE, CA)2020-04-08 10:03:00 Test Item Value Reference Range Interpretation Comments NA (test code = 141 mmol/L 135-145 2699211440) K (test code = 3.6 mmol/L 3.5-5 0589409825) CL (test code = 93 mmol/L 98-108 L 9936646717) CO2 TOTAL (test code = 26 mmol/L 23-31 2809972224) AGAP (test code = 2-16 H 1663645082) BUN (test code = 62 mg/dL 7-23 H 5106911832) GLUCOSE (test code = 220 mg/dL 70-110 H 4078734102) CREATININE (test code = 3.12 mg/dL 0.5-1.04 H 3674713171) CALCIUM (test code = 9.2 mg/dL 8.6-10.6 1849782565) eGFR Calculation mL/min/1.73m2 (Non-) (test code = 9324248634) eGFR Calculation mL/min/1.73m2 () (test code = 0837363139) WALTER (test code = WALTER) Association of Glomerular Filtration Rate (GFR) and Staging of Kidney Disease* + --+ --+ ------+| GFR (mL/min/1.73 m2) ?| With Kidney Damage ?| ?Without Kidney Damage+ --------+ --------+ +| ?>90 ?| ?Stage one ?| ? Normal ?+ ---+ ---+ -------+| ?60-89 ?| ?Stage two ?| ? Decreased GFR ? + --+ --+ ------+| ?30-59 ?| ?Stage three ?| ? Stage three ? + --+ --+ ------+| ?15-29 ?| ?Stage four ? | ? Stage four ?+ ---+ ---+ -------+| ?<15 (or dialysis) ? ?| ?Stage five ? | ? Stage five ?+ ---+ ---+ -------+ *Each stage assumes the associated GFR level has been in effect for at least three months. ?Stages 1 to 5, with or without kidney disease, indicate chronic kidney disease. Notes: Determination of stages one and two (with eGFR >59mL/min/1.73 m2) requires estimation of kidney damage for at least three months as defined by structural or functional abnormalities of the kidney, manifested by either:Pathological abnormalities or Markers of kidney damage (including abnormalities in the composition of the blood or urine or abnormalities in imaging tests). Lab Interpretation Abnormal (test code = 18700-1) [facility]CARLEE [id number] 05:12:00 Test Item Value Reference Range Interpretation Comments TROPONIN I (test 0.042 ng/mL See_Comment H [Automated code = 3095429615) message] The system which generated this result transmitted reference range : <=0.034. The reference range was not used to interpret this result as normal/abnormal . WALTER (test code = Equal or Less than WALTER) 0.034 ng/ml---Normal ?Note: Cardiac troponin begins to rise 3-4 hours after the onset of ischemia. Repeat in 4-6 hours if the sample was drawn within 3-4 hours of the onset of the symptom and found normal. Between 0.035 and 0.120 ng/mL--- Borderline. Questionable myocardial injury or necrosis ? ?Note: Serial measurement may be necessary to confirm or exclude the diagnosis of myocardial injury or necrosis; Clinical correlation (symptoms, EKGs, imaging studies, and others) required; Repeat in 4-6 hours if clinically indicated. ? Equal or Higher than 0.121 ng/mL---Abnormal. Myocardial Injury or Necrosis Likely ? Biotin has been reported to cause a negative bias, interpret results relative to patient's use of biotin. ? Lab Interpretation Abnormal (test code = 09195-9) [facility] WITHOUT [id number] 04:46:00 Test Item Value Reference Range Interpretation Comments WBC (test code = 6690-2) See_Comment [A utomated message] The system [employer] generated this result transmit dayna reference range : 4.30 - 11.10 10*3/?L. The reference range was not used to interpret this result as normal/abnormal . RBC (test code = 789-8) See_Comment [Au tomated message] The system [employer] generated this result transmit dayna reference range : 3.93 - 5.25 10* 6/?L. The reference r matteo was not used to interpret this result as normal/abnormal . HGB (test code = 718-7) 13.0 g/dL 11.6-15 HCT (test code = 4544-3) 41.4 % 35.7-45.2 MCH (test code = 785-6) 26.1 pg 25.9-32.8 MCV (test code = 787-2) 83.1 fL 80.6-95.5 MCHC (test code = 786-4) 31.4 g/dL 31.6-35.1 L PLT (test code = 777-3) See_Comment H [Au tomated message] The system [employer] generated this result transmit dayna reference range : 166 - 358 10*3/?L. The reference range was not used to interpret this result as normal/abnormal . MPV (test code = 11.7 fL 9.5-12.9 78841-2) RDW-CV (test code = 13.8 % 12-15.5 788-0) RDW-SD (test code = 42.1 fL 39-49.9 69450-9) NRBC x10^3 (test code = <0.01 See_Comment [Au tomated message] 1079667909) The system [employer] generated this result transmit dayna reference range : 10*3/?L. The reference range was not used to interpret this result as normal/abnormal . NRBC/100 WBC (test code See_Comment [Au tomated message] = 6618448706) The system [employer] generated this result transmit dayna reference range : 0.0 - 10.0 /100 WBC s. The reference r matteo was not used to interpret this result as normal/abnormal . IPF % (test code = 0853403097) Lab Interpretation (test Abnormal code = 21936-9) [facility]CT [facility] WO [id number] 19:31:00 1. ?Fluid-filled large bowel is consistent with the patient's history ofdiarrhea. However, lack of IV contrast limits evaluation of colonic wall.2. ?Multifocal groundglass opacities are consistent with the patient'sknown history of Covid 19 infection.3. ?Sigmoid diverticulitis without CT evidence of d iverticulitis.4. ?Multiple unchanged additional findings as above. Preliminary Report Dictated by Resident: Carlos Castillo MD., have reviewed this study and agree with the abovereport.EXAM: CT ABDOMEN PELVIS WO CONTRAST HISTORY: 79 years-old female Diarrhea, Covid +. COMPARISON: 08/02/2018 TECHNIQUE AND FINDINGS: Contiguous axial imaging from the level of the lungbases through the pubicsymphysis was performed. Coronal and sagittalreconstructions were obtained. ?Auto mA and/or iterative reconstructionwere used to reduce radiation dose. FINDINGS: Limited evaluation of solid organ without administration intravenouscontrast. LOWER THORAX:. Multifocal ground glass opacities are noted. Mitral annuluscalcification is noted. Moderate coronary artery calcification is noted. LIVER: No focal hepatic lesions. ?Normal contour. GALLBLADDER AND BILIARY TREE: No intra or extrahepatic biliary dilatation.No gallbladder wall thickening. Prior cholecystectomy. SPLEEN: No splenomegaly PANCREAS: Diffuse fatty infiltration of the pancreas is noted. ADRENAL GLANDS: No adrenal nodules. KIDNEYS: No hydronephrosis or masses. A 4 mm nonobstructing right inferiorpole stone is identified. There is an extra renal pelvis on the right.Interdigitation of perinephric fat into the upper pole the right kidney(2:49) series could be related to parenchymal scarring or a junctionalparenchymal defect. GI TRACT: No dilation or abnormal wall thickening within the limitation ofthe study.. The appendix is not clearly visualized, however no inflammatorystranding is noted about the cecum to suggest appendicitis. Sigmoiddiverticulosis without CT evidence of diverticulitis. The ascending anddescending colon contain fluid a ttenuating intraluminal material. PERITONEUM AND RETROPERITONEUM: No free air or fluid. LYMPH NODES:No lymphadenopathy. PELVIS/BLADDER: The urinary bladder is decompressed. The uterus andbilateral ovaries are not identified. VESSELS: Moderate severe atherosclerotic calcification affects theaortoiliacand its primary branches. Bilateral common iliac arteries areectatic. BONES AND SOFT TISSUES: No suspicious lytic or sclerotic bony lesions.Changes of ventral hernia repair are noted. Diffuse bone demineralizationis noted. Sarcopenia is noted. Redemonstration of compression deformitiesinvolving T9, T11 and T12 vertebral bodies. [facility], Radiant Results Inft User - 04/07/2020 1:32 PM CSTEXAM: CT ABDOMEN PELVIS WO CONTRASTHISTORY: 79 years-old female Diarrhea, Covid +.COMPARISON: 08/02/2018TECHNIQUE AND FINDINGS: Contiguous axial imaging from the level of the lungbases through the pubic symphysis was performed. Coronal and sagittalreconstructions were obtained. Auto mA and/or iterative reconstructionwere used to reduce radiation dose.FINDINGS:Limited evaluation of solid organ without administration intravenouscontrast.LOWER THORAX:. Multifocal ground glass opacities are noted. Mitral annuluscalcification is noted. Moderate coronary artery calcification is noted.LIVER: No focal hepatic lesions. Normal contour. GALLBLADDER AND BILIARY TREE: No intra or extrahepatic biliary dilatation.No gallbladder wall thickening. Prior cholecystectomy.SPLEEN: No splenomegaly PANCREAS: Diffuse fatty infiltration of the pancreas is noted.ADRENAL GLANDS: No adrenal nodules.KIDNEYS: No hydronephrosis or masses. A 4 mmnonobstructing right inferiorpole stone is identified. There is an extra renal pelvis on the right.Interdigitation of perinephric fat into the upper pole the right kidney(2:49) series could be related to parenchymal scarring or a junctionalparenchymal defect.GI TRACT: No dilation or abnormal wall thickening within the limitation ofthe study.. The appendix is not clearly visualized, however no inflammatorystranding is noted about the cecum to suggest appendicitis. Sigmoiddiverticulosis without CT evidence of diverticulitis. The ascending anddescending colon contain fluid attenuating intraluminal mate rial.PERITONEUM AND RETROPERITONEUM: No free air or fluid.LYMPH NODES: No lymphadenopathy.PELVIS/BLADDER: The urinary bladder is decompressed. The uterus andbilateral ovaries are not identified.VESSELS: Moderate severe atherosclerotic calcification affects theaortoiliac and its primary branches. Bilateral common iliac arteries areectatic.BONES AND SOFT TISSUES: No suspicious lytic or sclerotic bony lesions.Changes of ventral hernia repair are noted. Diffuse bone demineralizationis noted. Sarcopenia is noted. Redemonstration of compression deformitiesinvolving T9, T11 and T12 vertebral bodies.IMPRESSION1. Fluid-filled large bowel is consistent with the patient's history ofdiarrhea. However, lack ofIV contrast limits evaluation of colonic wall.2. Multifocal groundglass opacities are consistent with the patient'sknown history of Covid 19 infection.3. Sigmoid diverticulitis without CT evidence of diverticulitis.4. Multiple unchanged additional findings as above.Preliminary Report Dictated by Resident: Carlos Gonzalez MD., have reviewed this study and agree with the abovereport.[facility]XR [facility]ST 1 [id number] 19:04:491. Mild to moderate interstitial and minimal, patchy alveolar opacities areseen in both lungs. Findings are compatible with multifocaledema/infiltrates. Differential considerations would include atypicalinfections such as COVID-19 related pneumonitis.2. No pneumothorax is seen. RL: [id number] Electronicallysigned by José Miguel Cr MD at 04/07/2020 1:04 PMSTUDY: SINGLE FRONTAL VIEW OF THE CHEST ORDERING PHYSICIAN: NAKUL FAYE DATE: ?04/07/2020 10:45 AM REASON FOR EXAM: ?pneumonia TECHNIQUE: ?Frontal view ofthe chest COMPARISON: None available FINDINGS: The cardiomediastinal silhouette is normal. Mild to moderate interstitial and minimal, patchy alveolar opacities areseen in both lungs. No pneumothorax oreffusion is seen. Post ACDF changes are seen in the lower cervical spine. Mild degenerativechanges are seen in the right acromioclavicular joint. The remainingosseous and soft tissue structures are unremarkable. [facility], Radiant Results Inft User - 04/07/2020 1:05 PM CSTSTUDY: SINGLE FRONTAL VIEW OF THE CHESTORDERING PHYSICIAN: NAKUL FAYEDATE: 04/07/2020 10:45 AMREASON FOR EXAM: pneumonia TECHNIQUE: Frontal view of the chestCOMPARISON: None availableFINDINGS: The cardiomediastinal silhouette is normal. Mild to moderate interstitial and minimal, patchy alveolar opacities areseen in both lungs. No pneumothorax or effusion is seen.Post ACDF changes are seen in the lower cervical spine. Mild degenerativechanges are seen in the right acromioclavicular joint. The remainingosseous and soft tissue structures are unremarkable.IMPRESSION1. Mild to moderate interstitial and minimal, patchy alveolar opacities areseen in both lungs. Findings are compatible with multifocaledema/infiltrates. Differential considerations would include atypicalinfections such as COVID-19 related pneumonitis.2. No pneumothorax is seen.RL: 6507 [facility] with [id number] 17:37:00 Test Item Value Reference Range Interpretation Comments WBC (test code = See_Comment [Automated 6690-2) message] The sy stem which generated this result transmitted reference range : 4.30 - 11.10 10*3/?L. The reference range was not used to interpret this result as normal/abnormal . RBC (test code = See_Comment Previous 789-8) preliminary verified result was 4.93 10*6/?L on 04/07/2020 at 110 4 [employer] [Automated message] The sy stem which generated this result transmitted reference range : 3.93 - 5.25 10*6/?L. The reference range was not used to interpret this result as normal/abnormal . HGB (test code = 12.9 g/dL 11.6-15 Previous 718-7) preliminary verified result was 12.7 g/dL on 04/07/2020 at 110 4 [employer] HCT (test code = 41.3 % 35.7-45.2 Previous 4544-3) preliminary verified result was 41.8 % on 021 at 1104 [employer] MCV (test code = 83.6 fL 80.6-95.5 Previous 787-2) preliminary verified result was 84.8 fL on 2020 at 1104 [employer] MCH (test code = 26.1 pg 25.9-32.8 Previous 785-6) preliminary verified result was 25.8 pg on 2020 at 1104 [employer] MCHC (test code = 31.2 g/dL 31.6-35.1 L Previous 786-4) preliminary verified result was 30.4 g/dL on 04/07/2020 at 110 4 [employer] RDW-SD (test code = 42.5 fL 39-49.9 Previous 22970-4) preliminary verified result was 43.1 fL on 2020 at 1104 [employer] RDW-CV (test code = 13.9 % 12-15.5 Previous 788-0) preliminary verified result was 14.0 % on 021 at 1104 [employer] PLT (test code = See_Comment Previous 777-3) preliminary verified result was 299 10*3/?L on 04/07/2020 at 110 4 [employer] [Automated message] The sy stem which generated this result transmitted reference range : 166 - 358 10*3/ ?L. The reference r matteo was not used to interpret this result as normal/abnormal . MPV (test code = 11.9 fL 9.5-12.9 Previous 53505-6) preliminary verified result was 11.5 fL on 2020 at 1104 [employer] NRBC/100 WBC (test See_Comment [Automat ed code = 2474363672) message] The system which generated this result transmitted reference range : 0.0 - 10.0 /100 WBCs. The refer ence range was not u sed to interpret th is result as normal/abnormal . NRBC x10^3 (test code <0.01 See_Comment [Auto mated = 3724344627) message] The s ystem which generated this result transmitted reference range : 10*3/?L. The reference range was not used to interpret this result as normal/abnormal . GRAN MAT (NEUT) % 85.3 % (test code = 770-8) IMM GRAN % (test code 0.40 % = 9330527558) LYMPH % (test code = 8.6 % 736-9) MONO % (test code = 5.4 % 5905-5) EOS % (test code = 0.0 % 713-8) BASO % (test code = 0.3 % 706-2) GRAN MAT x10^3(ANC) 6.15 10*3/uL 1.88-7.09 (test code = 2211434667) IMM GRAN x10^3 (test 0.03 10*3/uL 0-0.06 code = 6333566304) LYMPH x10^3 (test code 0.62 10*3/uL 1.32-3.29 L = 731-0) MONO x10^3 (test code 0.39 10*3/uL 0.33-0.92 = 742-7) EOS x10^3 (test code = <0.03 0.03-0.39 L 711-2) BASO x10^3 (test code <0.03 0.01-0.07 = 704-7) Lab Interpretation Abnormal (test code = 43607-3) [facility] [id number] 17:34:00 Test Item Value Reference Range Interpretation Comments TROPONIN I (test 0.024 ng/mL See_Comment [Automated code = 9725878217) message] The system which generated this result transmitted reference range : <=0.034. The reference range was not used to interpret this result as normal/abnormal . WALTER (test code = Equal or Less than WALTER) 0.034 ng/ml---Normal ?Note: Cardiac troponin begins to rise 3-4 hours after the onset of ischemia. Repeat in 4-6 hours if the sample was drawn within 3-4 hours of the onset of the symptom and found normal. Between 0.035 and 0.120 ng/mL--- Borderline. Questionable myocardial injury or necrosis ? ?Note: Serial measurement may be necessary to confirm or exclude the diagnosis of myocardial injury or necrosis; Clinical correlation (symptoms, EKGs, imaging studies, and others) required; Repeat in 4-6 hours if clinically indicated. ? Equal or Higher than 0.121 ng/mL---Abnormal. Myocardial Injury or Necrosis Likely ? Biotin has been reported to cause a negative bias, interpret results relative to patient's use of biotin. ? Lab Interpretation Normal (test code = 17474-4) [id number] 17:31:00 Test Item Value Reference Range Interpretation Comments NT-proBNP (test code 1150 pg/mL See_Comment H [Autom ated = 6822160897) message] The system which generated this result transmitted reference range : <=450. The reference range was not used to interpret this result as normal/abnormal . WALTER (test code = WALTER) Biotin has been reported to cause a negative bias, interpret results relative to patient's use of biotin. Lab Interpretation Abnormal (test code = 94389-1) [facility]:29[facility]00 Test Item Value Reference Range Interpretation Comments APPEARANCE (test code = Cloudy Clear A 0680759300) COLOR (test code = Bijal Yellow A 7966218367) PH (test code = 4.8-8.0 5739324551) SP GRAVITY (test code = 1.003-1.030 1638595383) GLU U QUAL (test code = Normal Normal 8163772973) BLOOD (test code = Negative Negative 8715972176) KETONES (test code = Negative Negative 5845863490) PROTEIN (test code = 100 mg/dL Negative A 2887-8) UROBILIN (test code = Normal Normal 5988465164) BILIRUBIN (test code = Negative Negative 1316173048) NITRITE (test code = Negative Negative 1080976817) [place] (test code = Negative Negative 7527496565) RBC/HPF (test code = See_Comment [Autom ated message] 3756619242) The system [employer] generated this result transmit dayna reference range : 0 - 3 HPF. The refe rence range was not u sed to interpret th is result as normal/abnormal . WBC/HPF (test code = See_Comment [Autom ated message] 5916263703) The system [employer] generated this result transmit dayna reference range : 0 - 5 HPF. The refe rence range was not u sed to interpret th is result as normal/abnormal . BACTERIA (test code = Many Negative A 3004764483) MUCOUS (test code = Moderate Negative LPF A 0425766350) SQ EPITH (test code = HPF 8434303291) YEAST BUD (test code = See_Comment [Aut omated message] 9995139990) The system [employer] generated this result transmit dayna reference range : <=1 HPF. The refere nce range was not u sed to interpret th is result as normal/abnormal . HYAL CAST (test code = See_Comment H [Aut omated message] 2393793503) The system [employer] generated this result transmit dayna reference range : <=2 LPF. The refere nce range was not u sed to interpret th is result as normal/abnormal . GRAN CASTS (test code = See_Comment H [Au tomated message] 9874536288) The system [employer] generated this result transmit dayna reference range : <=1 LPF. The refere nce range was not u sed to interpret th is result as normal/abnormal . Lab Interpretation (test Abnormal code = 03764-8) [facility] 17:27:00 Test Item Value Reference Range Interpretation Comments APTT Patient (test See_Comment [Automat ed code = 3173-2) message] The system which generated this result transmitted reference range : 23 - 38 Seconds . The reference range was not used to interpr et this result as normal/abnormal . WALTER (test code = WALTER) The [facility] patient population mean normal value for aPTT is 30 seconds. Lab Interpretation Normal (test code = 62512-9) [facility] / [id number] 17:25:00 Test Item Value Reference Range Interpretation Comments PROTIME PATIENT (test See_Comment [Auto mated message] code = 5964-2) The system [employer] generated this result transmitted ref erence range: 12.0 - 1 4.7 Seconds. The re ference range was not u sed to interpret this result as normal/abnor mal. INR (test code = 6301-6) Nor mal INR <1.1; Warfarin Therap eutic range 2.0 to 3. 0 or 2.5 to 3.5, dep ending upon the indica tions. Lab Interpretation (test Normal code = 85459-1) [facility] Metabolic Panel (NA, K, CL, CO2, GLUCOSE, BUN, CREATININE, CA)2020-04-07 17:22:00 Test Item Value Reference Range Interpretation Comments NA (test code = 135 mmol/L 135-145 7488002145) K (test code = 3.8 mmol/L 3.5-5 7833658228) CL (test code = 99 mmol/L 98-108 0694938953) CO2 TOTAL (test code = 21 mmol/L 23-31 L 6349589176) AGAP (test code = 2-16 8229247208) BUN (test code = 37 mg/dL 7-23 H 9188630940) GLUCOSE (test code = 147 mg/dL 70-110 H 3849405578) CREATININE (test code = 1.61 mg/dL 0.5-1.04 H 0525055382) CALCIUM (test code = 9.5 mg/dL 8.6-10.6 2417947553) eGFR Calculation mL/min/1.73m2 (Non-) (test code = 6812773707) eGFR Calculation mL/min/1.73m2 () (test code = 4144122930) WALTER (test code = WALTER) Association of Glomerular Filtration Rate (GFR) and Staging of Kidney Disease* + --+ --+ ------+| GFR (mL/min/1.73 m2) ?| With Kidney Damage ?| ?Without Kidney Damage+ --------+ --------+ +| ?>90 ?| ?Stage one ?| ? Normal ?+ ---+ ---+ -------+| ?60-89 ?| ?Stage two ?| ? Decreased GFR ? + --+ --+ ------+| ?30-59 ?| ?Stage three ?| ? Stage three ? + --+ --+ ------+| ?15-29 ?| ?Stage four ? | ? Stage four ?+ ---+ ---+ -------+| ?<15 (or dialysis) ? ?| ?Stage five ? | ? Stage five ?+ ---+ ---+ -------+ *Each stage assumes the associated GFR level has been in effect for at least three months. ?Stages 1 to 5, with or without kidney disease, indicate chronic kidney disease. Notes: Determination of stages one and two (with eGFR >59mL/min/1.73 m2) requires estimation of kidney damage for at least three months as defined by structural or functional abnormalities of the kidney, manifested by either:Pathological abnormalities or Markers of kidney damage (including abnormalities in the composition of the blood or urine or abnormalities in imaging tests). Lab Interpretation Abnormal (test code = 57242-5) [facility] (ALB, T.PRO, BILI T, BU/BC, ALT, AST, ALK PHOS)2020-04-07 17:22:00 Test Item Value Reference Range Interpretation Comments TOTAL BILI (test code = 1359978562) 0.8 mg/dL 0.1-1.1 BILI UNCON (test code = 1526141479) 0.6 mg/dL 0.1-1.1 BILI CONJ (test code = 0164034963) 0.0 mg/dL 0-0.3 T PROTEIN (test code = 4084655275) 8.7 g/dL 6.3-8.2 H ALBUMIN (test code = 0903897350) 4.8 g/dL 3.5-5 ALK PHOS (test code = 3261930661) 98 U/L 34-122 ALTv (test code = 1742-6) 21 U/L 5-35 AST(SGOT) (test code = 4390784824) 58 U/L 13-40 H Lab Interpretation (test code = Abnormal 50776-5) [facility] HospitalLipase [id number] 17:22:00 Test Item Value Reference Range Interpretation Comments LIPASE (test code = 7163523215) 18 U/L 0-220 Lab Interpretation (test code = Normal 98056-3) [facility]CREATINE [id number] 17:22:00 Test Item Value Reference Range Interpretation Comments CK (test code = 0488592075) 773 U/L 33-194 H Lab Interpretation (test code = Abnormal 41684-7) [facility]COVID[facility] (ID NOW RAPID TESTING)2020-04-07 17:19:00 Test Item Value Reference Range Interpretation Comments SARS-CoV-2 Rapid ID NOW Positive Not Detected A (test code = 34419-3) WALTER (test code = WALTER) ID NOW COVID-19 Assay is an isothermal nucleic acid amplification test intended for the qualitative detection of nucleic acid from SARS-CoV-2 viral RNA in nasopharyngeal (RATING CLERK) specimens. It is used under Emergency Use Authorization (EUA) by FDA. The limit of detection (LOD) of the assay is 125 Genome Equivalents/mL. A positive result is indicative of the presence of SARS-CoV-2 RNA. ?Clinical correlation with patient history and other diagnostic information is necessary to determine patient infection status. A negative (Not Detected) result does not preclude SARS-CoV-2 infection. In patients with clinical symptoms and other tests that are consistent with SARS-CoV-2 infection, negative results should be treated as presumptive negative and a new specimen should be tested with alternative PCR molecular test. Invalid: Please collect a new specimen for repeat patient testing if clinically indicated. Lab Interpretation Abnormal (test code = 67154-1) [facility] HospitalLactic Acid Whole [id number] 16:50:00 Test Item Value Reference Range Interpretation Comments LACTIC ACID (test code = 1.86 mmol/L 8749489658) [facility] HospitalSARS[facility]CoV-[facility] (COVID-19) RNA [Presence] in Respiratory specimen by CARLOS with probe [id number] 21:33:38 Test Item Value Reference Range Interpretation Comments SARS-CoV-2 (COVID-19) RNA Not detected Not-Detected [Presence] in Respiratory specimen by CARLOS with probe detection (test code = 26365-0) [facility] ABRAHAM
[2022-03-15] MEDS ORDERED: FENTANYL CITR 100 MCG/2 ML ONE (11:46)
[2022-03-15 11:56] LABS: Absolute Lymphocytes (CBC) 1.1 K/uL (0.7-4.9); Hematocrit 34.4 % (36.0-45.0); Lymphocytes % 9.4 % (15.3-44.8); MCV 77.3 fL (80-100); RBC Red Blood Cell Count 4.45 M/uL (3.86-4.86)
[2022-03-15 12:34] LABS: Albumin 3.5 g/dL (3.4-5.0); Bilirubin Total 0.4 mg/dL (0.2-1.0); Potassium 4.3 mmol/L (3.5-5.1); Protein, Total 7.6 g/dL (6.4-8.2); Troponin High Sensitivity 13.6 pg/mL (<58.9)
[2022-03-15 12:36] LABS: Magnesium 0.9 mg/dL (1.6-2.4)
--- NOTE | 2022-03-15 13:04 | RAD REPORT ---
EXAM DESCRIPTION: RAD - Chest Single View - 03/15/2022 12:55 pm CLINICAL HISTORY: CHEST PAIN COMPARISON: 09/06/2020 FINDINGS: Lines: None. Lungs: Linear scarring in left mid lung. Pleural: No significant pleural effusions or pneumothorax. Cardiac: Similar size and configuration. Mediastinum: Within normal limits. Bones: No acute fractures. Other: None IMPRESSION: No acute cardiopulmonary disease.
--- NOTE | 2022-03-15 13:47 | EDPHYS ---
Physician Documentation [facility] Name: Renetta Roger Age: 81 yrs Sex: Female : 1940 Arrival Date: 03/15/2022 Time: 11:04 Bed 6 Private MD: ED Physician Billy Galaviz HPI: 03/15 11:56 This 81 yrs old Female presents to ER via Unassigned with complaints of syncope. rt 11:56 The patient has experienced syncope, became unresponsive. Onset: The symptoms/episode rt began/occurred acutely, just prior to arrival. Duration: This was a single episode. Associated injury: The patient did not suffer any apparent associated injury. Presents to the ED with an acute onset of syncope while sitting down. The patient reports a preceding lightheadedness. She was reportedly unconscious for less than 30 seconds. The daughter denies any significant injury. The patient later developed a mild chest pain, denies acute complaints at this time. Symptoms are moderate in severity, no other aggravating or alleviating factors.. Historical: - Allergies: 12:09 Codeine; jl7 12:09 Demerol; jl7 12:09 PENICILLINS; jl7 12:09 Oxycodone; jl7 - Home Meds: 12:09 amlodipine 5 mg tab 1 tab once daily [Active]; pantoprazole 40 mg Oral TbEC 1 tab 2 jl7 times per day [Active]; sucralfate 1 gram Oral tab 1 tab 4 times per day [Active]; Potassium Chloride Oral [Active]; - PMHx: 12:09 gastric ulcer; Hypertension; jl7 - Immunization history:: Client reports receiving the 2nd dose of the Covid vaccine, Pneumococcal vaccine is up to date, Flu vaccine is up to date. - Social history:: Smoking status: Patient denies any tobacco usage or history of. - Family history:: not pertinent. ROS: 11:57 Constitutional: Negative for fever, chills, and weight loss, Eyes: Negative for injury, rt pain, redness, and discharge, ENT: Negative for injury, pain, and discharge, Neck: Negative for injury, pain, and swelling, Respiratory: Negative for shortness of breath, cough, wheezing, and pleuritic chest pain, Back: Negative for injury and pain, MS/Extremity: Negative for injury and deformity, Skin: Negative for injury, rash, and discoloration, Psych: Negative for depression, anxiety, suicide ideation, homicidal ideation, and hallucinations. 11:57 Cardiovascular: Positive for chest pain, Negative for edema. 11:57 Neuro: Positive for syncope, Negative for altered mental status. Exam: 11:54 ECG was reviewed by the Attending Physician. rt 11:57 Constitutional: This is a well developed, well nourished patient who is awake, alert, rt and in no acute distress. Head/Face: Normocephalic, atraumatic. Eyes: Pupils equal round and reactive to light, extra-ocular motions intact. Lids and lashes normal. Conjunctiva and sclera are non-icteric and not injected. Cornea within normal limits. Periorbital areas with no swelling, redness, or edema. ENT: Nares patent. No nasal discharge, no septal abnormalities noted. Tympanic membranes are normal and external auditory canals are clear. Oropharynx with no redness, swelling, or masses, exudates, or evidence of obstruction, uvula midline. Mucous membranes moist. Neck: Trachea midline, no thyromegaly or masses palpated, and no cervical lymphadenopathy. Supple, full range of motion without nuchal rigidity, or vertebral point tenderness. No Meningismus. Chest/axilla: Normal chest wall appearance and motion. Nontender with no deformity. No lesions are appreciated. Cardiovascular: Regular rate and rhythm with a normal S1 and S2. No gallops, murmurs, or rubs. Normal PMI, no JVD. No pulse deficits. Respiratory: Lungs have equal breath sounds bilaterally, clear to auscultation and percussion. No rales, rhonchi or wheezes noted. No increased work of breathing, no retractions or nasal flaring. Abdomen/GI: Soft, non-tender, with normal bowel sounds. No distension or tympany. No guarding or rebound. No evidence of tenderness throughout. Skin: Warm, dry with normal turgor. Normal color with no rashes, no lesions, and no evidence of cellulitis. MS/ Extremity: Pulses equal, no cyanosis. Neurovascular intact. Full, normal range of motion. Neuro: Awake and alert, GCS 15, oriented to person, place, time, and situation. Cranial nerves II-XII grossly intact. Motor strength 5/5 in all extremities. Sensory grossly intact. Cerebellar exam normal. Normal gait. Psych: Awake, alert, with orientation to person, place and time. Behavior, mood, and affect are within normal limits. Vital Signs: 11:10 BP 134 / 51; Pulse 51; Resp 16; Temp 97.5; Pulse Ox 97% ; Weight 86.18 kg; Height 5 ft. jl7 5 in. (165.10 cm); Pain 7/10; 12:11 BP 135 / 65; Pulse 56; Resp 15; Pulse Ox 99% ; jl7 12:30 BP 117 / 52; Pulse 52; Resp 18; Pulse Ox 99% ; kb3 14:00 BP 138 / 70; Pulse 55; Resp 18; Pulse Ox 100% ; kb3 15:00 BP 137 / 66; Pulse 56; Resp 20; Pulse Ox 95% ; kb3 11:10 Body Mass Index 31.62 (86.18 kg, 165.10 cm) jl7 MDM: 11:05 Patient medically screened. rt 13:46 Differential Diagnosis: cardiac arrhythmia, GI bleed, idiopathic syncope, transient rt ischemic attack, vasovagal episode. Data reviewed: vital signs, nurses notes, lab test result(s), EKG, radiologic studies. 03/15 11:18 Order name: CBC with Diff; Complete Time: 13:05 rt 03/15 11:18 Order name: CMP; Complete Time: 13:05 rt 03/15 11:18 Order name: Troponin High Sensitivity; Complete Time: 13:05 rt 03/15 11:18 Order name: Magnesium; Complete Time: 13:05 rt 03/15 11:18 Order name: BNP; Complete Time: 13:05 rt 03/15 11:18 Order name: UA MICROSCOPIC rt 03/15 13:59 Order name: CBC with Automated Diff EDMS 03/15 13:59 Order name: CBC with Automated Diff EDMS 03/15 13:59 Order name: Comprehensive Metabolic Panel EDMS 03/15 13:59 Order name: Comprehensive Metabolic Panel EDMS 03/15 14:01 Order name: Ferritin EDMS 03/15 14:01 Order name: Thyroid Stimulating Hormone EDMS 03/15 14:01 Order name: Transferrin Sat/Iron Binding EDMS 03/15 14:06 Order name: SARS RAPID eb 03/15 11:18 Order name: EKG; Complete Time: 11:18 rt 03/15 11:18 Order name: EKG - Nurse/Tech; Complete Time: 11:45 rt 03/15 11:18 Order name: Chest Single View XRAY; Complete Time: 13:05 rt 03/15 13:59 Order name: Regular EDMS EC:54 Rate is 52 beats/min. Rhythm is regular, Sinus bradycardia with Left bundle branch rt block, Right bundle branch block. Left axis deviation noted. OR interval is normal. No Q waves. Interpreted by me. Administered Medications: 14:00 Drug: Magnesium Sulfate 2 grams Route: IVPB; Infused Over: 2 hrs; Site: right kb3 antecubital; 15:00 Follow up: Response: No adverse reaction; IV Status: Completed infusion; IV Intake: [id number] Disposition Summary: 03/15/22 13:46 Hospitalization Ordered Hospitalization Status: Observation rt Provider: Wood Wang rt Location: Telemetry/MedSurg (observation) rt Condition: Stable rt Problem: new rt Symptoms: have improved rt Bed/Room Type: Standard rt Room Assignment: 426(03/15/22 15:31) eb Diagnosis - Syncope rt - Hypomagnesemia rt Forms: - Medication Reconciliation Form rt - SBAR form rt Signatures: Dispatcher [employer] EDMS Britta Powers RN RN jl7 Perez Michelle RN RN ja1 Paradise Goodwin Kelly RN RN kb3 Billy Galaviz MD MD rt Corrections: (The following items were deleted from the chart) 15:12 13:46 rt eb 15:16 15:12 230 eb [facility] 15:31 15:16 ja1 eb
--- NOTE | 2022-03-15 13:47 | ER ---
Nurse's Notes [facility] Name: Renetta Roger Age: 81 yrs Sex: Female : 1940 Arrival Date: 03/15/2022 Time: 11:04 Bed 6 Private MD: Diagnosis: Syncope;Hypomagnesemia Presentation: 03/15 11:10 Chief complaint: EMS states: Toned out for syncopal episode. Pt seated in chair and jl7 then fell onto soft ground; c/o pain to right shoulder and midsternal CP on palpation. 11:10 Coronavirus screen: At this time, the client does not indicate any symptoms associated jl7 with coronavirus-19. Ebola Screen: No symptoms or risks identified at this time. Initial Sepsis Screen: Does the patient meet any 2 criteria? No. Patient's initial sepsis screen is negative. Does the patient have a suspected source of infection? No. Patient's initial sepsis screen is negative. Risk Assessment: Do you want to hurt yourself or someone else? Patient reports no desire to harm self or others. Onset of symptoms was March 15, 2022. Care prior to arrival: Medication(s) given: zofran 4 mg, IV initiated. 20 GA, in the left antecubital area, IV Catheter noted to be curled up in pt's AC, IV removed, intact, bleeding controlled, swelling and bruising noted Glucose check: 181. 11:10 Method Of Arrival: EMS: [facility] 11:10 Acuity: CONOR 2 jl7 Triage Assessment: 11:10 General: Appears in no apparent distress. uncomfortable, Behavior is cooperative, jl7 appropriate for age, drowsy, restless. Pain: Complains of pain in right scapular area and anterior aspect of right upper chest Pain currently is 7 out of 10 on a pain scale. Quality of pain is described as "Like a knot". Neuro: Gonzales Agitation-Sedation Scale (RASS): +1 Restless Level of Consciousness is awake, alert, obeys commands, Oriented to person, place, time, situation. Cardiovascular: Patient's skin is warm and dry. Rhythm is sinus bradycardia. Respiratory: Airway is patent Respiratory effort is even, unlabored, Respiratory pattern is regular, symmetrical, Denies shortness of breath. GI: Reports nausea. Derm: Skin is pink, warm \\T\\ dry. Historical: - Allergies: 12:09 Codeine; jl7 12:09 Demerol; jl7 12:09 PENICILLINS; jl7 12:09 Oxycodone; jl7 - Home Meds: 12:09 amlodipine 5 mg tab 1 tab once daily [Active]; pantoprazole 40 mg Oral TbEC 1 tab 2 jl7 times per day [Active]; sucralfate 1 gram Oral tab 1 tab 4 times per day [Active]; Potassium Chloride Oral [Active]; - PMHx: 12:09 gastric ulcer; Hypertension; jl7 - Immunization history:: Client reports receiving the 2nd dose of the Covid vaccine, Pneumococcal vaccine is up to date, Flu vaccine is up to date. - Social history:: Smoking status: Patient denies any tobacco usage or history of. - Family history:: not pertinent. Screenin:10 Abuse screen: Denies threats or abuse. Denies injuries from another. Nutritional jl7 screening: No deficits noted. Tuberculosis screening: No symptoms or risk factors identified. Fall Risk Fall in past 12 months (25 points). No secondary diagnosis (0 pts). IV access (20 points). Ambulatory Aid- Crutches/Cane/Walker (15 pts). Gait- Weak (10 pts.). Mental Status- Overestimates/Forgets Limitations (15 pts.). Total Savage Fall Scale indicates High Risk Score (45 or more points). Fall prevention measures have been instituted. Side Rails Up X 2 Placed Close to Nursing Station Frequent Obs/Assessments Occuring Family Present and informed to notify staff if the need to leave the bedside As available patient and family educated on Fall Prevention Program and Strategies. Assessment: 11:55 Reassessment: Pt requested to hold Fentanyl. Pillow provided and pt reports mild jl7 decrease in posterior shoulder pain at this time. 12:10 General: Received care of pt from Britta NICOLE, AAOx4. Pt reports mild posterior right kb3 shoulder pain and upper right chest discomfort. Declining available pain medication at this time. Repositioned pt for comfort. Warm blankets provided. Updated pt and daughter regarding POC including awaiting tests and procedures for disposition. No questions at this time.. 12:10 Cardiovascular: Heart tones present Capillary refill < 3 seconds Patient's skin is warm kb3 and dry. Rhythm is sinus rhythm. Respiratory: No deficits noted. Breath sounds are clear bilaterally. Musculoskeletal: Reports pain in right scapular area and anterior aspect of right upper chest. 15:46 General: Assisted pt to bedside commode with no difficulty. kb3 16:11 General: Attempted to call report, awaiting return call . kb3 Vital Signs: 11:10 BP 134 / 51; Pulse 51; Resp 16; Temp 97.5; Pulse Ox 97% ; Weight 86.18 kg; Height 5 ft. jl7 5 in. (165.10 cm); Pain 7/10; 12:11 BP 135 / 65; Pulse 56; Resp 15; Pulse Ox 99% ; jl7 12:30 BP 117 / 52; Pulse 52; Resp 18; Pulse Ox 99% ; kb3 14:00 BP 138 / 70; Pulse 55; Resp 18; Pulse Ox 100% ; kb3 15:00 BP 137 / 66; Pulse 56; Resp 20; Pulse Ox 95% ; kb3 11:10 Body Mass Index 31.62 (86.18 kg, 165.10 cm) jl7 ED Course: 11:04 Patient arrived in ED. eb 11:04 Billy Galaviz MD is Attending Physician. rt 11:10 Arm band placed on right wrist. jl7 11:10 Patient has correct armband on for positive identification. Placed in gown. Bed in low jl7 position. Call light in reach. Side rails up X2. Client placed on continuous cardiac and pulse oximetry monitoring. NIBP monitoring applied. Warm blanket given. 11:10 Initial lab(s) drawn, by me, sent to lab. EKG done, by ED staff, reviewed by Billy Galaviz MD. Inserted saline lock: 22 gauge in right antecubital area, using aseptic technique. Blood collected. 11:45 Britta Powers, BONNIE is Primary Nurse. jl7 12:08 Triage completed. jl7 12:10 No provider procedures requiring assistance completed. kb3 12:57 Chest Single View XRAY In Process Unspecified. EDMS 13:15 No apparent distress. kb3 13:15 Assisted to bedside commode. Cleaned of incontinence. Linen changed. kb3 13:36 Adult w/ patient. PATIENT SOILED HER CLOTHES .WASHED AND CHANGED HER AND AND THE BED . mm9 13:45 Wood Wang MD is Hospitalizing Provider. rt 14:23 SARS RAPID Sent. kb3 16:50 Patient admitted, IV remains in place. kb3 Administered Medications: 14:00 Drug: Magnesium Sulfate 2 grams Route: IVPB; Infused Over: 2 hrs; Site: right kb3 antecubital; 15:00 Follow up: Response: No adverse reaction; IV Status: Completed infusion; IV Intake: [id number] Medication: 12:11 VIS not applicable for this client. jl7 Intake: 15:00 IV: 50ml; Total: 50ml. kb3 Outcome: 13:46 Decision to Hospitalize by Provider. rt 16:50 Admitted to Med/surg accompanied by tech, via wheelchair, Report called to Christina NICOLE kb3 16:50 Condition: stable 16:50 Instructed on the need for admit. 17:44 Patient left the ED. kb3 Signatures: Dispatcher [employer] EDBritta Tripathi RN RN jl7 Paradise Goodwin Kelly, RN RN kb3 Malena Chavez mm9 Billy Galaviz MD MD rt
[2022-03-15] MEDS ORDERED: Magnesium Sulfate 2gm IVPB 2 G/50 ML BAG IV ONE ×2 (13:59→14:01)
[2022-03-15] MEDS: NA CHLORIDE 0.9% 1,000 ML IV SCH (14:00)
--- NOTE | 2022-03-15 14:06 | P.HP ---
Certification for Inpatient Patient admitted to: Observation With expected LOS: <2 Midnights Practitioner: I am a practitioner with admitting privileges, knowledge of patient current condition, hospital course, and medical plan of care. Services: Services provided to patient in accordance with Admission requirements found in Title 42 Section 412.3 of the Code of Federal Regulations Patient History Date of Service: 03/15/22 Reason for admission: Syncope History of Present Illness: Patient is 81 years of age with a sudden onset of syncopal spell apparently she was in a fair sitting on a scooter parents suddenly felt dizzy passed out he she blacked out she had a very faint pulse and appeared in the emergency room with bradycardia feeling fine last episode was a month ago when she was in [place] again patient was sitting felt dizzy and has slight blackout denies any chest pain shortness of breath no weakness of her extremities Allergies codeine Allergy (Verified 09/05/20 21:12) Itching levofloxacin [From Levaquin] Allergy (Verified 09/05/20 21:12) Itching meperidine [From Demerol] Allergy (Verified 05/12/20 22:36) Unknown Penicillins Allergy (Verified 09/05/20 21:12) Itching/Hives/Rash Home Medications: Pantoprazole Sodium [Protonix] 40 mg PO TID 05/12/20 Sucralfate [Carafate] 1 gm PO BID 05/12/20 Amlodipine Besylate 5 mg PO DAILY 09/06/20 Cholecalciferol (Vitamin D3) [Vitamin D3] 2,000 unit PO DAILY 09/06/20 Potassium Chloride [K-Dur] 1 tab PO TID 09/06/20 Calcium Carbonate/Vitamin D3 [Oscal 500 + Vit D 200 Iu Tab] 1 tab PO BID #60 tab 09/07/20 Cefdinir [Omnicef] 300 mg PO BID #14 capsule 09/07/20 Ferrous Sulfate [Ferrous Sulfate Elixir] 5 ml PO BID #300 osyr 09/07/20 Lidocaine 4% Patch [Lidoderm 5% Patch*] 1 patch TOP DAILY #10 patch 09/07/20 Magnesium Chloride [Slow-Mag] 64 mg PO DAILY #30 tab 09/07/20 - Past Medical/Surgical History Diabetic: No -: HTN -: Esophageal/gastric ulcers -: COVID-19 -: Neck surgery -: Right knee surgery -: Left foot surgery -: Cholecystectomy -: Appendectomy -: Tonsillectomy -: -: Removal of adrenal gland - Family History Father Notes: none accdg to pt Mother Notes: none accdg to pt - Social History Alcohol use: No CD- Drugs: No Caffeine use: Yes Review of Systems 10-point ROS is otherwise unremarkable Physical Examination - Vital Signs Temperature: 97.5 F Blood Pressure: 134/51 Pulse: 51 Respirations: 16 Pulse Ox (%): 97 - Physical Exam General: In no apparent distress, Oriented x3 HEENT: Atraumatic, Normocephalic Neck: Supple Respiratory: Clear to auscultation bilaterally, Normal air movement Cardiovascular: No edema, Regular rate/rhythm, Normal S1 S2 Gastrointestinal: Normal bowel sounds, Soft and benign Musculoskeletal: No clubbing, No swelling Integumentary: No rashes, No breakdown Neurological: Normal speech, Normal strength at 5/5 x4 extr, Cranial nerves 3-12 intact - Studies Laboratory Data (last 24 hrs) 03/15/22 11:37: Sodium 136, Potassium 4.3, BUN 18, Creatinine 1.35 H, Glucose 130 H, Magnesium 0.9 L*, Total Bilirubin 0.4, AST 11 L, ALT 13, Alkaline Phosphatase 112 03/15/22 11:37: WBC 11.50 H, Hgb 10.8 L, Hct 34.4 L, Plt Count 325 Assessment and Plan - Problems (Diagnosis) (1) Syncope Current Visit: No Status: Acute Plan: Patient is 81 years of age admitted with a syncopal episode the second episode she has had and takes amlodipine and medications for her peptic ulcer disease last echocardiogram done in 2020 showed severe pulmonary hypertension I suspect from diastolic dysfunction EKG shows a heart rate of 52 dual bundle branch block. She is also mildly anemic hemoglobin of 10.8 history of anemia some slight microcytosis chest x-ray is clear abnormal renal function fattening of 1.5 very low magnesium not sure why she is not any diuretics confirmed plan to admit start on some IV fluids volume resuscitate her iron levels consult cardiology her publicity director is Dr. Rhodes Qualifiers: Encounter type: initial encounter - Advance Directives Does patient have a Living Will: No Does patient have a Durable POA for Healthcare: No
[2022-03-15 14:34] LABS: SARS-CoV-2 Antigen Rapid Res Negative (Negative)
[2022-03-15 19:09] VITALS: BMI 29.7
[2022-03-15 20:04] LABS: Ferritin 10.9 ng/mL (8-388)
--- NOTE | 2022-03-15 22:24 | CON ---
Date of Consultation: 03/15/2022 Reason For Consultation: Syncope. History Of Present Illness: This 81-year-old female was in the sitting position in a scooter at a fa [place] when she suddenly felt very dizzy and passed out. Somebody checked her pulse and she was told dipti t it was very faint and then she was brought into the emergency room. She denies having any palpitat ions or chest pain or shortness of breath or any complaints prior. Past Medical History: Significant for hypertension. Medications: Refer to reconciliation sheet for detailed list. Allergies: CODEINE, FLUOROQUINOLONE, MEPERIDINE, AND PENICILLIN. Family History: No premature coronary artery disease or cancer. Social History: Does not smoke or drink. Does not use any drugs. Review of Systems: All systems were reviewed and they were negative except for mentioned in HPI. Physical Examination: Vital Signs: Reviewed. Head and Neck: Pupils are equal and reactive to light. Intact eye movements. No JVD. No cervical lymphadenopathy. Neck is supple. Thyroid is not enlarged. Lungs: Clear to auscultation bilaterally. No rhonchi, wheezing, or crackles. No accessory muscle u se. Heart: Regular rate and rhythm with aortic ejection systolic murmur. Abdomen: Soft, nontender. Bowel sounds positive. No organomegaly. No masses or hernia. No rigidi ty or rebound. Extremities: No edema, clubbing, or cyanosis. Intact pulses. Skin: No rash. Neurologic: Alert, awake, and oriented x3. No acute focal deficits appreciated. Investigations: Reviewed. Assessment And Recommendation: 1.Syncope. The patient has aortic valve stenosis murmur. Recommend to obtain an echocardiogram on Thursday and monitor her on panel monitor for any arrhythmia and please trend troponins and rule ou t any myocardial injury. 2.Elevated NT-proBNP suggestive of chronic history of congestive heart failure. The patient does no t have symptoms of heart failure at this point and does not require diuresis. We will monitor and st art medications only if needed. SR/MODL Voice ID: [id number] Report ID: [id number]
[2022-03-15] MEDS ORDERED: MORPHINE 2 MG/ML SYR IV ONE (23:51)
[2022-03-16] MEDS: NA CHLORIDE 0.9% 1,000 ML IV SCH ×4 (00:08→21:17)
[2022-03-16] MEDS ORDERED: TRAMADOL HCL 50 MG TAB PO ONE (00:37)
[2022-03-16 02:59] LABS: Specific Gravity 1.019 (1.005-1.030); Urine Bacteria <20 /HPF (<20); Urine Bilirubin NEGATIVE (Negative); Urine Blood Negative (Negative); Urine Clarity Clear (Clear); Urine Color Light-Yellow (Yellow); Urine Glucose NEGATIVE (Negative); Urine Mucus Slight /HPF (None Seen); Urine Protein NEGATIVE (Negative); Urine RBC <5 /HPF (None Seen); Urine Urobilinogen Normal (Normal)
[2022-03-16 06:25] LABS: Absolute Lymphocytes (CBC) 1.2 K/uL (0.7-4.9); Hematocrit 30.4 % (36.0-45.0); Lymphocytes % 15.1 % (15.3-44.8); MCV 77.5 fL (80-100); MPV 8.2 fL (7.6-11.3); RBC Red Blood Cell Count 3.92 M/uL (3.86-4.86)
[2022-03-16 06:42] LABS: Albumin 2.9 g/dL (3.4-5.0); Bilirubin Total 0.3 mg/dL (0.2-1.0); Magnesium 1.6 mg/dL (1.6-2.4); Potassium 3.6 mmol/L (3.5-5.1); Protein, Total 6.5 g/dL (6.4-8.2)
[2022-03-16] MEDS: ROPINIROLE HCL 0.25 MG TAB PO PRN (09:26)
--- NOTE | 2022-03-16 12:47 | P.PN ---
Subjective Date of Service: 03/16/22 Chief Complaint: Syncope No acute events overnight. She reports several episodes of syncope. She states that she follows with an outside Driver Examiner, who has diagnosed her with aortic stenosis, which "does not need surgery yet." Review of Systems 10-point ROS is otherwise unremarkable Neurological: Other (syncope) Physical Examination - Vital Signs Temperature: 97.0 F Blood Pressure: 138/63 Pulse: 59 Respirations: 18 Pulse Ox (%): 100 - Physical Exam General: Alert, In no apparent distress, Oriented x3 HEENT: Atraumatic, Mucous membr. moist/pink, EOMI, Sclerae nonicteric Neck: Supple, JVD not distended Respiratory: Clear to auscultation bilaterally, Normal air movement Cardiovascular: No edema, Regular rate/rhythm, Normal S1 S2, No gallops, No rubs, Systolic murmur Capillary refill: <2 Seconds Gastrointestinal: Normal bowel sounds, Soft and benign, Non-distended, No tenderness, No rebound, No guarding Musculoskeletal: No clubbing Integumentary: No rashes Neurological: Normal speech, Cranial nerves 3-12 intact, Normal affect Assessment And Plan - Plan # Syncope, concern for possible Cardiogenic etiology # Severe Pulmonary Hypertension Differential diagnoses include, but are not limited to, vasovagal syncope, orthostatic hypotension, cardiac etiology (i.e. arrhythmia, valvulopathy), and neurogenic etiologies (i.e. cerebrovascular accident, seizure). - Cardiology (Dr. Kurtz) consulted - recommendations appreciated - Orthostatic vital signs requested Telemetry - EKG, serial troponin - Transthoracic echocardiogram requested - Last study (09/07/2020) = "normal left ventricular ejection fraction 60-65% with normal wall motion. mild mitral regurgitation. moderate tricuspid regurgitation. severe pulmonary hypertension with right ventricular systolic pressure >60 mmhg. dilastolic dysfunction." - Noncontrast CT head = pending # KDIGO Stage I Acute Kidney Injury (resolved) - Creatinine = 1.35 -> 1.09 - Urinalysis = fairly unremarkable - Monitor creatinine and urine output - If worsening, obtain renal ultrasound - Renally dose medications # Hypomagnesemia (resolved) - Replace as needed # Hypertension - Continue home amlodipine # Gastroesophageal Reflux Disease - Continue pantoprazole, sucralfate # Restless Leg Syndrome - Continue home ropinirole Hayden Mendoza M.D.
[2022-03-16] MEDS ORDERED: ROPINIROLE HCL 0.25 MG TAB PO PRN (13:02)
--- NOTE | 2022-03-16 15:06 | RAD REPORT ---
EXAM DESCRIPTION: CT - Head Brain Wo Cont - 03/16/2022 2:49 pm CLINICAL HISTORY: syncope COMPARISON: <Comparisons> TECHNIQUE: All CT scans are performed using dose optimization technique as appropriate and may inclu de automated exposure control or mA/KV adjustment according to patient size. FINDINGS: No intracranial hemorrhage, hydrocephalus or extra-axial fluid collection.No areas of brai n edema or evidence of midline shift. Small remote cerebellar infarcts. The paranasal sinuses and mastoids are clear. The calvarium is intact. IMPRESSION: No acute intracranial abnormality.
[2022-03-16] MEDS: SUCRALFATE 1 GM TABLET PO SCH ×2 (16:21→21:19)
--- NOTE | 2022-03-16 17:46 | PN ---
Date of Progress Note: 03/16/2022 Subjective: Seen by bedside doing well. No new complaints. Review of Systems: No chest pain, shortness of breath. No orthopnea. No nausea, vomiting, diarrhea. No abdominal pain . No dysuria, polyuria, or urinary urgency. All other systems reviewed and they were negative. Physical Examination: Vital Signs: Reviewed. Head and Neck: Pupils are equal, reactive to light. Intact eye movements. No JVD. No cervical lym phadenopathy. Neck is supple. Thyroid is not enlarged. Lungs: Clear to auscultation bilaterally. No rhonchi, wheezing, or crackles. No accessory muscle u se. Heart: Regular rate and rhythm with aortic systolic ejection murmur. Abdomen: Soft, nontender. Bowel sounds positive. No organomegaly. No masses or hernia. No rigidi ty or rebound. Extremities: No edema, clubbing, or cyanosis. Intact pulses. Skin: No rash. Neurologic: Alert, awake, oriented x3. No acute focal deficits appreciated. Investigations: Labs were reviewed. Assessment And Recommendations: 1.Syncope, could be due to dehydration and hypotension; however, there is aortic stenosis murmur on exam. Obtain an echo tomorrow. If no significant aortic stenosis and no arrhythmia recorded, then t he patient can be released and follow up with her primary sole layer hand as an outpatient. 2.Acute renal failure due to dehydration. This is resolved. Kidney function is normal. Likely what caused her syncope is the hypotension and dehydration. SR/MODL Voice ID: [id number] Report ID: [id number]
[2022-03-16] MEDS: PANTOPRAZOLE 40MG TABLET PO SCH (21:19)
[2022-03-16] MEDS: AMLODIPINE 5 MG TAB PO SCH (21:19)
[2022-03-17] MEDS: ACETAMINOPHEN 325 MG TABLET PO PRN ×2 (05:07→21:28)
[2022-03-17] MEDS: NA CHLORIDE 0.9% 1,000 ML IV SCH ×3 (06:38→21:28)
[2022-03-17] MEDS ORDERED: PNEUMOCOCCAL VACCINE 0.5 ML IMVAC ONE (08:00)
[2022-03-17] MEDS: SUCRALFATE 1 GM TABLET PO SCH ×4 (08:36→21:25)
[2022-03-17] MEDS: PANTOPRAZOLE 40MG TABLET PO SCH ×2 (08:36→21:25)
[2022-03-17] MEDS: ROPINIROLE HCL 0.25 MG TAB PO PRN ×2 (08:44→21:25)
--- NOTE | 2022-03-17 12:49 | P.DS ---
Discharge Date: 03/17/22 Disposition: ROUTINE DISCHARGE Discharge Condition: GOOD Reason for Admission: Syncope Consultations: Cardiology Brief History of Present Illness: Patient is an 81 years old with a sudden onset of syncopal episode. She was apparently in a [place] sitting on a scooter when she suddenly felt dizzy, and then she passed out. She had a very faint pulse and appeared in the emergency room with bradycardia. She has had a similar episode a month ago. Patient had serial troponins and EKG which were unremarkable. She is also been on Requip for a while. We will need to hold this until her work-up is completed. Hospital Course: Patient was admitted and troponins were negative. Echocardiogram is pending. If this is unremarkable then patient should discharge. If this shows severe ao rtic stenosis she will need to follow-up with cardiology for valvular repair. Patient has family members that live close to her and she wants to arrange for home health at discharge. Vital Signs/Physical Exam: Temp Pulse Resp BP Pulse Ox 96.8 F 61 16 149/67 H 95 03/17/22 12:00 03/17/22 12:00 03/17/22 12:00 03/17/22 12:00 03/17/22 12:00 General: Alert, In no apparent distress, Oriented x3 Cardiovascular: Regular rate/rhythm, Systolic murmur Laboratory Data at Discharge: WBC 7.90 K/uL (4.3-10.9) 03/16/22 05:40 Hgb 9.8 g/dL (12.0-15.0) L D 03/16/22 05:40 Hct 30.4 % (36.0-45.0) L 03/16/22 05:40 Plt Count 279 K/uL (152-406) 03/16/22 05:40 Sodium 136 mmol/L (136-145) 03/16/22 05:40 Potassium 3.6 mmol/L (3.5-5.1) D 03/16/22 05:40 BUN 18 mg/dL (7-18) 03/16/22 05:40 Creatinine 1.09 mg/dL (0.55-1.02) H 03/16/22 05:40 Glucose 101 mg/dL (74-106) 03/16/22 05:40 Magnesium Cancelled 03/16/22 Unknown Total Bilirubin 0.3 mg/dL (0.2-1.0) 03/16/22 05:40 AST 9 U/L (15-37) L 03/16/22 05:40 ALT 12 U/L (13-56) L 03/16/22 05:40 Alkaline Phosphatase 96 U/L (45-117) 03/16/22 05:40 Home Medications: Pantoprazole Sodium [Protonix] 40 mg PO BID 05/12/20 Amlodipine Besylate 10 mg PO BEDTIME 09/06/20 Potassium Chloride 20 meq PO TID 03/15/22 Ropinirole HCl 1 tab PO BID PRN 03/15/22 Sucralfate [Carafate] 1 gm PO QID 03/15/22 Physician Discharge Instructions: -DC IV and DC home -Follow-up with PCP in 1 to 2 weeks -Follow-up with Cardiology in 1 to 2 weeks -Please call Dr. Carroll at [phone] if any questions regarding hospital stay -Please call nursing station at [phone] if any nursing or medication questions -Return to the emergency room if symptoms worsen Diet: AHA Activity: Fall precautions Followup: DODIE DHILLON [Primary Care Provider] - Time spent managing pt's care (in minutes): 35
[2022-03-17] MEDS ORDERED: LOPERAMIDE HCL 2 MG CAPSULE PO STA (13:23)
--- NOTE | 2022-03-17 15:02 | EKG ---
Test Date: 2022-03-15 Test Time: 11:19:17 Business Analyst Manager: BEN MEASUREMENT RESULTS: Intervals: Rate: 52 SC: 150 QRSD: 144 QT: 496 QTc: 461 Earth: P: 38 SC: 150 QRS: -58 T: 19 INTERPRETIVE STATEMENTS: Sinus bradycardia Right bundle branch block Left anterior fascicular block Bifascicular block Moderate voltage criteria for LVH, may be normal variant Abnormal ECG Compared to ECG 09/04/2020 23:14:09 Sinus rhythm no longer present Atrial premature complex(es) no longer present Bifascicular block still present Electronically Signed On 03-17-22 14:57:19 [employer]ILOT [employer] by Devin Kurtz
[2022-03-17] MEDS: AMLODIPINE 5 MG TAB PO SCH (21:26)
[2022-03-18] MEDS: NA CHLORIDE 0.9% 1,000 ML IV SCH (02:00)
[2022-03-18 05:28] VITALS: O2SAT 96
--- NOTE | 2022-03-18 06:44 | ECHO ---
HEIGHT: 5 ft 5 in WEIGHT: 179 lb 1.6 oz DATE OF STUDY: 03/17/[address]: Hayden Mendoza MD 2-DIMENSIONAL: YES M.MODE: YES DOPPLER: YES COLOR FLOW: YES TDS: PORTABLE: YES DEFINITY: BUBBLE STUDY: DIAGNOSIS: SYNCOPE CARDIAC HISTORY: CATHERIZATION: NO SURGERY: NO PROSTHETIC VALVE: NO PACEMAKER: NO MEASUREMENTS (cm) DIASTOLIC (NORMALS) SYSTOLIC (NORMALS) IVSd 1.3.2.5 (0.6-1.2) LA Diam 2.5 (1.9-4.0) LVEF 54% LVIDd 3.9 (3.5-5.7) LVIDs 2.9 (2.0-3.5) %FS 27% LVPWd 1.3 (0.6-1.2) Ao Diam 2.8 (2.0-3.7) 2 DIMENSIONAL ASSESSMENT: RIGHT ATRIUM: NORMAL LEFT ATRIUM: NORMAL RIGHT VENTRICLE: NORMAL LEFT VENTRICLE: LEFT VENTRICULAR HYPERTROPHY TRICUSPID VALVE: MILD TRICUSPID REGURGITATION MITRAL VALVE: SEVERE MITRAL ANNULAR CALCIFICATION PULMONIC VALVE: MILD PULMONIC INSUFFICIENCY AORTIC VALVE: CALCIFIED AORTIC VALVE PERICARDIAL EFFUSION: NONE AORTIC ROOT: NORMAL LEFT VENTRICULAR WALL MOTION: NORMAL DOPPLER/COLOR FLOW: SEE BELOW COMMENTS: 1. NORMAL LEFT VENTRICULAR EJECTION FRACTION 55-60 WITH NORMAL WALL MOTION 2. MILD CONCENTRIC LEFT VENTRICULAR HYPERTROPHY 3. MODERATE AORTIC VALVE STENOSIS (NEEDS FURTHER EVALUATION) 4. MILD TRICUSPID REGURGITATION/ PULMONIC INSUFFICIENCY 5. SEVERE PULMONARY HYPERTENSION WITH RIGHT VENTRICULAR SYSTOLIC PRESSURE GREATER THAN 60 mmHg. TECHNOLOGIST: MARIANA CARLOS
[2022-03-18] MEDS: SUCRALFATE 1 GM TABLET PO SCH (07:51)
[2022-03-18] MEDS: PANTOPRAZOLE 40MG TABLET PO SCH (07:51)
[2022-03-18] MEDS: ROPINIROLE HCL 0.25 MG TAB PO PRN (07:55)
[2022-03-18 08:45] VITALS: BP 154/70; TEMP 97
--- NOTE | 2022-03-18 20:28 | PN ---
Date of Progress Note: 03/17/2022 Subjective: Seen by bedside. Clinically, she is doing well. No new complaints. Review of Systems: No chest pain, shortness of breath, orthopnea, or cough. No nausea, vomiting, or diarrhea. All othe r systems reviewed and they were negative. Physical Examination: Vital Signs: Reviewed. Head and Neck: Pupils are equal, reactive to light. Intact eye movements. No JVD. No cervical lym phadenopathy. Neck is supple. Thyroid is not enlarged. Lungs: Clear to auscultation bilaterally. No rhonchi, rales, or crackles. No accessory muscle use. Heart: Regular rate and rhythm with aortic systolic murmur. Abdomen: Soft, nontender. Bowel sounds positive. No organomegaly. No masses or hernia. No rigidi ty or rebound. Extremities: No clubbing or cyanosis. Intact pulses. Skin: No rash. Neurologic: Alert, awake, oriented x3. No acute focal deficits appreciated. Lymph Nodes: No cervical or axillary lymphadenopathy. Investigations: Labs reviewed. Assessment And Recommendations: 1.Near-syncope, likely due to dehydration and low blood pressure. This is resolved. 2.Aortic valve stenosis, moderate in severity. No further action except close monitoring will be re quired. Instructed the patient to follow up with her crosscutter. From Cardiology standpoint, patient can be released to follow up as an outpatient. /TRE Voice ID: [id number] Report ID: [id number]
== END 2022-03-18 10:30 | disposition home or self-care (01) | DRG 312 ==
LOC: ER 10:50 → ERHOLD 13:56 → 4TH 16:16 → OBSVTOIN 03-16 20:31
PROVIDERS: ADMIT Internal Medicine Sleep Medicine; ATTEND Hospitalist
DX: R55 Syncope and collapse (principal); N17.9 Acute kidney failure, unspecified; I10 Essential (primary) hypertension; I45.4 Nonspecific intraventricular block; E83.42 Hypomagnesemia; D64.9 Anemia, unspecified; G25.81 Restless legs syndrome; K21.9 Gastro-esophageal reflux disease without esophagitis; I27.20 Pulmonary hypertension, unspecified; E86.0 Dehydration; I08.3 Combined rheumatic disorders of mitral, aortic and tricuspid valves; Z88.5 Allergy status to narcotic agent; Z88.0 Allergy status to penicillin; Z88.8 Allergy status to other drugs, medicaments and biological substances; Z86.16 Personal history of COVID-19; Z90.49 Acquired absence of other specified parts of digestive tract; Z79.899 Other long term (current) drug therapy; Z20.822 Contact with and (suspected) exposure to COVID-19
CPT/HCPCS: 36415; 70450; 71045; 80053; 81001; 82728; 83540; 83735; 83880; 84443; 84466; 84484; 85025; 87811; 93005; 93306; 96365; 99285; G0378; J2270; J3010; J3475; J7030

== ENCOUNTER 2022-10-12 20:20 | Inpatient (IN) | payer OTHER ==
--- OUTSIDE RECORDS SUMMARY | 2022-10-12 20:30 | XMS REPORT | Continuity of Care Document ---
:1940 Author Organization [facility] t Address [address] [facility] [address] [place] [address] Care Team Providers Name Role Phone Carmelo LO, Chris Primary Care Physician Pob, Adc Lab Main Attending Clinician Unavailable Catrachito Negrete MD Attending Clinician CATRACHITO NEGRETE Attending Clinician Unavailable Doctor Unassigned, Hauser Attending Clinician Unavailable Cheri Coronado MD Attending Clinician Dre MYRICK, Litzy Attending Clinician Unavailable Thai Jackson DO Attending Clinician Nancy NICOLE, Calvin Mak Attending Clinician Unavailable Nakul Faye MD Attending Clinician Rudolph Ruff MD Attending Clinician Sahra Ruff MD Attending Clinician Carlos Walton MD Attending Clinician Haimlton Atkins MD Attending Clinician Rasta Mccormick MD Attending Clinician [phone] RASTA MCCORMICK Attending Clinician Unavailable DEE [...] estinal estinal 00:00: [place] bleeding) bleeding) 00 [facility] Branch Diarrhea Diarrhea Disease Active Unive [...] Added automatic ally from request for surgery [id number] Gastrointe Gastrointe Disease Active 2019-04 Overview : Methodi stinal stinal 04-[address] hemorrhage hemorrhage 00:00: g of this Hospita associated associated 00 note l with with might be duodenitis duodenitis different from the original. Added automatic ally from request for surgery [id number] Ulcerative Ulcerative Disease Active M ethodi esophagiti [...] vers pain pain 2-12 ity of 00:00: [address] Branch Nausea and Nausea and Disease [...] Stop Date Source Natural mother Heart disease [facility] Natural mother Hearing loss [facility] Natural father Hearing loss [facility] Maternal grandmother Heart disease [facility] [place] [facility] Social History Social Habit Start Date Stop Date Quantity Comments Source History SDOH Worship Alcohol Frequency Hospita l History SDOH Worship Alcohol Std Drinks Hospit al History SDIL Worship Alcohol Binge Hospital History of tobacco Current smoker Un iversity of use [facility] Gender identity Worship [facility] Sexual orientation Method ist Hospital Exposure to 2020-03-08 2020-04-07 Not sure University of SARS-CoV-2 (event) 00:00:00 10:02:00 [facility] Education 2020-04-07 2020-04-07 13 University of 00:00:00 00:00:00 [facility] Branch History SDOH 2020-04-07 2020-04-07 5 University o f Financial 00:00:00 00:00:00 [facility] History SDOH Food 2020-04-07 2020-04-07 1 Univers ity of Worry 00:00:00 00:00:00 [facility] History SDOH Food 2020-04-07 2020-04-07 1 Univers ity of Scarcity 00:00:00 00:00:00 [facility] History SDOH 2020-04-07 2020-04-07 2 University o f Transport Med 00:00:00 00:00:00 [place] [facility] History SDOH 2020-04-07 2020-04-07 2 University o f Transport Non-Med 00:00:00 00:00:00 [place] [facility] Alcohol intake 2020-02-17 2020-02-17 Current drinker [facility] 00:00:00 00:00:00 of alcohol Hospital (finding) History of Social 2020-02-17 2020-02-[address] function 00:00:00 00:00:00 Hospital Alcohol Comment 2016-07-19 2016-07-19 1 drink/month, [facility] 00:00:00 00:00:00 "if that" Hospital Tobacco use and 2016-02-24 2016-02-24 Former smokeless Met hodist exposure 00:00:00 00:00:00 tobacco user Hospital Cigarettes smoked 2016-02-24 2016-02-[address] current (pack per 00:00:00 00:00:00 Hospita l day) - Reported Cigarette 2016-02-24 2016-02-24 Worship pack-years 00:00:00 00:00:00 Hospital Sex Assigned At [birth year] Worship 00:00:00 00:00:00 Hospital Smoking Status Start Date Stop Date Source Ex-smoker 2020-04-07 00:00:00 2020-04-07 00:00:00 [facility] Medications Ordered Filled Start Stop Current Ordering Indication Dosage Frequency Signature Comments Components Source Medication Medication Date Date Medication? Clinician (SIG) Name Name furosemide Yes 20mg Take 20 mg U nivers (LASIX) 20 1-13 by mouth ity o f mg tablet 03:24: daily. [address] MINOXIDIL Yes [facility] (LONITEN 1-13 mouth 3 ity of ORAL) 03:24: (three) [address] daily[address] Branch Does not know the dose, takes 2 pills at a time TID amLODIPine Yes 5mg Take 5 mg Un mickey (NORVASC) 5 1-13 by mouth ity of mg tablet 03:24: daily. [address] furosemide Yes 20mg Take 20 mg U nivers (LASIX) 20 1-13 by mouth ity o f mg tablet 03:24: daily. [address] MINOXIDIL 2020-0 Yes Take by [facility] rs (LONITEN 1-13 mouth 3 ity of ORAL) 03:24: (three) [place] [id number] times Medical daily. Branch Does not know the dose, takes 2 pills at a time TID amLODIPine 2020-0 Yes 5mg Take 5 mg Un mickey (NORVASC) 5 1-13 by mouth ity of mg tablet 03:24: daily. [address] furosemide 2020-0 Yes 20mg Take 20 mg U nivers (LASIX) 20 1-12 by mouth ity o f mg tablet 21:24: daily. [address] MINOXIDIL 2020-0 Yes Take by [facility] rs (LONITEN 1-12 mouth 3 ity of ORAL) 21:24: (three) [place] [id number] times Medical daily. Branch Does not know the dose, takes 2 pills at a time TID amLODIPine 2020-0 Yes 5mg Take 5 mg Un mickey (NORVASC) 5 1-12 by mouth ity of mg tablet 21:24: daily. [address] furosemide 2020-0 Yes 20mg Take 20 mg U nivers (LASIX) 20 1-12 by mouth ity o f mg tablet 21:24: daily. [address] MINOXIDIL 2020-0 Yes Take by [facility] rs (LONITEN 1-12 mouth 3 ity of ORAL) 21:24: (three) [place] [phone] times Medical daily. Branch Does not know the dose, takes 2 pills at a time TID amLODIPine 2020-0 Yes 5mg Take 5 mg Un mickey (NORVASC) 5 1-12 by mouth ity of mg tablet 21:24: daily. [address] furosemide 2020-0 Yes 20mg Take 20 mg U nivers (LASIX) 20 1-12 by mouth ity o f mg tablet 21:24: daily. [address] MINOXIDIL 2020-0 Yes Take by [facility] rs (LONITEN 1-12 mouth 3 ity of ORAL) 21:24: (three) [place] [id number] times Medical daily. Branch Does not know the dose, takes 2 pills at a time TID amLODIPine 2020-0 Yes 5mg Take 5 mg Un mickey (NORVASC) 5 1-12 by mouth ity of mg tablet 21:24: daily. [address] furosemide 2020-0 Yes 20mg Take 20 mg U nivers (LASIX) 20 1-12 by mouth ity o f mg tablet 21:24: daily. [address] MINOXIDIL 0 Yes Take by [facility] rs (LONITEN 1-12 mouth 3 ity of ORAL) 21:24: (three) [address] Medical daily. Branch Does not know the dose, takes 2 pills at a time TID amLODIPine 2020-0 Yes 5mg Take 5 mg Un mickey (NORVASC) 5 1-12 by mouth ity of mg tablet 21:24: daily. [address] furosemide 2020-0 Yes 20mg Take 20 mg U nivers (LASIX) 20 1-12 by mouth ity o f mg tablet 21:24: daily. [address] MINOXIDIL 0 Yes Take by [facility] rs (LONITEN 1-12 mouth 3 ity of ORAL) 21:24: (three) [address] daily. Branch Does not know the dose, takes 2 pills at a time TID amLODIPine 2020-0 Yes 5mg Take 5 mg Un mickey (NORVASC) 5 1-12 by mouth ity of mg tablet 21:24: daily. [address] furosemide 2020-0 Yes 20mg Take 20 mg U nivers (LASIX) 20 1-12 by mouth ity o f mg tablet 21:24: daily. [address] MINOXIDIL 0 Yes Take by [facility] rs (LONITEN 1-12 mouth 3 ity of ORAL) 21:24: (three) [address] daily. Branch Does not know the dose, takes 2 pills at a time TID amLODIPine 2020-0 Yes 5mg Take 5 mg Un mickey (NORVASC) 5 1-12 by mouth ity of mg tablet 21:24: daily. [address] furosemide 2020-0 Yes 20mg Take 20 mg U nivers (LASIX) 20 1-12 by mouth ity o f mg tablet 21:24: daily. [address] MINOXIDIL 2020-0 Yes Take by [facility] (LONITEN 1-12 mouth 3 ity of ORAL) 21:24: (three) [place] [address] times Medical daily. Branch Does not know the dose, takes 2 pills at a time TID amLODIPine 2020-0 Yes 5mg Take 5 mg Un mickey (NORVASC) 5 1-12 by mouth ity of mg tablet 21:24: daily. [address] Branch furosemide 2020-0 Yes 20mg Take 20 mg U nivers (LASIX) 20 1-12 by mouth ity o f mg tablet 21:24: daily. [address] Branch MINOXIDIL 0 Yes Take by Unive rs (LONITEN 1-12 mouth 3 ity of ORAL) 21:24: (three) [place] [address] times Medical daily. Branch Does not know the dose, takes 2 pills at a time TID amLODIPine 0 Yes 5mg Take 5 mg Un mickey (NORVASC) 5 1-12 by mouth ity of mg tablet 21:24: daily. [address] furosemide 0 Yes 20mg Take 20 mg U nivers (LASIX) 20 1-12 by mouth ity o f mg tablet 21:24: daily. [address] Branch MINOXIDIL Yes Take by Unive rs (LONITEN 1-12 mouth 3 ity of ORAL) 21:24: (three) [place] [address] times Medical daily. Branch Does not know the dose, takes 2 pills at a time TID amLODIPine 0 Yes 5mg Take 5 mg Un mickey (NORVASC) 5 1-12 by mouth ity of mg tablet 21:24: daily. [address] pantoprazol 2020- No 40mg Take 40 mg Univers e 04-17 by mouth ity of (PROTONIX) 19:29: 00:00 [place]. [place] 40 mg EC 20 :00 Medical tablet Branch POTASSIUM 2020- No Take by Univ ers CHLORIDE 04-17 mouth. ity of (KCL-20 19:29: 00:00 [place] ORAL) 20 :00 Medical Branch IRON,CARBON 2020- No Take by Un mickey YL/VIT 04-17 mouth. ity of C/VIT 19:29: 00:00 [place] B12/FA 20 :00 Medical (IRON 100 Branch PLUS ORAL) diphenoxyla 2020- No 1{tbl} Take 1 U nivers te-atropine 04-17 tablet by it y of (LOMOTIL) 19:29: 00:00 mouth [place] 2.5-0.025 20 :00 every 6 Medical mg per (six) Branch tablet hours as needed. ondansetron 2020- No 4mg Take 4 mg Univers (ZOFRAN) 4 04-17 by mouth ity of mg tablet 19:29: 00:00 every 8 [place] 20 :00 (eight) Medical hours as Branch needed. sucralfate 2020- No Take by Uni vers (CARAFATE 04-17 mouth. ity of ORAL) 19:29: 00:00 [place] 20 :00 Medical Branch ferrous Yes 325mg 325 mg, Univer s sulfate -12 Oral, ity of tablet 325 16:30: Q48H, [place] mg 00 First dose Medical on Branch 04/17/20 at 1030, Until [facility] ed, Routine pantoprazol Yes [id number] 40mg Take 1 Univers e 40 mg EC 1-12 tablet by ity of tablet 00:00: mouth 2 [place] 00 (two) Medical times Branch daily. ferrous Yes [id number] 325mg Take 1 Uni vers sulfate 325 1-12 tablet by ity of mg (65 mg 00:00: mouth [place] iron) 00 every 48 Medical tablet ([facility] Branch ) hours. pantoprazol Yes [id number] 40mg Take 1 Univers e 40 mg EC 1-12 tablet by ity of tablet 00:00: mouth 2 [place] 00 (two) Medical times Branch daily. ferrous 2020-0 Yes [id number] 325mg Take 1 Uni vers sulfate 325 1-12 tablet by ity of mg (65 mg 00:00: mouth [place] iron) 00 every 48 Medical tablet ([facility] Branch ht) hours. pantoprazol Yes [id number] 40mg Take 1 Univers e 40 mg EC 1-12 tablet by ity of tablet 00:00: mouth 2 [place] 00 (two) Medical times Branch daily. ferrous 2020-0 Yes [id number] 325mg Take 1 Uni vers sulfate 325 1-12 tablet by ity of mg (65 mg 00:00: mouth [place] iron) 00 every 48 Medical tablet ([facility]) hours. pantoprazol 2020-0 Yes [id number] 40mg Take 1 Univers e 40 mg EC 1-12 tablet by ity of tablet 00:00: mouth 2 [place] (two) Medical times Branch daily. ferrous 2020-0 Yes [id number] 325mg Take 1 Uni vers sulfate 325 1-12 tablet by ity of mg (65 mg 00:00: mouth [place] iron) 00 every 48 Medical tablet ([facility]) hours. pantoprazol 2020-0 Yes [id number] 40mg Take 1 Univers e 40 mg EC 1-12 tablet by ity of tablet 00:00: mouth 2 [place] Medical times Branch daily. ferrous 2020-0 Yes [id number] 325mg Take 1 Uni vers sulfate 325 1-12 tablet by ity of mg (65 mg 00:00: mouth [place] iron) 00 every 48 Medical tablet ([facility]) hours. pantoprazol 2020-0 Yes [id number] 40mg Take 1 Univers e 40 mg EC 1-12 tablet by ity of tablet 00:00: mouth 2 [place] Medical times Branch daily. ferrous 2020-0 Yes [id number] 325mg Take 1 Uni vers sulfate 325 1-12 tablet by ity of mg (65 mg 00:00: mouth [place] iron) 00 every 48 Medical tablet ([facility]) hours. pantoprazol 2020-0 Yes [id number] 40mg Take 1 Univers e 40 mg EC 1-12 tablet by ity of tablet 00:00: mouth 2 [place] (two) Medical times Branch daily. ferrous 2020-0 Yes [id number] 325mg Take 1 Uni vers sulfate 325 1-12 tablet by ity of mg (65 mg 00:00: mouth [place] iron) 00 every 48 Medical tablet ([facility]) hours. pantoprazol 2020-0 Yes [id number] 40mg Take 1 Univers e 40 mg EC 1-12 tablet by ity of tablet 00:00: mouth 2 [place] 00 (two) Medical times Branch daily. ferrous 2020-0 Yes [id number] 325mg Take 1 Uni vers sulfate 325 1-12 tablet by ity of mg (65 mg 00:00: mouth [place] iron) 00 every 48 Medical tablet ([facility]) hours. pantoprazol Yes [id number] 40mg Take 1 Univers e 40 mg EC 1-12 tablet by ity of tablet 00:00: mouth 2 [place] 00 (two) Medical times Branch daily. ferrous 0 Yes [id number] 325mg Take 1 Uni vers sulfate 325 1-12 tablet by ity of mg (65 mg 00:00: mouth [place] iron) 00 every 48 Medical tablet ([facility]) hours. pantoprazol Yes [id number] 40mg Take 1 Univers e 40 mg EC 1-12 tablet by ity of tablet 00:00: mouth 2 [place] 00 (two) Medical times [place] daily. ferrous Yes [id number] 325mg Take 1 Uni vers sulfate 325 1-12 tablet by ity of mg (65 mg 00:00: mouth [place] iron) 00 every 48 Medical tablet ([facility]) hours. pantoprazol Yes [id number] 40mg Take 1 Univers e 40 mg EC 1-12 tablet by ity of tablet 00:00: mouth 2 [place] (two) Medical times [place] daily. ferrous Yes [id number] 325mg Take 1 Uni vers sulfate 325 1-12 tablet by ity of mg (65 mg 00:00: mouth [place] iron) 00 every 48 Medical tablet ([facility]) hours. magnesium 2020- No 4g 4 g, IV Univ ers sulfate in 04-16 Piggyback, it y of water 4 18:00: 02:00 Q4H, 2 [place] gram/50 mL 00 :00 doses, Medical (8 %) IV First dose Branc h Piggyback 4 on Mon g 04/16/20 at 1200, Last dose on 04/16/20 at 1600, Routine sennosides 2020- No 8.6mg 8.6 mg, Un mickey (SENOKOT) 04-16 Oral, ity of tablet 8.6 17:15: 17:15 ONCE, 1 [place] mg 00 :00 dose, Mon Medical 04/16/20 at Branch 1115, Routine KCL 2020- No 20meq 20 mEq, Univers (KLOR-CON 04-16 Oral, ity of M20) tablet 13:45: 14:52 ONCE, 1 [place] 20 mEq 00 :00 dose, [facility] Medical 04/16/20 at Branch 0745, Routine Polyethylen Yes 17g 17 g, Unive rs e Glycol 1-10 Oral, ity of 3350 15:00: DAILY, [place] (MIRALAX) 00 First dose Medi rod powder 17 g on [place] Branch 04/15/20 at 0900, Until Discontinu ed, Routine pantoprazol Yes 40mg 40 mg, Univ ers e 1-10 Oral, BID, ity of (PROTONIX) 02:00: First dose [place] EC tablet 00 on [facility] Medical 40 mg 04/14/20 at Branch 2000, Until Discontinu ed, Routine levoFLOXaci Yes 750mg 750 mg, Un mickey n 09 Oral, Q24H ity of (LEVAQUIN) 18:30: ABX, First [place] tablet 750 00 dose on Medica l mg [facility] 04/14/20 Branch at 1230, Until Discontinu ed, JIM
Re ason for Anti-Infec tive: Documented Infection< br>Documen dayna Infection Site: Blood
D uration of Therapy: 7 days Sliding Yes Subcutaneo [facility] ers Scale 09 us, TID ity of Insulin - 18:00: MEALS+HS, [place] as Lispro 00 First dose Medical (HumaLOG) + on [facility] Branch Fsbg 04/14/20 at Testing 1200, Until Discontinu ed, Routine ipratropium Yes 2{puff} 2 Puff, Univers (ATROVENT 04-14 Inhalation ity of HFA) 18:00: , QID, [place] inhaler 2 00 First dose Medi rod Puff on [facility] Branch 04/14/20 at 1200, Until Discontinu ed, Routine
Is this order for a patient with suspected or confirmed COVID-19 infection? Yes KCL 2020-2020- No 40meq 40 mEq, Univers (KLOR-CON 04-14 Oral, ity of M20) tablet 14:21: 14:58 ONCE, 1 [place] 40 mEq 00 :00 dose, [facility] Medical 04/14/20 at Branch 0830, Routine acetaminoph 0 Yes 500mg 500 mg, Un mickey en 1-08 Oral, ity of (TYLENOL) 21:28: Q6HPRN, [place] tablet 500 36 Starting Medic al mg [...] Yes 5mL 5 mL, Unive rs rphan-guaif 108 Oral, ity of enesin 16:44: Q6HPRN, [place] (ROBITUSSIN 35 Starting Medi rod DM) 10-100 04/13/20 Bra nch mg/5 mL at 1044, solution 5 Until mL Discontinu ed, Routine, Cough pantoprazol 2020- No 40mg 40 mg, IV Univers e 04-12 01-09 Piggyback, ity of (PROTONIX) 14:00: 15:57 Q12H, [...] [place] Q48H, 750 mg First dose on 04/11/20 at 1245, Until Discontinu ed, JIM
Re [...] 0830, Until 04/15/20 at 0823, Routine sulfur 2020- No 5mL 5 mL, Univers hexafluorid 04-10 01-05 Intravenou i ty of e microsphr 23:15: 22:00 s, ONCE, 1 [place] (LUMASON) 00 :00 dose, Tue Medic al injection 5 04/10/20 at [facility] mL 1715, Routine
[employer] team member approving Restricted medication : SEVILLA, NURA T D5W 0.45% 2020- No 1000mL at 50 [facility] ers NaCl 04-10 01-06 mL/hr, ity of (1/2NS) IV 20:00: 14:25 1,000 mL, [place] infusion 00 :26 IV Medical 1,000 mL Infusion, Branch CONTINUOUS , Starting Thu04/10/20 at 1400, Until Thu04/11/20 at 0825, Routine furosemide 2020- No 40mg 40 mg, Univ ers (LASIX) 04-09 01-04 Slow IV ity of injection 20:30: 20:30 Push, [place] 40 mg 00 :00 ONCE, 1 Medical dose, [facility] Branch 04/09/20 at 1430, Routine NORepinephr 2020- No .05ug/k 0.05-1.5 Univers ine 16 mg 04-09 01-05 g/min mcg/kg/min it y of in NS [...] maximum allowed dose, contact prescriber .
meropenem No 500mg 500 mg, IV Univers (MERREM) 04-09 Piggyback, ity of 500 mg in 02:15: 18:33 Administer [place] NaCl 0.9% 00 :55 over 60 Medical (NS) 100 mL Minutes, Bran ch MINI-BAG Q24H ABX, First dose on [place] 04/08/20 at 2014, Until Discontinu ed, JIM
Re stricted use approved by: [employer] 8TH FLOOR
R miah for Anti-Infec tive: Empiric Therapy for Suspected Infection< br>Empiric Therapy Site: Blood
D uration of therapy: 72 hours vancomycin 2020- No 15mg/kg 1,250 mg Univers 1250 mg in 04-09 (rounded ity of NS 250 mL 02:15: 03:45 from [place] RTU IV 00 :00 1,222.5 mg Medical Piggyback = 15 mg/kg Bran ch 1,250 mg ?81.5 kg), IV Piggyback, ONCE, 1 dose, [place] 04/08/20 at 2014
Re ason for Anti-Infec [...] Goals Determined by Provider, CPOT <2, Starting [place] 04/08/20 at 1417
In itiate infusion at 25 mcg/hr. Titrate by 25 mcg/hr every 1 minute to 15 minutes to identified goal pain and/or sedation scores. Maximum dose = 200 mcg/hr. If goal not maintained at maximum allowed dose, contact prescriber .
midazolam 2020- No 1mg/h 1-10 mg/hr Univers (VERSED) 50 04-08 (1-10 ity of mg in NaCl 17:15: 22:41 mL/hr), IV [place] 0.9% (NS) 31 :41 Infusion, Medic al 50 mL TITRATE, Branch infusion Sedation-R ASS score (0 to -1), Starting [place] 04/08/20 at 1115
In itiate infusion at [...] Bran ch 250 mL , Starting infusion [place] 04/08/20 RTU at 1045
Ti trate to RASS sedation -1 to 1
propofoL IV 2020- No 5ug/kg/ 5-50 Un mickey infusion 04-08 min mcg/kg/min ity of 16:27: 01:01 ?84 kg [place] 25 :49 (2.52-25.2 Medical mL/hr), IV Branch Infusion, TITRATE, titrate off while titrating up fentanyl/v ersed, Starting [place] 04/08/20 at 1027
In itiate infusion at 5 mcg/kg/min and titrate by 5 mcg/kg/min every 30 seconds to 10 minutes to goal sedation score. Maximum dose = 50 mcg/kg/min . If goal not maintained at maximum allowed dose, contact prescriber . &nbs p;Tubing and unused portions of vials should be discarded after 12 hours.
dexamethaso 2020- No 6mg 6 mg, IV U nivers ne 04-08 Piggyback, ity of (DECADRON) 15:00: 02:52 DAILY, [place] 6 mg in 00 :28 First dose Medica l NaCl 0.9% on [place] Branch (NS) 04/08/20 at piggyback 0900, Until Discontinu ed, 50 mL KCL 20meq 20 mEq, IV Unive rs (POTASSIUM 04-08 Piggyback, it y of CHLORIDE) 14:15: 22:00 Q1H, 4 [place] 20 mEq in 00 :00 doses, Medical NaCl 0.9% First dose Bran ch (NS) 100 mL on [place] piggyback 04/08/20 at 0815, Last dose on [place] 04/08/20 at 1100, 100 mL Sliding No Subcutaneo Uni vers Scale 04-08 us, AC, ity of Insulin-Reg 13:30: 15:56 First dose [place] ular + Fsbg 00 :24 on [place] Medica l Testing 04/08/20 at Branch 0730, Until Discontinu ed, Routine etomidate No 10mg 10 mg, Unive rs (AMIDATE) 04-08 Slow IV ity of injection 12:45: 12:45 Push, [place] 10 mg 00 :00 ONCE, 1 Medical dose, [place] Branch 04/08/20 at 0645, Routine succinylcho No 100mg 100 mg, IV Univers line 04-08 Push, ity of (QUELICIN) 12:45: 12:45 ONCE, 1 [place] injection 00 :00 dose, [place] Medic al 100 mg 04/08/20 at Branch 0645, Routine propofoL IV No 5ug/kg/ 5-50 Un mickey infusion 04-08 min mcg/kg/min ity of 12:39: 13:44 ?84 kg [place] 02 :22 (2.52-25.2 Medical mL/hr), IV Branch Infusion, TITRATE, Sedation-R ASS score (0 to -1), Starting [place] 04/08/20 at 0639
In itiate infusion at 5 mcg/kg/min and titrate by 5 mcg/kg/min every 30 seconds to 10 minutes to goal sedation score. Maximum dose = 50 mcg/kg/min . If goal not maintained at maximum allowed dose, contact prescriber . &nbs p;Tubing and unused portions of vials should be discarded after 12 hours.
glucagon Yes 1mg 1 mg, Univers (GLUCAGEN 04-08 Intramuscu ity of DIAGNOSTIC 12:38: lar, PRN, [place] KIT) 56 Starting Medical injection 1 04/08/20 Br anch mg at 0638, Until Discontinu ed, JIM, Blood Glucose < or = 70 mg/dL and patient is unable to swallow or has mental changes. dextrose 50 Yes 25mL 25 mL, Univ ers % in water 04-08 Slow IV ity of (D50W) 12:38: Push, PRN, [place] injection 56 Starting Medica l 25 mL 04/08/20 Branch at 0638, Until Discontinu ed, JIM, Blood Glucose < or = 70 mg/dL and patient is unable to swallow or has mental status changes. NORepinephr 2020- No .05ug/k 0.05-1.5 Univers ine 4 mg in 04-08 01-04 g/min mcg/kg/min ity of 0.9% NaCl 12:38: 08:36 ?84 kg [place] 250 mL 14 :43 (15.75-472 Medical infusion .5 mL/hr), Branc h RTU IV Infusion, TITRATE, MAP Goal > or = 65 mmHg, Starting 04/08/20 at 0638
In itiate titration at 0.05 mcg/kg/min . &nb sp;Increas e by 0.01 mcg/kg/min every 30 seconds to 5 minutes as needed to reach and maintain goal blood pressure.& nbsp;&nbsp ;Maximum dose = 1.5 mcg/kg/min . &nb sp;If goal not maintained at maximum allowed dose, contact prescriber .
NaCl 0.9% 2020- No 1000mL at 999 Uni vers (NS) bolus 04-08 01-04 mL/hr, ity of infusion 11:45: 02:22 1,000 mL, [place] as 1,000 mL 00 :00 IV Medical Infusion, Branch ONCE, 1 dose, 04/08/20 at 0545, STAT pantoprazol 2020- No [...] No 650mg 650 mg, U nivers en 04-0708 Oral, ity of (TYLENOL) 19:35: 12:29 Q6HPRN, [place] tablet 650 46 :03 Starting Medic al mg 04/07/20 Branch at 1335, Until 04/13/20 at 0629, Routine, Pain (scale 1-3), Temp > 38.5 C ondansetron 2020- No 4mg 4 mg, Slow Univers (ZOFRAN 04-07 0106 IV Push, ity of (PF)) 19:35: 18:33 Q6HPRN, [place] injection 4 46 :34 Starting Medi rod mg 04/07/20 Branch at 1335, Until 04/11/20 at 1233, Routine, Nausea and Vomiting (N/V) ondansetron 2020- No 4mg 4 mg, Slow Univers (ZOFRAN 04-07 IV Push, ity of (PF)) 18:00: 16:48 ONCE, 1 [place] injection 4 00 :00 dose, Sat Med ical mg 04/07/20 at Branch 1200, JIM NaCl 0.9% 2020- No 1000mL at 999 Uni vers (NS) bolus 04-07 01-04 mL/hr, ity of infusion 17:15: 01:00 1,000 [...] (two) l tablet times a day. sucralfate 2020- Yes 1g Q.5D Take 1 g Met [...] (two) l tablet times a day. sucralfate 2020- Yes 1g Q.5D Take 1 g Met hodi (CARAFATE) 1-[address] 1 gram 15:42: (two) Hospita tablet 05 times a l day. pantoprazol 2020- Yes 40mg Q.5D Take 40 mg Methodi e 1-[address] (PROTONIX) 15:42: (two) Hospit a 40 MG EC 05 times a l tablet day. potassium 2020-1 Yes 20meq Q.5D Take 20 Meth evan chloride 1-[address] (K-DUR) 20 15:42: mouth 2 [facility] MEQ CR 05 (two) l tablet times a day. ondansetron 2019-0 Yes [id number] 4mg Take 1 Univers (ZOFRAN 4-29 tablet by ity of ODT) 4 mg 00:00: mouth [place] disintegrat 00 every 8 Medic al ing tablet (eight) Branch hours as needed for Nausea and Vomiting (N/V). ondansetron 2019-0 Yes [id number] 4mg Take 1 Univers (ZOFRAN 4-29 tablet by ity of ODT) 4 mg 00:00: mouth [place] disintegrat 00 every 8 Medic al ing tablet (eight) Branch hours as needed for Nausea and Vomiting (N/V). ondansetron 2019-0 Yes [id number] 4mg Take 1 Univers (ZOFRAN 4-29 tablet by ity of ODT) 4 mg 00:00: mouth [place] disintegrat 00 every 8 Medic al ing tablet (eight) Branch hours as needed for Nausea and Vomiting (N/V). ondansetron 2019-0 Yes [id number] 4mg Take 1 Univers (ZOFRAN 4-29 tablet by ity of ODT) 4 mg 00:00: mouth [place] disintegrat 00 every 8 Medic al ing tablet (eight) Branch hours as needed for Nausea and Vomiting (N/V). ondansetron 2019-0 Yes [id number] 4mg Take 1 Univers (ZOFRAN 4-29 tablet by ity of ODT) 4 mg 00:00: mouth [place] disintegrat 00 every 8 Medic al ing tablet (eight) Branch hours as needed for Nausea and Vomiting (N/V). ondansetron 2019-0 Yes [id number] 4mg Take 1 Univers (ZOFRAN 4-29 tablet by ity of ODT) 4 mg 00:00: mouth [place] disintegrat 00 every 8 Medic al ing tablet (eight) Branch hours as needed for Nausea and Vomiting (N/V). ondansetron 2019-0 Yes [id number] 4mg Take 1 Univers (ZOFRAN 4-29 tablet by ity of ODT) 4 mg 00:00: mouth [place] disintegrat 00 every 8 Medic al ing tablet (eight) Branch hours as needed for Nausea and Vomiting (N/V). ondansetron 2019-0 Yes [id number] 4mg Take 1 Univers (ZOFRAN 4-29 tablet by ity of ODT) 4 mg 00:00: mouth [place] disintegrat 00 every 8 Medic al ing tablet (eight) Branch hours as needed for Nausea and Vomiting (N/V). ondansetron 2019- Yes [id number] 4mg Take 1 Univers (ZOFRAN 4-29 tablet by ity of ODT) 4 mg 00:00: mouth [place] disintegrat 00 every 8 Medic al ing tablet (eight) Branch hours as needed for Nausea and Vomiting (N/V). ondansetron 2019- Yes [id number] 4mg Take 1 Univers (ZOFRAN 4-29 tablet by ity of ODT) 4 mg 00:00: mouth [place] disintegrat 00 every 8 Medic al ing tablet (eight) Branch hours as needed for Nausea and Vomiting (N/V). ondansetron 2019- Yes [id number] 4mg Take 1 Univers (ZOFRAN 4-29 tablet by ity of ODT) 4 mg 00:00: mouth [place] disintegrat 00 every 8 Medic al ing tablet (eight) Branch hours as needed for Nausea and Vomiting (N/V). amLODIPine 2017-0 Yes 5mg QD Take 5 mg Me [facility]odi (NORVASC) 5 4-[address] mg tablet 00:00: daily. Hospit a 00 l amLODIPine Yes 5mg QD Take 5 mg [facility] (NORVASC) 5 4-[address] mg tablet 00:00: daily. Hospit a 00 l amLODIPine 2017-0 Yes 5mg QD Take 5 mg Me [facility]odi (NORVASC) 5 4-[address] mg tablet 00:00: daily. Hospit a 00 l ondansetron 2015-0 Yes 4mg Q8H Take 4 mg M ethodi (ZOFRAN) 4 9-[address] MG tablet 00:00: every 8 Hospi ta 00 (eight) l hours as needed for nausea or vomiting. ondansetron 2016-0 Yes 4mg Q8H Take 4 mg M ethodi (ZOFRAN) 4 9-[address] MG tablet 00:00: every 8 Hospi ta 00 (eight) l hours as needed for nausea or vomiting. ondansetron 2016-0 Yes 4mg Q8H Take 4 mg M ethodi (ZOFRAN) 4 9-[address] MG tablet 00:00: every 8 Hospi ta 00 (eight) l hours as needed for nausea or vomiting. Immunizations Ordered Filled Immunization Date Status Comments Sour e Immunization Name Name Influenza Virus 2020-02-16 Completed Universit y of Vaccine Quad IM 3+ 00:00:00 [facility] Influenza Virus 2020-02-16 Completed Universit y of Vaccine Quad IM 3+ 00:00:00 [facility] Influenza Virus 2020-02-16 Completed Universit y of Vaccine Quad IM 3+ 00:00:00 [facility] Influenza Virus 2020-02-16 Completed Universit y of Vaccine Quad IM 3+ 00:00:00 [facility] Influenza Virus 2020-02-16 Completed Universit y of Vaccine Quad IM 3+ 00:00:00 [facility] Influenza Virus 2020-02-16 Completed Universit y of Vaccine Quad IM 3+ 00:00:00 [facility] Influenza Virus 2020-02-16 Completed Universit y of Vaccine Quad IM 3+ 00:00:00 [facility] Influenza Virus 2020-02-16 Completed Universit y of Vaccine Quad IM 3+ 00:00:00 [facility] Influenza Virus 2020-02-16 Completed Universit y of Vaccine Quad IM 3+ 00:00:00 [facility] Influenza Virus 2020-02-16 Completed Universit y of Vaccine Quad IM 3+ 00:00:00 [facility] Influenza Virus 2020-02-16 Completed Universit y of Vaccine Quad IM 3+ 00:00:00 [facility] FLUZONE QUAD PF 2016-02-26 Completed Worship 00:00:00 [facility] FLUZONE QUAD PF 2016-02-26 Completed Worship 00:00:00 Hospital Influenza Virus 2016-02-26 Completed Universit y of Vaccine Quad IM 3+ 00:00:00 [facility] Influenza Virus 2016-02-26 Completed Universit y of Vaccine Quad IM 3+ 00:00:00 [facility] Influenza Virus 2016-02-26 Completed Universit y of Vaccine Quad IM 3+ 00:00:00 [facility] Influenza Virus 2016-02-26 Completed Universit y of Vaccine Quad IM 3+ 00:00:00 [facility] Influenza Virus 2016-02-26 Completed Universit y of Vaccine Quad IM 3+ 00:00:00 [facility] Influenza Virus 2016-02-26 Completed Universit y of Vaccine Quad IM 3+ 00:00:00 [facility] Influenza Virus 2016-02-26 Completed Universit y of Vaccine Quad IM 3+ 00:00:00 [facility] Influenza Virus 2016-02-26 Completed Universit y of Vaccine Quad IM 3+ 00:00:00 [facility] Branch Influenza Virus 2016-02-26 Completed Universit y of Vaccine Quad IM 3+ 00:00:00 [facility] Branch Influenza Virus 2016-02-26 Completed Universit y of Vaccine Quad IM 3+ 00:00:00 [facility] Branch Influenza Virus 2016-02-26 Completed Universit y of Vaccine Quad IM 3+ 00:00:00 [facility] FLUZONE QUAD PF 2016-02-26 Completed Worship 00:00:00 Hospital Vital Signs Vital Name Observation Time Observation Value Comments Source Respiratory rate 2020-04-17 22:09:00 18 /min Univ ersity [facility] Oxygen saturation in 2020-04-17 22:09:00 92 /min University of Arterial blood by [facility] Pulse oximetry Branch Systolic blood 2020-04-17 21:34:00 136 mm[Hg] Univer sity of pressure [facility] Diastolic blood 2020-04-17 21:34:00 69 mm[Hg] Unive rsity of pressure [facility] Heart rate 2020-04-17 21:34:00 78 /min Universi ty [facility] Body temperature 2020-04-17 21:34:00 36.89 [facility] weight 2020-04-08 14:00:00 [facility] BMI 2020-04-08 14:00:00 28.99 kg/m2 [facility] ty [facility] Body height 2020-04-07 20:37:00 167.6 cm [facility] ty [facility] Respiratory rate 2020-04-17 22:09:00 18 /min Univ ers[facility] Oxygen saturation in 2020-04-17 22:09:00 92 /min University of Arterial blood by [facility] Pulse oximetry Branch Systolic blood 2020-04-17 21:34:00 136 mm[Hg] Univer sity of pressure [facility] Diastolic blood 2020-04-17 21:34:00 69 mm[Hg] Unive rsity of pressure [facility] Heart rate 2020-04-17 21:34:00 78 /min Universi ty [facility] Body temperature 2020-04-17 21:34:00 36.89 Sandra [facility] Body weight 2020-04-08 14:00:00 81.466 kg [facility] BMI 2020-04-08 14:00:00 28.99 kg/m2 [facility] Body height 2020-04-07 20:37:00 167.6 cm [facility] Procedures Procedure Date / Time Performing Clinician Source Performed URINALYSIS 2022-01-07 16:25:00 Carmelo [facility] CBC WITH DIFF 2022-01-07 16:13:00 Carmelo [facility] COMP. METABOLIC PANEL 2022-01-07 16:13:00 Carmelo [facility] ([id number]) [facility] THYROID STIMULATING 2022-01-07 16:13:00 Carmelo [facility] HORMONE [facility] PHYSICIAN ORDERS 2022-01-07 05:01:00 Doctor Unassigned, Bela [facility] POCT GLUCOSE (AUTOMATED) 2020-04-17 21:34:00 [facility]OM[facility] 2020-04-17 17:57:00 [facility]UCOSE (AUTOMATED) 2020-04-17 15:20:00 [facility] CBC WITH DIFF 2020-04-17 12:14:00 Brian Garibay [facility] MAGNESIUM 2020-04-17 11:11:00 Manuel [facility] FERRITIN SERUM 2020-04-17 11:11:00 Manuel [facility] BASIC METABOLIC PANEL 2020-04-17 11:11:00 Thai Jackson [facility] (NA, K, CL, CO2, GLUCOSE, Medica l Branch BUN, CREATININE, CA) IRON PANEL 2020-04-17 11:11:00 Manuel [facility] POCT GLUCOSE (AUTOMATED) 2020-04-17 02:37:00 [facility]SE (AUTOMATED) 2020-04-16 22:13:00 Hamilton Atkins [facility] [place] MODIFIED BARIUM 2020-04-16 21:25:00 Fermin Beltre [facility] POCT GLUCOSE (AUTOMATED) 2020-04-16 18:07:00 [facility] PO[facility] GLUCOSE (AUTOMATED) 2020-04-16 14:48:00 Hamilton Atkins [facility] 2020-04-16 11:58:00 [facility]OL[facility] PANEL 2020-04-16 11:58:00 [facility] (NA, K, CL, CO2, GLUCOSE, Medica l Branch BUN, CREATININE, CA) CBC WITH DIFF 2020-04-16 09:55:00 [facility] POCT GLUCOSE (AUTOMATED) 2020-04-16 02:12:00 [facility]SE (AUTOMATED) 2020-04-15 21:46:00 [facility] PO[facility]UCOSE (AUTOMATED) 2020-04-15 17:15:00 [facility] POCT GLUCOSE (AUTOMATED) 2020-04-15 13:37:00 WaltonCarlos myrick Uni [facility] CBC WITH DIFF 2020-04-15 10:54:00 [facility] POCT GLUCOSE (AUTOMATED) 2020-04-15 03:18:00 Carlos Walton Uni [facility] POCT GLUCOSE (AUTOMATED) 2020-04-14 22:14:00 [facility] PO[facility]UCOSE (AUTOMATED) 2020-04-14 17:57:00 Carlos Walton Uni [facility] POCT GLUCOSE (AUTOMATED) 2020-04-14 13:23:00 Carlos Walton Uni [facility] BASIC METABOLIC PANEL 2020-04-14 12:11:00 Fermin Beltre [facility] (NA, K, CL, CO2, GLUCOSE, Medica l Branch BUN, CREATININE, CA) CBC WITH DIFF 2020-04-14 12:11:00 Brian Garibay [facility] POCT GLUCOSE (AUTOMATED) 2020-04-14 00:54:00 Carlos Walton [facility] POCT GLUCOSE (AUTOMATED) 2020-04-13 18:05:00 Carlos Walton [facility] BLOOD CULTURE SCREEN 2020-04-13 15:50:00 Brian Garibay [facility] POCT GLUCOSE (AUTOMATED) 2020-04-13 13:26:00 Carlos Walton [facility] BASIC METABOLIC PANEL 2020-04-13 08:53:00 Fermin Beltre [facility] (NA, K, CL, CO2, GLUCOSE, Medica l Branch BUN, CREATININE, CA) CBC WITH DIFF 2020-04-13 08:53:00 Brian Garibay [facility] POCT GLUCOSE (AUTOMATED) 2020-04-13 03:20:00 Carlos Walton [facility] POCT GLUCOSE (AUTOMATED) 2020-04-13 00:29:00 Carlos Walton [facility] POCT GLUCOSE (AUTOMATED) 2020-04-12 19:57:00 Carlos Walton [facility] POCT GLUCOSE (AUTOMATED) 2020-04-12 15:52:00 Carlos Walton [facility] POCT GLUCOSE (AUTOMATED) 2020-04-12 15:44:00 Carlos Walton [facility] BASIC METABOLIC PANEL 2020-04-12 11:14:00 Fermin Beltre [facility] (NA, K, CL, CO2, GLUCOSE, Medica l Branch BUN, CREATININE, CA) CBC WITH DIFF 2020-04-12 11:14:[address] [facility] POCT GLUCOSE (AUTOMATED) 2020-04-12 00:03:00 Carlos Walton [facility] SARS-COV-2 IGG 2020-04-11 20:00:[address] [facility] LAB ONLY COVID 2020-04-11 20:00:00 [facility] POCT GLUCOSE (AUTOMATED) 2020-04-11 19:39:00 [facility]SE (AUTOMATED) 2020-04-11 14:22:00 [facility] POCT GLUCOSE (AUTOMATED) 2020-04-11 14:19:00 [facility] POCT GLUCOSE (AUTOMATED) 2020-04-11 14:09:00 [facility] PO[facility] GLUCOSE (AUTOMATED) 2020-04-11 13:23:00 Carlos Walton [facility] PANEL IDENTIFICATION 2020-04-11 11:05:00 Cheko Lu [facility] HB ABO GROUPING 2020-04-11 11:05:00 Cheko Lu [facility] CBC WITH DIFF 2020-04-11 10:56:00 Aly [facility] BASIC METABOLIC PANEL 2020-04-11 10:55:00 Mary Rudd [facility] (NA, K, CL, CO2, GLUCOSE, [facility] B[facility] Medica l Branch BUN, CREATININE, CA) BASIC METABOLIC PANEL 2020-04-10 23:50:00 Mary Rudd [facility] (NA, K, CL, CO2, GLUCOSE, [facility] BUN, CREATININE, CA) CBC WITHOUT DIFF 2020-04-10 23:50:00 Cheko Lu [facility] POCT GLUCOSE (AUTOMATED) 2020-04-10 21:50:00 Sahra Ruff [facility] POCT GLUCOSE (AUTOMATED) 2020-04-10 21:48:00 Sahra Ruff [facility] ECHO ROUTINE W/DOPPLER 2020-04-10 21:13:[address] [facility] TRANSFUSE PACKED RBC 2020-04-10 19:00:50 Conner, Christopher [facility] POCT GLUCOSE (AUTOMATED) 2020-04-10 18:33:00 Sahra Ruff [facility] PREPARE PACKED RBC 2020-04-10 16:13:38 Cheko [facility] CBC WITH DIFF 2020-04-10 14:31:00 [facility] POCT GLUCOSE (AUTOMATED) 2020-04-10 14:04:00 Sahra Ruff [facility] BASIC METABOLIC PANEL 2020-04-10 12:14:00 Mary Rudd [facility] (NA, K, CL, CO2, GLUCOSE, [facility] BUN, CREATININE, CA) CBC WITHOUT DIFF 2020-04-10 12:14:00 Cheko Lu [facility] BASIC METABOLIC PANEL 2020-04-10 00:35:00 Mary Rudd [facility] (NA, K, CL, CO2, GLUCOSE, [facility] BUN, CREATININE, CA) CBC WITHOUT DIFF 2020-04-10 00:35:00 [facility] XR KUB 2020-04-10 00:29:00 Tobin [facility] POCT GLUCOSE (AUTOMATED) 2020-04-09 21:57:00 Sahra Ruff [facility] TROPONIN I 2020-04-09 18:30:00 [facility] BASIC METABOLIC PANEL 2020-04-09 18:30:00 Mary Rudd [facility] (NA, K, CL, CO2, GLUCOSE, Domingo Abo Medica l Branch BUN, CREATININE, CA) CBC WITHOUT DIFF 2020-04-09 18:30:00 Vicky [facility]wellfle[facility]ewelina [facility] POCT GLUCOSE (AUTOMATED) 2020-04-09 18:29:00 Sahra Ruff [facility] POCT GLUCOSE (AUTOMATED) 2020-04-09 14:38:00 SantinoSatyaca [facility] AC PANEL 20 + LACTIC ACID 2020-04-09 12:34:00 Vicky Ruddwellfleetewelina [facility] TROPONIN I 2020-04-09 12:03:[address] [facility] BASIC METABOLIC PANEL 2020-04-09 12:03:00 Mary Rudd [facility] (NA, K, CL, CO2, GLUCOSE, [facility] BUN, CREATININE, CA) VANCOMYCIN RANDOM LEVEL 2020-04-09 12:03:00 Mary Rudd [facility] CBC WITHOUT DIFF 2020-04-09 12:03:00 Mary Rudd [facility] HB ECG ROUTINE & RHYTHM 2020-04-09 11:56:03 Dalila [facility] TROPONIN I 2020-04-09 07:55:[address] [facility] CBC WITHOUT DIFF 2020-04-09 07:55:00 [facility]in [facility] HB ECG ROUTINE & RHYTHM 2020-04-09 07:47:57 Aly [facility] HB ECG ROUTINE & RHYTHM 2020-04-09 06:16:05 Dalila [facility] HB ABO GROUPING 2020-04-09 04:50:[facility] 2020-04-09 04:26:00 [facility]in [facility] BASIC METABOLIC PANEL 2020-04-09 04:26:00 Mary Rudd [facility] (NA, K, CL, CO2, GLUCOSE, [facility] Bao Medica l Branch BUN, CREATININE, CA) CBC WITHOUT DIFF 2020-04-09 04:26:00 Mary Rudd [facility] PROCALCITONIN 2020-04-09 04:26:00 Mary Rudd [facility]+COOX+NA+K+GLU+CA2+ 2020-04-09 00:30:00 Sahra Ruff [facility] POCT GLUCOSE (AUTOMATED) 2020-04-08 22:40:00 Sahra Ruff [facility] BLOOD CULTURE SCREEN 2020-04-08 20:16:00 [facility] 2020-04-08 20:16:00 Sahra Ruff [facility] CBC WITH DIFF 2020-04-08 20:16:00 Santino [facility] BLOOD CULTURE WORKUP 2020-04-08 20:16:00 [facility] GRAM NEGATIVE BLOOD 2020-04-08 20:16:00 [facility] PROBE-AEROBIC COMP. METABOLIC PANEL 2020-04-08 20:15:00 Sahra Ruff [facility] ([id number]) [facility] BLOOD CULTURE SCREEN 2020-04-08 20:12:00 [facility] BLOOD CULT[facility] WORKUP 2020-04-08 20:12:00 [facility] HB ABO GROUPING 2020-04-08 20:10:00 [facility] POCT GLUCOSE (AUTOMATED) 2020-04-08 19:54:00 Sahra Ruff [facility] AC PANEL 20 + LACTIC ACID 2020-04-08 18:21:00 Sahra [facility] (AUTOMATED) 2020-04-08 13:58:00 Sahra Ruff [facility] MAGNESIUM 2020-04-08 12:10:00 [facility] HEPATIC FUNCTION PANEL 2020-04-08 12:10:00 [id number] (ALB,T.PRO,BILI [facility] T,BU/BC,ALT,AST,ALK PHOS) BASIC METABOLIC PANEL 2020-04-08 12:10:00 [facility] (NA, K, CL, CO2, GLUCOSE, Medica l Branch BUN, CREATININE, CA) HEMOGLOBIN 2020-04-08 12:10:00 Cosmo [facility] HEMATOCRIT 2020-04-08 12:10:00 [facility] GLYCOSYLATED HEMOGLOBIN 2020-04-08 12:10:00 [facility] PROTHROMBIN TIME / INR 2020-04-08 12:10:00 [facility] 2020-04-08 12:10:00 Cosmo [facility] THRMPLAS REBEKAH [facility] [place] INSERT EMERGENCY 2020-04-08 11:20:05 Lissa Carlos [facility] ENDOTRACH AIRWAY [facility] [place] INSERT NON-TUNNEL CV 2020-04-08 11:17:50 Lissa Carlos [facility] CATH [facility] XR CHEST 1 VW 2020-04-08 11:17:09 Lissa Carlos [facility] AC PANEL 20 + LACTIC ACID 2020-04-08 10:58:00 [facility] 1 VW 2020-04-08 10:39:14 [facility] PO[facility] GLUCOSE (AUTOMATED) 2020-04-08 10:19:00 Sahra Ruff [facility] TROPONIN I 2020-04-08 09:34:00 Sahra Ruff [facility] BASIC METABOLIC PANEL 2020-04-08 09:34:00 Sahra Ruff [facility] (NA, K, CL, CO2, GLUCOSE, Medica l Branch BUN, CREATININE, CA) CBC WITH DIFF 2020-04-08 09:34:00 Sahra Ruff [facility] N-TERMINAL PRO-BNP 2020-04-08 09:34:00 Sahra Ruff [facility] TROPONIN I 2020-04-08 04:25:00 Sahra Ruff [facility] CBC WITHOUT DIFF 2020-04-08 04:25:00 Edward Ambrose [facility] PROCALCITONIN 2020-04-08 04:25:00 Joyce Sahni [facility] URINE CULTURE 2020-04-07 19:04:00 Nakul Faye [facility] CT ABDOMEN PELVIS WO 2020-04-07 17:57:34 Nakul Faye [facility] CONTRAST [facility] XR CHEST 1 VW 2020-04-07 17:57:14 Nakul Faye [facility] BLOOD CULTURE SCREEN 2020-04-07 17:08:00 Nakul Faye [facility] URINALYSIS 2020-04-07 16:59:00 Nakul Faye [facility] BLOOD CULTURE SCREEN 2020-04-07 16:40:00 Nakul Faye [facility] COVID-19 (ID NOW RAPID 2020-04-07 16:40:00 Nakul Faye [facility] TESTING) Medical Branch LAB ONLY COVID 2020-04-07 16:40:00 Nakul Faye [facility] INTERPRETATION [facility] CREATINE KINASE 2020-04-07 16:39:00 Nakul Faye [facility] LIPASE 2020-04-07 16:39:00 Yunier Nakul [facility] TROPONIN I 2020-04-07 16:39:00 Nakul Faye [facility] HEPATIC FUNCTION PANEL 2020-04-07 16:39:00 Nakul Faye [facility] ([id number]) (ALB,T.PRO,BILI [facility] T,BU/BC,ALT,AST,ALK PHOS) BASIC METABOLIC PANEL 2020-04-07 16:39:00 Nakul Faye [facility] (NA, K, CL, CO2, GLUCOSE, Medica l Branch BUN, CREATININE, CA) CBC WITH DIFF 2020-04-07 16:39:00 Nakul Faye [facility] PROTHROMBIN TIME / INR 2020-04-07 16:39:00 [facility]ul [facility] ACTIVATED PARTIAL 2020-04-07 16:39:00 Nakul Faye [facility] N-[facility]MINAL PRO-BNP 2020-04-07 16:39:00 Nakul Faye [facility] LACTIC ACID WHOLE BLOOD 2020-04-07 16:39:00 Nakul Faye [facility] HB ECG ROUTINE & RHYTHM 2020-04-07 16:05:[address] [facility] Plan of Care Planned Activity Planned Date Details Comments Source Future Scheduled 2022-09-25 COVID-19 VACCINE (#1) [facility] Hospital Test 12:30:32 [code = COVID-19 VACCINE (#1)] Future Scheduled 2022-09-25 65+ PNEUMOCOCCAL [facility] Test 12:30:32 VACCINE (1 - PCV) [code = 65+ PNEUMOCOCCAL VACCINE (1 - PCV)] Future Scheduled 2022-09-25 SHINGLES VACCINES (1 Met [facility] Hospital Test 12:30:32 of 2) [code = SHINGLES VACCINES (1 of 2)] Future Scheduled 2022-09-25 INFLUENZA VACCINE Method [facility] Hospital Test 12:30:32 [code = INFLUENZA VACCINE] Future Scheduled 2022-02-06 65+ PNEUMOCOCCAL [facility] Test 18:16:24 VACCINE (1 - PCV) [code = 65+ PNEUMOCOCCAL VACCINE (1 - PCV)] Future Scheduled 2022-02-06 SHINGLES VACCINES (1 Met [facility] Hospital Test 18:16:24 of 2) [code = SHINGLES VACCINES (1 of 2)] Future Scheduled 2022-02-06 INFLUENZA VACCINE Method is Hospital Test 18:16:24 [code = INFLUENZA VACCINE] Future Scheduled 2022-02-06 HEPATITIS B VACCINES Met [facility] Test 18:16:24 (1 of 3 - 3-dose series) [code = HEPATITIS B VACCINES (1 of 3 - 3-dose series)] Future Scheduled 2022-02-06 COVID-19 VACCINE (#1) [facility] Hospital Test 18:16:24 [code = COVID-19 VACCINE (#1)] Future Scheduled 2021-04-26 COVID-19 VACCINE (1) [facility] Hospital Test 14:03:15 [code = COVID-19 VACCINE (1)] Future Scheduled 2021-04-26 65+ PNEUMOCOCCAL [facility] Test 14:03:15 VACCINE (1 of 2 - PPSV23) [code = 65+ PNEUMOCOCCAL VACCINE (1 of 2 - PPSV23)] Future Scheduled 2021-04-26 SHINGLES VACCINES (#1) M ethodi Hospital Test 14:03:15 [code = SHINGLES VACCINES (#1)] Future Scheduled 2021-04-26 INFLUENZA VACCINE Method ist Hospital Test 14:03:15 [code = INFLUENZA VACCINE] Encounters Start End Encounter Admission Attending Care Care Encounter Source Date/Time Date/Time Type Type Clinicians Facility Department ID 2022-01-07 2022-01-07 Molecular Technologist Joshua, Fredy Lab Main [facility] [id number] Univers 11:00:00 11:15:00 Visit Catrachito Negrete [id number] ity [facility] [id number] PROF[place] [id number] [place] dic[address] 2022-01-07 2022-01-07 Outpatient R PENELOPE [facility] [id number] Univers 11:00:00 11:00:00 CATRACHITO itsakina [facility] 2022-01-07 2022-01-07 Orders Doctor NATALIIA [id number] Univers 00:00:00 00:00:00 Only Unassigned, CHAPARRO [id number] ity of [place] [facility] [id number] Sathish as [id number] [address] 2020-05-10 2020-05-10 Telephone Cliff [id number] Methodi 00:00:00 00:00:00 Cheri Spencer [id number] [id number] Hospit a .[id number] l .8 2020-05-09 2020-05-09 Telephone Dre [id number] Methodi 00:00:00 00:00:[id number] 3.430.2.7 Hospit a .[id number] l .8 2020-05-07 2020-05-07 Telephone Dre, 1.2.840.1 [id number] Methodi 00:00:00 00:00:[address] 3.430.2.7 Hospit a .3.921971 l .8 2020-05-01 2020-05-01 [facility] 1.2.840.114 [id number] Univers 00:00:00 00:00:00 [place] PRIMARY 350.1.13.10 i ty [place] [id number] Hi dical [address] 2020-04-18 2020-04-18 Transition Owen Cruz 1.2.840.114 809 [id number] 00:00:00 00:00:00 of Care Calvin A Worthington 350.1.13.10 [place] 4.2.7.2.686 [id number] 403 2020-04-18 2020-04-18 Transition Owen Cruz 1.2.840.114 809 [id number] Univers 00:00:00 00:00:00 of Care Calvin A Worthington 350.1.13.10 ity [place] [id number] [facility] [address] 2020-04-07 2020-04-17 [facility] Nakul Faye 1.2.840.1 14 [id number] 10:01:00 21:23:00 Encounter Rudolph Ruff 350.1.13.10 [facility] 4.2.7.2.686 Carlos Walton [id number] Hamilton Atkins 099 Rasta Mccormick Rolando 2020-04-07 2020-04-17 [facility] 14 [id number] [facility] 10:01:00 21:23:00 Encounter Rudolph Ruff 350.1.13.10 ity of [facility] 4.2.7.2.686 [place] Carlos Walton [id number] [facility] Hamilton Atkins [address] Rasta Mccormickant 2020-04-07 2020-04-17 Inpatient X [facility] [id number] Univers 10:01:00 21:23:00 RASTA [facility] 2020-02-13 2020-02-[address] 027 [id number] Igo 00:00:00 00:00:00 DEE DEE [address] Results Test Description Test Time Test Comments Results Result Comments Source THYROID STIMULATING HORMONE 2022-01-07 17:49:48 Test Item Value Reference Range Interpretation Comme nts TSH (test code = 2732690896) See_Comment [Automated message] The system which generated this result transmitted ref erence range: 0.45 - 4.70 mIU/L. T he reference range was not used to interpret this result as lópez l/abnormal. Lab Interpretation (test code = Normal 80436-8) [facility] [id number] 17:49:48 Test Item Value Reference Range Interpretation Comments TSH (test code = See_Comment [Automated message] [id number]) The system [employer] generated this result transmitted ref erence range: 0.45 - 4 .70 mIU/L. The refe rence range was not u sed to interpret this result as normal/abnor mal. Lab Interpretation (test Normal code = 54942-6) [facility] [id number] 17:49:48 Test Item Value Reference Range Interpretation Comments TSH (test code = See_Comment [Automated message] 1894069903) The system [employer] generated this result transmitted ref erence range: 0.45 - 4 .70 mIU/L. The refe rence range was not u sed to interpret this result as normal/abnor mal. Lab Interpretation (test Normal code = 37600-9) [facility] ([id number])2022-01-07 17:20:04 Test Item Value Reference Range Interpretation Comments NA (test code = 141 mmol/L 135-145 5244711365) K (test code = 5.8 mmol/L 3.5-5 H 5442914019) CL (test code = 106 mmol/L 98-108 6744252118) CO2 TOTAL (test code = 24 mmol/L 23-31 1478688728) AGAP (test code = 2-16 9783074766) BUN (test code = 21 mg/dL 7-23 7014294379) GLUCOSE (test code = 112 mg/dL 70-110 H 6500718878) CREATININE (test code = 1.39 mg/dL 0.5-1.04 H 5310824007) TOTAL BILI (test code = 0.5 mg/dL 0.1-1.2 5199610864) CALCIUM (test code = 9.1 mg/dL 8.6-10.6 6211027233) T PROTEIN (test code = 7.6 g/dL 6.3-8.2 8993868698) ALBUMIN (test code = 4.5 g/dL 3.5-5 4879890435) ALK PHOS (test code = 106 U/L 34-122 6844179723) ALTv (test code = 11 U/L 5-35 1742-6) AST(SGOT) (test code = 18 U/L 13-40 8011765126) eGFR (test code = mL/min/1.73m2 3438131886) WALTER (test code = WALTER) Association of [...] tests). Lab Interpretation Abnormal (test code = 43683-7) [facility]. METABOLIC PANEL ([id number])2022-01-07 17:20:04 Test Item Value Reference Range Interpretation Comments NA (test code = 141 mmol/L 135-145 6163684818) K (test code = 5.8 mmol/L 3.5-5 H 8481476894) CL (test code = 106 mmol/L 98-108 9793003136) CO2 TOTAL (test code = 24 mmol/L 23-31 4274407091) AGAP (test code = 2-16 7520414613) BUN (test code = 21 mg/dL 7-23 3000618883) GLUCOSE (test code = 112 mg/dL 70-110 H 0146972046) CREATININE (test code = 1.39 mg/dL 0.5-1.04 H 1298697608) TOTAL BILI (test code = 0.5 mg/dL 0.1-1.7 0520254137) CALCIUM (test code = 9.1 mg/dL 8.6-10.6 9825637937) T PROTEIN (test code = 7.6 g/dL 6.3-8.2 5348625571) ALBUMIN (test code = 4.5 g/dL 3.5-5 1888588045) ALK PHOS (test code = 106 U/L 34-122 0074926350) ALTv (test code = 11 U/L 5-35 1742-6) AST(SGOT) (test code = 18 U/L 13-40 2932909577) eGFR (test code = mL/min/1.73m2 6730135799) WALTER (test code = WALTER) Association of [...] tests). Lab Interpretation Abnormal (test code = 50312-4) [facility]. METABOLIC PANEL ([id number])2022-01-07 17:20:04 Test Item Value Reference Range Interpretation Comments NA (test code = 141 mmol/L 135-145 8267889977) K (test code = 5.8 mmol/L 3.5-5 H 4258398827) CL (test code = 106 mmol/L 98-108 0887314584) CO2 TOTAL (test code = 24 mmol/L 23-31 7044641276) AGAP (test code = 2-16 3534707044) BUN (test code = 21 mg/dL 7-23 6683660805) GLUCOSE (test code = 112 mg/dL 70-110 H 8623019229) CREATININE (test code = 1.39 mg/dL 0.5-1.04 H 6047005452) TOTAL BILI (test code = 0.5 mg/dL 0.1-1.4 3249038721) CALCIUM (test code = 9.1 mg/dL 8.6-10.6 9677938922) T PROTEIN (test code = 7.6 g/dL 6.3-8.2 5973164234) ALBUMIN (test code = 4.5 g/dL 3.5-5 2153014440) ALK PHOS (test code = 106 U/L 34-122 0787958737) ALTv (test code = 11 U/L 5-35 1742-6) AST(SGOT) (test code = 18 U/L 13-40 5077940725) eGFR (test code = mL/min/1.73m2 7727911945) WALTER (test code = WALTER) Association of [...] tests). Lab Interpretation Abnormal (test code = 28464-0) [facility]. METABOLIC PANEL ([id number])2022-01-07 17:20:04 Test Item Value Reference Range Interpretation Comments NA (test code = 141 mmol/L 135-145 5535260891) K (test code = 5.8 mmol/L 3.5-5 H 8737139864) CL (test code = 106 mmol/L 98-108 6812783617) CO2 TOTAL (test code = 24 mmol/L 23-31 0879702111) AGAP (test code = 2-16 5073109491) BUN (test code = 21 mg/dL 7-23 3426246979) GLUCOSE (test code = 112 mg/dL 70-110 H 4911578233) CREATININE (test code = 1.39 mg/dL 0.5-1.04 H 8696503044) TOTAL BILI (test code = 0.5 mg/dL 0.1-1.1 1176053689) CALCIUM (test code = 9.1 mg/dL 8.6-10.6 8244372934) T PROTEIN (test code = 7.6 g/dL 6.3-8.2 8601344324) ALBUMIN (test code = 4.5 g/dL 3.5-5 6891474529) ALK PHOS (test code = 106 U/L 34-122 4960122801) ALTv (test code = 11 U/L 5-35 2-6) AST(SGOT) (test code = 18 U/L 13-40 3646491936) eGFR (test code = mL/min/1.73m2 9485518075) WALTER (test code = WALTER) Association of [...] tests). Lab Interpretation Abnormal (test code = 43304-7) [facility]. METABOLIC PANEL ([id number])2022-01-07 17:20:04 Test Item Value Reference Range Interpretation Comments NA (test code = 141 mmol/L 135-145 5804688131) K (test code = 5.8 mmol/L 3.5-5 H 3344698676) CL (test code = 106 mmol/L 98-108 6449212866) CO2 TOTAL (test code = 24 mmol/L 23-31 3733064530) AGAP (test code = 2-16 7966378267) BUN (test code = 21 mg/dL 7-23 9061441821) GLUCOSE (test code = 112 mg/dL 70-110 H 8766133932) CREATININE (test code = 1.39 mg/dL 0.5-1.04 H 3288605556) TOTAL BILI (test code = 0.5 mg/dL 0.1-1.5 1436942287) CALCIUM (test code = 9.1 mg/dL 8.6-10.6 8293432274) T PROTEIN (test code = 7.6 g/dL 6.3-8.2 5912720671) ALBUMIN (test code = 4.5 g/dL 3.5-5 9611108159) ALK PHOS (test code = 106 U/L 34-122 5715890145) ALTv (test code = 11 U/L 5-35 1742-6) AST(SGOT) (test code = 18 U/L 13-40 7037962918) eGFR (test code = mL/min/1.73m2 3774144035) WALTER (test code = WALTER) Association of [...] tests). Lab Interpretation Abnormal (test code = 12768-5) [facility]. METABOLIC PANEL ([id number])2022-01-07 17:20:04 Test Item Value Reference Range Interpretation Comments NA (test code = 141 mmol/L 135-145 5170936493) K (test code = 5.8 mmol/L 3.5-5 H 0420223489) CL (test code = 106 mmol/L 98-108 6243613341) CO2 TOTAL (test code = 24 mmol/L 23-31 7676475179) AGAP (test code = 2-16 1812600412) BUN (test code = 21 mg/dL 7-23 0172576353) GLUCOSE (test code = 112 mg/dL 70-110 H 2574187074) CREATININE (test code = 1.39 mg/dL 0.5-1.04 H 3749728677) TOTAL BILI (test code = 0.5 mg/dL 0.1-1.8 2480510740) CALCIUM (test code = 9.1 mg/dL 8.6-10.6 6005866904) T PROTEIN (test code = 7.6 g/dL 6.3-8.2 9918640721) ALBUMIN (test code = 4.5 g/dL 3.5-5 0220667508) ALK PHOS (test code = 106 U/L 34-122 1614385176) ALTv (test code = 11 U/L 5-35 1742-6) AST(SGOT) (test code = 18 U/L 13-40 7802976151) eGFR (test code = mL/min/1.73m2 8082955705) WALTER (test code = WALTER) Association of [...] tests). Lab Interpretation Abnormal (test code = 73996-7) [facility] WITH [id number] 16:19:14 Test Item Value Reference Range Interpretation Comments WBC (test code = See_Comment [Automated 9893-2) message] The sy stem which generated this [...] RDW-SD (test code = 46.5 fL 39-49.9 94397-3) RDW-CV (test code = 15.7 % 12-15.5 H 788-0) PLT (test code = See_Comment [Automated 777-3) message] The sy stem which generated this result transmitted reference range : 166 - 358 10*3/ ?L. The reference r matteo was not used to interpret this result as normal/abnormal . MPV (test code = 9.3 fL 9.5-12.9 L 02656-7) NRBC/100 WBC (test See_Comment [Automat ed code = 0119094670) message] The system which generated this result transmitted reference range : 0.0 - 10.0 /100 WBCs. The refer ence range was not u sed to interpret th is result as normal/abnormal . NRBC x10^3 (test code See_Comment [Auto mated = 6688290931) message] The s ystem which generated this result transmitted reference range : 10*3/?L. The reference range was not used to interpret this result as normal/abnormal . GRAN MAT (NEUT) % 61.9 % (test code = 770-8) IMM GRAN % (test code 0.50 % = 6926498208) LYMPH % (test code = 26.3 % 736-9) MONO % (test code = 7.0 % 5905-5) EOS % (test code = 3.5 % 713-8) BASO % (test code = 0.8 % 706-2) GRAN MAT x10^3(ANC) 4.84 10*3/uL 1.88-7.09 (test code = 4430382658) IMM GRAN x10^3 (test 0.04 10*3/uL 0-0.06 code = 3661312470) LYMPH x10^3 (test code 2.06 10*3/uL 1.32-3.29 = 731-0) MONO x10^3 (test code 0.55 10*3/uL 0.33-0.92 = 742-7) EOS x10^3 (test code = 0.27 10*3/uL 0.03-0.39 711-2) BASO x10^3 (test code 0.06 10*3/uL 0.01-0.07 = 704-7) Lab Interpretation Abnormal (test code = 31932-2) [facility] WITH [id number] 16:19:14 Test Item Value Reference Range Interpretation Comments WBC (test code = See_Comment [Automated 6290-2) message] The sy stem which generated this result transmitted reference range : 4.30 - 11.10 10*3/?L. The reference range was not used to interpret this result as normal/abnormal . RBC (test code = See_Comment [Automated 779-8) message] The sy stem which generated this [...] RDW-SD (test code = 46.5 fL 39-49.9 93947-5) RDW-CV (test code = 15.7 % 12-15.5 H 788-0) PLT (test code = See_Comment [Automated 777-3) message] The sy stem which generated this result transmitted reference range : 166 - 358 10*3/ ?L. The reference r matteo was not used to interpret this result as normal/abnormal . MPV (test code = 9.3 fL 9.5-12.9 L 35209-7) NRBC/100 WBC (test See_Comment [Automat ed code = 4659360561) message] The system which generated this result transmitted reference range : 0.0 - 10.0 /100 WBCs. The refer ence range was not u sed to interpret th is result as normal/abnormal . NRBC x10^3 (test code See_Comment [Auto mated = 8252285315) message] The s ystem which generated this result transmitted reference range : 10*3/?L. The reference range was not used to interpret this result as normal/abnormal . GRAN MAT (NEUT) % 61.9 % (test code = 770-8) IMM GRAN % (test code 0.50 % = 9991409881) LYMPH % (test code = 26.3 % 736-9) MONO % (test code = 7.0 % 5905-5) EOS % (test code = 3.5 % 713-8) BASO % (test code = 0.8 % 706-2) GRAN MAT x10^3(ANC) 4.84 10*3/uL 1.88-7.09 (test code = 5202848603) IMM GRAN x10^3 (test 0.04 10*3/uL 0-0.06 code = 7694908964) LYMPH x10^3 (test code 2.06 10*3/uL 1.32-3.29 = 731-0) MONO x10^3 (test code 0.55 10*3/uL 0.33-0.92 = 742-7) EOS x10^3 (test code = 0.27 10*3/uL 0.03-0.39 711-2) BASO x10^3 (test code 0.06 10*3/uL 0.01-0.07 = 704-7) Lab Interpretation Abnormal (test code = 24154-9) [facility] WITH [id number] 16:19:14 Test Item Value Reference Range Interpretation [...] RDW-SD (test code = 46.5 fL 39-49.9 69775-8) RDW-CV (test code = 15.7 % 12-15.5 H 788-0) PLT (test code = See_Comment [Automated 777-3) message] The sy stem which generated this result transmitted reference range : 166 - 358 10*3/ ?L. The reference r matteo was not used to interpret this result as normal/abnormal . MPV (test code = 9.3 fL 9.5-12.9 L 58939-2) NRBC/100 WBC (test See_Comment [Automat ed code = 2314246546) message] The system which generated this result transmitted reference range : 0.0 - 10.0 /100 WBCs. The refer ence range was not u sed to interpret th is result as normal/abnormal . NRBC x10^3 (test code See_Comment [Auto mated = 1470057431) message] The s ystem which generated this result transmitted reference range : 10*3/?L. The reference range was not used to interpret this result as normal/abnormal . GRAN MAT (NEUT) % 61.9 % (test code = 770-8) IMM GRAN % (test code 0.50 % = 5893233888) LYMPH % (test code = 26.3 % 736-9) MONO % (test code = 7.0 % 5905-5) EOS % (test code = 3.5 % 713-8) BASO % (test code = 0.8 % 706-2) GRAN MAT x10^3(ANC) 4.84 10*3/uL 1.88-7.09 (test code = 9054798818) IMM GRAN x10^3 (test 0.04 10*3/uL 0-0.06 code = 8787944043) LYMPH x10^3 (test code 2.06 10*3/uL 1.32-3.29 = 731-0) MONO x10^3 (test code 0.55 10*3/uL 0.33-0.92 = 742-7) EOS x10^3 (test code = 0.27 10*3/uL 0.03-0.39 711-2) BASO x10^3 (test code 0.06 10*3/uL 0.01-0.07 = 704-7) Lab Interpretation Abnormal (test code = 03909-8) [facility] WITH [id number] 16:19:14 Test Item Value Reference Range Interpretation Comments WBC (test code = See_Comment [Automated 9990-2) message] The sy stem which generated this result transmitted reference range : 4.30 - 11.10 10*3/?L. The reference range was not used to interpret this result as normal/abnormal . RBC (test code = See_Comment [Automated 111-8) message] The sy stem which generated this [...] RDW-SD (test code = 46.5 fL 39-49.9 59949-6) RDW-CV (test code = 15.7 % 12-15.5 H 788-0) PLT (test code = See_Comment [Automated 777-3) message] The sy stem which generated this result transmitted reference range : 166 - 358 10*3/ ?L. The reference r matteo was not used to interpret this result as normal/abnormal . MPV (test code = 9.3 fL 9.5-12.9 L 88680-1) NRBC/100 WBC (test See_Comment [Automat ed code = 1789873723) message] The system which generated this result transmitted reference range : 0.0 - 10.0 /100 WBCs. The refer ence range was not u sed to interpret th is result as normal/abnormal . NRBC x10^3 (test code See_Comment [Auto mated = 1116959129) message] The s ystem which generated this result transmitted reference range : 10*3/?L. The reference range was not used to interpret this result as normal/abnormal . GRAN MAT (NEUT) % 61.9 % (test code = 770-8) IMM GRAN % (test code 0.50 % = 5985780111) LYMPH % (test code = 26.3 % 736-9) MONO % (test code = 7.0 % 5905-5) EOS % (test code = 3.5 % 713-8) BASO % (test code = 0.8 % 706-2) GRAN MAT x10^3(ANC) 4.84 10*3/uL 1.88-7.09 (test code = 1825041292) IMM GRAN x10^3 (test 0.04 10*3/uL 0-0.06 code = 4237613770) LYMPH x10^3 (test code 2.06 10*3/uL 1.32-3.29 = 731-0) MONO x10^3 (test code 0.55 10*3/uL 0.33-0.92 = 742-7) EOS x10^3 (test code = 0.27 10*3/uL 0.03-0.39 711-2) BASO x10^3 (test code 0.06 10*3/uL 0.01-0.07 = 704-7) Lab Interpretation Abnormal (test code = 55823-2) [facility] WITH [id number] 16:19:14 Test Item Value Reference Range Interpretation [...] RDW-SD (test code = 46.5 fL 39-49.9 22803-0) RDW-CV (test code = 15.7 % 12-15.5 H 788-0) PLT (test code = See_Comment [Automated 777-3) message] The sy stem which generated this result transmitted reference range : 166 - 358 10*3/ ?L. The reference r matteo was not used to interpret this result as normal/abnormal . MPV (test code = 9.3 fL 9.5-12.9 L 68552-6) NRBC/100 WBC (test See_Comment [Automat ed code = 0721617680) message] The system which generated this result transmitted reference range : 0.0 - 10.0 /100 WBCs. The refer ence range was not u sed to interpret th is result as normal/abnormal . NRBC x10^3 (test code See_Comment [Auto mated = 0086455554) message] The s ystem which generated this result transmitted reference range : 10*3/?L. The reference range was not used to interpret this result as normal/abnormal . GRAN MAT (NEUT) % 61.9 % (test code = 770-8) IMM GRAN % (test code 0.50 % = 5604106030) LYMPH % (test code = 26.3 % 736-9) MONO % (test code = 7.0 % 5905-5) EOS % (test code = 3.5 % 713-8) BASO % (test code = 0.8 % 706-2) GRAN MAT x10^3(ANC) 4.84 10*3/uL 1.88-7.09 (test code = 6632164753) IMM GRAN x10^3 (test 0.04 10*3/uL 0-0.06 code = 6364593352) LYMPH x10^3 (test code 2.06 10*3/uL 1.32-3.29 = 731-0) MONO x10^3 (test code 0.55 10*3/uL 0.33-0.92 = 742-7) EOS x10^3 (test code = 0.27 10*3/uL 0.03-0.39 711-2) BASO x10^3 (test code 0.06 10*3/uL 0.01-0.07 = 704-7) Lab Interpretation Abnormal (test code = 97308-4) [facility] WITH [id number] 16:19:14 Test Item Value Reference Range Interpretation Comments WBC (test code = See_Comment [Automated 6494-2) message] The sy stem which generated this result transmitted reference range : 4.30 - 11.10 10*3/?L. The reference range was not used to interpret this result as normal/abnormal . RBC (test code = See_Comment [Automated 266-8) message] The sy stem which generated this [...] RDW-SD (test code = 46.5 fL 39-49.9 75852-7) RDW-CV (test code = 15.7 % 12-15.5 H 788-0) PLT (test code = See_Comment [Automated 777-3) message] The sy stem which generated this result transmitted reference range : 166 - 358 10*3/ ?L. The reference r matteo was not used to interpret this result as normal/abnormal . MPV (test code = 9.3 fL 9.5-12.9 L 16222-8) NRBC/100 WBC (test See_Comment [Automat ed code = 1497098961) message] The system which generated this result transmitted reference range : 0.0 - 10.0 /100 WBCs. The refer ence range was not u sed to interpret th is result as normal/abnormal . NRBC x10^3 (test code See_Comment [Auto mated = 1460586961) message] The s ystem which generated this result transmitted reference range : 10*3/?L. The reference range was not used to interpret this result as normal/abnormal . GRAN MAT (NEUT) % 61.9 % (test code = 770-8) IMM GRAN % (test code 0.50 % = 7932046293) LYMPH % (test code = 26.3 % 736-9) MONO % (test code = 7.0 % 5905-5) EOS % (test code = 3.5 % 713-8) BASO % (test code = 0.8 % 706-2) GRAN MAT x10^3(ANC) 4.84 10*3/uL 1.88-7.09 (test code = 6882250088) IMM GRAN x10^3 (test 0.04 10*3/uL 0-0.06 code = 2279245752) LYMPH x10^3 (test code 2.06 10*3/uL 1.32-3.29 = 731-0) MONO x10^3 (test code 0.55 10*3/uL 0.33-0.92 = 742-7) EOS x10^3 (test code = 0.27 10*3/uL 0.03-0.39 711-2) BASO x10^3 (test code 0.06 10*3/uL 0.01-0.07 = 704-7) Lab Interpretation Abnormal (test code = 91845-7) [facility] WITH [id number] 16:19:14 Test Item Value Reference Range Interpretation [...] RDW-SD (test code = 46.5 fL 39-49.9 01294-1) RDW-CV (test code = 15.7 % 12-15.5 H 788-0) PLT (test code = See_Comment [Automated 777-3) message] The sy stem which generated this result transmitted reference range : 166 - 358 10*3/ ?L. The reference r matteo was not used to interpret this result as normal/abnormal . MPV (test code = 9.3 fL 9.5-12.9 L 81894-6) NRBC/100 WBC (test See_Comment [Automat ed code = 7863433799) message] The system which generated this result transmitted reference range : 0.0 - 10.0 /100 WBCs. The refer ence range was not u sed to interpret th is result as normal/abnormal . NRBC x10^3 (test code See_Comment [Auto mated = 7160153785) message] The s ystem which generated this result transmitted reference range : 10*3/?L. The reference range was not used to interpret this result as normal/abnormal . GRAN MAT (NEUT) % 61.9 % (test code = 770-8) IMM GRAN % (test code 0.50 % = 4684469855) LYMPH % (test code = 26.3 % 736-9) MONO % (test code = 7.0 % 5905-5) EOS % (test code = 3.5 % 713-8) BASO % (test code = 0.8 % 706-2) GRAN MAT x10^3(ANC) 4.84 10*3/uL 1.88-7.09 (test code = 9111756008) IMM GRAN x10^3 (test 0.04 10*3/uL 0-0.06 code = 9138307306) LYMPH x10^3 (test code 2.06 10*3/uL 1.32-3.29 = 731-0) MONO x10^3 (test code 0.55 10*3/uL 0.33-0.92 = 742-7) EOS x10^3 (test code = 0.27 10*3/uL 0.03-0.39 711-2) BASO x10^3 (test code 0.06 10*3/uL 0.01-0.07 = 704-7) Lab Interpretation Abnormal (test code = 34174-0) [facility] GLU[facility]SE (AUTOMATED)2020-04-17 21:35:00 Test Item Value Reference Range Interpretation Comments POCT GLU (test code = 2060154226) 124 mg/dL 70-110 H Lab Interpretation (test code = Abnormal 33237-0) [facility] GLUCOSE (AUTOMATED)2020-04-17 18:10:00 Test Item Value Reference Range Interpretation Comments POCT GLU (test code = 1137827530) 213 mg/dL 70-110 H Lab Interpretation (test code = Abnormal 38019-4) [facility] GLUCOSE (AUTOMATED)2020-04-17 15:35:00 Test Item Value Reference Range Interpretation Comments POCT GLU (test code = 1486095824) 115 mg/dL 70-110 H Lab Interpretation (test code = Abnormal 80246-2) [facility] WITH [id number] 13:10:00 Test Item Value Reference Range Interpretation [...] RDW-SD (test code = 43.6 fL 39-49.9 67478-2) RDW-CV (test code = 14.6 % 12-15.5 788-0) PLT (test code = See_Comment H [Automated 777-3) message] The sy stem which generated this result transmitted reference range : 166 - 358 10*3/ ?L. The reference r matteo was not used to interpret this result as normal/abnormal . MPV (test code = 10.6 fL 9.5-12.9 41189-1) NRBC/100 WBC (test See_Comment [Automat ed code = [id number]) message] The system which generated this result transmitted reference range : 0.0 - 10.0 /100 WBCs. The refer ence range was not u sed to interpret th is result as normal/abnormal . NRBC x10^3 (test code <0.01 See_Comment [Auto mated = [id number]) message] The s ystem which generated this result transmitted reference range : 10*3/?L. The reference range was not used to interpret this result as normal/abnormal . GRAN MAT (NEUT) % 77.4 % (test code = 770-8) IMM GRAN % (test code 4.10 % = 9988883370) LYMPH % (test code = 8.9 % 736-9) MONO % (test code = 8.0 % 5905-5) EOS % (test code = 1.3 % 713-8) BASO % (test code = 0.3 % 706-2) GRAN MAT x10^3(ANC) 7.32 10*3/uL 1.88-7.09 H (test code = 7959169548) IMM GRAN x10^3 (test 0.39 10*3/uL 0-0.06 H code = 3037593249) LYMPH x10^3 (test code 0.84 10*3/uL 1.32-3.29 [...] . Lab Interpretation Abnormal (test code = 44092-3) [id number]00 Test Item Value Reference Range Interpretation Comments FERRITIN (test code = 126.0 ng/mL 264 [id number]) WALTER (test code = WALTER) Biotin has been reported to cause a negative bias, interpret results relative to patient's use of biotin. Lab Interpretation (test Normal code = 72365-7) [id number] 12:03:00 Test Item Value Reference Range Interpretation Comments IRON (test code = 7551221316) 23 ug/dL 50-160 L TIBC (test code = 1958208296) 260 ug/dL 250-410 % FE SAT (test code = 7086465838) 9 % 20-50 L Lab Interpretation (test code = Abnormal 58668-1) [facility] METABOLIC PANEL (NA, K, CL, CO2, GLUCOSE, BUN, CREATININE, CA)2020-04-17 11:52:00 Test Item Value Reference Range Interpretation Comments NA (test code = 134 mmol/L 135-145 L [id number]) K (test code = 4.0 mmol/L 3.5-5 4713441023) CL (test code = 103 mmol/L 98-108 2708544979) CO2 TOTAL (test code = 23 mmol/L 23-31 8849529675) AGAP (test code = 2-16 4489832673) BUN (test code = 13 mg/dL 7-23 7425990896) GLUCOSE (test code = 123 mg/dL 70-110 H 9344261235) CREATININE (test code = 1.03 mg/dL 0.5-1.04 4593943481) CALCIUM (test code = 7.7 mg/dL 8.6-10.6 L 6733069985) eGFR Calculation mL/min/1.73m2 (Non-) (test code = 8229020360) eGFR Calculation mL/min/1.73m2 () (test code = 6913155253) WALTER (test code = WALTER) Association of [...] tests). Lab Interpretation Abnormal (test code = 54822-1) [facility]2021-01-12 11:52:00 Test Item Value Reference Range Interpretation Comments MAGNESIUM (test code = 2307553065) 2.7 mg/dL 1.7-2.4 H Lab Interpretation (test code = Abnormal 98598-0) [facility] GLUCOSE (AUTOMATED)2020-04-17 02:39:00 Test Item Value Reference Range Interpretation Comments POCT GLU (test code = 0664259015) 119 mg/dL 70-110 H Lab Interpretation (test code = Abnormal 67626-9) [facility] GLUCOSE (AUTOMATED)2020-04-16 22:31:00 Test Item Value Reference Range Interpretation Comments POCT GLU (test code = 8233818779) 130 mg/dL 70-110 H Lab Interpretation (test code = Abnormal 22142-6) [facility] GLUCOSE (AUTOMATED)2020-04-16 18:50:00 Test Item Value Reference Range Interpretation Comments POCT GLU (test code = 7566092044) 139 mg/dL 70-110 H Lab Interpretation (test code = Abnormal 24300-3) [facility]2021-01-11 16:46:00 Test Item Value Reference Range Interpretation Comments MAGNESIUM (test code = 8649248497) 1.1 mg/dL 1.7-2.4 L Lab Interpretation (test code = Abnormal 35391-4) [facility] GLUCOSE (AUTOMATED)2020-04-16 15:31:00 Test Item Value Reference Range Interpretation Comments POCT GLU (test code = 1867563313) 106 mg/dL 70-110 Lab Interpretation (test code = Normal 34165-7) [facility] METABOLIC PANEL (NA, K, CL, CO2, GLUCOSE, BUN, CREATININE, CA)2020-04-16 12:30:00 Test Item Value Reference Range Interpretation Comments NA (test code = 133 mmol/L 135-145 L 2948968930) K (test code = 3.4 mmol/L 3.5-5 L 8787543057) CL (test code = 104 mmol/L 98-108 0443181523) CO2 TOTAL (test code = 23 mmol/L 23-31 0451292521) AGAP (test code = 2-16 3279835689) BUN (test code = 14 mg/dL 7-23 5680343456) GLUCOSE (test code = 117 mg/dL 70-110 H 6224533564) CREATININE (test code = 1.10 mg/dL 0.5-1.04 H 4839922637) CALCIUM (test code = 7.6 mg/dL 8.6-10.6 L 9559590742) eGFR Calculation mL/min/1.73m2 (Non-) (test code = 7444146346) eGFR Calculation mL/min/1.73m2 () (test code = 5318312652) WALTER (test code = WALTER) Association of [...] tests). Lab Interpretation Abnormal (test code = 55623-3) [facility] WITH [id number] 10:50:00 Test Item Value Reference Range Interpretation Comments WBC (test code = See_Comment [Automated 1190-2) message] The sy stem which generated this [...] RDW-SD (test code = 42.7 fL 39-49.9 10204-3) RDW-CV (test code = 14.6 % 12-15.5 788-0) PLT (test code = See_Comment [Automated 777-3) message] The sy stem which generated this result transmitted reference range : 166 - 358 10*3/ ?L. The reference r matteo was not used to interpret this result as normal/abnormal . MPV (test code = 11.5 fL 9.5-12.9 07455-9) NRBC/100 WBC (test See_Comment [Automat ed code = 5175017095) message] The system which generated this result transmitted reference range : 0.0 - 10.0 /100 WBCs. The refer ence range was not u sed to interpret th is result as normal/abnormal . NRBC x10^3 (test code <0.01 See_Comment [Auto mated = 6506415299) message] The s ystem which generated this result transmitted reference range : 10*3/?L. The reference range was not used to interpret this result as normal/abnormal . GRAN MAT (NEUT) % 72.5 % (test code = 770-8) IMM GRAN % (test code 6.90 % = 5900301167) LYMPH % (test code = 9.4 % 736-9) MONO % (test code = 8.9 % 5905-5) EOS % (test code = 2.2 % 713-8) BASO % (test code = 0.1 % 706-2) GRAN MAT x10^3(ANC) 5.96 10*3/uL 1.88-7.09 (test code = 1034648564) IMM GRAN x10^3 (test 0.57 10*3/uL 0-0.06 H code = 8092428574) LYMPH x10^3 (test code 0.77 10*3/uL 1.32-3.29 L = 731-0) MONO x10^3 (test code 0.73 10*3/uL 0.33-0.92 = 742-7) EOS x10^3 (test code = 0.18 10*3/uL 0.03-0.39 711-2) BASO x10^3 (test code <0.03 0.01-0.07 = 704-7) Lab Interpretation Abnormal (test code = 12510-9) [facility] GLUCOSE (AUTOMATED)2020-04-16 02:24:00 Test Item Value Reference Range Interpretation Comments POCT GLU (test code = 3387370154) 100 mg/dL 70-110 Lab Interpretation (test code = Normal 73704-1) [facility] GLUCOSE (AUTOMATED)2020-04-15 21:47:00 Test Item Value Reference Range Interpretation Comments POCT GLU (test code = 8634715066) 120 mg/dL 70-110 H Lab Interpretation (test code = Abnormal 21594-7) [facility] [id number] 19:19:00COVID DMT InterpretationInterpretation/Recommendations: Molecular NAAT Tests for Active Infection with the SARS-CoV-2 Virus: This result indicates that the patient has been infected with the RVLO-BnL-8gufpu that causes COVID-19 illness. The patient should be considered infectious and able to transmitthe virus within the first 10 days after symptom onset in tesz-ls-afsgymyx illness and within the first 20 days [...] COVID-19 testing the patient has had at [facility], including molecular NAAT testing (more commonly known as PCR testing and Rapid ID Now testing) and antibody testing. It does not takeinto account any testing that a patient has had outside of the [facility] medical record. [facility] LABORATORY SERVICESCOVID FjrnbkpXFOM-TmY-6 Rapid ID NOW (no units) ? ? Date ? Value ? 04/07/2020 ? Positive (A) ? CoV-2 IgG (no units) ? ? Date ? Value ? 04/11/2020 ? Positive (A) ? [facility]2020-04-15 18:09:00 Test Item Value Reference Range Interpretation Comments POCT GLU (test code = 3512839747) 160 mg/dL 70-110 H Lab Interpretation (test code = Abnormal 69759-7) [facility] GLUCOSE (AUTOMATED)2020-04-15 16:58:00 Test Item Value Reference Range Interpretation Comments POCT GLU (test code = 3960904130) 162 mg/dL 70-110 H Lab Interpretation (test code = Abnormal 21699-6) [facility] WITH [id number] 11:53:00 Test Item Value Reference Range Interpretation [...] RDW-SD (test code = 42.7 fL 39-49.9 56499-5) RDW-CV (test code = 14.4 % 12-15.5 788-0) PLT (test code = See_Comment [Automated 777-3) message] The sy stem which generated this result transmitted reference range : 166 - 358 10*3/ ?L. The reference r matteo was not used to interpret this result as normal/abnormal . MPV (test code = 11.6 fL 9.5-12.9 02932-5) NRBC/100 WBC (test See_Comment [Automat ed code = 5399854160) message] The system which generated this result transmitted reference range : 0.0 - 10.0 /100 WBCs. The refer ence range was not u sed to interpret th is result as normal/abnormal . NRBC x10^3 (test code <0.01 See_Comment [Auto mated = 4145217655) message] The s ystem which generated this result transmitted reference range : 10*3/?L. The reference range was not used to interpret this result as normal/abnormal . GRAN MAT (NEUT) % 71.2 % (test code = 770-8) IMM GRAN % (test code 9.00 % = 6939963119) LYMPH % (test code = 8.1 % 736-9) MONO % (test code = 9.8 % 5905-5) EOS % (test code = 1.5 % 713-8) BASO % (test code = 0.4 % 706-2) GRAN MAT x10^3(ANC) 6.91 10*3/uL 1.88-7.09 (test code = 3947872577) IMM GRAN x10^3 (test 0.87 10*3/uL 0-0.06 H code = 5957540025) LYMPH x10^3 (test code 0.79 10*3/uL 1.32-3.29 L = 731-0) MONO x10^3 (test code 0.95 10*3/uL 0.33-0.92 H = 742-7) EOS x10^3 (test code = 0.15 10*3/uL 0.03-0.39 711-2) BASO x10^3 (test code 0.04 10*3/uL 0.01-0.07 = 704-7) TOXIC CHANGES (test Present A code = 803-7) Lab Interpretation Abnormal (test code = 11093-9) [facility] GLUCOSE (AUTOMATED)2020-04-15 03:19:00 Test Item Value Reference Range Interpretation Comments POCT GLU (test code = 150 mg/dL 70-110 H Notifi ed Provider [id number]) Lab Interpretation (test Abnormal code = 37411-4) [facility] GLUCOSE (AUTOMATED)2020-04-14 22:17:00 Test Item Value Reference Range Interpretation Comments POCT GLU (test code = 6098508174) 165 mg/dL 70-110 H Lab Interpretation (test code = Abnormal 47809-2) [facility] GLUCOSE (AUTOMATED)2020-04-14 17:59:00 Test Item Value Reference Range Interpretation Comments POCT GLU (test code = 0483968847) 160 mg/dL 70-110 H Lab Interpretation (test code = Abnormal 65549-7) [facility] GLUCOSE (AUTOMATED)2020-04-14 13:24:00 Test Item Value Reference Range Interpretation Comments POCT GLU (test code = 0295880062) 144 mg/dL 70-110 H Lab Interpretation (test code = Abnormal 62825-6) [facility] WITH [id number] 13:11:00 Test Item Value Reference Range Interpretation [...] RDW-SD (test code = 43.2 fL 39-49.9 64279-7) RDW-CV (test code = 14.6 % 12-15.5 788-0) PLT (test code = See_Comment [Automated 777-3) message] The sy stem which generated this result transmitted reference range : 166 - 358 10*3/ ?L. The reference r matteo was not used to interpret this result as normal/abnormal . MPV (test code = 11.2 fL 9.5-12.9 38525-4) NRBC/100 WBC (test See_Comment [Automat ed code = 4318395484) message] The system which generated this result transmitted reference range : 0.0 - 10.0 /100 WBCs. The refer ence range was not u sed to interpret th is result as normal/abnormal . NRBC x10^3 (test code <0.01 See_Comment [Auto mated = 5047578529) message] The s ystem which generated this result transmitted reference range : 10*3/?L. The reference range was not used to interpret this result as normal/abnormal . GRAN MAT (NEUT) % 76.8 % (test code = 770-8) IMM GRAN % (test code 7.50 % = 6961648272) LYMPH % (test code = 6.2 % 736-9) MONO % (test code = 7.9 % 5905-5) EOS % (test code = 1.2 % 713-8) BASO % (test code = 0.4 % 706-2) GRAN MAT x10^3(ANC) 8.73 10*3/uL 1.88-7.09 H (test code = 9675474420) IMM GRAN x10^3 (test 0.85 10*3/uL 0-0.06 H code = 9769637190) LYMPH x10^3 (test code 0.71 10*3/uL 1.32-3.29 L = 731-0) MONO x10^3 (test code 0.90 10*3/uL 0.33-0.92 = 742-7) EOS x10^3 (test code = 0.14 10*3/uL 0.03-0.39 711-2) BASO x10^3 (test code 0.04 10*3/uL 0.01-0.07 = 704-7) Lab Interpretation Abnormal (test code = 46412-9) [facility] (NA, K, CL, CO2, GLUCOSE, BUN, CREATININE, CA)2020-04-14 12:39:00 Test Item Value Reference Range Interpretation Comments NA (test code = 132 mmol/L 135-145 L 7786062724) K (test code = 3.3 mmol/L 3.5-5 L 4481807324) CL (test code = 103 mmol/L 98-108 8252232363) CO2 TOTAL (test code = 22 mmol/L 23-31 L 3292339923) AGAP (test code = 2-16 9287528964) BUN (test code = 19 mg/dL 7-23 5454440774) GLUCOSE (test code = 142 mg/dL 70-110 H 6605882332) CREATININE (test code = 1.13 mg/dL 0.5-1.04 H 0961219484) CALCIUM (test code = 7.3 mg/dL 8.6-10.6 L 7839383642) eGFR Calculation mL/min/1.73m2 (Non-) (test code = 2571771683) eGFR Calculation mL/min/1.73m2 () (test code = 7355960535) WALTER (test code = WALTER) Association of [...] tests). Lab Interpretation Abnormal (test code = 86518-4) [facility] GLUCOSE (AUTOMATED)2020-04-14 01:01:00 Test Item Value Reference Range Interpretation Comments POCT GLU (test code = 1727025934) 109 mg/dL 70-110 Lab Interpretation (test code = Normal 33098-0) [facility] GLUCOSE (AUTOMATED)2020-04-13 18:31:00 Test Item Value Reference Range Interpretation Comments POCT GLU (test code = 4421270239) 190 mg/dL 70-110 H Lab Interpretation (test code = Abnormal 72786-3) [facility] GLUCOSE (AUTOMATED)2020-04-13 13:29:00 Test Item Value Reference Range Interpretation Comments POCT GLU (test code = 6423776678) 152 mg/dL 70-110 H Lab Interpretation (test code = Abnormal 15044-0) [facility] WITH [id number] 10:23:00 Test Item Value Reference Range Interpretation [...] RDW-SD (test code = 44.9 fL 39-49.9 60878-6) RDW-CV (test code = 14.9 % 12-15.5 788-0) PLT (test code = See_Comment [Automated 777-3) message] The sy stem which generated this result transmitted reference range : 166 - 358 10*3/ ?L. The reference r matteo was not used to interpret this result as normal/abnormal . MPV (test code = 11.4 fL 9.5-12.9 76910-6) NRBC/100 WBC (test See_Comment [Automat ed code = 3001921183) message] The system which generated this result transmitted reference range : 0.0 - 10.0 /100 WBCs. The refer ence range was not u sed to interpret th is result as normal/abnormal . NRBC x10^3 (test code See_Comment [Auto mated = 4620492675) message] The s ystem which generated this result transmitted reference range : 10*3/?L. The reference range was not used to interpret this result as normal/abnormal . GRAN MAT (NEUT) % 73.7 % (test code = 770-8) IMM GRAN % (test code 6.20 % = 2174019832) LYMPH % (test code = 9.5 % 736-9) MONO % (test code = 9.7 % 5905-5) EOS % (test code = 0.7 % 713-8) BASO % (test code = 0.2 % 706-2) GRAN MAT x10^3(ANC) 8.88 10*3/uL 1.88-7.09 H (test code = 3322839784) IMM GRAN x10^3 (test 0.74 10*3/uL 0-0.06 H code = 5580865783) LYMPH x10^3 (test code 1.14 10*3/uL 1.32-3.29 L = 731-0) MONO x10^3 (test code 1.17 10*3/uL 0.33-0.92 H = 742-7) EOS x10^3 (test code = 0.08 10*3/uL 0.03-0.39 711-2) BASO x10^3 (test code <0.03 0.01-0.07 = 704-7) HYPERSEG NEUTS (test Present See_Comment A [Autom ated code = 765-8) message] The [employer] which generated this result transmitted reference range : (none). The reference range was not used to interpret this result as normal/abnormal . Lab Interpretation Abnormal (test code = 78565-1) [facility] METABOLIC PANEL (NA, K, CL, CO2, GLUCOSE, BUN, CREATININE, CA)2020-04-13 09:29:00 Test Item Value Reference Range Interpretation Comments NA (test code = 135 mmol/L 135-145 5328006920) K (test code = 3.5 mmol/L 3.5-5 4338251675) CL (test code = 109 mmol/L 98-108 H 3261649125) CO2 TOTAL (test code = 18 mmol/L 23-31 L 4074654091) AGAP (test code = 2-16 7753032872) BUN (test code = 24 mg/dL 7-23 H 9495665756) GLUCOSE (test code = 119 mg/dL 70-110 H 9856081841) CREATININE (test code = 1.30 mg/dL 0.5-1.04 H 2543936760) CALCIUM (test code = 7.4 mg/dL 8.6-10.6 L 0642651517) eGFR Calculation mL/min/1.73m2 (Non-) (test code = 1652648758) eGFR Calculation mL/min/1.73m2 () (test code = 3066571352) WALTER (test code = WALTER) Association of [...] tests). Lab Interpretation Abnormal (test code = 20458-1) [facility] GLUCOSE (AUTOMATED)2020-04-13 03:22:00 Test Item Value Reference Range Interpretation Comments POCT GLU (test code = 205 mg/dL 70-110 H RNNoti fied Provider 2784311014) Lab Interpretation (test Abnormal code = 25029-0) [facility] GLUCOSE (AUTOMATED)2020-04-13 00:34:00 Test Item Value Reference Range Interpretation Comments POCT GLU (test code = 4931781688) 134 mg/dL 70-110 H Lab Interpretation (test code = Abnormal 78241-3) [facility] GLUCOSE (AUTOMATED)2020-04-12 21:23:00 Test Item Value Reference Range Interpretation Comments POCT GLU (test code = 2615527409) 129 mg/dL 70-110 H Lab Interpretation (test code = Abnormal 81254-6) [facility] [id number] 18:01:00 Test Item Value Reference Range Interpretation Comments Blood Culture-Aerobic No organisms No growth Previo us (test code = 71370-5) isolated prelim inary verified result was Culture In Progress on 04/07/2020 at 150 1 CSTPrevious preliminary verified result was No growth a t 24 hours on 04/08/2020 at 120 1 CSTPrevious preliminary verified result was No growth a t 48 hours on 04/09/2020 at 120 1 CSTPrevious preliminary verified result was No growth a t 72 hours on 04/10/2020 at 120 1 PRESS SETTER Blood No organisms No growth Previous Culture-Anaerobic isolated preliminar y (test code = 08326-0) verifi ed result was Culture In Progress on 04/07/2020 at 150 1 CSTPrevious preliminary verified result was No growth a t 24 hours on 04/08/2020 at 120 1 CSTPrevious preliminary verified result was No growth a t 48 hours on 04/09/2020 at 120 1 CSTPrevious preliminary verified result was No growth a t 72 hours on 04/10/2020 at 120 1 PRESS SETTER Lab Interpretation Normal (test code = 41211-0) [facility] [id number] 18:01:00 Test Item Value Reference Range Interpretation Comments Blood Culture-Aerobic No organisms No growth Previo us (test code = 48294-2) isolated prelim inary verified result was Culture In Progress on 04/07/2020 at 150 1 CSTPrevious preliminary verified result was No growth a t 24 hours on 04/08/2020 at 120 1 CSTPrevious preliminary verified result was No growth a t 48 hours on 04/09/2020 at 120 1 CSTPrevious preliminary verified result was No growth a t 72 hours on 04/10/2020 at 120 1 PRESS SETTER Blood No organisms No growth Previous Culture-Anaerobic isolated preliminar y (test code = 08073-3) verifi ed result was Culture In Progress on 04/07/2020 at 150 1 CSTPrevious preliminary verified result was No growth a t 24 hours on 04/08/2020 at 120 1 CSTPrevious preliminary verified result was No growth a t 48 hours on 04/09/2020 at 120 1 CSTPrevious preliminary verified result was No growth a t 72 hours on 04/10/2020 at 120 1 PRESS SETTER Lab Interpretation Normal (test code = 05546-9) [facility] GLUCOSE (AUTOMATED)2020-04-12 17:19:00 Test Item Value Reference Range Interpretation Comments POCT GLU (test code = 9333863435) 420 mg/dL 70-110 H Lab Interpretation (test code = Abnormal 48252-6) [facility] GLUCOSE (AUTOMATED)2020-04-12 17:19:00 Test Item Value Reference Range Interpretation Comments POCT GLU (test code = 9406139843) 180 mg/dL 70-110 H Lab Interpretation (test code = Abnormal 67523-6) [facility] WITH [id number] 12:51:00 Test Item Value Reference Range Interpretation [...] RDW-SD (test code = 45.3 fL 39-49.9 14201-5) RDW-CV (test code = 15.0 % 12-15.5 788-0) PLT (test code = See_Comment [Automated 777-3) message] The sy stem which generated this result transmitted reference range : 166 - 358 10*3/ ?L. The reference r matteo was not used to interpret this result as normal/abnormal . MPV (test code = 11.8 fL 9.5-12.9 08519-8) NRBC/100 WBC (test See_Comment [Automat ed code = 9070847158) message] The system which generated this result transmitted reference range : 0.0 - 10.0 /100 WBCs. The refer ence range was not u sed to interpret th is result as normal/abnormal . NRBC x10^3 (test code <0.01 See_Comment [Auto mated = 2473096906) message] The s ystem which generated this result transmitted reference range : 10*3/?L. The reference range was not used to interpret this result as normal/abnormal . GRAN MAT (NEUT) % 80.2 % (test code = 770-8) IMM GRAN % (test code 5.10 % = 7396504839) LYMPH % (test code = 6.8 % 736-9) MONO % (test code = 7.4 % 5905-5) EOS % (test code = 0.4 % 713-8) BASO % (test code = 0.1 % 706-2) GRAN MAT x10^3(ANC) 8.38 10*3/uL 1.88-7.09 H (test code = 3190392004) IMM GRAN x10^3 (test 0.53 10*3/uL 0-0.06 H code = 5067091621) LYMPH x10^3 (test code 0.71 10*3/uL 1.32-3.29 L = 731-0) MONO x10^3 (test code 0.77 10*3/uL 0.33-0.92 = 742-7) EOS x10^3 (test code = 0.04 10*3/uL 0.03-0.39 711-2) BASO x10^3 (test code <0.03 0.01-0.07 = 704-7) BANDS (test code = Increased A 8319285152) TOXIC CHANGES (test Present A code = 803-7) Lab Interpretation Abnormal (test code = 91463-7) [facility] METABOLIC PANEL (NA, K, CL, CO2, GLUCOSE, BUN, CREATININE, CA)2020-04-12 12:20:00 Test Item Value Reference Range Interpretation Comments NA (test code = 139 mmol/L 135-145 8875371144) K (test code = 3.5 mmol/L 3.5-5 3466517536) CL (test code = 111 mmol/L 98-108 H 8672016442) CO2 TOTAL (test code = 20 mmol/L 23-31 L 1409766723) AGAP (test code = 2-16 1860761737) BUN (test code = 38 mg/dL 7-23 H 3300967273) GLUCOSE (test code = 192 mg/dL 70-110 H 5015478214) CREATININE (test code = 1.60 mg/dL 0.5-1.04 H 8799102260) CALCIUM (test code = 7.3 mg/dL 8.6-10.6 L 1440009980) eGFR Calculation mL/min/1.73m2 (Non-) (test code = 0270391695) eGFR Calculation mL/min/1.73m2 () (test code = 2100347477) WALTER (test code = WALTER) Association of [...] tests). Lab Interpretation Abnormal (test code = 21227-0) [facility] GLUCOSE (AUTOMATED)2020-04-12 00:18:00 Test Item Value Reference Range Interpretation Comments POCT GLU (test code = 5648222560) 121 mg/dL 70-110 H Lab Interpretation (test code = Abnormal 44116-7) [facility] [id number] 22:49:23 Test Item Value Reference Range Interpretation Comments ANTIBODY ID (test Undetermined Spec Perfo rmed at [facility] code = 245) Laboratory Serv ices - [facility] Blood Ban [address] [facility] [place] [id number] Free: [phone] A No. [id number] [facility] Hospital[facility]ARS-COV-2 [id number] 22:10:00 Test Item Value Reference Range Interpretation Comments CoV-2 IgG (test code Positive Negative A A posit ike result = 67324-0) suggests exposu re to SARS-CoV-2 b ut does not necessarily indicate immunity. Resul ts should be used in conjunction wit h symptoms, other test results an d clinical impression. Thi s test should not be used for screening of donated blood. WALTER (test code = WALTER) This test has been approved by FDA for emergency use. Lab Interpretation Abnormal (test code = 63902-6) [facility] GLUCOSE (AUTOMATED)2020-04-11 19:45:00 Test Item Value Reference Range Interpretation Comments POCT GLU (test code = 9671368420) 144 mg/dL 70-110 H Lab Interpretation (test code = Abnormal 59406-2) [facility] GLUCOSE (AUTOMATED)2020-04-11 18:56:00 Test Item Value Reference Range Interpretation Comments POCT GLU (test code = 5463960610) 73 mg/dL 70-110 Lab Interpretation (test code = Normal 70128-6) [facility] GLUCOSE (AUTOMATED)2020-04-11 18:56:00 Test Item Value Reference Range Interpretation Comments POCT GLU (test code = 0678227026) 50 mg/dL 70-110 LL Lab Interpretation (test code = Abnormal 56159-9) [facility] GLUCOSE (AUTOMATED)2020-04-11 18:56:00 Test Item Value Reference Range Interpretation Comments POCT GLU (test code = 5129632938) 75 mg/dL 70-110 Lab Interpretation (test code = Normal 37269-6) [facility] [id number] 17:18:00 Test Item Value Reference Range Interpretation Comments Blood Culture-Aerobic Culture positive. No growth AA P revious (test code = 93106-1) See Blood Culture p reliminary Workup for verified result additional was Culture In information. Progress on 04/08/2020 at 180 2 PRESS SETTER Blood Culture positive. No growth AA Previous Culture-Anaerobic See Blood Culture preli minary (test code = 40755-4) Workup for verifi ed result additional was Culture In information. Progress on 04/08/2020 at 180 2 PRESS SETTER Lab Interpretation Abnormal (test code = 49170-7) [facility] [id number] 17:18:00 Test Item Value Reference Range Interpretation Comments Blood Culture Escherichia coli [place] mor phologically Workup (test consistent with code = 600-7) organism above For susceptibility results, refer to culture # - [id number] Gram stain Gram negative Aerobic and An aerobic (test code = bacilli Bottle 664-3) [facility] 13:49:00 Test Item Value Reference Range Interpretation Comments POCT GLU (test code = 9239250602) 56 mg/dL 70-110 L Lab Interpretation (test code = Abnormal 87119-4) [facility] - ONCE [id number] 13:01:45 Test Item Value Reference Range Interpretation Comments ABO & RH (test code O POSITIVE Performe d at [facility] = 20) Laboratory Serv [facility] Blood Bank3 [facility] [address]yqa Free: [phone] A No. [id number] IAT (test code = Positive Performed a t [facility] 1185) Laboratory Serv [facility] Blood Bank3 [facility] [id number] Free: [phone] A No. [id number] [facility] (NA, K, CL, CO2, GLUCOSE, BUN, CREATININE, CA)2020-04-11 12:11:00 Test Item Value Reference Range Interpretation Comments NA (test code = 141 mmol/L 135-145 6806520920) K (test code = 3.5 mmol/L 3.5-5 1206267574) CL (test code = 114 mmol/L 98-108 H 8551403413) CO2 TOTAL (test code = 19 mmol/L 23-31 L 9689578451) AGAP (test code = 2-16 3620137917) BUN (test code = 58 mg/dL 7-23 H 1615046914) GLUCOSE (test code = 100 mg/dL 70-110 7509725675) CREATININE (test code = 2.46 mg/dL 0.5-1.04 H 0897731143) CALCIUM (test code = 7.4 mg/dL 8.6-10.6 L 4762116660) eGFR Calculation mL/min/1.73m2 (Non-) (test code = 0171416648) eGFR Calculation mL/min/1.73m2 () (test code = 0861380449) WALTER (test code = WALTER) Association of [...] tests). Lab Interpretation Abnormal (test code = 92560-0) [facility] WITH [id number] 12:07:00 Test Item Value Reference Range Interpretation [...] RDW-SD (test code = 46.2 fL 39-49.9 63359-3) RDW-CV (test code = 15.1 % 12-15.5 788-0) PLT (test code = See_Comment L [Automated 777-3) message] The sy stem which generated this result transmitted reference range : 166 - 358 10*3/ ?L. The reference r matteo was not used to interpret this result as normal/abnormal . MPV (test code = 11.7 fL 9.5-12.9 80853-5) NRBC/100 WBC (test See_Comment [Automat ed code = 8913099742) message] The system which generated this result transmitted reference range : 0.0 - 10.0 /100 WBCs. The refer ence range was not u sed to interpret th is result as normal/abnormal . NRBC x10^3 (test code <0.01 See_Comment [Auto mated = 2486853914) message] The s ystem which generated this result transmitted reference range : 10*3/?L. The reference range was not used to interpret this result as normal/abnormal . GRAN MAT (NEUT) % 82.4 % (test code = 770-8) IMM GRAN % (test code 2.10 % = 1535514601) LYMPH % (test code = 8.2 % 736-9) MONO % (test code = 6.7 % 5905-5) EOS % (test code = 0.5 % 713-8) BASO % (test code = 0.1 % 706-2) GRAN MAT x10^3(ANC) 6.52 10*3/uL 1.88-7.09 (test code = 0933541553) IMM GRAN x10^3 (test 0.17 10*3/uL 0-0.06 H code = 3430134989) LYMPH x10^3 (test code 0.65 10*3/uL 1.32-3.29 L = 731-0) MONO x10^3 (test code 0.53 10*3/uL 0.33-0.92 = 742-7) EOS x10^3 (test code = 0.04 10*3/uL 0.03-0.39 711-2) BASO x10^3 (test code <0.03 0.01-0.07 = 704-7) BANDS (test code = Increased A 9679392522) TOXIC CHANGES (test Present A code = 803-7) Lab Interpretation Abnormal (test code = 68963-9) [facility] Basic Metabolic Panel (NA, K, CL, CO2, GLUCOSE, BUN, CREATININE, CA)2020-04-11 00:24:00 Test Item Value Reference Range Interpretation Comments NA (test code = 139 mmol/L 135-145 6588338758) K (test code = 3.5 mmol/L 3.5-5 6142109418) CL (test code = 113 mmol/L 98-108 H 1855184362) CO2 TOTAL (test code = 20 mmol/L 23-31 L 8775219362) AGAP (test code = 2-16 6941369632) BUN (test code = 69 mg/dL 7-23 H 8075033706) GLUCOSE (test code = 113 mg/dL 70-110 H 9952772349) CREATININE (test code = 3.15 mg/dL 0.5-1.04 H 2068747192) CALCIUM (test code = 7.1 mg/dL 8.6-10.6 L 9581101063) eGFR Calculation mL/min/1.73m2 (Non-) (test code = 0719763717) eGFR Calculation mL/min/1.73m2 () (test code = 7735915780) WALTER (test code = WALTER) Association of [...] tests). Lab Interpretation Abnormal (test code = 77574-9) [facility] WITHOUT [id number] 00:09:00 Test Item Value Reference Range Interpretation Comments WBC (test code = 6690-2) See_Comment [A utomated message] The system [employer] generated this result transmit dayna reference range : 4.30 - 11.10 10*3/?L. The reference range was not used to interpret this result as normal/abnormal . RBC (test code = 789-8) See_Comment L [Au tomated message] The system [employer] generated this result transmit dayna reference range [...] See_Comment L [Au tomated message] The system [employer] generated this result transmit dayna reference range : 166 - 358 10*3/?L. The reference range was not used to interpret this result as normal/abnormal . MPV (test code = 12.5 fL 9.5-12.9 88365-1) RDW-CV (test code = 14.8 % 12-15.5 788-0) RDW-SD (test code = 46.6 fL 39-49.9 78785-8) NRBC x10^3 (test code = <0.01 See_Comment [Au tomated message] 5425776345) The system [employer] generated this result transmit dayna reference range : 10*3/?L. The reference range was not used to interpret this result as normal/abnormal . NRBC/100 WBC (test code See_Comment [Au tomated message] = 3439270750) The system [employer] generated this result transmit dayna reference range : 0.0 - 10.0 /100 WBC s. The reference r matteo was not used to interpret this result as normal/abnormal . IPF % (test code = 8638993266) Lab Interpretation (test Abnormal code = 96237-3) [facility]2020-04-10 22:00:00 Test Item Value Reference Range Interpretation Comments POCT GLU (test code = 6163896086) 22 mg/dL 70-110 LL Lab Interpretation (test code = Abnormal 51405-1) [facility] GLUCOSE (AUTOMATED)2020-04-10 22:00:00 Test Item Value Reference Range Interpretation Comments POCT GLU (test code = 9057302528) 113 mg/dL 70-110 H Lab Interpretation (test code = Abnormal 45023-5) [facility]2020-04-10 19:31:00 Test Item Value Reference Range Interpretation Comments POCT GLU (test code = 9221933413) 67 mg/dL 70-110 L Lab Interpretation (test code = Abnormal 90459-2) [facility] (in units), 1 Units 2020-04-10 16:13:38 Test Item Value Reference Range Interpretation Comments Cross Match Result Compatible (test code = 4409) ISBT Blood Type Code (test code = 592035) Unit Blood Type (test O Pos code = 4410) Unit Number (test [id number] code = 4411) Blood Expiration Date & Time (test code = 028699) Status Information Issued (test code = 4412) Product Red Blood Cells Identification (test code = 4413) Product Code (test E5615S08 Performed at [facility] code = 4414) Laboratory Services - [facility] Blood [address] [address]Ogxw Free: [phone] A No. [id number] [facility] WITH [id number] 14:45:00 Test Item Value Reference Range Interpretation Comments WBC (test code = See_Comment [Automated 6790-2) message] The sy stem which generated this result transmitted reference range : 4.30 - 11.10 10*3/?L. The reference range was not used to interpret this result as normal/abnormal . RBC (test code = See_Comment L [Automated 429-8) message] The sy stem which generated this [...] RDW-SD (test code = 46.0 fL 39-49.9 84465-8) RDW-CV (test code = 14.5 % 12-15.5 788-0) PLT (test code = See_Comment [Automated 777-3) message] The sy stem which generated this result transmitted reference range : 166 - 358 10*3/ ?L. The reference r matteo was not used to interpret this result as normal/abnormal . MPV (test code = 12.5 fL 9.5-12.9 84506-4) NRBC/100 WBC (test See_Comment [Automat ed code = 9109334149) message] The system which generated this result transmitted reference range : 0.0 - 10.0 /100 WBCs. The refer ence range was not u sed to interpret th is result as normal/abnormal . NRBC x10^3 (test code <0.01 See_Comment [Auto mated = 3719411750) message] The s ystem which generated this result transmitted reference range : 10*3/?L. The reference range was not used to interpret this result as normal/abnormal . GRAN MAT (NEUT) % 86.5 % (test code = 770-8) IMM GRAN % (test code 1.20 % = 1581345864) LYMPH % (test code = 7.3 % 736-9) MONO % (test code = 4.8 % 5905-5) EOS % (test code = 0.1 % 713-8) BASO % (test code = 0.1 % 706-2) GRAN MAT x10^3(ANC) 7.91 10*3/uL 1.88-7.09 H (test code = 4468717933) IMM GRAN x10^3 (test 0.11 10*3/uL 0-0.06 H code = 6803934690) LYMPH x10^3 (test code 0.67 10*3/uL 1.32-3.29 L = 731-0) MONO x10^3 (test code 0.44 10*3/uL 0.33-0.92 = 742-7) EOS x10^3 (test code = <0.03 0.03-0.39 L 711-2) BASO x10^3 (test code <0.03 0.01-0.07 = 704-7) Lab Interpretation Abnormal (test code = 02517-7) [facility] 14:05:00 Test Item Value Reference Range Interpretation Comments POCT GLU (test code = 4347218857) 95 mg/dL 70-110 Lab Interpretation (test code = Normal 01629-0) [facility] Basic Metabolic Panel (NA, K, CL, CO2, GLUCOSE, BUN, CREATININE, CA)2020-04-10 13:23:00 Test Item Value Reference Range Interpretation Comments NA (test code = 143 mmol/L 135-145 3826694386) K (test code = 3.7 mmol/L 3.5-5 2419761576) CL (test code = 114 mmol/L 98-108 H 7368771913) CO2 TOTAL (test code = 22 mmol/L 23-31 L 9825843314) AGAP (test code = 2-16 7869721314) BUN (test code = 79 mg/dL 7-23 H 8262820180) GLUCOSE (test code = 86 mg/dL 70-110 1848115768) CREATININE (test code = 3.86 mg/dL 0.5-1.04 H 8344012561) CALCIUM (test code = 6.9 mg/dL 8.6-10.6 L 0707704597) eGFR Calculation mL/min/1.73m2 (Non-) (test code = 6444083793) eGFR Calculation mL/min/1.73m2 () (test code = 9964387422) WALTER (test code = WALTER) Association of [...] tests). Lab Interpretation Abnormal (test code = 73980-8) [facility] WITHOUT [id number] 12:58:00 Test Item Value Reference Range Interpretation Comments WBC (test code = 6690-2) See_Comment [A utomated message] The system [employer] generated this result transmit dayna reference range : 4.30 - 11.10 10*3/?L. The reference range was not used to interpret this result as normal/abnormal . RBC (test code = 789-8) See_Comment L [Au tomated message] The system [employer] generated this result transmit dayna reference range [...] See_Comment L [Au tomated message] The system [employer] generated this result transmit dayna reference range : 166 - 358 10*3/?L. The reference range was not used to interpret this result as normal/abnormal . MPV (test code = 12.9 fL 9.5-12.9 61916-0) RDW-CV (test code = 14.4 % 12-15.5 788-0) RDW-SD (test code = 45.8 fL 39-49.9 57825-2) NRBC x10^3 (test code = <0.01 See_Comment [Au tomated message] 0119058034) The system [employer] h generated this result transmit dayna reference range : 10*3/?L. The reference range was not used to interpret this result as normal/abnormal . NRBC/100 WBC (test code See_Comment [Au tomated message] = 8574401059) The system [employer] ch generated this result transmit dayna reference range : 0.0 - 10.0 /100 WBC s. The reference r matteo was not used to interpret this result as normal/abnormal . IPF % (test code = 6981460267) Lab Interpretation (test Abnormal code = 87078-8) [id number] 01:45:25 1. ?NG tube terminates in stomach.EXAM: [...] moderate degenerative changes.IMPRESSION1. NG tube terminates in stomach.[facility] (NA, K, CL, CO2, GLUCOSE, BUN, CREATININE, CA)2020-04-10 01:39:00 Test Item Value Reference Range Interpretation Comments NA (test code = 143 mmol/L 135-145 8600279824) K (test code = 3.8 mmol/L 3.5-5 0390810410) CL (test code = 114 mmol/L 98-108 H 5213744248) CO2 TOTAL (test code = 12 mmol/L 23-31 L 3508563237) AGAP (test code = 2-16 H 3971793639) BUN (test code = 82 mg/dL 7-23 H 3686563834) GLUCOSE (test code = 125 mg/dL 70-110 H 4293910830) CREATININE (test code = 4.54 mg/dL 0.5-1.04 H 5206978896) CALCIUM (test code = 7.1 mg/dL 8.6-10.6 L 7730019874) eGFR Calculation mL/min/1.73m2 (Non-) (test code = 9220819236) eGFR Calculation mL/min/1.73m2 () (test code = 3257462292) WALTER (test code = WALTER) Association of [...] tests). Lab Interpretation Abnormal (test code = 51021-7) [facility] Basic Metabolic Panel (NA, K, CL, CO2, GLUCOSE, BUN, CREATININE, CA)2020-04-10 01:34:00 Test Item Value Reference Range Interpretation Comments NA (test code = 143 mmol/L 135-145 6010397785) K (test code = 3.8 mmol/L 3.5-5 1520942885) CL (test code = 115 mmol/L 98-108 H 9355576134) CO2 TOTAL (test code = 13 mmol/L 23-31 L 4386175780) AGAP (test code = 2-16 7324995744) BUN (test code = 82 mg/dL 7-23 H 5428388777) GLUCOSE (test code = 131 mg/dL 70-110 H 0919441516) CREATININE (test code = 4.42 mg/dL 0.5-1.04 H 2156237559) CALCIUM (test code = 7.3 mg/dL 8.6-10.6 L 3511251762) eGFR Calculation mL/min/1.73m2 (Non-) (test code = 8827952667) eGFR Calculation mL/min/1.73m2 () (test code = 1978090075) WALTER (test code = WALTER) Association of [...] tests). Lab Interpretation Abnormal (test code = 89552-7) [facility] WITHOUT [id number] 00:48:00 Test Item Value Reference Range Interpretation Comments WBC (test code = 6690-2) See_Comment H [A utomated message] The system [employer] generated this result transmit dayna reference range : 4.30 - 11.10 10*3/?L. The reference range was not used to interpret this result as normal/abnormal . RBC (test code = 789-8) See_Comment L [Au tomated message] The system [employer] generated this result transmit dayna reference range [...] 777-3) See_Comment [Au tomated message] The system [employer] generated this result transmit dayna reference range : 166 - 358 10*3/?L. The reference range was not used to interpret this result as normal/abnormal . MPV (test code = 11.9 fL 9.5-12.9 78789-9) RDW-CV (test code = 14.5 % 12-15.5 788-0) RDW-SD (test code = 45.4 fL 39-49.9 19906-4) NRBC x10^3 (test code = <0.01 See_Comment [Au tomated message] 6204103169) The system [employer] generated this result transmit dayna reference range : 10*3/?L. The reference range was not used to interpret this result as normal/abnormal . NRBC/100 WBC (test code See_Comment [Au tomated message] = 8994189253) The system [employer] generated this result transmit dayna reference range : 0.0 - 10.0 /100 WBC s. The reference r matteo was not used to interpret this result as normal/abnormal . IPF % (test code = 1878676889) Lab Interpretation (test Abnormal code = 09727-9) [facility] COVID [id number] 23:57:00COVID DMT InterpretationInterpretation/Recommendations: Molecular NAAT Tests for Active Infection with the SARS-CoV-2 Virus: This result indicates that the patient has been infected with the EYWS-CjU-4iiujo that causes COVID-19 illness. The patient should be considered infectious and able to transmitthe virus within the first 10 days after symptom onset in gwch-zf-hlposkla illness and within the first 20 days [...] COVID-19 testing the patient has had at [facility], including molecular NAAT testing (more commonly known as PCR testing and Rapid ID Now testing) and antibody testing. It does not take intoaccount any testing that a patient has had outside of the [facility] medical record. [facility] LABORATORY SERVICESCOVID [id number]-[id number]-7 Rapid ID NOW (no units) ? ? Date ? Value ? Positive (A) ? [facility] LABORATORY SERVICES [facility] [id number] 23:41:00 Test Item Value Reference Range Interpretation Comments Blood Culture-Aerobic Culture positive. No growth AA P revious (test code = 29272-3) See Blood Culture p reliminary Workup for verified result additional was Culture In information. Progress on 04/08/2020 at 180 2 PRESS SETTER Blood Culture positive. No growth AA Previous Culture-Anaerobic See Blood Culture preli minary (test code = 53395-0) Workup for verifi ed result additional was Culture In information. Progress on 04/08/2020 at 180 2 PRESS SETTER Lab Interpretation Abnormal (test code = 61767-5) [facility] NE[facility]LO[facility] PATHOGENS DNA [id number] 23:41:00 Test Item Value Reference Range Interpretation Comments Escherichia coli (test Positive Negative, See A code = 56446-0) Comment/Narrative WALTER (test code = WALTER) See blood culture result for additional information. ?Testing included eight identification and six resistance marker targets. Lab Interpretation Abnormal (test code = 05110-1) [facility]2020-04-09 21:58:00 Test Item Value Reference Range Interpretation Comments POCT GLU (test code = 5033518648) 89 mg/dL 70-110 Lab Interpretation (test code = Normal 60973-4) [facility]TR[facility] [id number] 19:27:00 Test Item Value Reference Range Interpretation Comments TROPONIN I (test 2.130 ng/mL See_Comment H [Automated code = 7239257693) message] The system which generated this result [...] ? Lab Interpretation Abnormal (test code = 98828-2) [facility]2020-04-09 19:05:00 Test Item Value Reference Range Interpretation Comments POCT GLU (test code = 3437662647) 134 mg/dL 70-110 H Lab Interpretation (test code = Abnormal 92919-1) [facility] WITHOUT [id number] 18:55:00 Test Item Value Reference Range Interpretation Comments WBC (test code = 6690-2) See_Comment H [A utomated message] The system [employer] generated this result transmit dayna reference range : 4.30 - 11.10 10*3/?L. The reference range was not used to interpret this result as normal/abnormal . RBC (test code = 789-8) See_Comment L [Au tomated message] The system [employer] generated this result transmit dayna reference range [...] 777-3) See_Comment [Au tomated message] The system [employer] generated this result transmit dayna reference range : 166 - 358 10*3/?L. The reference range was not used to interpret this result as normal/abnormal . MPV (test code = 11.9 fL 9.5-12.9 59356-7) RDW-CV (test code = 14.4 % 12-15.5 788-0) RDW-SD (test code = 44.6 fL 39-49.9 88384-1) NRBC x10^3 (test code = <0.01 See_Comment [Au tomated message] 3932415125) The system [employer] generated this result transmit dayna reference range : 10*3/?L. The reference range was not used to interpret this result as normal/abnormal . NRBC/100 WBC (test code See_Comment [Au tomated message] = 9541180869) The system [facility] generated this result transmit dayna reference range : 0.0 - 10.0 /100 WBC s. The reference r matteo was not used to interpret this result as normal/abnormal . IPF % (test code = 3263368916) Lab Interpretation (test Abnormal code = 02671-5) [facility]2020-04-09 15:04:00 Test Item Value Reference Range Interpretation Comments POCT GLU (test code = 0804892296) 158 mg/dL 70-110 H Lab Interpretation (test code = Abnormal 45923-6) [facility] [id number] 14:01:00 Test Item Value Reference Range Interpretation Comments TROPONIN I (test 4.100 ng/mL See_Comment H [Automated code = 0078128834) message] The system which generated this result [...] ? Lab Interpretation Abnormal (test code = 26172-0) [facility] HospitalVancomycin Random [id number] 13:52:00 Test Item Value Reference Range Interpretation Comments VANCO RANDOM (test code = 14.0 ug/mL 1469302297) [facility] (NA, K, CL, CO2, GLUCOSE, BUN, CREATININE, CA)2020-04-09 13:46:00 Test Item Value Reference Range Interpretation Comments NA (test code = 143 mmol/L 135-145 2354327722) K (test code = 4.1 mmol/L 3.5-5 8511372053) CL (test code = 112 mmol/L 98-108 H 3884105554) CO2 TOTAL (test code = 16 mmol/L 23-31 L 1771978271) AGAP (test code = 2-16 4086796378) BUN (test code = 80 mg/dL 7-23 H 5557441604) GLUCOSE (test code = 133 mg/dL 70-110 H 6072090352) CREATININE (test code = 4.40 mg/dL 0.5-1.04 H 2738643039) CALCIUM (test code = 7.2 mg/dL 8.6-10.6 L 2169335470) eGFR Calculation mL/min/1.73m2 (Non-) (test code = 3776250910) eGFR Calculation mL/min/1.73m2 () (test code = 2916988160) WALTER (test code = WALTER) Association of [...] tests). Lab Interpretation Abnormal (test code = 07195-5) [facility]URINE [id number] 13:45:00 Test Item Value Reference Range Interpretation Comments URINE CULTURE (test No aerobic growth (< code = 630-4) 1000 CFU/mL) [facility] 20 + LACTIC [id number] 12:42:00 Test Item Value Reference Range Interpretation Comments PH (test code = 2) 7.35-7.45 L PCO2 (test code = See_Comment [Automate d 7119926410) message] The sy stem which generated this result transmitted reference range : 35 - 45 mmHg. The reference range was not used to interpret this result as normal/abnormal . PO2 (test code = See_Comment H [Automated 2381657968) message] The sy stem which generated this result transmitted reference range : 80 - 100 mmHg. The reference range was not used to interpret this result as normal/abnormal . HCO3 (test code = See_Comment L [Automate d 7203839532) message] The sy stem which generated this result transmitted reference range : 22 - 26 mEq/L. The reference range was not used to interpret this result as normal/abnormal . BE (test code = See_Comment L [Automated 7599350307) message] The sy stem which generated this result transmitted reference range : -3.0 - 3.0 mEq/ L. The reference r matteo was not used to interpret this result as normal/abnormal . THB (test code = 10.1 g/dL 12-16 L 4102012653) %O2HB (test code = 98.3 % 94-99 9103040408) %COHB ART (test code = 0.2 % 0-1.5 2462468372) %METHB ART (test code = 0.3 % 0.4-1.5 L 7217525066) VOL%O2 ART (test code = 14.3 % 15-23 L 9149893109) NA (test code = 141 mmol/L 135-145 9598124687) K+ (test code = 3.8 mmol/L 3.5-5 7855031492) AC CA IONZ (test code = 4.30 mg/dL 4.5-5.3 L 6418216096) GLUCOSE (test code = 143 mg/dL 70-110 H 5331941654) LACTIC ACID (test code 1.19 mmol/L = 7822741351) Lab Interpretation Abnormal (test code = 88262-1) [facility] WITHOUT [id number] 12:37:00 Test Item Value Reference Range Interpretation Comments WBC (test code = 6690-2) See_Comment H [A utomated message] The system [employer] generated this result transmit dayna reference range : 4.30 - 11.10 10*3/?L. The reference range was not used to interpret this result as normal/abnormal . RBC (test code = 789-8) See_Comment L [Au tomated message] The system [employer] generated this result transmit dayna reference range [...] 777-3) See_Comment [Au tomated message] The system [facility] generated this result transmit dayna reference range : 166 - 358 10*3/?L. The reference range was not used to interpret this result as normal/abnormal . MPV (test code = 12.3 fL 9.5-12.9 24097-9) RDW-CV (test code = 14.4 % 12-15.5 788-0) RDW-SD (test code = 44.4 fL 39-49.9 11008-5) NRBC x10^3 (test code = <0.01 See_Comment [Au tomated message] 2706213054) The system [employer] generated this result transmit dayna reference range : 10*3/?L. The reference range was not used to interpret this result as normal/abnormal . NRBC/100 WBC (test code See_Comment [Au tomated message] = 5846217056) The system [facility] generated this result transmit dayna reference range : 0.0 - 10.0 /100 WBC s. The reference r matteo was not used to interpret this result as normal/abnormal . IPF % (test code = 9845218068) Lab Interpretation (test Abnormal code = 90723-8) [facility] [id number] 08:50:00 Test Item Value Reference Range Interpretation Comments TROPONIN I (test 4.820 ng/mL See_Comment H [Automated code = 3794610500) message] The system which generated this result [...] ? Lab Interpretation Abnormal (test code = 26924-5) [facility] WITHOUT [id number] 08:12:00 Test Item Value Reference Range Interpretation Comments WBC (test code = 6690-2) See_Comment H [A utomated message] The system [employer] generated this result transmit dayna reference range : 4.30 - 11.10 10*3/?L. The reference range was not used to interpret this result as normal/abnormal . RBC (test code = 789-8) See_Comment L [Au tomated message] The system [employer] generated this result transmit dayna reference range [...] 777-3) See_Comment [Au tomated message] The system [employer] generated this result transmit dayna reference range : 166 - 358 10*3/?L. The reference range was not used to interpret this result as normal/abnormal . MPV (test code = 12.3 fL 9.5-12.9 25096-9) RDW-CV (test code = 14.1 % 12-15.5 788-0) RDW-SD (test code = 44.0 fL 39-49.9 31879-8) NRBC x10^3 (test code = <0.01 See_Comment [Au tomated message] 1017568186) The system [employer] generated this result transmit dayna reference range : 10*3/?L. The reference range was not used to interpret this result as normal/abnormal . NRBC/100 WBC (test code See_Comment [Au tomated message] = 3005023227) The system [employer] generated this result transmit dayna reference range : 0.0 - 10.0 /100 WBC s. The reference r matteo was not used to interpret this result as normal/abnormal . IPF % (test code = 2493406985) Lab Interpretation (test Abnormal code = 65891-2) [facility] [id number] 06:47:58 Test Item Value Reference Range Interpretation Comments ABO & RH (test code O POSITIVE Performe d at [facility] = 20) Laboratory Serv [facility] Blood Bank3 [address] [facility] [address]Gape Free: [phone] A No. [id number] IAT (test code = Negative Performed a t [facility] 1185) Laboratory Serv [facility] Blood Bank3 [address] [facility] [place] [address]Sjkw Free: [phone] A No. [id number] [facility]AL[facility]ONIN2021-01-04 06:24:00 Test Item Value Reference Range Interpretation Comments Procalcitonin (test 138.44 ng/mL <0.07 H code = 9932602923) WALTER (test code = WALTER) INTERPRETATION OF [...] lung abscess/empyema. For further information please refer to:[email or web address] Lab Interpretation Abnormal (test code = 35208-3) [facility] HospitalTR[facility] [id number] 05:20:00 Test Item Value Reference Range Interpretation Comments TROPONIN I (test 4.340 ng/mL See_Comment H [Automated code = 5857881946) message] The system which generated this result [...] ? Lab Interpretation Abnormal (test code = 93742-9) [facility] HospitalAM Basic Metabolic Panel (NA, K, CL, CO2, GLUCOSE, BUN, CREATININE, CA)2020-04-09 05:09:00 Test Item Value Reference Range Interpretation Comments NA (test code = 142 mmol/L 135-145 2754299909) K (test code = 4.1 mmol/L 3.5-5 8250119926) CL (test code = 110 mmol/L 98-108 H 5834322393) CO2 TOTAL (test code = 17 mmol/L 23-31 L 4139532035) AGAP (test code = 2-16 6247022292) BUN (test code = 73 mg/dL 7-23 H 4724640760) GLUCOSE (test code = 230 mg/dL 70-110 H 2190680801) CREATININE (test code = 4.51 mg/dL 0.5-1.04 H 1600344346) CALCIUM (test code = 7.2 mg/dL 8.6-10.6 L 7948634990) eGFR Calculation mL/min/1.73m2 (Non-) (test code = 9881202469) eGFR Calculation mL/min/1.73m2 () (test code = 2212642884) WALTER (test code = WALTER) Association of [...] tests). Lab Interpretation Abnormal (test code = 46927-8) [facility] WITHOUT [id number] 04:55:00 Test Item Value Reference Range Interpretation Comments WBC (test code = 6690-2) See_Comment H [A utomated message] The system [employer] generated this result transmit dayna reference range : 4.30 - 11.10 10*3/?L. The reference range was not used to interpret this result as normal/abnormal . RBC (test code = 789-8) See_Comment L [Au tomated message] The system [employer] generated this result transmit dayna reference range [...] 777-3) See_Comment [Au tomated message] The system [employer] generated this result transmit dayna reference range : 166 - 358 10*3/?L. The reference range was not used to interpret this result as normal/abnormal . MPV (test code = 11.9 fL 9.5-12.9 84168-2) RDW-CV (test code = 14.2 % 12-15.5 788-0) RDW-SD (test code = 45.1 fL 39-49.9 04257-7) NRBC x10^3 (test code = <0.01 See_Comment [Au tomated message] 4481086737) The system [employer] generated this result transmit dayna reference range : 10*3/?L. The reference range was not used to interpret this result as normal/abnormal . NRBC/100 WBC (test code See_Comment [Au tomated message] = 5204729500) The system [facility] generated this result transmit danya reference range : 0.0 - 10.0 /100 WBC s. The reference r matteo was not used to interpret this result as normal/abnormal . IPF % (test code = 2487615752) Lab Interpretation (test Abnormal code = 18268-4) [facility]ABG+COOX+NA+K+GLU+CA2+2020-04-09 03:18:00 Test Item Value Reference Range Interpretation Comments PH (test code = 2) 7.35-7.45 L PCO2 (test code = See_Comment [Automate d message] 9670626041) The system ic h generated this result transmit dayna reference range : 35 - 45 mmHg. The reference range was not used to interpret this result as normal/abnormal . PO2 (test code = See_Comment H [Automated message] 2916078948) The system [facility] generated this result transmit dayna reference range : 80 - 100 mmHg. The reference range was not used to interpret this result as normal/abnormal . HCO3 (test code = See_Comment L [Automate d message] 0097726561) The system [facility] generated this result transmit dayna reference range : 22 - 26 mEq/L. The reference range was not used to interpret this result as normal/abnormal . BE (test code = See_Comment L [Automated message] 8082070386) The system [facility] generated this result transmit dayna reference range : -3.0 - 3.0 mEq/ L. The reference r matteo was not used to interpret this result as normal/abnormal . THB (test code = 12.0 g/dL 12-16 5706845024) %O2HB (test code = 98.4 % 94-99 9828766810) %COHB ART (test code = 0.3 % 0-1.5 3467078657) %METHB ART (test code = 0.1 % 0.4-1.5 L 0602321002) VOL%O2 ART (test code = 16.9 % 15-23 7769928528) NA (test code = 140 mmol/L 135-145 3780149460) K+ (test code = 4.1 mmol/L 3.5-5 6668331750) AC CA IONZ (test code = 4.00 mg/dL 4.5-5.3 L 3732914749) GLUCOSE (test code = 266 mg/dL 70-110 H 0730466051) Lab Interpretation Abnormal (test code = 55349-2) [facility])2020-04-08 22:43:00 Test Item Value Reference Range Interpretation Comments POCT GLU (test code = 3239049513) 225 mg/dL 70-110 H Lab Interpretation (test code = Abnormal 92992-9) [facility] WITH [id number] 21:54:00 Test Item Value Reference Range Interpretation Comments WBC (test code = See_Comment H [Automated 6690-2) message] The system which generated this result transmit dayna reference range : 4.30 - 11.10 10*3/?L. The reference range was not used to interpret this result as normal/abnormal . RBC (test code = See_Comment [Automated 789-8) message] The system which generated this result [...] RDW-SD (test code = 42.8 fL 39-49.9 15542-7) RDW-CV (test code = 14.2 % 12-15.5 788-0) PLT (test code = See_Comment [Automated 777-3) message] The system which generated this result transmit dayna reference range : 166 - 358 10*3/ ?L. The reference range was not u sed to interpret th is result as normal/abnormal . MPV (test code = 12.2 fL 9.5-12.9 32889-7) NRBC/100 WBC (test See_Comment [Automat ed code = 9885043918) message] The system which generated this result transmit dayna reference range : 0.0 - 10.0 /100 WBCs. The reference range was not used to interpret this result as normal/abnormal . NRBC x10^3 (test code <0.01 See_Comment [Auto mated = 6517083640) message] The system which generated this result transmit dayna reference range : 10*3/?L. The reference range was not used to interpret this result as normal/abnormal . GRAN MAT (NEUT) % 91.8 % (test code = 770-8) IMM GRAN % (test code 0.70 % = 7834168988) LYMPH % (test code = 4.2 % 736-9) MONO % (test code = 3.2 % 5905-5) EOS % (test code = 0.0 % 713-8) BASO % (test code = 0.1 % 706-2) GRAN MAT x10^3(ANC) 27.27 10*3/uL 1.88-7.09 H (test code = 6539662038) IMM GRAN x10^3 (test 0.22 10*3/uL 0-0.06 H code = 7246833507) LYMPH x10^3 (test code 1.24 10*3/uL 1.32-3.29 L = 731-0) MONO x10^3 (test code 0.96 10*3/uL 0.33-0.92 H = 742-7) EOS x10^3 (test code = <0.03 0.03-0.39 L 711-2) BASO x10^3 (test code 0.04 10*3/uL 0.01-0.07 = 704-7) Lab Interpretation Abnormal (test code = 48979-1) [facility] HospitalCOMP. METABOLIC PANEL (74772)2020-04-08 21:47:00 Test Item Value Reference Range Interpretation Comments NA (test code = 140 mmol/L 135-145 2562067285) K (test code = 4.1 mmol/L 3.5-5 3990222413) CL (test code = 104 mmol/L 98-108 2135799801) CO2 TOTAL (test code = 20 mmol/L 23-31 L 7315848490) AGAP (test code = 2-16 2004245225) BUN (test code = 68 mg/dL 7-23 H 3005437764) GLUCOSE (test code = 216 mg/dL 70-110 H 4784735631) CREATININE (test code = 4.01 mg/dL 0.5-1.04 H 9238315651) TOTAL BILI (test code = 0.8 mg/dL 0.1-1.6 0848428670) CALCIUM (test code = 7.5 mg/dL 8.6-10.6 L 0969660171) T PROTEIN (test code = 6.2 g/dL 6.3-8.2 L 9334354687) ALBUMIN (test code = 3.4 g/dL 3.5-5 L 5429348154) ALK PHOS (test code = 85 U/L 34-122 5621716240) ALTv (test code = 83 U/L 5-35 H 1742-6) AST(SGOT) (test code = 180 U/L 13-40 H 9846773826) eGFR Calculation mL/min/1.73m2 (Non-) (test code = 0802098953) eGFR Calculation mL/min/1.73m2 () (test code = 3030796796) WALTER (test code = WALTER) Association of [...] tests). Lab Interpretation Abnormal (test code = 98585-5) [facility])2020-04-08 21:46:00 Test Item Value Reference Range Interpretation Comments POCT GLU (test code = 7642102957) 210 mg/dL 70-110 H Lab Interpretation (test code = Abnormal 94614-3) [facility]Type [facility] - ONCE [id number] 21:17:01 Test Item Value Reference Range Interpretation Comments ABO & RH (test code O Positive Performe d at [facility] = 20) Laboratory Serv [facility] Blood Bank[address] [place], [place] [address]Toll Free: [phone] A No. [id number] IAT (test code = Negative Performed a t [facility] 1185) Laboratory Serv [facility] Blood [address] [place], [place] [address]Toll Free: [phone] A No. [id number] [facility] HospitalTROPONIN [id number] 21:17:00 Test Item Value Reference Range Interpretation Comments TROPONIN I (test 1.310 ng/mL See_Comment H [Automated code = 0595952962) message] The system which generated this result [...] ? Lab Interpretation Abnormal (test code = 70625-7) [facility] HospitalAC PANEL 20 + LACTIC [id number] 18:27:00 Test Item Value Reference Range Interpretation Comments PH (test code = 2) 7.35-7.45 PCO2 (test code = See_Comment L [Automate d 5687748504) message] The sy stem which generated this result transmitted reference range : 35 - 45 mmHg. The reference range was not used to interpret this result as normal/abnormal . PO2 (test code = See_Comment H [Automated 8570827362) message] The sy stem which generated this result transmitted reference range : 80 - 100 mmHg. The reference range was not used to interpret this result as normal/abnormal . HCO3 (test code = See_Comment L [Automate d 9550697927) message] The sy stem which generated this result transmitted reference range : 22 - 26 mEq/L. The reference range was not used to interpret this result as normal/abnormal . BE (test code = See_Comment L [Automated 4215350102) message] The sy stem which generated this result transmitted reference range : -3.0 - 3.0 mEq/ L. The reference r matteo was not used to interpret this result as normal/abnormal . THB (test code = 12.2 g/dL 12-16 3327077213) %O2HB (test code = 98.6 % 94-99 9098415636) %COHB ART (test code = 0.3 % 0-1.5 2779438519) %METHB ART (test code = 0.6 % 0.4-1.5 9781762045) VOL%O2 ART (test code = 17.5 % 15-23 4085853691) NA (test code = 138 mmol/L 135-145 9338113022) K+ (test code = 3.6 mmol/L 3.5-5 4158973510) AC CA IONZ (test code = 3.90 mg/dL 4.5-5.3 L 5649005704) GLUCOSE (test code = 204 mg/dL 70-110 H 5026868290) LACTIC ACID (test code 2.42 mmol/L = 5462621611) Lab Interpretation Abnormal (test code = 48968-3) [facility] HospitalXR CHEST 1 [id number] 17:45:25Stable mild bilateral multifocal infiltrate.2. Central line [...] the ETtube is 4 cm above the temi. Left IJ central lineoverlies the upper SVC. Feeding tube tip is not seen but is belowhemidiaphragm.There is mild bilateral multifocal infiltrate.IMPRESSIONStable mild bilateral multifocal infiltrate.2. Central line tip overlies the upper SVC. No pneumothorax.RL: 6200 ENDOF [facility]PORT [facility] [id number] 17:07:00 Test Item Value Reference Range Interpretation Comments Procalcitonin (test 0.55 ng/mL <0.07 H code = 8116084618) WALTER (test code = WALTER) INTERPRETATION OF [...] lung abscess/empyema. For further information please refer to:[email or web address] Lab Interpretation Abnormal (test code = 33865-2) [facility] HospitalGlycosylated Hemoglobin (A1C)2020-04-08 14:12:00 Test Item Value Reference Range Interpretation Comments HGB A1C (test code = 5.9 % 4-6 4548-4) WALTER (test code = WALTER) %A1C (NGSP) Interpretation (ADA)4.8-5.6 ? ? Normal or (Non-Diabetic Range)5.7-6.4 ? ? Increased Risk (Pre-Diabetic)>6.5 ?Diabetes Indicated Lab Interpretation Normal (test code = 47848-7) [facility]PO[facility]AUT[facility]ATED)2020-04-08 14:02:00 Test Item Value Reference Range Interpretation Comments POCT GLU (test code = 4569886680) 178 mg/dL 70-110 H Lab Interpretation (test code = Abnormal 63469-8) [facility] HospitalBasic Metabolic Panel (NA, K, CL, CO2, Glucose, BUN, Creatinine, CA)2020-04-08 13:57:00 Test Item Value Reference Range Interpretation Comments NA (test code = 139 mmol/L 135-145 2192729207) K (test code = 2.7 mmol/L 3.5-5 LL 7019408604) CL (test code = 95 mmol/L 98-108 L 2907828142) CO2 TOTAL (test code = 23 mmol/L 23-31 3601648393) AGAP (test code = 2-16 H 7025752013) BUN (test code = 65 mg/dL 7-23 H 6282192273) GLUCOSE (test code = 215 mg/dL 70-110 H 1357960518) CREATININE (test code = 3.25 mg/dL 0.5-1.04 H 5110550477) CALCIUM (test code = 8.4 mg/dL 8.6-10.6 L 9242652609) eGFR Calculation mL/min/1.73m2 (Non-) (test code = 1272574170) eGFR Calculation mL/min/1.73m2 () (test code = 1167635097) WALTER (test code = WALTER) Association of [...] tests). Lab Interpretation Abnormal (test code = 98877-9) [facility] HospitalaPTT2021-01-03 13:21:00 Test Item Value Reference Range Interpretation Comments APTT Patient (test See_Comment [Automat ed code = 3173-2) message] The system which generated this result transmitted reference range : 23 - 38 Seconds . The reference range was not used to interpr et this result as normal/abnormal . WALTER (test code = WALTER) The [facility] patient population mean normal value for aPTT is 30 seconds. Lab Interpretation Normal (test code = 78893-0) [facility] HospitalProthrombin Time / [id number] 13:19:00 Test Item Value Reference Range Interpretation Comments PROTIME PATIENT (test See_Comment [Auto mated message] code = 5964-2) The system [employer] generated this result transmitted ref erence range: 12.0 - 1 4.7 Seconds. The re ference range was not u sed to interpret this result as normal/abnor mal. INR (test code = 6301-6) Nor mal INR <1.1; Warfarin Therap eutic range 2.0 to 3. 0 or 2.5 to 3.5, dep ending upon the indica tions. Lab Interpretation (test Normal code = 76795-2) [facility] HospitalHEMOGLOBIN2021-01-03 13:17:00 Test Item Value Reference Range Interpretation Comments HGB (test code = 718-7) 12.2 g/dL 11.6-15 Lab Interpretation (test code = Normal 63751-6) [facility] HospitalHEMATOCRIT2021-01-03 13:17:00 Test Item Value Reference Range Interpretation Comments HCT (test code = 4544-3) 38.4 % 35.7-45.2 Lab Interpretation (test code = Normal 43592-4) [facility] HospitalMagnesium [id number] 12:37:00 Test Item Value Reference Range Interpretation Comments MAGNESIUM (test code = 1762266070) 1.7 mg/dL 1.7-2.4 Lab Interpretation (test code = Normal 05545-7) [facility] HospitalHepatic Function Panel (ALB, T.PRO, BILI T, BU/BC, ALT, AST, ALK, PHOS)2020-04-08 12:36:00 Test Item Value Reference Range Interpretation Comments TOTAL BILI (test code = 4712307743) 1.1 mg/dL 0.1-1.1 BILI UNCON (test code = 8404926829) 0.5 mg/dL 0.1-1.1 BILI CONJ (test code = 1800588633) 0.0 mg/dL 0-0.3 T PROTEIN (test code = 8105831649) 7.8 g/dL 6.3-8.2 ALBUMIN (test code = 3262063151) 4.3 g/dL 3.5-5 ALK PHOS (test code = 4179896224) 92 U/L 34-122 ALTv (test code = 1742-6) 29 U/L 5-35 AST(SGOT) (test code = 2912681976) 66 U/L 13-40 H Lab Interpretation (test code = Abnormal 76182-2) [facility] HospitalIntubation2021-01-03 11:20:05Lissa Carlos DO ? ? 04/08/2020 ?5:20 AMProcedures IntubationPerformed [...] tolerance of procedure: ?Tolerated well, no immediate complicationsUnOakBend Medical CenterCentral Line 2020-04-08 11:17:50Lissa Carlos, DO ? ? [...] tolerance of procedure: ?Tolerated well, no immediate complicationsMethodist Children's HospitalAC PANEL 20 + LACTIC ACID 2020-04-08 11:00:00 Test Item Value Reference Range Interpretation Comments PH (test code = 2) 7.35-7.45 PCO2 (test code = See_Comment L [Automate d 3913257706) message] The sy stem which generated this result transmitted reference range : 35 - 45 mmHg. The reference range was not used to interpret this result as normal/abnormal . PO2 (test code = See_Comment H [Automated 6575804184) message] The sy stem which generated this result transmitted reference range : 80 - 100 mmHg. The reference range was not used to interpret this result as normal/abnormal . HCO3 (test code = See_Comment L [Automate d 3862373907) message] The sy stem which generated this result transmitted reference range : 22 - 26 mEq/L. The reference range was not used to interpret this result as normal/abnormal . BE (test code = See_Comment L [Automated 0027062043) message] The sy stem which generated this result transmitted reference range : -3.0 - 3.0 mEq/ L. The reference r matteo was not used to interpret this result as normal/abnormal . THB (test code = 13.8 g/dL 12-16 6215824811) %O2HB (test code = 98.7 % 94-99 2958434828) %COHB ART (test code = 0.3 % 0-1.5 5509517251) %METHB ART (test code = 0.2 % 0.4-1.5 L 0943460669) VOL%O2 ART (test code = N/a 2200026429) NA (test code = 138 mmol/L 135-145 7230701775) K+ (test code = 3.6 mmol/L 3.5-5 7028219054) AC CA IONZ (test code = 4.00 mg/dL 4.5-5.3 L 8884632919) GLUCOSE (test code = 237 mg/dL 70-110 H 7123443536) LACTIC ACID (test code 5.68 mmol/L 0.5-2.2 H = 3362199255) Lab Interpretation Abnormal (test code = 86170-8) [facility] HospitalXR CHEST 1 [id number] 10:58:35 1. ?Endotracheal tube tip 3.0 cm above the temi. 2. ?Esophagogastric tube courses below the diaphragm, the tip and sideholenot imaged on this exam. 3. ?Basilar predominant bilateral interstitial andalveolar opacities,possibly representing multifocal bilateral pneumonia and/or interstitialedema. RL: 42631IQH: 02192 End of report. ORDERI NG PROVIDER: NITA [...] normal limits. Aortic archcalcifications. Degenerative osseous changes. [facility], Radiant Results Inft User - 04/08/2020 4:59 [...] opacities,possibly representing multifocal bilateral pneumonia and/or interstitialedema.RL: [id number]: 90483Zuk of report. [facility] HospitalPOCT GLUCOSE (AUTOMATED)2020-04-08 10:49:00 Test Item Value Reference Range Interpretation Comments POCT GLU (test code = 5588380794) 161 mg/dL 70-110 H Lab Interpretation (test code = Abnormal 34014-6) [facility] CBC with [id number] 10:18:00 Test Item Value Reference Range Interpretation Comments WBC (test code = See_Comment H [Automated 9990-2) message] The system which generated this result transmit dayna reference range : 4.30 - 11.10 10*3/?L. The reference range was not used to interpret this result as normal/abnormal . RBC (test code = See_Comment [Automated 789-8) message] The system which generated this result [...] RDW-SD (test code = 42.3 fL 39-49.9 59764-4) RDW-CV (test code = 13.8 % 12-15.5 788-0) PLT (test code = See_Comment H [Automated 777-3) message] The system which generated this result transmit dayna reference range : 166 - 358 10*3/ ?L. The reference range was not u sed to interpret th is result as normal/abnormal . MPV (test code = 12.1 fL 9.5-12.9 88358-8) NRBC/100 WBC (test See_Comment [Automat ed code = 0701794054) message] The system which generated this result transmit dayna reference range : 0.0 - 10.0 /100 WBCs. The reference range was not used to interpret this result as normal/abnormal . NRBC x10^3 (test code <0.01 See_Comment [Auto mated = 9081731184) message] The system which generated this result transmit dayna reference range : 10*3/?L. The reference range was not used to interpret this result as normal/abnormal . GRAN MAT (NEUT) % 92.6 % (test code = 770-8) IMM GRAN % (test code 0.80 % = 0469323761) LYMPH % (test code = 3.9 % 736-9) MONO % (test code = 2.5 % 5905-5) EOS % (test code = 0.0 % 713-8) BASO % (test code = 0.2 % 706-2) GRAN MAT x10^3(ANC) 16.08 10*3/uL 1.88-7.09 H (test code = 2796595716) IMM GRAN x10^3 (test 0.14 10*3/uL 0-0.06 H code = 5282252286) LYMPH x10^3 (test code 0.67 10*3/uL 1.32-3.29 L = 731-0) MONO x10^3 (test code 0.44 10*3/uL 0.33-0.92 = 742-7) EOS x10^3 (test code = <0.03 0.03-0.39 L 711-2) BASO x10^3 (test code 0.04 10*3/uL 0.01-0.07 = 704-7) Lab Interpretation Abnormal (test code = 73682-0) [facility] [id number] 10:15:00 Test Item Value Reference Range Interpretation Comments TROPONIN I (test 0.132 ng/mL See_Comment H [Automated code = 3281209440) message] The system which generated this result [...] ? Lab Interpretation Abnormal (test code = 07988-8) [facility] HospitalN-TERMINAL [id number] 10:12:00 Test Item Value Reference Range Interpretation Comments NT-proBNP (test code 3310 pg/mL See_Comment H [Autom ated = 7422579835) message] The system which generated this result transmitted reference range : <=450. The reference range was not used to interpret this result as normal/abnormal . WALTER (test code = WALTER) Biotin has been reported to cause a negative bias, interpret results relative to patient's use of biotin. Lab Interpretation Abnormal (test code = 85960-9) [facility] Basic Metabolic Panel (NA, K, CL, CO2, GLUCOSE, BUN, CREATININE, CA)2020-04-08 10:03:00 Test Item Value Reference Range Interpretation Comments NA (test code = 141 mmol/L 135-145 6544028426) K (test code = 3.6 mmol/L 3.5-5 2783026300) CL (test code = 93 mmol/L 98-108 L 6636382475) CO2 TOTAL (test code = 26 mmol/L 23-31 5680471942) AGAP (test code = 2-16 H 4027875758) BUN (test code = 62 mg/dL 7-23 H 9752568119) GLUCOSE (test code = 220 mg/dL 70-110 H 0543906610) CREATININE (test code = 3.12 mg/dL 0.5-1.04 H 7341267035) CALCIUM (test code = 9.2 mg/dL 8.6-10.6 1487843520) eGFR Calculation mL/min/1.73m2 (Non-) (test code = 0569139966) eGFR Calculation mL/min/1.73m2 () (test code = 4285406048) WALTER (test code = WALTER) Association of [...] tests). Lab Interpretation Abnormal (test code = 62306-6) [facility] HospitalTRALLEND[facility] HOSPITALREILLY [id number] 05:12:00 Test Item Value Reference Range Interpretation Comments TROPONIN I (test 0.042 ng/mL See_Comment H [Automated code = 0609028316) message] The system which generated this result [...] ? Lab Interpretation Abnormal (test code = 94367-8) [facility] WITHOUT [id number] 04:46:00 Test Item Value Reference Range Interpretation Comments WBC (test code = 6690-2) See_Comment [A utomated message] The system [employer] generated this result transmit dayna reference range : 4.30 - 11.10 10*3/?L. The reference range was not used to interpret this result as normal/abnormal . RBC (test code = 789-8) See_Comment [Au tomated message] The system [employer] generated this result transmit dayna reference range [...] See_Comment H [Au tomated message] The system [employer] generated this result transmit dayna reference range : 166 - 358 10*3/?L. The reference range was not used to interpret this result as normal/abnormal . MPV (test code = 11.7 fL 9.5-12.9 83309-6) RDW-CV (test code = 13.8 % 12-15.5 788-0) RDW-SD (test code = 42.1 fL 39-49.9 48254-9) NRBC x10^3 (test code = <0.01 See_Comment [Au tomated message] 1048141826) The system [employer] generated this result transmit dayna reference range : 10*3/?L. The reference range was not used to interpret this result as normal/abnormal . NRBC/100 WBC (test code See_Comment [Au tomated message] = 3533909337) The system [employer] generated this result transmit dayna reference range : 0.0 - 10.0 /100 WBC s. The reference r matteo was not used to interpret this result as normal/abnormal . IPF % (test code = 0223369786) Lab Interpretation (test Abnormal code = 05496-7) [facility] [id number] 19:31:00 1. ?Fluid-filled large bowel is consistent with the patient's history ofdiarrhea. However, lack of IV contrast limits evaluation of colonic wall.2. ?Multifocal groundglass opacities are consistent with the patient'sknown history of Covid 19 infection.3. ?Sigmoid diverticulitis without CT evidence of d iverticulitis.4. ?Multiple unchanged additional findings as above. Preliminary Report Dictated by Resident: Joanna Carroll I, Carlos Carroll MD., have reviewed this study and agree [...] findings as above.Preliminary Report Dictated by Resident: Joanna Caceres, Carlos Carroll MD., have reviewed this study and agree with the abovereport.[facility] 1 [id number] 19:04:491. Mild to moderate interstitial and minimal, [...] related pneumonitis.2. No pneumothorax is seen.RL: [address] [facility] with [id number] 17:37:00 Test Item Value Reference Range Interpretation Comments WBC (test code = See_Comment [Automated 6690-2) message] The sy stem which generated this result transmitted reference range : 4.30 - 11.10 10*3/?L. The reference range was not used to interpret this result as normal/abnormal . RBC (test code = See_Comment Previous 789-8) preliminary verified result was 4.93 10*6/?L on 04/07/2020 at 110 4 PRESS SETTER [Automated message] The sy stem which generated this result transmitted reference range : 3.93 - 5.25 10*6/?L. The reference range was not used to interpret this result as normal/abnormal . HGB (test code = 12.9 g/dL 11.6-15 Previous 718-7) preliminary verified result was 12.7 g/dL on 04/07/2020 at 110 4 PRESS SETTER HCT (test code = 41.3 % 35.7-45.2 Previous 4544-3) preliminary verified result was 41.8 % on 021 at 1104 PRESS SETTER MCV (test code = 83.6 fL 80.6-95.5 Previous 787-2) preliminary verified result was 84.8 fL on 2020 at 1104 PRESS SETTER MCH (test code = 26.1 pg 25.9-32.8 Previous 785-6) preliminary verified result was 25.8 pg on 2020 at 1104 PRESS SETTER MCHC (test code = 31.2 g/dL 31.6-35.1 L Previous 786-4) preliminary verified result was 30.4 g/dL on 04/07/2020 at 110 4 PRESS SETTER RDW-SD (test code = 42.5 fL 39-49.9 Previous 44362-3) preliminary verified result was 43.1 fL on 2020 at 1104 PRESS SETTER RDW-CV (test code = 13.9 % 12-15.5 Previous 788-0) preliminary verified result was 14.0 % on 021 at 1104 PRESS SETTER PLT (test code = See_Comment Previous 777-3) preliminary verified result was 299 10*3/?L on 04/07/2020 at 110 4 PRESS SETTER [Automated message] The sy stem which generated this result transmitted reference range : 166 - 358 10*3/ ?L. The reference r matteo was not used to interpret this result as normal/abnormal . MPV (test code = 11.9 fL 9.5-12.9 Previous 36056-1) preliminary verified result was 11.5 fL on 2020 at 1104 PRESS SETTER NRBC/100 WBC (test See_Comment [Automat ed code = 2900719236) message] The system which generated this result transmitted reference range : 0.0 - 10.0 /100 WBCs. The refer ence range was not u sed to interpret th is result as normal/abnormal . NRBC x10^3 (test code <0.01 See_Comment [Auto mated = 9746470705) message] The s [employer] which generated this result transmitted reference range : 10*3/?L. The reference range was not used to interpret this result as normal/abnormal . GRAN MAT (NEUT) % 85.3 % (test code = 770-8) IMM GRAN % (test code 0.40 % = 7151400463) LYMPH % (test code = 8.6 % 736-9) MONO % (test code = 5.4 % 5905-5) EOS % (test code = 0.0 % 713-8) BASO % (test code = 0.3 % 706-2) GRAN MAT x10^3(ANC) 6.15 10*3/uL 1.88-7.09 (test code = 3783396641) IMM GRAN x10^3 (test 0.03 10*3/uL 0-0.06 code = 6334469794) LYMPH x10^3 (test code 0.62 10*3/uL 1.32-3.29 L = 731-0) MONO x10^3 (test code 0.39 10*3/uL 0.33-0.92 = 742-7) EOS x10^3 (test code = <0.03 0.03-0.39 L 711-2) BASO x10^3 (test code <0.03 0.01-0.07 = 704-7) Lab Interpretation Abnormal (test code = 00097-0) [id number] 17:34:00 Test Item Value Reference Range Interpretation Comments TROPONIN I (test 0.024 ng/mL See_Comment [Automated code = 2927712577) message] The system which generated this result [...] ? Lab Interpretation Normal (test code = 88123-0) [facility] HospitalN-TERMINAL [id number] 17:31:00 Test Item Value Reference Range Interpretation Comments NT-proBNP (test code 1150 pg/mL See_Comment H [Autom ated = 5610935844) message] The system which generated this result transmitted reference range : <=450. The reference range was not used to interpret this result as normal/abnormal . WALTER (test code = WALTER) Biotin has been reported to cause a negative bias, interpret results relative to patient's use of biotin. Lab Interpretation Abnormal (test code = 92149-7) [facility] HospitalUrinalysis2021-01-[facility] 17:29:00 Test Item Value Reference Range Interpretation Comments APPEARANCE (test code = Cloudy Clear A 5007988052) COLOR (test code = Bijal Yellow A 5114351649) PH (test code = 4.8-8.0 9272727280) SP GRAVITY (test code = 1.003-1.030 1168073861) GLU U QUAL (test code = Normal Normal 7481619403) BLOOD (test code = Negative Negative 3538634792) KETONES (test code = Negative Negative 8288344178) PROTEIN (test code = 100 mg/dL Negative A 2887-8) UROBILIN (test code = Normal Normal 4062922434) BILIRUBIN (test code = Negative Negative 1270069649) NITRITE (test code = Negative Negative 7912995313) LE[place] TERA (test code = Negative Negative 9777854361) RBC/HPF (test code = See_Comment [Autom ated message] 1142135709) The system [employer] generated this result transmit dayna reference range : 0 - 3 HPF. The refe rence range was not u sed to interpret th is result as normal/abnormal . WBC/HPF (test code = See_Comment [Autom ated message] 2027850756) The system [employer] generated this result transmit dayna reference range : 0 - 5 HPF. The refe rence range was not u sed to interpret th is result as normal/abnormal . BACTERIA (test code = Many Negative A 7155939375) MUCOUS (test code = Moderate Negative LPF A 9972267308) SQ EPITH (test code = HPF 1432010062) YEAST BUD (test code = See_Comment [Aut omated message] 0042720115) The system [employer] generated this result transmit dayna reference range : <=1 HPF. The refere nce range was not u sed to interpret th is result as normal/abnormal . HYAL CAST (test code = See_Comment H [Aut omated message] 5098082527) The system [employer] generated this result transmit dayna reference range : <=2 LPF. The refere nce range was not u sed to interpret th is result as normal/abnormal . GRAN CASTS (test code = See_Comment H [Au tomated message] 8401516348) The system [employer] generated this result transmit dayna reference range : <=1 LPF. The refere nce range was not u sed to interpret th is result as normal/abnormal . Lab Interpretation (test Abnormal code = 50905-4) [facility] HospitalaPTT2021-01-[facility] 17:27:00 Test Item Value Reference Range Interpretation Comments APTT Patient (test See_Comment [Automat ed code = 3173-2) message] The system which generated this result transmitted reference range : 23 - 38 Seconds . The reference range was not used to interpr et this result as normal/abnormal . WALTER (test code = WALTER) The [facility] patient population mean normal value for aPTT is 30 seconds. Lab Interpretation Normal (test code = 68293-2) [facility] HospitalProthrombin Time (PT) / [id number] 17:25:00 Test Item Value Reference Range Interpretation Comments PROTIME PATIENT (test See_Comment [Auto mated message] code = 5964-2) The system [employer] generated this result transmitted ref erence range: 12.0 - 1 4.7 Seconds. The re ference range was not u sed to interpret this result as normal/abnor mal. INR (test code = 6301-6) Nor mal INR <1.1; Warfarin Therap eutic range 2.0 to 3. 0 or 2.5 to 3.5, dep ending upon the indica tions. Lab Interpretation (test Normal code = 34911-9) [facility] Metabolic Panel (NA, K, CL, CO2, GLUCOSE, BUN, CREATININE, CA)2020-04-07 17:22:00 Test Item Value Reference Range Interpretation Comments NA (test code = 135 mmol/L 135-145 4932878297) K (test code = 3.8 mmol/L 3.5-5 4518513839) CL (test code = 99 mmol/L 98-108 8640270416) CO2 TOTAL (test code = 21 mmol/L 23-31 L 9686753859) AGAP (test code = 2-16 7264944365) BUN (test code = 37 mg/dL 7-23 H 0865574823) GLUCOSE (test code = 147 mg/dL 70-110 H 0082629695) CREATININE (test code = 1.61 mg/dL 0.5-1.04 H 6246838096) CALCIUM (test code = 9.5 mg/dL 8.6-10.6 0619235283) eGFR Calculation mL/min/1.73m2 (Non-) (test code = 0593100342) eGFR Calculation mL/min/1.73m2 () (test code = 3895618205) WALTER (test code = WALTER) Association of [...] tests). Lab Interpretation Abnormal (test code = 30696-7) [facility] Hospital[facility] Function [facility] (ALB, T.PRO, BILI T, BU/BC, ALT, AST, ALK PHOS)2020-04-07 17:22:00 Test Item Value Reference Range Interpretation Comments TOTAL BILI (test code = 0313086390) 0.8 mg/dL 0.1-1.1 BILI UNCON (test code = 2447139364) 0.6 mg/dL 0.1-1.1 BILI CONJ (test code = 7427923957) 0.0 mg/dL 0-0.3 T PROTEIN (test code = 3040795392) 8.7 g/dL 6.3-8.2 H ALBUMIN (test code = 9988547571) 4.8 g/dL 3.5-5 ALK PHOS (test code = 6837471839) 98 U/L 34-122 ALTv (test code = 1742-6) 21 U/L 5-35 AST(SGOT) (test code = 6702538520) 58 U/L 13-40 H Lab Interpretation (test code = Abnormal 12857-7) [facility] HospitalLipase [id number] 17:22:00 Test Item Value Reference Range Interpretation Comments LIPASE (test code = 8193833988) 18 U/L 0-220 Lab Interpretation (test code = Normal 81698-8) [facility] HospitalCREATINE [id number] 17:22:00 Test Item Value Reference Range Interpretation Comments CK (test code = 9560778277) 773 U/L 33-194 H Lab Interpretation (test code = Abnormal 16349-6) [facility] HospitalCOVID-19 (ID NOW RAPID TESTING)2020-04-07 17:19:00 Test Item Value Reference Range Interpretation Comments SARS-CoV-2 Rapid ID NOW Positive Not Detected A (test code = 80221-3) WALTER (test code = WALTER) ID NOW COVID-19 Assay is an isothermal nucleic acid amplification test intended for the qualitative detection of nucleic acid from SARS-CoV-2 viral RNA in nasopharyngeal (DORMITORY SUPERVISOR) specimens. It is used under Emergency Use [...] indicated. Lab Interpretation Abnormal (test code = 14843-6) [facility] HospitalLactic Acid Whole [id number] 16:50:00 Test Item Value Reference Range Interpretation Comments LACTIC ACID (test code = 1.86 mmol/L 1822023428) [facility] HospitalSARS-CoV-2 (COVID-19) RNA [Presence] in Respiratory specimen by CARLOS with probe [id number] 21:33:38 Test Item Value Reference Range Interpretation Comments SARS-CoV-2 (COVID-19) RNA Not detected Not-Detected [Presence] in Respiratory specimen by CARLOS with probe detection (test code = 70716-0) HAJA ABRAHAM
[2022-10-12 21:13] LABS: Absolute Lymphocytes (CBC) 1.9 K/uL (0.7-4.9); Hematocrit 34.2 % (36.0-45.0); Lymphocytes % 27.4 % (15.3-44.8); MCV 81.5 fL (80-100); MPV 8.3 fL (7.6-11.3); RBC Red Blood Cell Count 4.19 M/uL (3.86-4.86)
[2022-10-12 21:27] LABS: Protime INR 1.1
[2022-10-12 21:32] LABS: ALT/SGPT 12 U/L (13-56); AST/SGOT 11 U/L (15-37); Albumin 3.4 g/dL (3.4-5.0); Alkaline Phosphatase 88 U/L (45-117); BUN Blood Urea Nitrogen 26 mg/dL (7-18); Bicarbonate 22 mEq/L (21-32); Bilirubin Total 0.4 mg/dL (0.2-1.0); Glomerular Filtration Rate 34 ml/min (=/>90); Glucose Level 113 mg/dL (74-106); Magnesium 1.2 mg/dL (1.6-2.4); NT PRO-BNP 899 pg/mL (<450); Protein, Total 7.2 g/dL (6.4-8.2); Sodium Level 139 mEq/L (136-145)
--- NOTE | 2022-10-12 21:38 | RAD REPORT ---
EXAM DESCRIPTION: RADChest Single View10/12/2022 9:05 pm CLINICAL HISTORY: AMS COMPARISON: Chest Single View dated 03/15/2022; Chest Single View dated 09/06/2020; Chest Single View dated 09/05/2020; Chest Single View dated 05/12/2020 TECHNIQUE: Portable AP view of the chest. FINDINGS: Decreased inspiratory effort limits evaluation. The lungs are clear, apart from mild perih ilar interstitial changes and left midlung scarring, stable. No pneumothorax or effusion. The cardio mediastinal contours are unremarkable. IMPRESSION: No acute cardiopulmonary process.
[2022-10-12 21:39] LABS: Bilirubin Direct < 0.1 mg/dL (0-0.2); Bilirubin Indirect, Calculated ND mg/dL (0.2-0.8)
--- NOTE | 2022-10-12 22:09 | RAD REPORT ---
EXAM DESCRIPTION: CT - Head Brain Wo Cont - 10/12/2022 9:31 pm CLINICAL HISTORY: CONFUSED COMPARISON: Head Brain Wo Cont dated 03/16/2022; Head Brain Wo Cont dated 05/12/2020 TECHNIQUE: Noncontrast head CT images were obtained without IV contrast. Multiplanar reformats were generated and reviewed. All CT scans are performed using dose optimization technique as appropriate and may include automated exposure control or mA/KV adjustment according to patient size. FINDINGS: No intracranial hemorrhage, mass, or edema. Midline structures are unremarkable. Stable ventricular caliber with mild diffuse parenchymal volume loss. Periventricular subtle symmetri c white matter hypoattenuation, stable, nonspecific, and most suggestive of chronic small vessel isch emic changes. Stable foci of near CSF density involving the cerebellar hemispheres bilaterally suggestive of small remote infarcts. Mahoney-white matter differentiation is otherwise preserved, without evidence of acute infarct. No abnor mal extra-axial fluid collections. Mastoid air cells are well aerated. Sequelae of chronic sinusitis with moderate mucosal thickening in volving the left maxillary sinus, stable. No acute bony findings. IMPRESSION: No evidence of an acute intracranial process. Stable chronic findings as above.
--- NOTE | 2022-10-12 22:39 | ER ---
Nurse's Notes [facility] Name: Renetta Roger Age: 81 yrs Sex: Female : 1940 Arrival Date: 10/12/2022 Time: 20:20 Bed 7 Private MD: Diagnosis: Ischemic stroke Presentation: 10/12 20:30 Chief complaint: Patient's son or daughter states: pt drove to her home at approx 1630 kl and appeared confused unable to speak in complete sentences ambulated without difficulty pt oriented to name date of and place pt confused on year daughter reports speech os slurred last known normal morning of 10/11/22. Coronavirus screen: Vaccine status: Patient reports receiving the 2nd dose of the covid vaccine. Ebola Screen: Patient negative for fever greater than or equal to 101.5 degrees Fahrenheit, and additional compatible Ebola Virus Disease symptoms. Initial Sepsis Screen: Does the patient meet any 2 criteria? Altered Mental Status. Does the patient have a suspected source of infection? No. Patient's initial sepsis screen is negative. Risk Assessment: Do you want to hurt yourself or someone else? Patient reports no desire to harm self or others. 20:30 Method Of Arrival: Wheelchair 20:30 Acuity: CONOR 2 21:02 Note daughter reports patient has been complaining of feeling tired all week. 10/13 01:03 Onset of symptoms is unknown. Triage Assessment: 10/12 21:00 General: Appears in no apparent distress. Behavior is quiet. Pain: Denies pain. Neuro: Level of Consciousness is awake, alert, obeys commands, Oriented to person, place, [employer] are equal bilaterally Moves all extremities. Speech is slurred, Facial symmetry appears normal. Cardiovascular: Rhythm is sinus bradycardia. Respiratory: No deficits noted. GI: No deficits noted. No signs and/or symptoms were reported involving the gastrointestinal system. : No deficits noted. No signs and/or symptoms were reported regarding the genitourinary system. Historical: - Allergies: 21:00 Codeine; 21:00 Demerol; 21:00 Oxycodone; 21:00 PENICILLINS; - Home Meds: 23:48 potassium chloride 20 mEq oral tablet, extended release 3 times per day [Active]; sucralfate 1 gram Oral tablet before meals and at bedtime [Active]; pantoprazole 40 mg oral granules delayed release for susp packet 2 times per day [Active]; amlodipine 10 mg tablet daily [Active]; Requip Oral 0.25 mg daily [Active]; - PMHx: 21:00 gastric ulcer; Hypertension; carotid stenosis; kl - PSHx: 21:00 right knee; kl - Immunization history:: Adult Immunizations up to date. - Social history:: Smoking status: unknown. Screenin:04 [facility] ED Fall Risk Assessment (Adult) History of falling in the last 3 months, kl including since admission No falls in past 3 months (0 pts) Confusion or Disorientation Yes (5 pts) Intoxicated or Sedated No (0 pts) Impaired Gait No (0 pts) Mobility Assist Device Used No (0 pt) Altered Elimination No (0 pt) Score/Fall Risk Level 0 - 2 = Low Risk Oriented to surroundings, Maintained a safe environment. Abuse screen: Denies threats or abuse. Nutritional screening: No deficits noted. Tuberculosis screening: No symptoms or risk factors identified. 21:10 VAN Screening: Arm Drift: Patient shows no arm weakness. Patient is VAN negative. kl Visual Disturbance: No visual disturbance noted. Aphasia: Patient exhibits both expressive and receptive aphasia. Provider notified of +VAN scoring. Neglect: No neglect noted. [place] Swallow Protocol Exclusion Criteria: Exclusion Criteria Result: Proceed Brief Cognitive Screen What is your name? Normal, Where are you right now? Normal, What year is it? Abnormal: 1941. Oral Mechanism Examination Facial Symmetry: Normal, Motion: Normal, Lip Closure: Normal, 3 oz Water Swallow Challenge: Pt able to drink all water without stopping, coughing, choking or throat clearing: Yes. Assessment: 21:04 Reassessment: see triage assessment. 21:06 Reassessment: MD at bedside for assessment. kl 23:00 Reassessment: Patient appears in no apparent distress at this time. Patient is alert, kl oriented x 3, equal unlabored respirations, skin warm/dry/pink. Vital Signs: 20:30 BP 151 / 59; Pulse 54; Resp 16; Temp 97.9; Pulse Ox 98% on R/A; Weight 75 kg (M); Pain kl 0/10; 21:03 BP 117 / 74; Pulse 51; Pulse Ox 97% on R/A; kl 23:00 BP 136 / 66; Pulse 52; Resp 17; Pulse Ox 98% on R/A; kl 23:39 BP 135 / 59; Pulse 59; Resp 18; Pulse Ox 96% on R/A; kl 10/13 01:02 BP 129 / 68; Pulse 59; Resp 16; Temp 97(TE); Pulse Ox 98% ; 10/12 20:30 Pain Scale: Adult NIH Stroke Scale Scores: 10/12 21:10 NIHSS Score: 4 kl 22:35 NIHSS Score: 3 kdr 23:40 NIHSS Score: 0 ED Course: 20:24 Patient arrived in ED. ja2 20:28 Leandro Rodriguez MD is Attending Physician. kdr 20:40 Inserted saline lock: 20 gauge in right forearm, using aseptic technique. 20:59 Triage completed. kl 21:04 Patient has correct armband on for positive identification. Placed in gown. Bed in low kl position. Call light in reach. Side rails up X2. Adult w/ patient. Client placed on continuous cardiac and pulse oximetry monitoring. NIBP monitoring applied. Door closed. Warm blanket given. 21:05 Protime (+inr) Sent. kl 21:05 Ptt, Activated Sent. kl 21:05 Lactate w/ 2H reflex if indic. Sent. kl 21:05 Basic Metabolic Panel Sent. kl 21:05 CBC with Diff Sent. kl 21:05 LFT's Sent. kl 21:05 Magnesium Sent. kl 21:05 NT PRO-BNP Sent. kl 21:05 Troponin HS Sent. kl 21:07 XRAY Chest (1 view) In Process Unspecified. EDMS 21:33 CT Head Brain wo Cont In Process Unspecified. EDMS 22:37 Hayden Mendoza MD is Hospitalizing Provider. kdr 23:06 CT Head Angio In Process Unspecified. EDMS 23:07 CT Neck Angio In Process Unspecified. EDMS 23:11 Urinalysis w/ reflexes Sent. bc6 23:54 Urinalysis w/ reflexes Sent. 10/13 00:12 Jonnie Smith is Hospitalizing Provider. kdr 01:02 No provider procedures requiring assistance completed. Patient admitted, IV remains in kl place. 01:03 Arm band placed on. EKG completed in triage. Results shown to . Administered Medications: 10/12 23:10 Drug: Aspirin PO 325 mg Route: PO; 10/13 01:20 Follow up: Response: No adverse reaction 10/12 23:10 Drug: Clopidogrel PO 75 mg Route: PO; 10/13 01:20 Follow up: Response: No adverse reaction 10/12 23:10 Drug: foLIC Acid PO 1 mg Route: PO; 10/13 01:20 Follow up: Response: No adverse reaction 10/12 23:10 Drug: Atorvastatin PO 20 mg Route: PO; 10/13 01:20 Follow up: Response: No adverse reaction Medication: 01:03 VIS not applicable for this client. kl Outcome: 10/12 22:39 Decision to Hospitalize by Provider. kdr 10/13 01:02 Admitted to Med/surg via wheelchair, room 230. kl Condition: improved Discharge instructions given to patient, family, Instructed on the need for admit, Demonstrated understanding of instructions. 01:37 Patient left the ED. jb4 NIH Stroke Scale - NIH Stroke Score Date: 10/12/2022 Time: 21:10 Total Score = 4 10. Dysarthria (speech clarity - read or repeat words) - 1(Mild to Moderate) 11. Extinction and Inattention (visual/tactile/auditory/spatial/personal) - 0(No abnormality) 1a. Level of Consciousness (LOC) - 0(Alert) 1b. Level of Consciousness (LOC) (Month \T\ Age) - 1(One) 1c. LOC Commands (Open \T\ Closes Eyes/[employer]) - 0(Both) 2. Best Gaze (Lateral Gaze Paresis) - 0(Normal) 3. Visual Field Loss - 0(No visual loss) 4. Facial Palsy - 0(Normal) 5a. Left Arm: Motor (10-second hold) - 0(No drift) 5b. Right Arm: Motor (10-second hold) - 0(No drift) 6a. Left Leg: Motor (5-second hold - always test supine) - 0(No drift) 6b. Right Leg: Motor (5-second hold - always test supine) - 0(No drift) 7. Limb Ataxia (finger/nose \T\ heel/flores - test with eyes open) - 0(Absent) 8. Sensory Loss (pinprick arms/legs/face) - 1(Mild to moderate loss) 9. Best Language: Aphasia (description/naming/reading) - 1(Mild to moderate aphasia) Initials: NIH Stroke Scale - NIH Stroke Score Date: 10/12/2022 Time: 22:35 Total Score = 3 10. Dysarthria (speech clarity - read or repeat words) - 1(Mild to Moderate) 11. Extinction and Inattention (visual/tactile/auditory/spatial/personal) - 0(No abnormality) 1a. Level of Consciousness (LOC) - 0(Alert) 1b. Level of Consciousness (LOC) (Month \T\ Age) - 0(Both) 1c. LOC Commands (Open \T\ Closes Eyes/[employer]) - 0(Both) 2. Best Gaze (Lateral Gaze Paresis) - 0(Normal) 3. Visual Field Loss - 0(No visual loss) 4. Facial Palsy - 0(Normal) 5a. Left Arm: Motor (10-second hold) - 0(No drift) 5b. Right Arm: Motor (10-second hold) - 0(No drift) 6a. Left Leg: Motor (5-second hold - always test supine) - 0(No drift) 6b. Right Leg: Motor (5-second hold - always test supine) - 0(No drift) 7. Limb Ataxia (finger/nose \T\ heel/flores - test with eyes open) - 0(Absent) 8. Sensory Loss (pinprick arms/legs/face) - 1(Mild to moderate loss) 9. Best Language: Aphasia (description/naming/reading) - 1(Mild to moderate aphasia) Initials: [facility] NIH Stroke Scale - NIH Stroke Score Date: 10/12/2022 Time: 23:40 Total Score = 0 10. Dysarthria (speech clarity - read or repeat words) - 0(Normal) 11. Extinction and Inattention (visual/tactile/auditory/spatial/personal) - 0(No abnormality) 1a. Level of Consciousness (LOC) - 0(Alert) 1b. Level of Consciousness (LOC) (Month \T\ Age) - 0(Both) 1c. LOC Commands (Open \T\ Closes Eyes/[employer]) - 0(Both) 2. Best Gaze (Lateral Gaze Paresis) - 0(Normal) 3. Visual Field Loss - 0(No visual loss) 4. Facial Palsy - 0(Normal) 5a. Left Arm: Motor (10-second hold) - 0(No drift) 5b. Right Arm: Motor (10-second hold) - 0(No drift) 6a. Left Leg: Motor (5-second hold - always test supine) - 0(No drift) 6b. Right Leg: Motor (5-second hold - always test supine) - 0(No drift) 7. Limb Ataxia (finger/nose \T\ heel/flores - test with eyes open) - 0(Absent) 8. Sensory Loss (pinprick arms/legs/face) - 0(Normal) 9. Best Language: Aphasia (description/naming/reading) - 0(No aphasia) Initials: kl Signatures: Dispatcher [employer] Fern Mack RN RN Leandro Reynolds MD MD [facility] Demetri Seth RN RN jbYandy Olmos Breana 6
--- NOTE | 2022-10-12 22:39 | EDPHYS ---
Physician Documentation [facility] Name: Renetta Roger Age: 81 yrs Sex: Female : 1940 Arrival Date: 10/12/2022 Time: 20:20 Bed 7 Private MD: ED Physician Leandro Rodriguez HPI: 10/12 23:45 This 81 yrs old Female presents to ER via Wheelchair with complaints of Altered Mental kdr Status. 23:45 Patient presents today with mild confusion and difficulty speaking and enunciating her kdr words. Her last known well was Thursday afternoon sometime. Since then she had been on her own until she drove herself to her daughter's house this afternoon. They noted that she seemed mildly confused and had trouble getting her words out. They seem to note that she would repeat the last words in a sentence. Patient otherwise appears at her baseline. The patient has no other focal complaint. Onset: The symptoms/episode began/occurred at an unknown time. Severity of symptoms: At their worst the symptoms were mild in the emergency department the symptoms are unchanged. The patient has not experienced similar symptoms in the past. The patient has not recently seen a physician. Historical: - Allergies: 21:00 Codeine; kl 21:00 Demerol; kl 21:00 Oxycodone; kl 21:00 PENICILLINS; kl - Home Meds: 23:48 potassium chloride 20 mEq oral tablet, extended release 3 times per day [Active]; kl sucralfate 1 gram Oral tablet before meals and at bedtime [Active]; pantoprazole 40 mg oral granules delayed release for susp packet 2 times per day [Active]; amlodipine 10 mg tablet daily [Active]; Requip Oral 0.25 mg daily [Active]; - PMHx: 21:00 gastric ulcer; Hypertension; carotid stenosis; kl - PSHx: 21:00 right knee; kl - Immunization history:: Adult Immunizations up to date. - Social history:: Smoking status: unknown. ROS: 23:45 Constitutional: Negative for fever, chills, and weight loss, Eyes: Negative for injury, kdr pain, redness, and discharge, ENT: Negative for injury, pain, and discharge, Neck: Negative for injury, pain, and swelling, Cardiovascular: Negative for chest pain, palpitations, and edema, Respiratory: Negative for shortness of breath, cough, wheezing, and pleuritic chest pain, Abdomen/GI: Negative for abdominal pain, nausea, vomiting, diarrhea, and constipation, Back: Negative for injury and pain, : Negative for injury, bleeding, discharge, and swelling, MS/Extremity: Negative for injury and deformity, Skin: Negative for injury, rash, and discoloration, Psych: Negative for depression, anxiety, suicide ideation, homicidal ideation, and hallucinations, Allergy/Immunology: Negative for hives, rash, and allergies, Endocrine: Negative for neck swelling, polydipsia, polyuria, polyphagia, and marked weight changes, Hematologic/Lymphatic: Negative for swollen nodes, abnormal bleeding, and unusual bruising. 23:45 Neuro: Positive for altered mental status, speech changes, weakness. Exam: 23:45 Constitutional: This is a well developed, well nourished patient who is awake, alert, kdr and in no acute distress. Head/Face: Normocephalic, atraumatic. Eyes: Pupils equal round and reactive to light, extra-ocular motions intact. Lids and lashes normal. Conjunctiva and sclera are non-icteric and not injected. Cornea within normal limits. Periorbital areas with no swelling, redness, or edema. Neck: Trachea midline, no thyromegaly or masses palpated, and no cervical lymphadenopathy. Supple, full range of motion without nuchal rigidity, or vertebral point tenderness. No Meningismus. Chest/axilla: Normal chest wall appearance and motion. Nontender with no deformity. No lesions are appreciated. Cardiovascular: Regular rate and rhythm with a normal S1 and S2. No gallops, murmurs, or rubs. Normal PMI, no JVD. No pulse deficits. Respiratory: Lungs have equal breath sounds bilaterally, clear to auscultation and percussion. No rales, rhonchi or wheezes noted. No increased work of breathing, no retractions or nasal flaring. Abdomen/GI: Soft, non-tender, with normal bowel sounds. No distension or tympany. No guarding or rebound. No evidence of tenderness throughout. Back: No spinal tenderness. No costovertebral tenderness. Full range of motion. Skin: Warm, dry with normal turgor. Normal color with no rashes, no lesions, and no evidence of cellulitis. MS/ Extremity: Pulses equal, no cyanosis. Neurovascular intact. Full, normal range of motion. Psych: Awake, alert, with orientation to person, place and time. Behavior, mood, and affect are within normal limits. 23:45 Neuro: Orientation: to person, place, Not oriented to time, situation, Mentation: inappropriate for stated age, slow to respond, confused, Cerebellar function: no acute changes, Motor: moves all fours, strength is normal, Sensation: Due to the patient's confusion and aphasia, she is not able to accurately cooperate with a full neurologic exam. Vital Signs: 20:30 BP 151 / 59; Pulse 54; Resp 16; Temp 97.9; Pulse Ox 98% on R/A; Weight 75 kg (M); Pain kl 0/10; 21:03 BP 117 / 74; Pulse 51; Pulse Ox 97% on R/A; kl 23:00 BP 136 / 66; Pulse 52; Resp 17; Pulse Ox 98% on R/A; kl 23:39 BP 135 / 59; Pulse 59; Resp 18; Pulse Ox 96% on R/A; kl 07 01:02 BP 129 / 68; Pulse 59; Resp 16; Temp 97(TE); Pulse Ox 98% ; kl 10/12 20:30 Pain Scale: Adult kl NIH Stroke Scale Scores: 10/12 21:10 NIHSS Score: 4 kl 22:35 NIHSS Score: 3 kdr 23:40 NIHSS Score: 0 kl MDM: 22:39 Patient medically screened. kdr 23:45 Data reviewed: vital signs, nurses notes, lab test result(s), radiologic studies. [facility] 10/12 20:37 Order name: Basic Metabolic Panel; Complete Time: 22:11 [facility] 10/12 20:37 Order name: CBC with Diff; Complete Time: 22:21 [facility] 10/12 20:37 Order name: LFT's; Complete Time: 22:21 [facility] 10/12 20:37 Order name: Magnesium; Complete Time: 22:11 [facility] 10/12 20:37 Order name: NT PRO-BNP; Complete Time: 22:21 [facility] 10/12 20:37 Order name: Troponin HS; Complete Time: 22:21 [facility] 10/12 20:37 Order name: Urinalysis w/ reflexes; Complete Time: 00:17 [facility] 10/12 20:37 Order name: Lactate w/ 2H reflex if indic.; Complete Time: 22:21 [facility] 10/12 20:43 Order name: Glucose, Ancillary Testing; Complete Time: 22:21 [facility] 10/12 20:54 Order name: Protime (+inr); Complete Time: 22:21 10/12 20:54 Order name: Ptt, Activated; Complete Time: 22:21 10/13 00:04 Order name: Urine Culture [facility] 10/12 20:37 Order name: XRAY Chest (1 view); Complete Time: 22:21 kdr 10/12 20:37 Order name: CT Head Brain wo Cont; Complete Time: 22:21 kdr 10/12 22:30 Order name: CT Head Angio kdr 10/12 22:30 Order name: CT Neck Angio kdr 10/12 20:37 Order name: EKG; Complete Time: 20:38 kdr 10/12 20:37 Order name: Cardiac monitoring; Complete Time: 21:05 [facility] 10/12 20:37 Order name: EKG - Nurse/Tech; Complete Time: 21:05 [facility] 10/12 20:37 Order name: IV Saline Lock; Complete Time: 21:05 kdr 10/12 20:37 Order name: Labs collected and sent; Complete Time: 21:05 kdr 10/12 20:37 Order name: O2 Per Protocol; Complete Time: 21:05 [facility] 10/12 20:37 Order name: O2 Sat Monitoring; Complete Time: 21:05 kdr Administered Medications: 23:10 Drug: Aspirin PO 325 mg Route: PO; 10/13 01:20 Follow up: Response: No adverse reaction 10/12 23:10 Drug: Clopidogrel PO 75 mg Route: PO; 10/13 01:20 Follow up: Response: No adverse reaction 10/12 23:10 Drug: foLIC Acid PO 1 mg Route: PO; 10/13 01:20 Follow up: Response: No adverse reaction 10/12 23:10 Drug: Atorvastatin PO 20 mg Route: PO; 10/13 01:20 Follow up: Response: No adverse reaction Disposition Summary: 10/12/22 22:39 Hospitalization Ordered Hospitalization Status: Inpatient Admission kdr Location: Telemetry/MedSurg (Inpatient) kdr Condition: Fair kdr Problem: new kdr Symptoms: have improved kdr Bed/Room Type: Standard kdr Provider: Jonnie Smith(10/13/22 00:13) kdr Room Assignment: 224(10/13/22 00:49) Diagnosis - Ischemic stroke kdr Forms: - Medication Reconciliation Form kdr - SBAR form kdr NIH Stroke Scale - NIH Stroke Score Date: 10/12/2022 Time: 21:10 Total Score = 4 10. Dysarthria (speech clarity - read or repeat words) - 1(Mild to Moderate) 11. Extinction and Inattention (visual/tactile/auditory/spatial/personal) - 0(No abnormality) 1a. Level of Consciousness (LOC) - 0(Alert) 1b. Level of Consciousness (LOC) (Month \T\ Age) - 1(One) 1c. LOC Commands (Open \T\ Closes Eyes/Senior Administrative Services Officer) - 0(Both) 2. Best Gaze (Lateral Gaze Paresis) - 0(Normal) 3. Visual Field Loss - 0(No visual loss) 4. Facial Palsy - 0(Normal) 5a. Left Arm: Motor (10-second hold) - 0(No drift) 5b. Right Arm: Motor (10-second hold) - 0(No drift) 6a. Left Leg: Motor (5-second hold - always test supine) - 0(No drift) 6b. Right Leg: Motor (5-second hold - always test supine) - 0(No drift) 7. Limb Ataxia (finger/nose \T\ heel/flores - test with eyes open) - 0(Absent) 8. Sensory Loss (pinprick arms/legs/face) - 1(Mild to moderate loss) 9. Best Language: Aphasia (description/naming/reading) - 1(Mild to moderate aphasia) Initials: NIH Stroke Scale - NIH Stroke Score Date: 10/12/2022 Time: 22:35 Total Score = 3 10. Dysarthria (speech clarity - read or repeat words) - 1(Mild to Moderate) 11. Extinction and Inattention (visual/tactile/auditory/spatial/personal) - 0(No abnormality) 1a. Level of Consciousness (LOC) - 0(Alert) 1b. Level of Consciousness (LOC) (Month \T\ Age) - 0(Both) 1c. LOC Commands (Open \T\ Closes Eyes/Senior Administrative Services Officer) - 0(Both) 2. Best Gaze (Lateral Gaze Paresis) - 0(Normal) 3. Visual Field Loss - 0(No visual loss) 4. Facial Palsy - 0(Normal) 5a. Left Arm: Motor (10-second hold) - 0(No drift) 5b. Right Arm: Motor (10-second hold) - 0(No drift) 6a. Left Leg: Motor (5-second hold - always test supine) - 0(No drift) 6b. Right Leg: Motor (5-second hold - always test supine) - 0(No drift) 7. Limb Ataxia (finger/nose \T\ heel/flores - test with eyes open) - 0(Absent) 8. Sensory Loss (pinprick arms/legs/face) - 1(Mild to moderate loss) 9. Best Language: Aphasia (description/naming/reading) - 1(Mild to moderate aphasia) Initials: [facility] NIH Stroke Scale - NIH Stroke Score Date: 10/12/2022 Time: 23:40 Total Score = 0 10. Dysarthria (speech clarity - read or repeat words) - 0(Normal) 11. Extinction and Inattention (visual/tactile/auditory/spatial/personal) - 0(No abnormality) 1a. Level of Consciousness (LOC) - 0(Alert) 1b. Level of Consciousness (LOC) (Month \T\ Age) - 0(Both) 1c. LOC Commands (Open \T\ Closes Eyes/Senior Administrative Services Officer) - 0(Both) 2. Best Gaze (Lateral Gaze Paresis) - 0(Normal) 3. Visual Field Loss - 0(No visual loss) 4. Facial Palsy - 0(Normal) 5a. Left Arm: Motor (10-second hold) - 0(No drift) 5b. Right Arm: Motor (10-second hold) - 0(No drift) 6a. Left Leg: Motor (5-second hold - always test supine) - 0(No drift) 6b. Right Leg: Motor (5-second hold - always test supine) - 0(No drift) 7. Limb Ataxia (finger/nose \T\ heel/flores - test with eyes open) - 0(Absent) 8. Sensory Loss (pinprick arms/legs/face) - 0(Normal) 9. Best Language: Aphasia (description/naming/reading) - 0(No aphasia) Initials: kl Signatures: Dispatcher [employer] EDFern Martin RN RN kl Rittger, Kevin, MD MD kdr Attema, Lee, AUTOMATIC TIRE TESTER-C AUTOMATIC TIRE TESTER-Cla1 Scotty, Steffanie, RN RN cg Corrections: (The following items were deleted from the chart) 00:13 10/12 22:39 Hayden Mendoza 10/13 00:49 10/12 22:39 kdr
[2022-10-12] MEDS ORDERED: CLOPIDOGREL 75 MG TABLET ONE (23:18)
[2022-10-12] MEDS ORDERED: ASPIRIN EC 325 MG TABLET PO ONE (23:19)
[2022-10-12] MEDS ORDERED: FOLIC ACID 1 MG TABLET ONE (23:19)
[2022-10-12] MEDS ORDERED: ATORVASTATIN 20 MG TAB ONE (23:19)
[2022-10-12 23:54] LABS: Renal Epithelial <5 /HPF (None Seen); Specific Gravity > 1.030 (1.005-1.030); Urine Bacteria <20 /HPF (<20); Urine Bilirubin NEGATIVE (Negative); Urine Blood Negative (Negative); Urine Clarity Clear (Clear); Urine Color Light-Yellow (Yellow); Urine Glucose NEGATIVE (Negative); Urine Mucus Slight /HPF (None Seen); Urine Protein TRACE (Negative); Urine RBC None Seen /HPF (None Seen); Urine Urobilinogen Normal (Normal); Urine pH 5.5 (5.0-7.0)
--- NOTE | 2022-10-13 01:01 | P.HP ---
Certification for Inpatient Patient admitted to: Observation With expected LOS: <2 Midnights Patient will require the following post-hospital care: None Practitioner: I am a practitioner with admitting privileges, knowledge of patient current condition, hospital course, and medical plan of care. Services: Services provided to patient in accordance with Admission requirements found in Title 42 Section 412.3 of the Code of Federal Regulations Patient History Date of Service: 10/13/22 Reason for admission: TIA History of Present Illness: 81-year-old female with history of hypertension, GERD/gastric ulcers presents to the emergency department with chief complaint of altered mental status, changes in speech, confusion. Her daughter at bedside reports that she last saw her in person on Thursday the but she talked to her on the phone on Thursday the in the morning and she was normal at that time. She noticed earlier in the day on the that her mother seemed to be having a hard time forming sentences and was repeating words, having trouble finding words which is new for her. She was then brought to the emergency department for evaluation. CT head was negative for acute findings CT head and neck angio negative for large vessel occlusion or severe stenosis of the carotids. Her labs were significant for hemoglobin 10.9 hematocrit 34.2 creatinine 1.51 GFR 34 BNP 899. She was given aspirin, Plavix in the emergency department, will need to be admitted for TIA/CVA work-up. Around midnight her symptoms completely resolved, she is currently back at baseline with NIH of 0. Allergies codeine Allergy (Verified 09/05/20 21:12) Itching levofloxacin [From Levaquin] Allergy (Verified 09/05/20 21:12) Itching meperidine [From Demerol] Allergy (Verified 05/12/20 22:36) Unknown Penicillins Allergy (Verified 09/05/20 21:12) Itching/Hives/Rash Home Medications: Pantoprazole Sodium [Protonix] 40 mg PO BID 05/12/20 Amlodipine Besylate 10 mg PO BEDTIME 09/06/20 Potassium Chloride 20 meq PO TID 03/15/22 Ropinirole HCl 1 tab PO BID PRN 03/15/22 Sucralfate [Carafate] 1 gm PO QID 03/15/22 - Past Medical/Surgical History Diabetic: No -: HTN -: Esophageal/gastric ulcers -: COVID-19 -: Neck surgery -: Right knee surgery -: Left foot surgery -: Cholecystectomy -: Appendectomy -: Tonsillectomy -: -: Removal of adrenal gland Psychosocial/ Personal History: Patient lives at home alone - Family History Father Notes: none accdg to pt Mother Notes: none accdg to pt - Social History Smoking Status: Never smoker Alcohol use: No CD- Drugs: No Caffeine use: Yes Place of Residence: Home Review of Systems 10-point ROS is otherwise unremarkable Neurological: Change in Speech, Confusion, As per HPI Physical Examination - Physical Exam General: Alert, In no apparent distress, Oriented x3 HEENT: Atraumatic, PERRLA, Mucous membr. moist/pink, EOMI, Sclerae nonicteric Neck: Supple, 2+ carotid pulse no bruit, No LAD, Without JVD or thyroid abnormality Respiratory: Clear to auscultation bilaterally, Normal air movement Cardiovascular: Regular rate/rhythm, Normal S1 S2 Capillary refill: <2 Seconds Gastrointestinal: Normal bowel sounds, No tenderness Musculoskeletal: No tenderness Integumentary: No rashes Neurological: Normal gait, Normal speech, Normal strength at 5/5 x4 extr, Normal tone, Normal affect, Other (NIH 0) - Studies Laboratory Data (last 24 hrs) 10/12/22 20:45: PT 12.1, INR 1.10, APTT 30.4 10/12/22 20:45: WBC 7.00, Hgb 10.9 L, Hct 34.2 L, Plt Count 249 10/12/22 20:45: Sodium 139, Potassium 4.0, BUN 26 H, Creatinine 1.51 H, Glucose 113 H, Magnesium 1.2 L, Total Bilirubin 0.4, AST 11 L, ALT 12 L, Alkaline Phosphatase 88 Assessment and Plan - Plan Assessment: Expressive aphasia, confusion-resolved suspect TIA Hypertension GERD/history of gastric ulcer/esophageal ulcers Plan: Expressive aphasia, confusion-resolved suspect TIA CT head and neck angiogram negative for occlusive findings or large vessel occlusion. Neurology consult in place, will obtain echocardiogram, MRI brain, PT consult. Continue aspirin, statin, Plavix. Lipid panel in the morning. Neurology consult in place. Hypertension Amlodipine continued. GERD/history of gastric ulcer/esophageal ulcers Noted, family reports she has had a history of GI bleeds in the past but none were very serious or requiring transfusion. Sucralfate and Protonix continued, will hold off on Lovenox or heparin subcu instead elect for SCDs given the addition of aspirin, Plavix to her current regimen. DVT PPX: SCDs Code status: Full Discharge Plan: Home Plan to discharge in: 24 Hours - Advance Directives Does patient have a Living Will: No Does patient have a Durable POA for Healthcare: No - Code Status/Comfort Care Code Status Assessed: Yes (Full code) Critical Care: No Time Spent Managing Pts Care (In Minutes): 55
[2022-10-13] MEDS ORDERED: ACETAMINOPHEN 500 MG TAB PO PRN (01:20)
[2022-10-13] MEDS ORDERED: ROPINIROLE HCL 0.25 MG TAB PO PRN (01:20)
[2022-10-13] MEDS ORDERED: ONDANSETRON 4 MG/2 ML VIAL IV PRN (01:20)
[2022-10-13 02:09] VITALS: O2SAT 97; BMI 28.1
[2022-10-13] MEDS: NA CHLORIDE 0.9% 1,000 ML IV SCH ×4 (02:11→21:48)
[2022-10-13 03:33] LABS: Absolute Lymphocytes (CBC) 0.7 K/uL (0.7-4.9); Hematocrit 36.7 % (36.0-45.0); Lymphocytes % 7.9 % (15.3-44.8); MCV 82.3 fL (80-100); RBC Red Blood Cell Count 4.46 M/uL (3.86-4.86)
[2022-10-13 04:21] LABS: Magnesium 1.1 mg/dL (1.6-2.4); Potassium 3.9 mEq/L (3.5-5.1); Thyroid Stimulating Hormone 3.06 uIU/mL (0.358-3.740)
[2022-10-13 05:28] LABS: Blood Morphology Comment NOTED (NOT SEEN); Ovalocytes 1+; Platelet Estimate ADEQ
--- NOTE | 2022-10-13 06:12 | P.PN ---
Date of Service: 10/13/22 Was notified by nursing staff at 534 the patient had developed expressive aphasia, gait instability approximately 15 to 20 minutes prior. Symptoms had resolved for approximately 6 hours prior to this and she was completely back to her baseline with NIH of 0. Currently her NIH score is 6 she appears to be having some expressive aphasia. Discussed case with Dr. Hyatt who stated that given that her symptoms had completely resolved this would set a new window for the possibility of her receiving TNK. Code stroke was called patient was transported to CT for repeat CT head without contrast, I spoke with the patient's daughter Zabrina Sherman who connected me to Bertin Londono who is MsDaniel Lio CLANCY. We discussed the risk and benefit of receiving TNK including the risk of life-threatening hemorrhaging. They both agree that they would want for her to receive TNK if she was in the window and a candidate. CT head pending, will move patient to the ICU in anticipation of possible administration of TNK.
[2022-10-13] MEDS ORDERED: TENECTEPLASE 50 MG/10 ML VIAL IV STA (06:23)
[2022-10-13] MEDS ORDERED: PANTOPRAZOLE 40MG TABLET PO SCH (06:30)
[2022-10-13] MEDS ORDERED: Magnesium Sulfate 2gm IVPB 2 G/50 ML BAG IV ONE (06:56)
[2022-10-13] MEDS: SUCRALFATE 1 GM TABLET PO SCH ×4 (08:48→21:47)
[2022-10-13] MEDS: CEFTRIAXONE 1,000 MG in NA CHLORIDE 0.9% 50 ML IVPB SCH (08:49)
[2022-10-13] MEDS: AMLODIPINE 10 MG TAB PO SCH (08:49)
[2022-10-13] MEDS ORDERED: KCL 20 MEQ/100 mL IVPB 20 MEQ/100 ML BAG IV SCH (09:00)
[2022-10-13] MEDS ORDERED: ASPIRIN EC 81 MG TAB PO SCH (09:00)
[2022-10-13] MEDS ORDERED: CLOPIDOGREL 75 MG TABLET PO SCH (09:00)
[2022-10-13] MEDS ORDERED: SODIUM CHLORIDE 0.9% 10ML INJ IV PRN (10:03)
[2022-10-13] MEDS ORDERED: PANTOPRAZOLE 40 MG INJ IVP SCH (10:03)
--- NOTE | 2022-10-13 12:28 | RAD REPORT ---
EXAM DESCRIPTION: MRI - Brain Wo Cont - 10/13/2022 10:27 am CLINICAL HISTORY: confusion ,expressive aphasia COMPARISON: Head CT and CT angiogram of the same day TECHNIQUE: Multiplanar multisequence MRI of the brain performed without IV contrast. FINDINGS: Motion artifact somewhat limits evaluation, despite attempts at repeat imaging. Small region of diffusion restriction in the left anterior opercular cortex with corresponding T2/FLA IR hyperintensity. Small regions of encephalomalacia and gliosis along the left more than right super ior cerebellar hemisphere, most suggestive of small remote infarcts. No evidence of acute intracranial hemorrhage or abnormal extra-axial fluid collections. Mild diffuse parenchymal volume loss. Ventricular caliber otherwise within normal for age. Midline st ructures are unremarkable. Patchy subcortical and deep white matter T2/FLAIR hyperintensities, nonspecific, but suggestive of ch ronic small vessel ischemic changes. No mass effect or midline shift. Major vascular flow voids are preserved. Moderate left maxillary sinus mucosal thickening. IMPRESSION: Small region of acute to subacute infarct in the left opercular cortex. Other chronic findings as above. No evidence of ventriculomegaly or mass effect.
--- NOTE | 2022-10-13 13:15 | RAD REPORT ---
EXAM DESCRIPTION: CT - Ct Stroke Brain Wo Cont - 10/13/2022 7:17 am CLINICAL HISTORY: AMS TECHNIQUE: Contiguous axial CT images obtained through the brain without IV contrast. Coronal and sa gittal reformatted images were provided. This exam was performed according to our departmental dose-optimization program, which includes autom ated exposure control, adjustment of the mA and/or kV according to patient size and/or use of iterati ve reconstruction technique. COMPARISON: October 12 FINDINGS: Brain: Mild age-related loss of brain volume and chronic white matter ischemic changes. No focal mass effect. Mahoney-white matter differentiation is within normal limits. No hemorrhage. Ventricles: No ventriculomegaly or midline shift. Extra-axial spaces: No extra-axial collection or hemorrhage. Paranasal sinuses and mastoid air cells: Left maxillary sinus mucosal thickening, likely chronic and unchanged Bones: Unremarkable Soft tissues: Unremarkable IMPRESSION: No acute intracranial or extra-axial abnormality. Mild age-related loss of brain volume and chronic white matter ischemic changes. Electronically signed by: Perez Robertson MD 10/13/2022 6:55 AM CDT Due to temporary technical issues with the PACS/Fluency reporting system, reports are being signed by the in house radiologist without review as a courtesy to ensure prompt reporting. The interpreting r adiologist is fully responsible for the content of the report.
--- NOTE | 2022-10-13 13:16 | RAD REPORT ---
EXAM DESCRIPTION: CT - Neck Angio - 10/13/2022 7:19 am CLINICAL HISTORY: CONFUSED COMPARISON: Correlation is made with the prior noncontrast CT of the head TECHNIQUE: Contiguous axial images obtained through the head and neck following the uneventful admin istration of IV contrast. Sagittal and coronal reformatted images were provided. Multiplanar 3-D MIP reformatted images were provided. NASCET criteria utilized for the evaluation of any stenotic lesions . This exam was performed according to our departmental dose-optimization program, which includes autom ated exposure control, adjustment of the mA and/or kV according to patient size and/or use of iterati ve reconstruction technique. FINDINGS: Head: ICA: Atherosclerotic plaque along the cavernous segment of the intracranial internal carotid arteries with mild stenosis bilaterally. Widely patent symmetric supraclinoid projection of the ICAs bilaterally. BRANDON: No occlusion or significant stenosis. No aneurysm. No dissection. MCA: No occlusion or significant stenosis. No aneurysm. No dissection. MANAGER SHIPPING: No occlusion or significant stenosis. No aneurysm. No dissection. Basilar artery: No occlusion or significant stenosis. No aneurysm. No dissection. Neck: ICA: Prominent atherosclerotic plaque at the right carotid bifurcation and proximal right internal ca rotid artery with diameter stenosis estimated at less than 50%. Widely patent left internal carotid artery. ECA: Atherosclerotic calcification at the origin of the l eft external carotid artery which is patent. Patent right external carotid artery. CCA: No occlusion or significant stenosis. No aneurysm. No dissection. Aortic arch: No aneurysm. No dissection. Vertebral arteries: No occlusion or significant stenosis. No aneurysm. No dissection. Dominant left v ertebral artery and hypoplastic right vertebral artery. Brain: No focal mass effect. No areas of abnormal parenchymal enhancement. Bones: Status post anterior cervical fusion. Soft tissues: Unremarkable Lung apices: Clear IMPRESSION: 1. Prominent atherosclerotic plaque at the right carotid bifurcation and proximal righ t internal carotid artery with diameter stenosis estimated at less than 50%. 2. Mild stenosis along the cavernous segment of the intracranial internal carotid arteries bilatera lly. 3. No evidence of large vessel occlusion, significant stenosis, or aneurysm in the head and neck. Electronically signed by: Perez Robertson MD 10/13/2022 12:14 AM CDT Due to temporary technical issues with the PACS/Fluency reporting system, reports are being signed by the in house radiologist without review as a courtesy to ensure prompt reporting. The interpreting r adiologist is fully responsible for the content of the report.
--- NOTE | 2022-10-13 13:21 | RAD REPORT ---
EXAM DESCRIPTION: CT - Head angio - 10/13/2022 7:19 am CLINICAL HISTORY: CONFUSED COMPARISON: Correlation is made with the prior noncontrast CT of the head TECHNIQUE: Contiguous axial images obtained through the head and neck following the uneventful admin istration of IV contrast. Sagittal and coronal reformatted images were provided. Multiplanar 3-D MIP reformatted images were provided. NASCET criteria utilized for the evaluation of any stenotic lesions . This exam was performed according to our departmental dose-optimization program, which includes autom ated exposure control, adjustment of the mA and/or kV according to patient size and/or use of iterati ve reconstruction technique. FINDINGS: Head: ICA: Atherosclerotic plaque along the cavernous segment of the intracranial internal carotid arteries with mild stenosis bilaterally. Widely patent symmetric supraclinoid projection of the ICAs bilaterally. BRANDON: No occlusion or significant stenosis. No aneurysm. No dissection. MCA: No occlusion or significant stenosis. No aneurysm. No dissection. HALF SOLE FITTER: No occlusion or significant stenosis. No aneurysm. No dissection. Basilar artery: No occlusion or significant stenosis. No aneurysm. No dissection. Neck: ICA: Prominent atherosclerotic plaque at the right carotid bifurcation and proximal right internal ca rotid artery with diameter stenosis estimated at less than 50%. Widely patent left internal carotid artery. ECA: Atherosclerotic calcification at the origin of the l eft external carotid artery which is patent. Patent right external carotid artery. CCA: No occlusion or significant stenosis. No aneurysm. No dissection. Aortic arch: No aneurysm. No dissection. Vertebral arteries: No occlusion or significant stenosis. No aneurysm. No dissection. Dominant left v ertebral artery and hypoplastic right vertebral artery. Brain: No focal mass effect. No areas of abnormal parenchymal enhancement. Bones: Status post anterior cervical fusion. Soft tissues: Unremarkable Lung apices: Clear IMPRESSION: 1. Prominent atherosclerotic plaque at the right carotid bifurcation and proximal righ t internal carotid artery with diameter stenosis estimated at less than 50%. 2. Mild stenosis along the cavernous segment of the intracranial internal carotid arteries bilatera lly. 3. No evidence of large vessel occlusion, significant stenosis, or aneurysm in the head and neck. Electronically signed by: Perez Robertson MD 10/13/2022 12:14 AM CDT Due to temporary technical issues with the PACS/Fluency reporting system, reports are being signed by the in house radiologist without review as a courtesy to ensure prompt reporting. The interpreting r adiologist is fully responsible for the content of the report.
[2022-10-13 13:35] LABS: Hematocrit 32.6 % (36.0-45.0)
--- NOTE | 2022-10-13 13:58 | P.PN ---
Date of Service: 10/13/22 Patient seen and examined. Blood pressure is running soft. Status post TNKase. Plan: ICU monitoring. Rocephin for UTI Follow urine culture Repeat CT within 24 hours.
--- NOTE | 2022-10-13 17:11 | EKG ---
Test Date: 2022-10-12 Test Time: 20:33:14 Delivery Truck Driver: JUAN MEASUREMENT RESULTS: Intervals: Rate: 53 [place]: 164 QRSD: 146 QT: 470 QTc: 441 [place]: P: 67 [place]: 164 QRS: -63 T: 52 INTERPRETIVE STATEMENTS: Sinus bradycardia Right bundle branch block Left anterior fascicular block Bifascicular block Left ventricular hypertrophy with repolarization abnormality Abnormal ECG Compared to ECG 03/15/2022 11:19:17 Early repolarization now present Bifascicular block still present Electronically Signed On 10-13-22 17:10:41 CDT by Devin Kurtz
[2022-10-13] MEDS ORDERED: ATORVASTATIN 20 MG TAB PO SCH (21:00)
[2022-10-13] MEDS: PANTOPRAZOLE 40 MG INJ IVP SCH (21:47)
--- NOTE | 2022-10-13 22:18 | CON ---
Reason For Consultation: Consultation called because of possible TIA versus stroke. History Of Present Illness: Ms. Roger is an 81-year-old right-handed patient with hyperte nsion, who comes to the hospital with the above 3 days worth of difficulty getting her thoughts and w ords together with symptoms fluctuating. The patient's sister was in the room. Her daughter witness ed the event, but was not present at the time I saw the patient. The event began around the 8th, tod ay is the 10th, in the morning, where she had some difficulty getting her words and thoughts out prop erly. She came to [facility] and had a negative head CT scan and CT angiogram of her head s howing no significant occlusion of the large intercerebral and extracerebral neck vessels. Her hemog lobin was slightly decreased and hematocrit slightly increased with increased creatinine of 1.51 with assistance with mild dehydration. She had an NIH of 0 at the time as her symptoms had resolved by t he time she was seen at hospital. She was treated with aspirin, Plavix, folic acid, and admitted for further stroke workup. Her subsequent brain MRI done earlier today did identify an acute to subacut e stroke in the left opercular cortex. There were areas of encephalomalacia and gliosis in the left more than right superior cerebellar hemisphere suggestive of small remote infarct. The patient and h er sister denies any symptoms related to those chronic strokes. Past Medical History: COVID-19 infection, ulcers. Allergies: CODEINE, LEVOFLOXACIN, MEPERIDINE, PENICILLIN. Home Medications: Protonix 40 mg daily, amlodipine 10 mg at bedtime, potassium 20 mEq up to 3 times daily, ropinirole 1 tablet twice daily, sucralfate 1 g 4 times daily. Past Surgical History: Neck and right knee surgery, left foot surgery, cholecystectomy, appendectomy , tonsillectomy, , removal of adrenal gland. Social History: The patient lives at home. Denies recent alcohol use, but does smoke cigarettes. D rinks caffeinated beverages. Family History: Noncontributory. Review of Systems: As noted. The patient had some difficulty getting her thoughts and words together. Her sister said she had no prior neurological deficits that she knows of despite findings on the MRI. Otherwise, no nausea or vomiting. No other positives on a 10 point systems review. Physical Examination: Vital Signs: Blood pressure 107/47, pulse 65, respiratory rate 18, oxygen saturation 100%, temperatu re 98.5. Weight 164 pounds. Height 5 feet 4 inches, BMI 28.2. General: Ms. Roger is in ICU. She is in no acute distress. HEENT: She is normocephalic, atraumatic. Sclerae anicteric. Oropharynx is pink and moist. Neck: Supple. Chest: Clear. Heart: Regular. Extremities: Showed no clubbing, cyanosis, or edema. Neurological: She is alert and oriented to situation, place, and person. She follows commands appro priately. No obvious deficits detected in terms of cranial nerves. Motor strength is 5/5 proximally and distally. Sensory exam, mild stocking-glove loss, otherwise. Coordination intact. Reflexes de pressed, symmetric. She did not have any significant difficulty with labial, lingual, or guttural so unds. She did ambulate about 50 feet with a rolling walker, but reported some fatigue. Laboratory Studies: White blood cell count 9.5, hemoglobin 10.3, platelets 221. INR 1.1. Chemistri es: 138 sodium, potassium 3.5, chloride 108, creatinine 1.35, initially 1.51. Glucose ranged from 7 7 to 113, calcium 8.1, magnesium 1.1. LDL cholesterol is 78, HDL 42, total cholesterol 140. Her cho lesterol to HDL ratio was 3.42, TSH 3.06. Urinalysis, 250 esterases, 20 to 50 white blood cells, tra ce protein, 1+ nitrite. Electrocardiogram, sinus bradycardia, right bundle-branch block, left anteri or fascicular block. Assessment: Ms. Roger is an 81-year-old patient with a left opercular stroke and some expressive ap hasia that seems to have resolved at this point despite the presence of the subacute stroke. 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 She has risk factor for stroke, hypertension, and recurrent urinary tract infection. She has mild electrolyte abnormalities and dehydration. Plan: 1.Aspirin 81 mg daily. 2.Plavix 75 mg daily. 3.Hydrate 8 glasses of water daily. 4.Since her LDL cholesterol is greater than 70, moderate dose statin as it is actually 78. Folic ac id 1 mg daily. She does have mild difficulty in terms of fatigue per the physical therapists. She m ay benefit from outpatient physical therapy at this point, especially if she is able to have transpor tation back and forth to physical therapy. She may be discharged to the floor as soon as okayed by h er primary team, and after discharge, followup in Dr. Hyatt's clinic within a month. ART Voice ID: [id number] Report ID: [id number]
[2022-10-14 05:06] LABS: Absolute Lymphocytes (CBC) 0.5 K/uL (0.7-4.9); Hematocrit 30.4 % (36.0-45.0); Lymphocytes % 4.1 % (15.3-44.8); MCV 81.5 fL (80-100); RBC Red Blood Cell Count 3.73 M/uL (3.86-4.86)
[2022-10-14 05:20] LABS: Magnesium 1.6 mg/dL (1.6-2.4); Potassium 3.8 mEq/L (3.5-5.1)
[2022-10-14] MEDS: NA CHLORIDE 0.9% 1,000 ML IV SCH (06:07)
--- NOTE | 2022-10-14 07:04 | ECHO ---
HEIGHT: 5 ft 4 in WEIGHT: 164 lb 1.6 oz DATE OF STUDY: 10/13/[address]: Santino Kwong NP 2-DIMENSIONAL: YES M.MODE: YES DOPPLER: YES COLOR FLOW: YES TDS: PORTABLE: YES DEFINITY: BUBBLE STUDY: DIAGNOSIS: STROKE CARDIAC HISTORY: CATHERIZATION: NO SURGERY: NO PROSTHETIC VALVE: NO PACEMAKER: NO MEASUREMENTS (cm) DIASTOLIC (NORMALS) SYSTOLIC (NORMALS) IVSd 1.0 (0.6-1.2) LA Diam 2.3 (1.9-4.0) LVEF 67% LVIDd 3.6 (3.5-5.7) LVIDs 2.3 (2.0-3.5) %FS 36% LVPWd 1.0 (0.6-1.2) Ao Diam 2.6 (2.0-3.7) 2 DIMENSIONAL ASSESSMENT: RIGHT ATRIUM: NORMAL LEFT ATRIUM: NORMAL RIGHT VENTRICLE: NORMAL LEFT VENTRICLE: NORMAL TRICUSPID VALVE: MILD TRICUSPID REGURGITATION MITRAL VALVE: 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 NORMAL LEFT VENTRICULAR EJECTION FRACTION 60-65% WITH NORMAL WALL MOTION 2. DIASTOLIC DYSFUNCTION 3. 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 MILD TRICUSPID REGURGITATION 5. MODERATE TO SEVERE PULMONARY HYPERTENSION WITH RIGHT VENTRICULAR SYSTOLIC PRESSURE OF 53 mmHg PLUS RIGHT ATRIAL PRESSURE TECHNOLOGIST: MARIANA CARLOS
[2022-10-14] MEDS: PANTOPRAZOLE 40 MG INJ IVP SCH (08:17)
[2022-10-14] MEDS: CEFTRIAXONE 1,000 MG in NA CHLORIDE 0.9% 50 ML IVPB SCH (08:17)
[2022-10-14] MEDS: SUCRALFATE 1 GM TABLET PO SCH (08:17)
[2022-10-14] MEDS: AMLODIPINE 10 MG TAB PO SCH (08:18)
[2022-10-14 10:06] VITALS: TEMP 97.4
--- NOTE | 2022-10-14 10:17 | RAD REPORT ---
EXAM DESCRIPTION: CT - Head Brain Wo Cont - 10/14/2022 9:56 am CLINICAL HISTORY: f/o TPA administration Headache, drowsiness, CVA symptomology COMPARISON: Ct Stroke Brain Wo Cont dated 10/13/2022; Head angio dated 10/12/2022 TECHNIQUE: All CT scans are performed using dose optimization technique as appropriate and may inclu de automated exposure control or mA/KV adjustment according to patient size. FINDINGS: No intracranial hemorrhage, hydrocephalus or extra-axial fluid collection.Moderate general ized brain atrophy is present with mild periventricular and deep white matter chronic microvascular i schemic changes.No areas of brain edema or evidence of midline shift. The paranasal sinuses and mastoids are clear. The calvarium is intact. IMPRESSION: No acute intracranial abnormality.
--- NOTE | 2022-10-14 10:57 | P.DS ---
Admission Date: 10/13/22 Discharge Date: 10/14/22 Disposition: DC HOME/HOME HEALTH CARE Discharge Condition: FAIR Reason for Admission: TIA - Problems (1) Acute CVA (cerebrovascular accident) Current Visit: Yes Status: Acute (2) PUD (peptic ulcer disease) Current Visit: Yes Status: Acute (3) Acute cystitis without hematuria Current Visit: Yes Status: Acute Brief History of Present Illness: 81-year-old female with history of hypertension, GERD/gastric ulcers presents to the emergency department with chief complaint of altered mental status, changes in speech, confusion. Her daughter at bedside reported that her mother was having a hard time forming sentences and was repeating words, having trouble finding words which is new for her. She was then brought to the emergency department for evaluation. CT head was negative for acute findings CT head and neck angio negative for large vessel occlusion or severe stenosis of the carotids. Her labs were significant for hemoglobin 10.9 hematocrit 34.2 creatinine 1.51 GFR 34 BNP 899. She was given aspirin, Plavix in the emergency department and admitted for TIA/CVA work-up. Around midnight her symptoms completely resolved, was back at baseline with NIH of 0. Hospital Course: Patient admitted to the medical floor. She again developed acute episode of word finding difficulty. Neurology Dr. Hyatt was contacted, patient monika gnosed with acute CVA and given TNKase. Patient was then admitted to the ICU for close monitoring. Her speech problem resolved. Patient had no difficulty swallowing. She was seen and evaluated by physical therapy and she was able to ambulate with minimal assistance though over short distances. Echocardiogram did not show any or valvular disease but demonstrated pulmonary hypertension. Repeat head CT 24 hours after TNKase did not show any acute disease. Patient blood pressure was soft, borderline low so her antihypertensives were held during the hospital stay. They are held on discharge and patient has been informed to monitor blood pressure daily at home and to resume her antihypertensives should her systolic blood pressure stays consistently above 140. Her UA suggested the presence of UTI. Urine culture grew gram-negative rods. Patient was treated with IV Rocephin for UTI. She has clinically improved. She is prescribed cefpodoxime to continue treatment for the UTI. Vital Signs/Physical Exam: Temp Pulse Resp BP Pulse Ox 97.4 F 73 21 H 107/40 L 99 10/14/22 08:00 10/14/22 09:00 10/14/22 09:00 10/14/22 09:00 10/14/22 09:00 General: Alert, In no apparent distress, Oriented x3 HEENT: PERRLA, Mucous membr. moist/pink, EOMI Neck: Supple, JVD not distended Respiratory: Clear to auscultation bilaterally, Normal air movement Cardiovascular: No edema, Regular rate/rhythm, Normal S1 S2 Gastrointestinal: Normal bowel sounds, Soft and benign, Non-distended Musculoskeletal: No swelling Integumentary: No rashes, No breakdown, No cyanosis Neurological: Normal speech, Normal strength at 5/5 x4 extr, Cranial nerves 3-12 intact Laboratory Data at Discharge: WBC 11.30 thou/uL (4.3-10.9) H 10/14/22 04:32 Hgb 9.5 g/dL (12.0-15.0) L 10/14/22 04:32 Hct 30.4 % (36.0-45.0) L 10/14/22 04:32 Plt Count 211 thou/uL (152-406) 10/14/22 04:32 PT 12.1 SECONDS (9.5-12.5) 10/12/22 20:45 INR 1.10 10/12/22 20:45 APTT 30.4 SECONDS (24.3-36.9) 10/12/22 20:45 Sodium 138 mEq/L (136-145) 10/14/22 04:32 Potassium 3.8 mEq/L (3.5-5.1) 10/14/22 04:32 BUN 20 mg/dL (7-18) H 10/14/22 04:32 Creatinine 1.10 mg/dL (0.55-1.02) H 10/14/22 04:32 Glucose 88 mg/dL (74-106) 10/14/22 04:32 Magnesium 1.6 mg/dL (1.6-2.4) 10/14/22 04:32 Total Bilirubin 0.4 mg/dL (0.2-1.0) 10/12/22 20:45 AST 11 U/L (15-37) L 10/12/22 20:45 ALT 12 U/L (13-56) L 10/12/22 20:45 Alkaline Phosphatase 88 U/L (45-117) 10/12/22 20:45 Triglycerides 120 mg/dL (<150) 10/13/22 03:25 Cholesterol 144 mg/dL (<200) 10/13/22 03:25 HDL Cholesterol 42 mg/dL (40-60) 10/13/22 03:25 Cholesterol/HDL Ratio 3.43 10/13/22 03:25 Home Medications: Pantoprazole Sodium [Protonix] 40 mg PO BID 05/12/20 Potassium Chloride 20 meq PO TID 03/15/22 Ropinirole HCl 1 tab PO BID PRN 03/15/22 Sucralfate [Carafate] 1 gm PO ACHS 03/15/22 Aspirin [Aspirin EC 81 MG] 81 mg PO DAILY #30 tab 10/14/22 Atorvastatin Calcium [Lipitor] 40 mg PO BEDTIME #30 tab 10/14/22 Cefpodoxime Proxetil 100 mg PO BID #10 tab 10/14/22 Clopidogrel Bisulfate [Plavix] 75 mg PO DAILY #30 tab 10/14/22 Folic Acid 1 mg PO DAILY #30 tab 10/14/22 New Medications: Aspirin [Aspirin EC 81 MG] 81 mg PO DAILY #30 tab Cefpodoxime Proxetil 100 mg PO BID #10 tab Folic Acid 1 mg PO DAILY #30 tab Atorvastatin Calcium [Lipitor] 40 mg PO BEDTIME #30 tab Clopidogrel Bisulfate [Plavix] 75 mg PO DAILY #30 tab Physician Discharge Instructions: Your blood pressure medication has been discontinued temporarily because your blood pressure was running borderline low during your hospital stay. We recommend to check your blood pressure daily every morning and restart your blood pressure medications if the top blood pressure reading(systolic) consistently stays above 140. Diet: AHA Activity: Fall precautions Time spent managing pt's care (in minutes): 36
[2022-10-14 12:35] VITALS: BP 127/69
--- NOTE | 2022-10-14 20:26 | EKG ---
Test Date: 2022-10-13 Test Time: 06:03:03 Composition Stone Applicator: CINDI MEASUREMENT RESULTS: Intervals: Rate: 71 [place]: 152 QRSD: 148 QT: 402 QTc: 436 [place]: P: 71 [place]: 152 QRS: -68 T: 73 INTERPRETIVE STATEMENTS: Normal sinus rhythm Right bundle branch block Left anterior fascicular block Bifascicular block Left ventricular hypertrophy with repolarization abnormality Abnormal ECG Compared to ECG 10/12/2022 20:33:14 Sinus bradycardia no longer present Bifascicular block still present Electronically Signed On 10-14-22 20:23:58 CDT by Omar Isabel
== END 2022-10-14 12:25 | disposition home health service (06) | DRG 62 ==
LOC: ER 20:20 → ERHOLD 10-13 00:39 → 2ND 10-13 01:25 → 3RD-ICU 10-13 06:16 → OBSVTOIN 10-13 09:37
PROVIDERS: ADMIT Internal Medicine; ATTEND Internal Medicine
DX: I63.9 Cerebral infarction, unspecified (principal); N30.00 Acute cystitis without hematuria; I10 Essential (primary) hypertension; K27.9 Peptic ulcer, site unspecified, unspecified as acute or chronic, without hemorrhage or perforation; K21.9 Gastro-esophageal reflux disease without esophagitis; R41.0 Disorientation, unspecified; R47.01 Aphasia; R29.704 NIHSS score 4; Z60.2 Problems related to living alone; Z88.5 Allergy status to narcotic agent; Z88.1 Allergy status to other antibiotic agents; Z88.0 Allergy status to penicillin; Z79.02 Long term (current) use of antithrombotics/antiplatelets; Z79.82 Long term (current) use of aspirin; Z90.49 Acquired absence of other specified parts of digestive tract; Z79.899 Other long term (current) drug therapy
CPT/HCPCS: 36415; 70450; 70496; 70498; 70551; 71045; 80048; 80061; 80076; 81001; 82947; 83605; 83735; 83880; 84443; 84484; 85014; 85018; 85025; 85610; 85730; 87077; 87086; 87088; 87186; 92523; 92610; 93005; 93306; 97116; 97161; 97530; 99285; C9113; G0378; J0696; J3101; J3475; J3480; J7030; Q9967